=== PATIENT | male | born 1965 | race Caucasian/White ===

== ENCOUNTER 2016-10-06 18:02 | Inpatient (IN) | payer MEDICARE, OTHER ==
[~2016-10-06] VITALS: Ht 170.2 cm; Wt 94.8 kg
[~2016-10-06 18:02] MED LIST: ATOR20TA38 PO; BENA40TA41 PO; CALC500T12 PO; CARV12.579 PO; FERGON PO; INSU100I27 SC; NEPH PO; NOVO3I SC; NPH,100V SC
[2016-10-06] MEDS ORDERED: morphine 4 MG/ML VIAL IV STA (20:15)
[2016-10-06] MEDS ORDERED: NOVO3I SC (20:32)
[2016-10-06] MEDS ORDERED: ONDANSETRON 4 MG INJ IV STA (20:33)
[2016-10-06] MEDS ORDERED: ZOLP10TA5 PO (20:34)
[2016-10-06] MEDS ORDERED: AMLO-147 PO (20:34)
[2016-10-06] MEDS ORDERED: HYDR-3671 PO (20:34)
[2016-10-06 20:35] LABS: ADD SCAN DIFF NO
[2016-10-06] MEDS ORDERED: LYR75 PO (20:35)
[2016-10-06] MEDS ORDERED: CARV25TA79 PO (20:36)
[2016-10-06] MEDS ORDERED: HYDROmorphONE 1 MG/ML SYG IV STA (20:41)
[2016-10-06 20:42] LABS: BASOPHILS % 0.4 % (0.0-2.0); EOSINOPHILS # 0.2 10^3/ul (0.0-0.5); EOSINOPHILS % 2.3 % (0.0-7.0); HEMATOCRIT 31.2 % (42.0-52.0); HEMOGLOBIN 10.5 g/dl (14.0-18.0); LYMPHOCYTES # 0.7 10^3/ul (0.8-2.9); LYMPHOCYTES % 6.7 % (15.0-51.0); MEAN CORPUSCULAR HEMOGLOBIN 30.1 pg (29.0-33.0); MEAN CORPUSCULAR HGB CONC 33.7 g/dl (32.0-37.0); MEAN CORPUSCULAR VOLUME 89.4 fl (82.0-101.0); MEAN PLATELET VOLUME 11.8 fl (7.4-10.4); MONOCYTE # 0.6 10^3/ul (0.3-0.9); MONOCYTES % 5.8 % (0.0-11.0); NEUTROPHIL # 8.3 10^3/ul (1.6-7.5); NEUTROPHILS % 84.5 % (39.0-77.0); PLATELET COUNT 153 10^3/UL (140-415); RED BLOOD COUNT 3.49 10^6/ul (4.70-6.10); RED CELL DISTRIBUTION WIDTH 15.9 % (11.5-14.5); WHITE BLOOD COUNT 9.8 10^3/ul (4.8-10.8)
[2016-10-06] MEDS ORDERED: LEVOFLOXACIN 750MG/D5W (PMX) 150 ML IVPB STA (20:43)
[2016-10-06] MEDS ORDERED: VANCOMYCIN 1 GM (PMX) 250 ML IVPB STA (20:43)
[2016-10-06] MEDS ORDERED: PANT40TA4 PO (20:44)
[2016-10-06 20:47] LABS: ALBUMIN 3.7 g/dl (3.3-4.9)
[2016-10-06 20:48] LABS: INR 0.95; POTASSIUM 5.3 mmol/L (3.5-5.1); PROTIME 12.7 Sec (12.2-14.2)
[2016-10-06 20:49] LABS: PARTIAL THROMBOPLASTIN TIME 30.2 Sec (25.0-35.0)
[2016-10-06 20:50] LABS: ALBUMIN/GLOBULIN RATIO 0.97; CREATININE 12.53 mg/dl (0.61-1.24); TOTAL PROTEIN 7.5 g/dl (6.1-8.1)
[2016-10-06 20:51] LABS: CALCIUM 7.2 mg/dl (8.4-10.2)
[2016-10-06] MEDS ORDERED: DARB60VI IJ (21:02)
--- NOTE | 2016-10-06 21:28 | RADRPT ---
PROCEDURE: CR, chest CLINICAL INDICATION: Chest pain. TECHNIQUE: AP chest. COMPARISON: Chest, 07/12/2016. FINDINGS: The heart is somewhat enlarged. There is status post CABG. There is discoid atelectasis in the lef t lower lobe. There is no acute infiltrate in the lungs. No pleural effusion. IMPRESSION: 1. Mild cardiomegaly. Status post CABG. 2. Discoid atelectasis in the left lower lobe, unchanged. RPTAT: GG .Almas Curtis MD, MD Date Time Electronically viewed and signed by .Almas Curtis MD, MD on 10/06/2016 21:28 .Y/
[2016-10-06] MEDS ORDERED: ACETAMINOPHEN 325 MG TAB PO PRN (22:00)
[2016-10-06] MEDS ORDERED: ONDANSETRON 4 MG INJ IV PRN (22:00)
--- NOTE | 2016-10-06 22:05 | RADRPT ---
PROCEDURE: CT abdomen and pelvis without intravenous contrast. CLINICAL INDICATION: Pain. TECHNIQUE: CT of the abdomen/pelvis was performed utilizing axial images with reconstructions in s agittal and coronal planes. The administered radiation dose is CTDI 14.5 mGy, DLP 956 mGy-cm. COMPARISON: No pertinent prior examinations were submitted for comparison. FINDINGS: Visualized Chest: Left-sided gynecomastia is noted. There is moderate cardiomegaly. Coronary arter y calcifications are noted. There is subsegmental atelectasis within the left lower lobe. Some calc ified left hilar lymph nodes are noted. A calcified granuloma is noted in the subpleural left lower lobe. Abdomen: The spleen, pancreas, gallbladder,and adrenal glands are unremarkable. The liver is diffusely dec reased in attenuation, compatible with hepatic steatosis. The kidneys are without hydronephrosis. No definite urinary calculi are seen. There is no evidence of bowel obstruction. The appendix is not seen. There is no evidence of acute appendicitis. No intra-abdominal free air is seen. There is mild intra-abdominal ascites. Pelvis: A peritoneal dialysis catheter is seen within the pelvis. There is a moderate amount of pelvic free fluid. There are moderate-sized bilateral inguinal hernias which contain fat and ascites. There is mild concentric thickening of the bladder canseco. The prostate is unremarkable. No pelvic adenopath y is identified. Osseous structures: Unremarkable. IMPRESSION: There is an ill dialysis catheter within the lower abdomen with moderate pelvic and intra-abdominal ascites. Concentric bladder wall thickening. Please correlate with urinalysis to exclude infection. Moderate bilateral inguinal hernias. Hepatic steatosis. RPTAT: HIKT .Jered Matson MD, Date Time Electronically viewed and signed by .Jered Matson MD, on 10/06/2016 22:04 .T/
--- NOTE | 2016-10-06 22:12 | ERA ---
ER Documentation Chief Complaint Date/Time DATE: 10/06/16 TIME: 22:05 Chief Complaint abdominal pain after dialysis earlier today HPI 51-year-old male with a history of coronary artery disease, diabetes, CKD on peritoneal dialysis presenting with severe abdominal pain for one day. He had associated diarrhea today. He has had associated subjective fevers and chills. No nausea, vomiting, chest pain, shortness of breath. He endorses a history of peritonitis, and states that this feels like the last time he had peritonitis. Pain is located mostly in the left lower quadrant but radiates all over his abdomen. Pain is 10 out of 10. ROS All systems reviewed and are negative except as per history of present illness. Medications Home Meds Active Scripts Insulin NPH Human Isophane (Humulin N) 100 Unit/1 Ml Vial, 10 UNIT SC HS for 30 Days, VIAL Prov:RONIT ROJAS 06/22/16 Insulin Detemir (Levemir Flextouch) 100 Unit/1 Ml Insuln.pen, 16 UNIT SC QHS for 30 Days Prov:RONIT ROJAS 06/22/16 Reported Medications Darbepoetin Fly in Polysorbat (Aranesp) 60 Mcg/1 Ml Vial, 60 MCG IJ Q7D, VIAL 10/06/16 Pantoprazole* (Pantoprazole*) 40 Mg Tablet.dr, 40 MG PO AC BREAKFAST, TAB 10/06/16 Carvedilol* (Carvedilol*) 25 Mg Tablet, 25 MG PO BID, #60 TAB 10/06/16 Pregabalin* (Lyrica*) 75 Mg Capsule, 75 MG PO BID, CAP 10/06/16 Amlodipine Besylate* (Amlodipine Besylate*) 10 Mg Tablet, 10 MG PO DAILY, #30 TAB 10/06/16 Zolpidem Tartrate* (Zolpidem Tartrate*) 10 Mg Tablet, 10 MG PO QHS Y for INSOMNIA, #30 TAB 10/06/16 Hydralazine Hcl* (Hydralazine Hcl*) 25 Mg Tab, 25 MG PO Q8, #90 TAB 10/06/16 Insulin Aspart* (Novolog Insulin Pen*) 100 Unit/Ml Soln, 0 SC .SLIDING SCALE AC , EA AC MEALS 10/06/16 Atorvastatin Calcium* (Atorvastatin Calcium*) 20 Mg Tablet, 20 MG PO HS, TAB 11/7/15 Multivit/Ca Carb/B Cmplx/Fa* (Pat-Tommy*) 1 Tab Tab, 1 TAB PO DAILY, TAB 08/26/14 Discontinued Reported Medications Benazepril Hcl* (Benazepril Hcl*) 40 Mg Tablet, 40 MG PO DAILY, TAB 06/18/15 Carvedilol* (Carvedilol*) 12.5 Mg Tablet, 12.5 MG PO BID, TAB 06/18/15 Calcium Carbonate* (Oysco-500*) 1 Tab Tablet, 1 TAB PO TID, TAB 08/26/14 Discontinued Scripts Insulin Aspart* (Novolog Insulin Pen*) 100 Unit/Ml Soln, 14 UNIT SC WITH DINNER for 30 Days Prov:RONIT ROJAS 06/22/16 Insulin Aspart* (Novolog Insulin Pen*) 100 Unit/Ml Soln, 17 UNIT SC WITH LUNCH for 30 Days Prov:RONIT ROJAS 06/22/16 Insulin Aspart* (Novolog Insulin Pen*) 100 Unit/Ml Soln, 14 UNIT SC WITH BREAKFAST for 30 Days Prov:RONIT ROJAS 06/22/16 Ferrous Gluconate* (Fergon*) 325 Mg Tab, 325 MG PO BID for 30 Days, TAB Prov:RONIT ROJAS 06/22/16 Allergies Allergies: Coded Allergies: No Known Drug Allergies (Verified Allergy, Mild, 10/06/16) PMhx/Soc History of Surgery: Yes (CABG,PICC LINE, INSERTION PERITONEAL DIALYSIS) Anesthesia Reaction: No Hx Neurological Disorder: No Hx Respiratory Disorders: No Hx Cardiac Disorders: Yes ([place]) Hx Psychiatric Problems: No Hx Miscellaneous Medical Probl: Yes (PVD, ANEMIA, HTN, DM.) Hx Alcohol Use: No Hx Substance Use: No Hx Tobacco Use: No Smoking Status: Never smoker FmHx Family History: diabetes (father) Physical Exam Vitals Vital Signs Date Time Temp Pulse Resp B/P Pulse Ox O2 Delivery O2 Flow Rate FiO2 10/06/16 20:15 100.2 88 16 148/82 97 Room Air 10/06/16 18:05 97.8 84 18 140/70 97 Physical Exam Const: Patient significant distress secondary to pain, nontoxic Head: Atraumatic Eyes: Normal Conjunctiva ENT: Normal External Ears, Nose and Mouth. Neck: Full range of motion..~ No meningismus. Resp: Clear to auscultation bilaterally Cardio: Regular rate and rhythm, no murmurs Abd: Abdomen is distended, tender to light palpation, positive peritoneal signs. + Rebound or guarding. Hypoactive bowel sounds. Skin: No petechiae or rashes Back: Bilateral CVA tenderness Ext: No cyanosis, or edema Neur: Awake and alert and oriented 3, strength and sensations intact in all 4 extremities Psych: Normal Mood and Affect Result Diagram: 10/06/16201910/06/162019 Results 24 hrs Laboratory Tests Test 10/06/16 20:20 Activated Partial Thromboplast Time 30.2Sec Alanine Aminotransferase (ALT/SGPT) 32IU/L Albumin 3.7g/dl Albumin/Globulin Ratio 0.97 Alkaline Phosphatase 276IU/L Anion Gap 26 Aspartate Amino Transf (AST/SGOT) 25IU/L Basophils # 0.010^3/ul Basophils % 0.4% Blood Urea Nitrogen 81mg/dl Calcium Level 7.2mg/dl Carbon Dioxide Level 22mmol/L Chloride Level 95mmol/L Creatinine 12.53mg/dl Direct Bilirubin 0.00mg/dl Eosinophils # 0.210^3/ul Eosinophils % 2.3% Globulin 3.80g/dl Glucose Level 215mg/dl Hematocrit 31.2% Hemoglobin 10.5g/dl INR International Normalized Ratio 0.95 Indirect Bilirubin 0.0mg/dl Lipase 221U/L Lymphocytes # 0.710^3/ul Lymphocytes % 6.7% Mean Corpuscular Hemoglobin 30.1pg Mean Corpuscular Hemoglobin Concent 33.7g/dl Mean Corpuscular Volume 89.4fl Mean Platelet Volume 11.8fl Monocytes # 0.610^3/ul Monocytes % 5.8% Neutrophils # 8.310^3/ul Neutrophils % 84.5% Nucleated Red Blood Cells # 0.010^3/ul Nucleated Red Blood Cells % 0.0/100WBC Platelet Count 58197^3/UL Potassium Level 5.3mmol/L Prothrombin Time 12.7Sec Prothrombin Time Ratio 1.0 Red Blood Count 3.4910^6/ul Red Cell Distribution Width 15.9% Sodium Level 138mmol/L Total Bilirubin 0.0mg/dl Total Protein 7.5g/dl White Blood Count 9.810^3/ul Current Medications Medications (Trade) Dose Ordered Sig/Liliana Route PRN Reason Start Time Stop Time Status Last Admin Dose Admin Morphine Sulfate (morphine) 4 mg ONCE STAT IV 10/06/16 20:15 10/06/16 20:21 DC 10/06/16 20:38 Ondansetron HCl (Zofran Inj) 4 mg ONCE STAT IV 10/06/16 20:33 10/06/16 20:35 DC 10/06/16 20:38 Hydromorphone HCl 1 mg 1 mg ONCE STAT IV 10/06/16 20:41 10/06/16 20:46 DC 10/06/16 20:50 Vancomycin HCl 250 ml @ 125 mls/hr ONCE STAT IVPB 10/06/16 20:43 10/06/16 22:42 Levofloxacin/ Dextrose (Levaquin 750 Mg/ D5W 150 ml (Pmx)) 150 ml @ 100 mls/hr ONCE STAT IVPB 10/06/16 20:43 10/06/16 22:12 10/06/16 20:50 Ondansetron HCl (Zofran Inj) 4 mg ER BRIDGE PRN IV NAUSEA AND/OR VOMITING 10/06/16 22:00 10/07/16 21:59 Acetaminophen (Tylenol Tab) 650 mg ER BRIDGE PRN PO MILD PAIN/FEVER 10/06/16 22:00 10/07/16 21:59 Procedures/MDM Patient's symptoms and exam are concerning for peritonitis from peritoneal dialysis. He has a low-grade fever but no other signs of sepsis. CT abdomen and pelvis were ordered to evaluate for intra-abdominal abscess or other acute intra -abdominal pathology. Dilaudid was given with significant improvement of his pain. Blood cultures were sent. He was started on IV broad-spectrum antibiotics. Labs did not show any acute abnormalities other than borderline hyperkalemia. Body fluid states were ordered. I spoke with , who knows the patient, who will admit him to the hospital for peritoneal antibiotics. Departure Diagnosis: Primary Impression: Peritonitis Additional Impression: History of peritoneal dialysis Condition: Serious CIRILO QUINTANA MD Oct 06, 2016 22:12
[2016-10-07] MEDS ORDERED: ACETAMINOPHEN 325 MG TAB PO PRN ×2 (00:30→01:00)
[2016-10-07] MEDS ORDERED: ONDANSETRON 4 MG INJ IV PRN ×2 (00:30→01:00)
[2016-10-07 01:18] LABS: FLUID TYPE PERITONEAL
[2016-10-07 01:19] LABS: FLUID APPEARANCE SLIGHTLY HAZY; FLUID VOLUME 1.5 ml; FLUID WBC'S 648 /cmm
[2016-10-07 01:20] LABS: FLUID LYMPHOCYTES 4 %; FLUID MONOCYTES 5 %; FLUID NEUTROPHILS 91 %; FLUID RBC EST 0
[2016-10-07] MEDS: morphine 2 MG INJ IV PRN ×4 (04:12→17:18)
[2016-10-07 07:32] VITALS: TEMP 98.8
[2016-10-07] MEDS ORDERED: VANCOMYCIN INJ SCH (15:30)
[2016-10-07 15:55] VITALS: BP 96/56; PULSE 69
--- NOTE | 2016-10-07 16:32 | HP ---
Date/Time of Note Date/Time of Note DATE: 10/07/16 TIME: 16:11 Assessment/Plan Assessment/Plan Assessment/Plan -Peritonitis - id consult - Hx Peritoneal dialysis - nephrology consult - DM - glycemic control PLAN -Admit to floor - See admission orders Plan of care discussed with - all Qs ANSWERED. yvonne Sanchez/staff HPI/ROS Admit Date/Time Admit Date/Time Hx of Present Illness Chief Complaint abdominal pain after dialysis earlier today HPI 51-year-old male with a history of coronary artery disease, diabetes, CKD on peritoneal dialysis presenting with severe abdominal pain for one day. He had associated diarrhea today. He has had associated subjective fevers and chills. No nausea, vomiting, chest pain, shortness of breath. He endorses a history of peritonitis, and states that this feels like the last time he had peritonitis. Pain is located mostly in the left lower quadrant but radiates all over his abdomen. Pain is 10 out of 10. ROS All systems reviewed and are negative except as per history of present illness. Medications Home Meds Active Scripts Insulin NPH Human Isophane (Humulin N) 100 Unit/1 Ml Vial, 10 UNIT SC HS for 30 Days, VIAL Prov:RONIT ROJAS 06/22/16 Insulin Detemir (Levemir Flextouch) 100 Unit/1 Ml Insuln.pen, 16 UNIT SC QHS for 30 Days Prov:RONIT ROJAS 06/22/16 Reported Medications Darbepoetin Fly in Polysorbat (Aranesp) 60 Mcg/1 Ml Vial, 60 MCG IJ Q7D, VIAL 10/06/16 Pantoprazole* (Pantoprazole*) 40 Mg Tablet., 40 MG PO AC BREAKFAST, TAB 10/06/16 Carvedilol* (Carvedilol*) 25 Mg Tablet, 25 MG PO BID, #60 TAB 10/06/16 Pregabalin* (Lyrica*) 75 Mg Capsule, 75 MG PO BID, CAP 10/06/16 Amlodipine Besylate* (Amlodipine Besylate*) 10 Mg Tablet, 10 MG PO DAILY, #30 TAB 10/06/16 Zolpidem Tartrate* (Zolpidem Tartrate*) 10 Mg Tablet, 10 MG PO QHS Y for INSOMNIA, #30 TAB 10/06/16 Hydralazine Hcl* (Hydralazine Hcl*) 25 Mg Tab, 25 MG PO Q8, #90 TAB 10/06/16 Insulin Aspart* (Novolog Insulin Pen*) 100 Unit/Ml Soln, 0 SC .SLIDING SCALE AC , EA AC MEALS 10/06/16 Atorvastatin Calcium* (Atorvastatin Calcium*) 20 Mg Tablet, 20 MG PO HS, TAB 06/18/15 Multivit/Ca Carb/B Cmplx/Fa* (Pat-Tommy*) 1 Tab Tab, 1 TAB PO DAILY, TAB 08/26/14 Discontinued Reported Medications Benazepril Hcl* (Benazepril Hcl*) 40 Mg Tablet, 40 MG PO DAILY, TAB 06/18/15 Carvedilol* (Carvedilol*) 12.5 Mg Tablet, 12.5 MG PO BID, TAB 06/18/15 Calcium Carbonate* (Oysco-500*) 1 Tab Tablet, 1 TAB PO TID, TAB 08/26/14 Discontinued Scripts Insulin Aspart* (Novolog Insulin Pen*) 100 Unit/Ml Soln, 14 UNIT SC WITH DINNER for 30 Days Prov:RONIT ROJAS 06/22/16 Insulin Aspart* (Novolog Insulin Pen*) 100 Unit/Ml Soln, 17 UNIT SC WITH LUNCH for 30 Days Prov:RONIT ROJAS 06/22/16 Insulin Aspart* (Novolog Insulin Pen*) 100 Unit/Ml Soln, 14 UNIT SC WITH BREAKFAST for 30 Days Prov:RONIT ROJAS 06/22/16 Ferrous Gluconate* (Fergon*) 325 Mg Tab, 325 MG PO BID for 30 Days, TAB Prov:RONIT ROJAS 06/22/16 Allergies Allergies: Coded Allergies: No Known Drug Allergies (Verified Allergy, Mild, 10/06/16) ROS Constitutional: other (c/o pain) Eyes: no complaints ENT: no complaints Respiratory: no complaints Cardiovascular: no complaints Gastrointestinal: other, pain Genitourinary: no complaints Musculoskeletal: no complaints Skin: no complaints Neurologic: no complaints Lymphatic: no complaints Psychological: no complaints Immunologic: no complaints PMH/Family/Social Past Medical History PMhx/Soc History of Surgery: Yes (CABG,PICC LINE, INSERTION PERITONEAL DIALYSIS) Anesthesia Reaction: No Hx Neurological Disorder: No Hx Respiratory Disorders: No Hx Cardiac Disorders: Yes ([place]) Hx Psychiatric Problems: No Hx Miscellaneous Medical Probl: Yes (PVD, ANEMIA, HTN, DM.) Hx Alcohol Use: No Hx Substance Use: No Hx Tobacco Use: No Smoking Status: Never smoker FmHx Family History: diabetes (father) Physical Exam Vitals Vital Signs Date Time Temp Pulse Resp B/P Pulse Ox O2 Delivery O2 Flow Rate FiO2 10/06/16 20:15 100.2 88 16 148/82 97 Room Air 10/06/16 18:05 97.8 84 18 140/70 97 Past Surgical History Past Surgical Hx: appendectomy, coronary bypass surgery, other Social History Smoking Status: Never smoker Exam/Review of Systems Vital Signs Vitals Vital Signs Date Time Temp Pulse Resp B/P Pulse Ox O2 Delivery O2 Flow Rate FiO2 10/07/16 15:55 69 10/07/16 12:46 11 96/56 Room Air 10/07/16 07:32 98.8 96 Intake and Output 10/06/16 10/06/16 10/07/16 15:00 23:00 07:00 Intake Total 150 ml 250 ml Balance 150 ml 250 ml Exam Exam Patient significant distress secondary to pain, nontoxic Constitutional: alert, oriented, well developed Psych: nl mood/affect Head: atraumatic Eyes: EOMI, PERRL, nl sclera ENMT: nl external ears & nose Neck: non-tender Respiratory: clear to auscultation Cardiovascular: nl pulses Gastrointestinal: distended, other (Abdomen is distended, tender to light palpation, positive peritoneal signs. + Rebound or guarding. Hypoactive bowel sounds.) Musculoskeletal: nl extremities to inspection Extremities: normal pulses Neurological: nl mental status, nl speech Skin: nl turgor Labs Result Diagram: 10/06/16201910/06/162019 Medications Medications Current Medications Morphine Sulfate 2 mg 2 mg Q4 PRN IV PAIN LEVEL 4-7 Last administered on t 12:58; Admin Dose 2 MG; Start 10/07/16 at 04:00 Vancomycin HCl/ Non-Formulary Medication (Vancocin) 250 ml @ 0 mls/hr ONCE INJ ; Start 10/07/16 at 15:30; Stop 10/07/16 at 23:45 ORIANA OATES Oct 07, 2016 16:22
--- NOTE | 2016-10-07 16:55 | CONS ---
Date/Time of Note Date/Time of Note DATE: 10/07/16 TIME: 16:43 Assessment/Plan Assessment/Plan Additional Assessment/Plan 51y/o man with 1. PD associated peritonitis. Last time he was apparently treated with intra- peritoneal vancomycin with good effect. A culture is pending and vancomycin has been initiated already. If no significant improvement overnight or if there is decompensation, would add GNR coverage with ceftriaxone. 2. ESRD on PD. Will treat peritonitis with intra-peritoneal abx 3. 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 Recommendations: 1. Continue intraperitoneal dosing of vancomycin; present and first dose is to sit overnight within the peritoneum 2. Has received a dose of levofloxacin in the ED; consider continuation of this at q48h dosing intervals if the peritoneal cultures are negative. Consultation Date/Type/Reason Admit Date/Time Date of Consultation: Oct 07, 2016 Type of Consultation: Infectious Diseases Reason for Consultation Peritonitis Referring Provider: YENIFER DAVIES MD Hx of Present Illness Mr. Melchor is a 51y/o man with a history of DM and ESRD on PD x3y who presented to the ED yesterday with acute onset of abdominal pain. The patient was in his usual state of health until the afternoon prior to admission when he developed abdominal pain with radiation to the right flank. There was a few episodes of loose stool that afternoon. During the night he developed chills and rigors but no fever. The pain increased and he came to the ED. The patient has had this PD catheter in since initiation of PD 3y ago. The last episode of peritonitis was about one year ago, and the cultures at the time (it was here) were negative. The patient was sent home on vancomycin by PD infusion as treatment. In the ED the patient was given IV vancomycin and levofloxacin and vancomycin has just been infused into his peritoneum. He states he has had SAINI with the fever, no further loose stool, no CP, SOB, dysphagia, dysuria, myalgia , arthralgia, rash, photophobia. Patient makes about 200mL of urine per day. Effluent from the PD catheter is very cloudy (can see in ED). Recent fall has resulted in abrasions to bilateral hands. Due to recent right great toe amputation and difficulty with balance. Negative on a 14 point review of systems except as noted in the HPI. Eyes: no complaints ENT: no complaints Respiratory: no complaints Cardiovascular: no complaints Gastrointestinal: other, pain Genitourinary: no complaints Musculoskeletal: no complaints Skin: no complaints Neurologic: no complaints Lymphatic: no complaints Psychological: nl mood/affect Immunologic: no complaints Past Medical History DM, PVD s/p right great toe amputation last year, ESRD, CAD Past Surgical History Past Surgical Hx: appendectomy, coronary bypass surgery, other Family History Significant Family History: no pertinent family hx Social History Alcohol Use: none Smoking Status: Never smoker Drug Use: none Other Social History Lives nearby with his who was with him in the ED Exam/Review of Systems Vital Signs Vitals Vital Signs Date Time Temp Pulse Resp B/P Pulse Ox O2 Delivery O2 Flow Rate FiO2 10/07/16 15:55 69 10/07/16 12:46 11 96/56 Room Air 10/07/16 07:32 98.8 96 Intake and Output 10/06/16 10/06/16 10/07/16 15:00 23:00 07:00 Intake Total 150 ml 250 ml Balance 150 ml 250 ml Exam Constitutional: alert, distress, oriented, well developed Psych: nl mood/affect, no complaints Head: atraumatic, normocephalic Eyes: EOMI, PERRL, nl conjunctiva, nl lids, other (scleral hemorrhage OS) ENMT: nl external ears & nose, nl lips & teeth, nl nasal mucosa & septum Neck: non-tender, supple Respiratory: clear to auscultation, normal air movement Cardiovascular: nl pulses, other (regular, tachy) Gastrointestinal: ascites, bowel sounds, distended, other (PD catheter), surgical scars, tender, No firm, No mass, No rebound or guarding Genitourinary - Male: nl penis, nl scrotum Musculoskeletal: nl extremities to inspection, nl gait and stance, other ( right great toe amputation site is well healed) Extremities: normal pulses, No clubbing, No edema Neurological: SUPERVISOR PUMPING II-XII intact, nl mental status, nl speech, nl strength Skin: nl turgor, No rash or lesions Lymph: nl lymph nodes Results Result Diagram: 10/06/16201910/06/162019 Results 24 hrs Laboratory Tests Test 10/06/16 20:20 10/06/16 20:44 Activated Partial Thromboplast Time 30.2 Alanine Aminotransferase (ALT/SGPT) 32 Albumin 3.7 Albumin/Globulin Ratio 0.97 Alkaline Phosphatase 276 H Anion Gap 26 H Aspartate Amino Transf (AST/SGOT) 25 Basophils # 0.0 Basophils % 0.4 Blood Urea Nitrogen 81 H Calcium Level 7.2 L Carbon Dioxide Level 22 Chloride Level 95 L Creatinine 12.53 H Direct Bilirubin 0.00 Eosinophils # 0.2 Eosinophils % 2.3 Globulin 3.80 H Glucose Level 215 Hematocrit 31.2 L Hemoglobin 10.5 L INR International Normalized Ratio 0.95 Indirect Bilirubin 0.0 Lipase 221 Lymphocytes # 0.7 L Lymphocytes % 6.7 L Mean Corpuscular Hemoglobin 30.1 Mean Corpuscular Hemoglobin Concent 33.7 Mean Corpuscular Volume 89.4 Mean Platelet Volume 11.8 #H Monocytes # 0.6 Monocytes % 5.8 Neutrophils # 8.3 H Neutrophils % 84.5 H Nucleated Red Blood Cells # 0.0 Nucleated Red Blood Cells % 0.0 Platelet Count 153 Potassium Level 5.3 H Prothrombin Time 12.7 Prothrombin Time Ratio 1.0 Red Blood Count 3.49 L Red Cell Distribution Width 15.9 H Sodium Level 138 Total Bilirubin 0.0 L Total Protein 7.5 White Blood Count 9.8 # Body Fluid Appearance SLIGHTLY HAZY Body Fluid Color COLORLESS Body Fluid Lymphocytes (%) 4 Body Fluid Monocytes % 5 Body Fluid Neutrophils % 91 Body Fluid RBC 0 Body Fluid Type PERITONEAL Body Fluid Volume 1.5 Body Fluid WBC 648 Medications Medications Current Medications Morphine Sulfate 2 mg 2 mg Q4 PRN IV PAIN LEVEL 4-7 Last administered on t 12:58; Admin Dose 2 MG; Start 10/07/16 at 04:00 Vancomycin HCl/ Non-Formulary Medication (Vancocin) 250 ml @ 0 mls/hr ONCE INJ ; Start 10/07/16 at 15:30; Stop 10/07/16 at 23:45 Miscellaneous Information 1 ea NOTE XX ; Start 10/07/16 at 17:00 Glucose (Glutose) 15 gm Q15M PRN PO DECREASED GLUCOSE; Start 10/07/16 at 17:00 Glucose (Glutose) 22.5 gm Q15M PRN PO DECREASED GLUCOSE; Start 10/07/16 at 17: 00 Dextrose (D50w Syringe) 25 ml Q15M PRN IV DECREASED GLUCOSE; Start 10/07/16 at 17:00 Dextrose (D50w Syringe) 50 ml Q15M PRN IV DECREASED GLUCOSE; Start 10/07/16 at 17:00 Glucagon (Glucagen) 1 mg Q15M PRN IM DECREASED GLUCOSE; Start 10/07/16 at 17:00 Glucose (Glutose) 15 gm Q15M PRN BUCCAL DECREASED GLUCOSE; Start 10/07/16 at 17 :00 BJ MONROY Oct 07, 2016 16:55
[2016-10-07] MEDS ORDERED: GLUCAGON 1 MG INJ IM PRN (17:00)
[2016-10-07] MEDS ORDERED: DEXTROSE 50% 50 ML SYRINGE IV PRN ×2 (17:00)
[2016-10-07] MEDS ORDERED: GLUCOSE GEL 15 GRAM TUBE BUCCAL PRN (17:00)
[2016-10-07] MEDS ORDERED: GLUCOSE GEL 15 GRAM TUBE PO PRN ×2 (17:00)
[2016-10-07 17:05] VITALS: PULSE 80
[2016-10-07 17:20] VITALS: BP 125/66; PULSE 80; RESP 20; Ht 170.2 cm; Wt 94.8 kg
[2016-10-07] MEDS: INSULIN ASPART [NOVOLOG] 3 ML PEN SC SCH ×2 (18:05→21:00)
--- NOTE | 2016-10-07 18:36 | RADRPT ---
PROCEDURE: US bilateral upper extremity veins. CLINICAL INDICATION: Bilateral upper extremity pain and swelling. TECHNIQUE: Multiple longitudinal and transverse images of the bilateral upper extremity venous sheba e was obtained with hannah scale and color Doppler imaging. COMPARISON: None available FINDINGS: The internal jugular, subclavian, axillary, brachial, basilic, cephalic, radial, and ulnar veins are patent bilaterally. There is normal flow with augmentation and compressibility throughout. There i s no thrombus or occlusion. IMPRESSION: 1. Normal venous system of the upper extremities. No evidence of thrombus or occlusion. RPTAT: QQ .Matt Pennington MD, MD Date Time Electronically viewed and signed by .Matt Pennington MD, MD on 10/07/2016 18:36 .R/
--- NOTE | 2016-10-07 18:47 | RADRPT ---
PROCEDURE: US bilateral lower extremity veins. CLINICAL INDICATION: Bilateral leg pain and swelling. TECHNIQUE: Multiple longitudinal and transverse images of the bilateral lower extremity veins were obtained with hannah scale and color Doppler imaging. The common femoral vein, femoral vein, and popl iteal vein were evaluated. 2D grayscale measurements with compression sonography, color Doppler, and pulsed Doppler with augmentation. COMPARISON: No prior studies are available for comparison. FINDINGS: The bilateral common femoral, femoral and popliteal veins are normally compressible throughout. Col or flow demonstrates normal filling of the vessels. Normal waveforms are visualized and there is no rmal response to augmentation. IMPRESSION: 1. No evidence of deep vein thrombosis involving either lower extremity. RPTAT: QQ .Matt Pennington MD, MD Date Time Electronically viewed and signed by .Matt Pennington MD, on 10/07/2016 18:47 .R/
--- NOTE | 2016-10-07 19:14 | RADRPT ---
PROCEDURE: CT Brain without contrast. CLINICAL INDICATION: Trauma TECHNIQUE: A CT of the brain was perform utilizing axial imaging from the skull base through the v ertex without IV contrast. Multiplanar reformatted images were made. Images were reviewed on a PAC S workstation. The CTDIvol is 38 mGy and the DLP is 634 mGycm. COMPARISON: None FINDINGS: There is no intracranial hemorrhage, mass effect, or midline shift. No extra-axial fluid collection is seen. The ventricles and sulci are normal in size and configuration. The density of the brain is normal, and the hannah white matter differentiation appears well-preserved. The visualized osseous s tructures are grossly unremarkable. Is there is trace fluid in the left maxillary sinus. IMPRESSION: No intracranial hemorrhage or skull fracture. .Almas Dowd MD, MD Date Time Electronically viewed and signed by .Almas Dowd MD, MD on 10/07/2016 19:14 .A/
[2016-10-07 19:56] LABS: CHOL/HDL RATIO 3.3 RATIO
[2016-10-07 20:32] VITALS: PULSE 69
[2016-10-07 21:03] VITALS: BP 122/60; RESP 20
[2016-10-08] VITALS (15 sets, daily range): BP systolic 115–141; BP diastolic 53–71; PULSE 69–85; RESP 18–20
[2016-10-08] MEDS: ACETAMINOPHEN 325 MG TAB PO PRN (04:04)
[2016-10-08] MEDS: morphine 2 MG INJ IV PRN ×2 (04:04→17:23)
--- NOTE | 2016-10-08 06:35 | CONS ---
Date/Time of Note Date/Time of Note DATE: 10/08/16 TIME: 06:30 Assessment/Plan Assessment/Plan Problems: (1) Peritonitis Status: Acute (2) History of peritoneal dialysis Status: Acute (3) Type 2 diabetes mellitus with diabetic chronic kidney disease Status: Chronic Qualifiers: (4) Atherosclerotic heart disease of [place] coronary artery without angina pectoris Status: Chronic Additional Assessment/Plan vanco via pd cath d/w hd nurse Consultation Date/Type/Reason Admit Date/Time 432161 Reason for Consultation peritonitis in pd pt Hx of Present Illness on pd for 2 yrs last peritonitis 1 yr ago does ccpd 10 hrs daily noted pd fluid getting whititish colour and abd pain ,n/v Constitutional: no complaints Eyes: no complaints ENT: no complaints Respiratory: no complaints Cardiovascular: no complaints Gastrointestinal: no complaints, other, pain Genitourinary: no complaints, other Musculoskeletal: no complaints Skin: no complaints Neurologic: no complaints Lymphatic: no complaints Psychological: nl mood/affect, no complaints Immunologic: no complaints Past Medical History Medical History: coronary artery disease, renal disease Past Surgical History Past Surgical Hx: appendectomy, coronary bypass surgery, other Social History Alcohol Use: none Smoking Status: Never smoker Drug Use: none Exam/Review of Systems Vital Signs Vitals Vital Signs Date Time Temp Pulse Resp B/P Pulse Ox O2 Delivery O2 Flow Rate FiO2 10/08/16 04:00 85 10/08/16 04:00 100.2 20 124/62 97 10/07/16 21:00 Nasal Cannula 2.0 Exam Constitutional: alert, oriented, well developed Head: normocephalic Eyes: nl conjunctiva ENMT: nl external ears & nose Neck: supple Respiratory: clear to auscultation, normal air movement Cardiovascular: nl pulses, regular rate and rhythm Gastrointestinal: soft, tender Musculoskeletal: nl extremities to inspection Neurological: FUEL CELL ENGINEER II-XII intact, nl mental status Results Result Diagram: 10/06/16201910/06/162019 Results 24 hrs Laboratory Tests Test 10/07/16 17:22 10/07/16 19:20 10/07/16 21:03 Bedside Glucose 170 168 Cholesterol Level 130 Cholesterol/HDL Ratio 3.3 HDL Cholesterol 39 LDL Cholesterol, Calculated 57 Triglycerides Level 168 H Medications Medications Current Medications Morphine Sulfate (morphine) 2 mg Q4 PRN IV PAIN LEVEL 4-7 Last administered on 10/08/16t 04:04; Admin Dose 2 MG; Start 10/07/16 at 04:00 Miscellaneous Information 1 ea NOTE XX ; Start 10/07/16 at 17:00 Glucose (Glutose) 15 gm Q15M PRN PO DECREASED GLUCOSE; Start 10/07/16 at 17:00 Glucose (Glutose) 22.5 gm Q15M PRN PO DECREASED GLUCOSE; Start 10/07/16 at 17: 00 Dextrose (D50w Syringe) 25 ml Q15M PRN IV DECREASED GLUCOSE; Start 10/07/16 at 17:00 Dextrose (D50w Syringe) 50 ml Q15M PRN IV DECREASED GLUCOSE; Start 10/07/16 at 17:00 Glucagon (Glucagen) 1 mg Q15M PRN IM DECREASED GLUCOSE; Start 10/07/16 at 17:00 Glucose (Glutose) 15 gm Q15M PRN BUCCAL DECREASED GLUCOSE; Start 10/07/16 at 17 :00 Acetaminophen (Tylenol Tab) 650 mg Q6H PRN PO PAIN AND OR ELEVATED TEMP Last administered on 10/08/16 04:04; Admin Dose 650 MG; Start 10/08/16 at 04:00 TIGRE GARCIA MD Oct 08, 2016 06:35
[2016-10-08] MEDS: INSULIN ASPART [NOVOLOG] 3 ML PEN SC SCH ×4 (08:00→20:28)
--- NOTE | 2016-10-08 10:36 | CONS ---
Date/Time of Note Date/Time of Note DATE: 10/08/16 TIME: 10:32 Assessment/Plan Assessment/Plan Chief Complaint/Hosp Course assessment/impression - peritonitis associated with PD. 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, Cx grew pseudomonas, TVB=720 - s/p angioplasty for diffuse stenoses with focal occlusions of RLE on 06/20/2016 - PVD - CAD s/p CABG recommendations: - await the result of cultures of peritoneal dialysate - I recommend empiric ceftazidime (10/08/2016-) and vancomycin IP (10/06/2016-) - will adjust antibiotics based on the final culture results - discussed management with Pt, RN Sharifa, dialysis nurse Chase and pharmD Messi the total time I took to care for this Pt today was from 0930 to 1015 Problems: Consultation Date/Type/Reason Admit Date/Time Oct 07, 2016 at 00:49 Initial Consult Date 10/07/16 Type of Consultation: Infectious Diseases Referring Provider: YENIFER DAVIES MD 24 HR Interval Summary Constitutional: febrile Detailed Summary Eyes: no complaints ENT: no complaints Respiratory: no complaints Cardiovascular: no complaints Gastrointestinal: pain Genitourinary: other (PD) Musculoskeletal: no complaints Skin: no complaints Neurologic: no complaints Exam/Review of Systems Vital Signs Vitals Vital Signs Date Time Temp Pulse Resp B/P Pulse Ox O2 Delivery O2 Flow Rate FiO2 10/08/16 08:29 73 10/08/16 08:00 98.1 18 139/61 96 10/07/16 21:00 Nasal Cannula 2.0 Intake and Output 10/07/16 10/07/16 10/08/16 15:00 23:00 07:00 Intake Total 400 ml Balance 400 ml Exam Constitutional: frail Head: atraumatic, normocephalic Eyes: nl conjunctiva, nl lids ENMT: nl external ears & nose, nl nasal mucosa & septum Neck: supple Respiratory: clear to auscultation, normal air movement Cardiovascular: nl pulses, regular rate and rhythm Gastrointestinal: distended, firm, tender, No mass, No rebound or guarding Extremities: normal pulses Neurological: BLOCK MASON II-XII intact, nl mental status, nl speech Skin: nl turgor, other (s/p amputation of R 1st toe) Results Result Diagram: 10/06/16201910/06/162019 Results 24 hrs Laboratory Tests Test 10/07/16 17:22 10/07/16 19:20 10/07/16 21:03 10/08/16 08:30 Bedside Glucose 170 168 111 Cholesterol Level 130 Cholesterol/HDL Ratio 3.3 HDL Cholesterol 39 LDL Cholesterol, Calculated 57 Triglycerides Level 168 H Medications Medications Current Medications Morphine Sulfate (morphine) 2 mg Q4 PRN IV PAIN LEVEL 4-7 Last administered on 10/08/16 04:04; Admin Dose 2 MG; Start 10/07/16 at 04:00 Miscellaneous Information 1 ea NOTE XX ; Start 10/07/16 at 17:00 Glucose (Glutose) 15 gm Q15M PRN PO DECREASED GLUCOSE; Start 10/07/16 at 17:00 Glucose (Glutose) 22.5 gm Q15M PRN PO DECREASED GLUCOSE; Start 10/07/16 at 17: 00 Dextrose (D50w Syringe) 25 ml Q15M PRN IV DECREASED GLUCOSE; Start 10/07/16 at 17:00 Dextrose (D50w Syringe) 50 ml Q15M PRN IV DECREASED GLUCOSE; Start 10/07/16 at 17:00 Glucagon (Glucagen) 1 mg Q15M PRN IM DECREASED GLUCOSE; Start 10/07/16 at 17:00 Glucose (Glutose) 15 gm Q15M PRN BUCCAL DECREASED GLUCOSE; Start 10/07/16 at 17 :00 Acetaminophen (Tylenol Tab) 650 mg Q6H PRN PO PAIN AND OR ELEVATED TEMP Last administered on 10/08/16 04:04; Admin Dose 650 MG; Start 10/08/16 at 04:00 Miscellaneous Information (* Miscellaneous Pharmacy Order) ceftazidime pharmacy to d... ONCE XX ; Start 10/08/16 at 10:30; Stop 10/15/16 at 10:29 Miscellaneous Information (* Miscellaneous Pharmacy Order) vancomycin pharmacy to dose ... ONCE XX ; Start 10/08/16 at 10:30; Stop 10/15/16 at 10:29 REX BENITEZ M.D. Oct 08, 2016 10:36
[2016-10-08 10:37] LABS: POTASSIUM 5.8 mmol/L (3.5-5.1)
[2016-10-08 10:41] LABS: CALCIUM 6.7 mg/dl (8.4-10.2)
[2016-10-08 11:06] LABS: CREATININE 14.69 mg/dl (0.61-1.24)
[2016-10-08] MEDS: [UNRECOGNIZED DRUG - OTHER] IRR SCH ×2 (15:00→22:00)
[2016-10-08] MEDS: CEFTAZIDIME IRR SCH ×2 (15:00→22:00)
--- NOTE | 2016-10-08 15:01 | CONS ---
Date/Time of Note Date/Time of Note DATE: 10/08/16 TIME: 15:01 Assessment/Plan Assessment/Plan Chief Complaint/Hosp Course 51-year-old male with h/o coronary artery disease s/p CABG, DM, PVD, ESRD on peritoneal dialysis that was placed 2013 now peritonitis Plan: -Appreciate medical management -Cont abx per nephrology; if no improvement then may need PD catheter removal w / conversion to HD -R 1st toe amp site w/o issues, perfusion intact Thank you and please call with questions Problems: Consultation Date/Type/Reason Admit Date/Time Oct 07, 2016 at 00:49 Date of Consultation: Oct 08, 2016 Reason for Consultation PD catheter w/ peritonitis Hx of Present Illness 51-year-old male with h/o coronary artery disease s/p CABG, DM, PVD, ESRD on peritoneal dialysis that was placed 2013 now w/ severe abdominal pain with associated subjective fevers and chills. Pt has had episode of peritonitis about 1 year ago that was treated w/ peritoneal abx. He denies nausea, vomiting , chest pain, shortness of breath but did have diarrhea. He says PD catheter still functioning. He currently says abd pain mildly improved but still has abd distension and "feels cold". PD catheter effluent is less "hazy/cloudy" since abx per pt. He also has PVD s/p R 1st toe amp for non-healing wound after RLE angio w/ angiopalsty of R AT, he is doing well regarding this issue. All systems reviewed and are negative except as per history of present illness. Constitutional: febrile Eyes: no complaints ENT: no complaints Respiratory: no complaints Cardiovascular: no complaints Gastrointestinal: pain Genitourinary: no complaints, other (PD) Skin: no complaints Neurologic: no complaints Lymphatic: no complaints Psychological: nl mood/affect, no complaints Immunologic: no complaints Past Medical History Medical History: coronary artery disease, diabetes, high cholesterol, hypertension, renal disease, other (PVD) Past Surgical History Appendectomy, coronary bypass surgery, PD catheter, RLE angiogram w/ angioplasty R AT, R 1st toe amp Past Surgical Hx: appendectomy, coronary bypass surgery, other Social History Alcohol Use: none Smoking Status: Never smoker Drug Use: none Exam/Review of Systems Vital Signs Vitals Vital Signs Date Time Temp Pulse Resp B/P Pulse Ox O2 Delivery O2 Flow Rate FiO2 2/27/17 12:30 80 10/08/16 11:41 98.2 18 131/66 93 10/08/16 08:00 Nasal Cannula 2.0 Intake and Output 10/07/16 10/07/16 10/08/16 15:00 23:00 07:00 Intake Total 400 ml Balance 400 ml Exam Gen: AAOx3, NAD Neck: supple Lungs: clear Heart: Reg Abd: soft, distended, diffuse mild TTP but increased at LLQ, PD catheter exit c/ d/i Extr: palpable b/l DP pulses, warm, no edema, R 1st toe amp site healed Results Result Diagram: 10/06/16201910/08/16919 Results 24 hrs Laboratory Tests Test 10/07/16 17:22 10/07/16 19:20 10/07/16 21:03 10/08/16 08:30 Bedside Glucose 170 168 111 Cholesterol Level 130 Cholesterol/HDL Ratio 3.3 HDL Cholesterol 39 LDL Cholesterol, Calculated 57 Triglycerides Level 168 H Test 10/08/16 09:20 10/08/16 12:29 Anion Gap 22 H Blood Urea Nitrogen 98 H Calcium Level 6.7 L Carbon Dioxide Level 20 L Chloride Level 96 L Creatinine 14.69 #H Glucose Level 165 Hemoglobin A1c 6.8 H Potassium Level 5.8 H Sodium Level 132 L Bedside Glucose 284 H Medications Medications Current Medications Morphine Sulfate (morphine) 2 mg Q4 PRN IV PAIN LEVEL 4-7 Last administered on 10/08/16t 04:04; Admin Dose 2 MG; Start 10/07/16 at 04:00 Miscellaneous Information 1 ea NOTE XX ; Start 10/07/16 at 17:00 Glucose (Glutose) 15 gm Q15M PRN PO DECREASED GLUCOSE; Start 10/07/16 at 17:00 Glucose (Glutose) 22.5 gm Q15M PRN PO DECREASED GLUCOSE; Start 10/07/16 at 17: 00 Dextrose (D50w Syringe) 25 ml Q15M PRN IV DECREASED GLUCOSE; Start 10/07/16 at 17:00 Dextrose (D50w Syringe) 50 ml Q15M PRN IV DECREASED GLUCOSE; Start 10/07/16 at 17:00 Glucagon (Glucagen) 1 mg Q15M PRN IM DECREASED GLUCOSE; Start 10/07/16 at 17:00 Glucose (Glutose) 15 gm Q15M PRN BUCCAL DECREASED GLUCOSE; Start 10/07/16 at 17 :00 Acetaminophen 650 mg Q6H PRN PO PAIN AND OR ELEVATED TEMP Last administered on 10/08/16t 04:04; Admin Dose 650 MG; Start 10/08/16 at 04:00 Peritoneal Dialysis Solution/ Ceftazidime SEE CASINO SURVEILLANCE OFFICER ... Q8 IRR ; Start at 15:00; Stop 10/08/16 at 22:59 Peritoneal Dialysis Solution/ Ceftazidime Q8 IRR ; Start 10/08/16 at 23:00; Stop 10/09/16 at 06:59 Peritoneal Dialysis Solution/ Ceftazidime (Fortaz) Q8 IRR ; Start 10/09/16 at 07:00; Stop 10/09/16 at 07:01 JOS ROMAN MD Oct 08, 2016 15:01
[2016-10-08] MEDS ORDERED: ZOLPIDEM 5 MG TAB PO PRN (16:00)
--- NOTE | 2016-10-08 18:44 | PN ---
DATE: 10/08/2016 SUBJECTIVE: Follow up on 51-year-old gentleman with end-stage renal disease. Patient on peritoneal dialysis. Patient with history of coronary artery disease status post CABG, diabetes mellitus. Ozzy rhodes was admitted with abdominal pain, currently being treated for possible peritonitis. Patient c urrently is awake, alert. Denies any nausea, vomiting. Denies fever, chills. Patient stated that his abdominal tenderness is less to compare than on admission. OBJECTIVE: VITAL SIGNS: Temperature is 98.2, pulse is 76, blood pressure 131/66, respiratory rate 18, oxygen s aturation 93% on room air. GENERAL: Well-developed, obese male in no acute distress. HEENT: Head is atraumatic, normocephalic. PERRLA. NECK: Supple. No mass, no thyromegaly. LUNGS: Clear bilaterally. No rhonchi, wheezes, rales noted. HEART: Normal S1, S2. No murmurs, gallops, clicks, rubs noted. ABDOMEN: Protuberant, soft, slightly distended with mild tenderness. Patient has slight umbilical ecchymosis, and patient has a peritoneal catheter in the right lower quadrant. EXTREMITIES: No edema, clubbing, cyanosis. The patient is status post right great toe amputation w ith healed site. SKIN: There is no rash, petechiae. NEUROLOGIC: Patient is awake, alert, and oriented x3. LABORATORY DATA FOR TODAY: BMP: Sodium is 132, potassium 5.8, chloride 96, carbon dioxide 20, anio n gap 22, BUN is 98, creatinine 14.629, glucose 165. Hemoglobin A1c 6.8. ASSESSMENT AND PLAN: 1. Peritonitis associated with peritoneal catheter. Patient is followed by Dr. Ruiz's group in i nfectious disease consultation. Patient is undergoing peritoneal catheter irrigation with . 2. End-stage renal disease. Peritoneal dialysis dependent. Dr. Martinez is following in nephrology c onsultation. 3. Diabetes mellitus type 2 with hemoglobin on A1c 6.8. Continue patient's NovoLog per mild algori thm sliding scale. Continue 1800 ADA diet. 4. Coronary artery disease, status post coronary artery bypass graft. Continue patient on Coreg. 5. Hypertension. Continue Norvasc. 6. Hyperlipidemia. Continue Lipitor. 7. Continue sequential compression device for deep venous thrombosis prophylaxis. 8. Continue Pepcid for peptic ulcer disease prophylaxis. Further recommendations based on clinical course. Plan of care discussed with Dr. Davies. Dictated By: RONIT ROJAS COAL CHEMIST for YENIFER DAVIES MD SR/NTS Conf#: [id number] DID#: [id number]
--- NOTE | 2016-10-08 19:29 | CONS ---
DATE OF ADMISSION: 10/07/2016 DATE OF CONSULTATION: TYPE OF CONSULTATION: Gastroenterology. HISTORY OF PRESENT ILLNESS: The patient is a 51-year-old male with a history of diabetes mellitus, end-stage renal disease on peritoneal dialysis, presented to the emergency room with acute abdominal pain. No nausea, no vomiting, no chest pain, no shortness of breath. In the ER, he was evaluated. Diagnosis of peritonitis entertained and he was given vancomycin through the PD catheter and also IV Levaquin. No nausea, no vomiting, no chest pain, no shortness of breath. PAST MEDICAL HISTORY: Diabetes mellitus, history of peritonitis from infection ____, end-stage chrissie l disease on peritoneal dialysis. PHYSICAL EXAMINATION: GENERAL: Well-built, nourished, not in distress. VITAL SIGNS: Stable. HEENT: Unremarkable. NECK: Supple, no thyromegaly, no lymphadenopathy. CARDIOVASCULAR: No murmur, gallop or click. LUNGS: Clear. ABDOMEN: Soft, tenderness, diffuse, mild. EXTREMITIES: No edema. CENTRAL NERVOUS SYSTEM: Grossly within normal limits. IMPRESSION: 1. Abdominal pain secondary to peritonitis. 2. Status post PD catheter for end-stage renal disease and peritoneal dialysis. 3. Diabetes mellitus. 4. Peripheral vascular disease, status post right great toe amputation. 5. Coronary artery disease. PLAN: At this point is to continue present care. We will monitor these symptoms. Hopefully fluid was sent for analysis. So far, the cultures for mycobacterial and fungal has been negative. On aer obic culture also there was no growth. Gram stain showed multiple polymorph leukocytes. So, the plan is to continue antibiotic. Monitor him clinically, and will change the antibiotic depe nding upon the culture report. Dictated By: JANETTE LAGUNA/MANUELA Conf#: [id number] DID#: [id number]
[2016-10-08] MEDS: ATORVASTATIN 20 MG TAB PO SCH (20:26)
[2016-10-08] MEDS: PREGABALIN 75 MG CAP PO SCH (20:26)
[2016-10-08] MEDS: INSULIN DETEMIR [LEVEMIR] 3ML CART SC SCH (20:27)
[2016-10-08] MEDS: [UNRECOGNIZED DRUG - MIXTURE] IRR SCH (22:20)
--- NOTE | 2016-10-08 22:43 | CONS ---
Date/Time of Note Date/Time of Note DATE: 10/08/16 TIME: 22:34 Assessment/Plan Assessment/Plan Chief Complaint/Hosp Course Note low Ca Will add Phoslo+Vit D Rpt cell count May dc if ain is resolved Problems: Additional Assessment/Plan Will offer po Cipro for 1 wk at discharge Consultation Date/Type/Reason Admit Date/Time Oct 07, 2016 at 00:49 Initial Consult Date 10/08/16 Type of Consultation: Renal Reason for Consultation ESRD, Peritonitis Referring Provider: YENIFER DAVIES MD 24 HR Interval Summary Free Text/Dictation Pt says he's unsteady when he walks Exam/Review of Systems Vital Signs Vitals Vital Signs Date Time Temp Pulse Resp B/P Pulse Ox O2 Delivery O2 Flow Rate FiO2 10/08/16 20:30 Nasal Cannula 2.0 10/08/16 20:20 99.8 73 19 136/69 94 Intake and Output 10/07/16 10/07/16 10/08/16 15:00 23:00 07:00 Intake Total 400 ml Balance 400 ml Exam Constitutional: alert, oriented, well developed Psych: nl mood/affect, no complaints Head: atraumatic, normocephalic Eyes: EOMI, PERRL, nl conjunctiva, nl lids, nl sclera ENMT: nl external ears & nose, nl lips & teeth, nl nasal mucosa & septum Neck: non-tender, supple Respiratory: clear to auscultation, normal air movement Cardiovascular: nl pulses, regular rate and rhythm Gastrointestinal: nl liver, spleen, non-tender, other (PD Cath in place, exit site ok), soft Musculoskeletal: nl extremities to inspection, nl gait and stance Extremities: normal pulses, other (Lt ft big toe is surgically removed) Neurological: GAMER II-XII intact, nl mental status, nl speech, nl strength Skin: nl turgor, No rash or lesions Lymph: nl lymph nodes Results Result Diagram: 10/06/16201910/08/1620 Results 24 hrs Laboratory Tests Test 10/08/16 08:30 10/08/16 09:20 10/08/16 12:29 10/08/16 17:10 Bedside Glucose 111 284 H 194 Anion Gap 22 H Blood Urea Nitrogen 98 H Calcium Level 6.7 L Carbon Dioxide Level 20 L Chloride Level 96 L Creatinine 14.69 #H Glucose Level 165 Hemoglobin A1c 6.8 H Potassium Level 5.8 H Sodium Level 132 L Test 10/08/16 19:52 Bedside Glucose 225 H Medications Medications Current Medications Morphine Sulfate (morphine) 2 mg Q4 PRN IV PAIN LEVEL 4-7 Last administered on 10/08/16 17:23; Admin Dose 2 MG; Start 10/07/16 at 04:00 Miscellaneous Information 1 ea NOTE XX ; Start 10/07/16 at 17:00 Glucose (Glutose) 15 gm Q15M PRN PO DECREASED GLUCOSE; Start 10/07/16 at 17:00 Glucose (Glutose) 22.5 gm Q15M PRN PO DECREASED GLUCOSE; Start 10/07/16 at 17: 00 Dextrose (D50w Syringe) 25 ml Q15M PRN IV DECREASED GLUCOSE; Start 10/07/16 at 17:00 Dextrose (D50w Syringe) 50 ml Q15M PRN IV DECREASED GLUCOSE; Start 10/07/16 at 17:00 Glucagon (Glucagen) 1 mg Q15M PRN IM DECREASED GLUCOSE; Start 10/07/16 at 17:00 Glucose (Glutose) 15 gm Q15M PRN BUCCAL DECREASED GLUCOSE; Start 10/07/16 at 17 :00 Acetaminophen 650 mg Q6H PRN PO PAIN AND OR ELEVATED TEMP Last administered on 10/08/16 04:04; Admin Dose 650 MG; Start 10/08/16 at 04:00 Peritoneal Dialysis Solution/ Ceftazidime SEE COUNTER HOP ... Q8 IRR ; Start at 15:00; Stop 10/08/16 at 22:59 Peritoneal Dialysis Solution/ Ceftazidime Q8 IRR ; Start 10/08/16 at 23:00; Stop 10/09/16 at 06:59 Peritoneal Dialysis Solution/ Ceftazidime (Fortaz) Q8 IRR ; Start 10/09/16 at 07:00; Stop 10/09/16 at 07:01 Amlodipine Besylate (Norvasc) 10 mg DAILY PO ; Start 10/09/16 at 09:00 Atorvastatin Calcium (Lipitor) 20 mg HS PO Last administered on 10/08/16 20:26 ; Admin Dose 20 MG; Start 10/08/16 at 21:00 Carvedilol (Coreg) 25 mg BID PO Last administered on 10/08/16 20:26; Admin Dose 25 MG; Start 10/08/16 at 21:00 Insulin Detemir (Levemir) 16 unit QHS SC Last administered on 10/08/16 20:27; Admin Dose 16 UNIT; Start 10/08/16 at 21:00 Multivit/Ca Carb/ B Cmplx/FA/Prenat (Pat-Tommy) 1 tab DAILY PO ; Start 10/09/16 at 09:00 Pregabalin (Lyrica) 75 mg BID PO Last administered on 10/08/16 20:26; Admin Dose 75 MG; Start 10/08/16 at 21:00 Zolpidem Tartrate (Ambien) 10 mg QHS PRN PO INSOMNIA; Start 10/08/16 at 16:00 Insulin Human NPH (Humulin N) 10 unit HS SC ; Start 10/09/16 at 21:00 Diagnostic Test (Pha) (Accucheck) 1 ea 02 XX ; Start 10/09/16 at 02:00 MANOJ HARE MD Oct 08, 2016 22:43
[2016-10-08] MEDS: CALCITRIOL 0.25 MCG CAP PO SCH (23:00)
[2016-10-09] VITALS (15 sets, daily range): BP systolic 110–141; BP diastolic 50–84; PULSE 66–80; RESP 18–19
[2016-10-09] MEDS: ACCUCHECK AT 2AM (Patients on SS coverage) XX SCH (02:41)
[2016-10-09] MEDS: CIPROFLOXACIN 250 MG TAB PO SCH (05:20)
[2016-10-09] MEDS: ACETAMINOPHEN 325 MG TAB PO PRN (05:20)
[2016-10-09] MEDS: [UNRECOGNIZED DRUG - MIXTURE] IRR SCH (05:21)
[2016-10-09 05:47] LABS: ADD SCAN DIFF NO
[2016-10-09 05:51] LABS: BASOPHILS % 0.2 % (0.0-2.0); EOSINOPHILS # 0.3 10^3/ul (0.0-0.5); EOSINOPHILS % 3.3 % (0.0-7.0); HEMATOCRIT 24.2 % (42.0-52.0); HEMOGLOBIN 8.1 g/dl (14.0-18.0); LYMPHOCYTES # 0.9 10^3/ul (0.8-2.9); MEAN CORPUSCULAR HEMOGLOBIN 30.7 pg (29.0-33.0); MEAN CORPUSCULAR HGB CONC 33.5 g/dl (32.0-37.0); MEAN CORPUSCULAR VOLUME 91.7 fl (82.0-101.0); MEAN PLATELET VOLUME 11.6 fl (7.4-10.4); MONOCYTE # 0.7 10^3/ul (0.3-0.9); MONOCYTES % 7.6 % (0.0-11.0); NEUTROPHIL # 6.8 10^3/ul (1.6-7.5); NEUTROPHILS % 78.4 % (39.0-77.0); PLATELET COUNT 106 10^3/UL (140-415); RED BLOOD COUNT 2.64 10^6/ul (4.70-6.10); RED CELL DISTRIBUTION WIDTH 15.5 % (11.5-14.5); WHITE BLOOD COUNT 8.7 10^3/ul (4.8-10.8)
[2016-10-09 06:12] LABS: POTASSIUM 5.2 mmol/L (3.5-5.1)
[2016-10-09 06:15] LABS: CREATININE 13.52 mg/dl (0.61-1.24)
[2016-10-09 06:16] LABS: CALCIUM 6.8 mg/dl (8.4-10.2)
[2016-10-09] MEDS ORDERED: [UNRECOGNIZED DRUG - MIXTURE] IRR SCH ×4 (07:00→16:30)
[2016-10-09] MEDS: INSULIN ASPART [NOVOLOG] 3 ML PEN SC SCH ×4 (08:00→21:00)
[2016-10-09] MEDS: PREGABALIN 75 MG CAP PO SCH ×2 (08:51→21:39)
[2016-10-09] MEDS: CALCIUM ACETATE 667 MG CAP NGT SCH ×3 (08:51→18:05)
[2016-10-09] MEDS: MULTIVIT/CA CARB/B CMPLX/FA TAB PO SCH (08:51)
[2016-10-09] MEDS: CALCITRIOL 0.25 MCG CAP PO SCH ×2 (08:51→21:38)
[2016-10-09] MEDS: AMLODIPINE 10 MG TAB PO SCH (09:00)
[2016-10-09] MEDS: PANTOPRAZOLE (EC) 40 MG TAB PO SCH (09:02)
--- NOTE | 2016-10-09 10:15 | CONS ---
Date/Time of Note Date/Time of Note DATE: 10/09/16 TIME: 10:12 Assessment/Plan Assessment/Plan Chief Complaint/Hosp Course assessment/impression - peritonitis associated with PD. 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 Rose - will adjust his antibiotics based on the final culture results - discussed management with Pt, PharmD Mitchell Problems: Consultation Date/Type/Reason Admit Date/Time Oct 07, 2016 at 00:49 Initial Consult Date 10/07/16 Type of Consultation: ID Referring Provider: YENIFER DAVIES MD 24 HR Interval Summary Constitutional: febrile Detailed Summary Eyes: no complaints ENT: no complaints Respiratory: no complaints Cardiovascular: no complaints Gastrointestinal: pain (lower abdomen rated 4) Genitourinary: other (dialysis Pt) Skin: no complaints Exam/Review of Systems Vital Signs Vitals Vital Signs Date Time Temp Pulse Resp B/P Pulse Ox O2 Delivery O2 Flow Rate FiO2 10/09/16 08:00 66 10/09/16 07:45 98.5 18 115/56 97 10/08/16 20:30 Nasal Cannula 2.0 Intake and Output 10/08/16 10/08/16 10/09/16 15:00 23:00 07:00 Intake Total 120 ml 120 ml Balance 120 ml 120 ml Exam Constitutional: alert, oriented, well developed Psych: no complaints Head: normocephalic Eyes: nl conjunctiva, nl lids ENMT: nl external ears & nose, nl nasal mucosa & septum Neck: supple Respiratory: clear to auscultation, normal air movement Cardiovascular: nl pulses, regular rate and rhythm Gastrointestinal: tender (lower quadrants), No distended Musculoskeletal: nl extremities to inspection, other (s/p amputation of R 1st digit) Results Result Diagram: 10/09/1630 10/09/16529 Results 24 hrs Laboratory Tests Test 10/08/16 12:29 10/08/16 17:10 10/08/16 19:52 10/09/16 05:30 Bedside Glucose 284 H 194 225 H Anion Gap 22 H Basophils # 0.0 Basophils % 0.2 Blood Urea Nitrogen 93 H Calcium Level 6.8 L Carbon Dioxide Level 23 Chloride Level 94 L Creatinine 13.52 H Eosinophils # 0.3 Eosinophils % 3.3 Glucose Level 85 # Hematocrit 24.2 #L Hemoglobin 8.1 #L Lymphocytes # 0.9 Lymphocytes % 10.0 L Mean Corpuscular Hemoglobin 30.7 Mean Corpuscular Hemoglobin Concent 33.5 Mean Corpuscular Volume 91.7 Mean Platelet Volume 11.6 H Monocytes # 0.7 Monocytes % 7.6 Neutrophils # 6.8 Neutrophils % 78.4 H Nucleated Red Blood Cells # 0.0 Nucleated Red Blood Cells % 0.0 Platelet Count 106 #L Potassium Level 5.2 H Red Blood Count 2.64 #L Red Cell Distribution Width 15.5 H Sodium Level 134 L White Blood Count 8.7 Test 10/09/16 06:45 10/09/16 07:50 Bedside Glucose 78 86 Medications Medications Current Medications Morphine Sulfate (morphine) 2 mg Q4 PRN IV PAIN LEVEL 4-7 Last administered on 10/08/16t 17:23; Admin Dose 2 MG; Start 10/07/16 at 04:00 Miscellaneous Information 1 ea NOTE XX ; Start 10/07/16 at 17:00 Glucose (Glutose) 15 gm Q15M PRN PO DECREASED GLUCOSE; Start 10/07/16 at 17:00 Glucose (Glutose) 22.5 gm Q15M PRN PO DECREASED GLUCOSE; Start 10/07/16 at 17: 00 Dextrose (D50w Syringe) 25 ml Q15M PRN IV DECREASED GLUCOSE; Start 10/07/16 at 17:00 Dextrose (D50w Syringe) 50 ml Q15M PRN IV DECREASED GLUCOSE; Start 10/07/16 at 17:00 Glucagon (Glucagen) 1 mg Q15M PRN IM DECREASED GLUCOSE; Start 10/07/16 at 17:00 Glucose (Glutose) 15 gm Q15M PRN BUCCAL DECREASED GLUCOSE; Start 10/07/16 at 17 :00 Acetaminophen (Tylenol Tab) 650 mg Q6H PRN PO PAIN AND OR ELEVATED TEMP Last administered on 10/09/16 05:20; Admin Dose 650 MG; Start 10/08/16 at 04:00 Amlodipine Besylate (Norvasc) 10 mg DAILY PO ; Start 10/09/16 at 09:00 Atorvastatin Calcium (Lipitor) 20 mg HS PO Last administered on 10/08/16 20:26 ; Admin Dose 20 MG; Start 10/08/16 at 21:00 Carvedilol (Coreg) 25 mg BID PO Last administered on 10/08/16 20:26; Admin Dose 25 MG; Start 10/08/16 at 21:00 Insulin Detemir (Levemir) 16 unit QHS SC Last administered on 10/08/16 20:27; Admin Dose 16 UNIT; Start 10/08/16 at 21:00 Multivit/Ca Carb/ B Cmplx/FA/Prenat (Pat-Tommy) 1 tab DAILY PO Last administered on 10/09/16 08:51; Admin Dose 1 TAB; Start 10/09/16 at 09:00 Pregabalin (Lyrica) 75 mg BID PO Last administered on 10/09/16 08:51; Admin Dose 75 MG; Start 10/08/16 at 21:00 Zolpidem Tartrate (Ambien) 10 mg QHS PRN PO INSOMNIA; Start 10/08/16 at 16:00 Insulin Human NPH (Humulin N) 10 unit HS SC ; Start 10/09/16 at 21:00 Diagnostic Test (Pha) (Accucheck) 1 ea 02 XX Last administered on 10/09/16 02: 41; Admin Dose 1 EA; Start 10/09/16 at 02:00 Calcitriol (Rocaltrol) 0.25 mcg BID PO Last administered on 10/09/16 08:51; Admin Dose 0.25 MCG; Start 10/08/16 at 23:00 Ciprofloxacin 250 mg DAILY@06 PO Last administered on 10/09/16 05:20; Admin Dose 250 MG; Start 10/09/16 at 06:00 Peritoneal Dialysis Solution/ Ceftazidime Q2H IRR ; Start 10/09/16 at 12:30; Stop 10/09/16 at 14:29 Peritoneal Dialysis Solution/ Ceftazidime Q2H IRR ; Start 10/09/16 at 14:30; Stop 10/09/16 at 16:29 Peritoneal Dialysis Solution/ Ceftazidime (Fortaz) Q2H IRR ; Start 10/09/16 at 16:30; Stop 10/09/16 at 18:29 REX BENITEZ M.D. Oct 09, 2016 10:15
--- NOTE | 2016-10-09 11:21 | CONS ---
Date/Time of Note Date/Time of Note DATE: 10/09/16 TIME: 11:20 Assessment/Plan Assessment/Plan Additional Assessment/Plan IMPRESSION: 1. Abdominal pain secondary to peritonitis.resolved 2. Status post PD catheter for end-stage renal disease and peritoneal dialysis. 3. Diabetes mellitus. 4. Peripheral vascular disease, status post right great toe amputation. 5. Coronary artery disease. PLAN: At this point is to continue present care. We will monitor these symptoms. Hopefully fluid was sent for analysis. So far, the cultures for mycobacterial and fungal has been negative. On aerobic culture also there was no growth. Gram stain showed multiple polymorph leukocytes. So, the plan is to continue antibiotic. Monitor him clinically, and will change the antibiotic depending upon the culture report. Consultation Date/Type/Reason Admit Date/Time Oct 07, 2016 at 00:49 Initial Consult Date 10/08/16 Type of Consultation: ID Referring Provider: YENIFER DAVIES MD 24 HR Interval Summary Constitutional: improved Exam/Review of Systems Vital Signs Vitals Vital Signs Date Time Temp Pulse Resp B/P Pulse Ox O2 Delivery O2 Flow Rate FiO2 10/09/16 08:00 66 10/09/16 07:45 98.5 18 115/56 97 10/08/16 20:30 Nasal Cannula 2.0 Intake and Output 10/08/16 10/08/16 10/09/16 15:00 23:00 07:00 Intake Total 120 ml 120 ml Balance 120 ml 120 ml Exam Constitutional: alert, oriented, well developed Psych: nl mood/affect, no complaints Head: atraumatic, normocephalic Eyes: EOMI, PERRL, nl conjunctiva, nl lids, nl sclera ENMT: nl external ears & nose, nl lips & teeth, nl nasal mucosa & septum Neck: non-tender, supple Respiratory: clear to auscultation, normal air movement Cardiovascular: nl pulses, regular rate and rhythm Gastrointestinal: nl liver, spleen, non-tender, soft Musculoskeletal: nl extremities to inspection, nl gait and stance Extremities: normal pulses Neurological: LOG SAWYER II-XII intact, nl mental status, nl speech, nl strength Skin: nl turgor, No rash or lesions Lymph: nl lymph nodes Results Result Diagram: 10/09/16 0530 10/09/16 0530 Results 24 hrs Laboratory Tests Test 10/08/16 12:29 10/08/16 17:10 10/08/16 19:52 10/09/16 05:30 Bedside Glucose 284 H 194 225 H Anion Gap 22 H Basophils # 0.0 Basophils % 0.2 Blood Urea Nitrogen 93 H Calcium Level 6.8 L Carbon Dioxide Level 23 Chloride Level 94 L Creatinine 13.52 H Eosinophils # 0.3 Eosinophils % 3.3 Glucose Level 85 # Hematocrit 24.2 #L Hemoglobin 8.1 #L Lymphocytes # 0.9 Lymphocytes % 10.0 L Mean Corpuscular Hemoglobin 30.7 Mean Corpuscular Hemoglobin Concent 33.5 Mean Corpuscular Volume 91.7 Mean Platelet Volume 11.6 H Monocytes # 0.7 Monocytes % 7.6 Neutrophils # 6.8 Neutrophils % 78.4 H Nucleated Red Blood Cells # 0.0 Nucleated Red Blood Cells % 0.0 Platelet Count 106 #L Potassium Level 5.2 H Red Blood Count 2.64 #L Red Cell Distribution Width 15.5 H Sodium Level 134 L White Blood Count 8.7 Test 10/09/16 06:45 10/09/16 07:50 Bedside Glucose 78 86 Medications Medications Current Medications Morphine Sulfate (morphine) 2 mg Q4 PRN IV PAIN LEVEL 4-7 Last administered on 10/08/16 17:23; Admin Dose 2 MG; Start 10/07/16 at 04:00 Miscellaneous Information 1 ea NOTE XX ; Start 10/07/16 at 17:00 Glucose (Glutose) 15 gm Q15M PRN PO DECREASED GLUCOSE; Start 10/07/16 at 17:00 Glucose (Glutose) 22.5 gm Q15M PRN PO DECREASED GLUCOSE; Start 10/07/16 at 17: 00 Dextrose (D50w Syringe) 25 ml Q15M PRN IV DECREASED GLUCOSE; Start 10/07/16 at 17:00 Dextrose (D50w Syringe) 50 ml Q15M PRN IV DECREASED GLUCOSE; Start 10/07/16 at 17:00 Glucagon (Glucagen) 1 mg Q15M PRN IM DECREASED GLUCOSE; Start 10/07/16 at 17:00 Glucose (Glutose) 15 gm Q15M PRN BUCCAL DECREASED GLUCOSE; Start 10/07/16 at 17 :00 Acetaminophen (Tylenol Tab) 650 mg Q6H PRN PO PAIN AND OR ELEVATED TEMP Last administered on 10/09/16 05:20; Admin Dose 650 MG; Start 10/08/16 at 04:00 Amlodipine Besylate (Norvasc) 10 mg DAILY PO ; Start 10/09/16 at 09:00 Atorvastatin Calcium (Lipitor) 20 mg HS PO Last administered on 10/08/16 20:26 ; Admin Dose 20 MG; Start 10/08/16 at 21:00 Carvedilol (Coreg) 25 mg BID PO Last administered on 10/08/16 20:26; Admin Dose 25 MG; Start 10/08/16 at 21:00 Insulin Detemir (Levemir) 16 unit QHS SC Last administered on 10/08/16 20:27; Admin Dose 16 UNIT; Start 10/08/16 at 21:00 Multivit/Ca Carb/ B Cmplx/FA/Prenat (Pat-Tommy) 1 tab DAILY PO Last administered on 10/09/16 08:51; Admin Dose 1 TAB; Start 10/09/16 at 09:00 Pregabalin (Lyrica) 75 mg BID PO Last administered on 10/09/16 08:51; Admin Dose 75 MG; Start 10/08/16 at 21:00 Zolpidem Tartrate (Ambien) 10 mg QHS PRN PO INSOMNIA; Start 10/08/16 at 16:00 Insulin Human NPH (Humulin N) 10 unit HS SC ; Start 10/09/16 at 21:00 Diagnostic Test (Pha) (Accucheck) 1 ea 02 XX Last administered on 10/09/16 02: 41; Admin Dose 1 EA; Start 10/09/16 at 02:00 Calcitriol (Rocaltrol) 0.25 mcg BID PO Last administered on 10/09/16 08:51; Admin Dose 0.25 MCG; Start 10/08/16 at 23:00 Ciprofloxacin 250 mg DAILY@06 PO Last administered on 10/09/16 05:20; Admin Dose 250 MG; Start 10/09/16 at 06:00 Peritoneal Dialysis Solution/ Ceftazidime Q2H IRR ; Start 10/09/16 at 12:30; Stop 10/09/16 at 14:29 Peritoneal Dialysis Solution/ Ceftazidime Q2H IRR ; Start 10/09/16 at 14:30; Stop 10/09/16 at 16:29 Peritoneal Dialysis Solution/ Ceftazidime (Fortaz) Q2H IRR ; Start 10/09/16 at 16:30; Stop 10/09/16 at 18:29 Miscellaneous Information (* Miscellaneous Pharmacy Order) Intraperitoneal ceftazidime: Pharmacy... DAILY XX ; Start 10/10/16 at 09:00 Miscellaneous Information (*Rx Drug Level Order Reminder*) ONCE ONCE XX ; Start 10/10/16 at 05:00; Stop 10/10/16 at 05:01 JANETTE WHYTE MD Oct 09, 2016 11:20
[2016-10-09 13:17] LABS: FLUID APPEARANCE CLOUDY; FLUID TYPE PERITONEAL
[2016-10-09 13:18] LABS: FLUID WBC'S 9152 /cmm
[2016-10-09 13:19] LABS: FLUID BASOPHIL 0 %; FLUID EOSINOPHIL 0 %; FLUID LYMPHOCYTES 1 %; FLUID MONOCYTES 6 %; FLUID NEUTROPHILS 93 %; FLUID RBC EST 1+
--- NOTE | 2016-10-09 15:54 | PN ---
Date/Time of Note Date/Time of Note DATE: 10/09/16 TIME: 15:51 Assessment/Plan VTE Prophylaxis VTE Prophylaxis Intervention: SCD's Lines/Catheters IV Catheter Type [facility]from [facility] Assessment/Plan Chief Complaint/Hosp Course ASSESSMENT AND PLAN: - Peritonitis associated with peritoneal catheter. Patient is followed by Dr. Ruiz's group in infectious disease consultation. Continue intraperitoneal antibiotics per ID. - ESRD, peritoneal dialysis dependent. Dr. Martinez is following in nephrology consultation. - Diabetes mellitus type 2 with hemoglobin on A1c 6.8. Continue patient's NovoLog per mild algorithm sliding scale. Continue 1800 ADA diet. - Coronary artery disease, status post coronary artery bypass graft. Continue patient on Coreg. - Hypertension. Continue Norvasc. - Hyperlipidemia. Continue Lipitor. Continue sequential compression device for deep venous thrombosis prophylaxis. Continue Pepcid for peptic ulcer disease prophylaxis. Further recommendations based on clinical course. Plan of care discussed with Dr. Sanchez. Problems: Subjective 24 Hr Interval Summary Free Text/Dictation Patient denies any fever, states that his abdominal pain is improved. Exam/Review of Systems Vital Signs Vitals Vital Signs Date Time Temp Pulse Resp B/P Pulse Ox O2 Delivery O2 Flow Rate FiO2 10/09/16 15:31 98.1 68 18 122/58 93 10/09/16 08:29 Nasal Cannula 2.0 Intake and Output 10/08/16 10/08/16 10/09/16 15:00 23:00 07:00 Intake Total 120 ml 120 ml Balance 120 ml 120 ml Exam GENERAL: Well-developed, obese male in no acute distress. HEENT: Head is atraumatic, normocephalic. PERRLA. NECK: Supple. No mass, no thyromegaly. LUNGS: Clear bilaterally. No rhonchi, wheezes, rales noted. HEART: Normal S1, S2. No murmurs, gallops, clicks, rubs noted. ABDOMEN: Protuberant, soft, slightly distended with mild tenderness. Patient has slight umbilical ecchymosis, and patient has a peritoneal catheter in the right lower quadrant. EXTREMITIES: No edema, clubbing, cyanosis. The patient is status post right great toe amputation with healed site. SKIN: There is no rash, petechiae. NEUROLOGIC: Patient is awake, alert, and oriented x3. Results Result Diagram: 10/09/1630 10/09/1630 Results 24 hrs Laboratory Tests Test 10/08/16 17:10 10/08/16 19:52 10/09/16 05:30 10/09/16 06:45 Bedside Glucose 194 225 H 78 Anion Gap 22 H Basophils # 0.0 Basophils % 0.2 Blood Urea Nitrogen 93 H Calcium Level 6.8 L Carbon Dioxide Level 23 Chloride Level 94 L Creatinine 13.52 H Eosinophils # 0.3 Eosinophils % 3.3 Glucose Level 85 # Hematocrit 24.2 #L Hemoglobin 8.1 #L Lymphocytes # 0.9 Lymphocytes % 10.0 L Mean Corpuscular Hemoglobin 30.7 Mean Corpuscular Hemoglobin Concent 33.5 Mean Corpuscular Volume 91.7 Mean Platelet Volume 11.6 H Monocytes # 0.7 Monocytes % 7.6 Neutrophils # 6.8 Neutrophils % 78.4 H Nucleated Red Blood Cells # 0.0 Nucleated Red Blood Cells % 0.0 Platelet Count 106 #L Potassium Level 5.2 H Red Blood Count 2.64 #L Red Cell Distribution Width 15.5 H Sodium Level 134 L White Blood Count 8.7 Test 10/09/16 07:50 10/09/16 12:30 Bedside Glucose 86 218 Medications Medications Current Medications Morphine Sulfate (morphine) 2 mg Q4 PRN IV PAIN LEVEL 4-7 Last administered on 10/08/16t 17:23; Admin Dose 2 MG; Start 10/07/16 at 04:00 Miscellaneous Information 1 ea NOTE XX ; Start 10/07/16 at 17:00 Glucose (Glutose) 15 gm Q15M PRN PO DECREASED GLUCOSE; Start 10/07/16 at 17:00 Glucose (Glutose) 22.5 gm Q15M PRN PO DECREASED GLUCOSE; Start 10/07/16 at 17: 00 Dextrose (D50w Syringe) 25 ml Q15M PRN IV DECREASED GLUCOSE; Start 10/07/16 at 17:00 Dextrose (D50w Syringe) 50 ml Q15M PRN IV DECREASED GLUCOSE; Start 10/07/16 at 17:00 Glucagon (Glucagen) 1 mg Q15M PRN IM DECREASED GLUCOSE; Start 10/07/16 at 17:00 Glucose (Glutose) 15 gm Q15M PRN BUCCAL DECREASED GLUCOSE; Start 10/07/16 at 17 :00 Acetaminophen (Tylenol Tab) 650 mg Q6H PRN PO PAIN AND OR ELEVATED TEMP Last administered on 10/09/16 05:20; Admin Dose 650 MG; Start 10/08/16 at 04:00 Amlodipine Besylate (Norvasc) 10 mg DAILY PO ; Start 10/09/16 at 09:00 Atorvastatin Calcium (Lipitor) 20 mg HS PO Last administered on 10/08/16 20:26 ; Admin Dose 20 MG; Start 10/08/16 at 21:00 Carvedilol (Coreg) 25 mg BID PO Last administered on 10/08/16 20:26; Admin Dose 25 MG; Start 10/08/16 at 21:00 Insulin Detemir (Levemir) 16 unit QHS SC Last administered on 10/08/16 20:27; Admin Dose 16 UNIT; Start 10/08/16 at 21:00 Multivit/Ca Carb/ B Cmplx/FA/Prenat (Pat-Tommy) 1 tab DAILY PO Last administered on 10/09/16 08:51; Admin Dose 1 TAB; Start 10/09/16 at 09:00 Pregabalin (Lyrica) 75 mg BID PO Last administered on 10/09/16 08:51; Admin Dose 75 MG; Start 10/08/16 at 21:00 Zolpidem Tartrate (Ambien) 10 mg QHS PRN PO INSOMNIA; Start 10/08/16 at 16:00 Insulin Human NPH (Humulin N) 10 unit HS SC ; Start 10/09/16 at 21:00 Diagnostic Test (Pha) (Accucheck) 1 ea 02 XX Last administered on 10/09/16 02: 41; Admin Dose 1 EA; Start 10/09/16 at 02:00 Calcitriol (Rocaltrol) 0.25 mcg BID PO Last administered on 10/09/16 08:51; Admin Dose 0.25 MCG; Start 10/08/16 at 23:00 Ciprofloxacin 250 mg DAILY@06 PO Last administered on 10/09/16 05:20; Admin Dose 250 MG; Start 10/09/16 at 06:00 Peritoneal Dialysis Solution/ Ceftazidime Q2H IRR ; Start 10/09/16 at 14:30; Stop 10/09/16 at 16:29 Peritoneal Dialysis Solution/ Ceftazidime (Fortaz) Q2H IRR ; Start 10/09/16 at 16:30; Stop 10/09/16 at 18:29 Miscellaneous Information (* Miscellaneous Pharmacy Order) Intraperitoneal [email or web address]: Pharmacy... DAILY XX ; Start 10/10/16 at 09:00 Miscellaneous Information (*Rx Drug Level Order Reminder*) ONCE ONCE XX ; Start 10/10/16 at 05:00; Stop 10/10/16 at 05:01 RONIT ROJAS Oct 09, 2016 15:54
[2016-10-09] MEDS ORDERED: NPH, HUMAN INSULIN ISOPHANE 3ML VIAL SC SCH (21:00)
[2016-10-09] MEDS: ATORVASTATIN 20 MG TAB PO SCH (21:39)
[2016-10-09] MEDS: INSULIN DETEMIR [LEVEMIR] 3ML CART SC SCH (21:40)
--- NOTE | 2016-10-09 22:07 | CONS ---
Date/Time of Note Date/Time of Note DATE: 10/09/16 TIME: 21:59 Assessment/Plan Assessment/Plan Chief Complaint/Hosp Course Note low Ca Will add Phoslo+Vit D Rpt cell count May dc if ain is resolved Problems: Additional Assessment/Plan Number of WBC has gone up Will have to inject antibiiotic intraperitoneally tho all cultures are neg chiquita far. Consultation Date/Type/Reason Admit Date/Time Oct 07, 2016 at 00:49 Initial Consult Date 10/08/16 Type of Consultation: renal Referring Provider: YENIFER DAIVES MD 24 HR Interval Summary Free Text/Dictation pt is in good spirits at bedside Exam/Review of Systems Vital Signs Vitals Vital Signs Date Time Temp Pulse Resp B/P Pulse Ox O2 Delivery O2 Flow Rate FiO2 10/09/16 20:06 98.5 77 19 126/63 92 10/09/16 08:29 Nasal Cannula 2.0 Intake and Output 10/08/16 10/08/16 10/09/16 15:00 23:00 07:00 Intake Total 120 ml 120 ml Balance 120 ml 120 ml Exam Constitutional: alert, oriented, well developed Psych: nl mood/affect, no complaints Head: atraumatic, normocephalic Eyes: EOMI, PERRL, nl conjunctiva, nl lids, nl sclera ENMT: nl external ears & nose, nl lips & teeth, nl nasal mucosa & septum Neck: non-tender, supple Respiratory: clear to auscultation, normal air movement Cardiovascular: nl pulses, regular rate and rhythm Gastrointestinal: nl liver, spleen, non-tender, other (pd cath exit site ok, draining clear fluid), soft Musculoskeletal: nl extremities to inspection, nl gait and stance Extremities: normal pulses Neurological: BARREL INSPECTOR II-XII intact, nl mental status, nl speech, nl strength Skin: nl turgor, No rash or lesions Lymph: nl lymph nodes Results Result Diagram: 10/09/16 0530 10/09/16 0530 Results 24 hrs Laboratory Tests Test 10/09/16 05:30 10/09/16 06:45 10/09/16 07:50 10/09/16 12:30 Anion Gap 22 H Basophils # 0.0 Basophils % 0.2 Blood Urea Nitrogen 93 H Calcium Level 6.8 L Carbon Dioxide Level 23 Chloride Level 94 L Creatinine 13.52 H Eosinophils # 0.3 Eosinophils % 3.3 Glucose Level 85 # Hematocrit 24.2 #L Hemoglobin 8.1 #L Lymphocytes # 0.9 Lymphocytes % 10.0 L Mean Corpuscular Hemoglobin 30.7 Mean Corpuscular Hemoglobin Concent 33.5 Mean Corpuscular Volume 91.7 Mean Platelet Volume 11.6 H Monocytes # 0.7 Monocytes % 7.6 Neutrophils # 6.8 Neutrophils % 78.4 H Nucleated Red Blood Cells # 0.0 Nucleated Red Blood Cells % 0.0 Platelet Count 106 #L Potassium Level 5.2 H Red Blood Count 2.64 #L Red Cell Distribution Width 15.5 H Sodium Level 134 L White Blood Count 8.7 Bedside Glucose 78 86 218 Test 10/09/16 18:11 10/09/16 20:44 Bedside Glucose 304 H 178 Medications Medications Current Medications Morphine Sulfate (morphine) 2 mg Q4 PRN IV PAIN LEVEL 4-7 Last administered on 10/08/16 17:23; Admin Dose 2 MG; Start 10/07/16 at 04:00 Miscellaneous Information 1 ea NOTE XX ; Start 10/07/16 at 17:00 Glucose (Glutose) 15 gm Q15M PRN PO DECREASED GLUCOSE; Start 10/07/16 at 17:00 Glucose (Glutose) 22.5 gm Q15M PRN PO DECREASED GLUCOSE; Start 10/07/16 at 17: 00 Dextrose (D50w Syringe) 25 ml Q15M PRN IV DECREASED GLUCOSE; Start 10/07/16 at 17:00 Dextrose (D50w Syringe) 50 ml Q15M PRN IV DECREASED GLUCOSE; Start 10/07/16 at 17:00 Glucagon (Glucagen) 1 mg Q15M PRN IM DECREASED GLUCOSE; Start 10/07/16 at 17:00 Glucose (Glutose) 15 gm Q15M PRN BUCCAL DECREASED GLUCOSE; Start 10/07/16 at 17 :00 Acetaminophen (Tylenol Tab) 650 mg Q6H PRN PO PAIN AND OR ELEVATED TEMP Last administered on 10/09/16 05:20; Admin Dose 650 MG; Start 10/08/16 at 04:00 Amlodipine Besylate (Norvasc) 10 mg DAILY PO ; Start 10/09/16 at 09:00 Atorvastatin Calcium (Lipitor) 20 mg HS PO Last administered on 10/09/16 21:39 ; Admin Dose 20 MG; Start 10/08/16 at 21:00 Carvedilol (Coreg) 25 mg BID PO Last administered on 10/09/16 21:39; Admin Dose 25 MG; Start 10/08/16 at 21:00 Insulin Detemir (Levemir) 16 unit QHS SC Last administered on 10/09/16 21:40; Admin Dose 16 UNIT; Start 10/08/16 at 21:00 Multivit/Ca Carb/ B Cmplx/FA/Prenat (Pat-Tommy) 1 tab DAILY PO Last administered on 10/09/16 08:51; Admin Dose 1 TAB; Start 10/09/16 at 09:00 Pregabalin (Lyrica) 75 mg BID PO Last administered on 10/09/16 21:39; Admin Dose 75 MG; Start 10/08/16 at 21:00 Zolpidem Tartrate (Ambien) 10 mg QHS PRN PO INSOMNIA; Start 10/08/16 at 16:00 Insulin Human NPH (Humulin N) 10 unit HS SC Last administered on 10/09/16 21: 41; Admin Dose 10 UNIT; Start 10/09/16 at 21:00 Diagnostic Test (Pha) (Accucheck) 1 ea 02 XX Last administered on 10/09/16 02: 41; Admin Dose 1 EA; Start 10/09/16 at 02:00 Calcitriol (Rocaltrol) 0.25 mcg BID PO Last administered on 10/09/16 21:38; Admin Dose 0.25 MCG; Start 10/08/16 at 23:00 Ciprofloxacin (Cipro) 250 mg DAILY@06 PO Last administered on 10/09/16 05:20; Admin Dose 250 MG; Start 10/09/16 at 06:00 Miscellaneous Information (* Miscellaneous Pharmacy Order) Intraperitoneal ceftazidime: Pharmacy... DAILY XX ; Start 10/10/16 at 09:00 Miscellaneous Information (*Rx Drug Level Order Reminder*) ONCE ONCE XX ; Start 10/10/16 at 05:00; Stop 10/10/16 at 05:01 MANOJ HARE MD Oct 09, 2016 22:07
[2016-10-09] MEDS ORDERED: VANCOMYCIN IV PER PHARMACY XX SCH (22:30)
[2016-10-09] MEDS ORDERED: [UNRECOGNIZED DRUG - REMARK] XX SCH (23:30)
[2016-10-10] VITALS (14 sets, daily range): BP systolic 117–128; BP diastolic 58–80; PULSE 60–70; RESP 18–19
[2016-10-10] MEDS: ACCUCHECK AT 2AM (Patients on SS coverage) XX SCH (02:00)
[2016-10-10] MEDS ORDERED: [UNRECOGNIZED DRUG - REMARK] XX ONE (05:00)
[2016-10-10] MEDS: CIPROFLOXACIN 250 MG TAB PO SCH (05:32)
[2016-10-10 05:42] LABS: ADD SCAN DIFF NO
[2016-10-10 06:04] LABS: BASOPHILS % 0.3 % (0.0-2.0); EOSINOPHILS # 0.4 10^3/ul (0.0-0.5); EOSINOPHILS % 4.8 % (0.0-7.0); HEMATOCRIT 24.1 % (42.0-52.0); LYMPHOCYTES # 0.9 10^3/ul (0.8-2.9); LYMPHOCYTES % 11.5 % (15.0-51.0); MEAN CORPUSCULAR HEMOGLOBIN 30.3 pg (29.0-33.0); MEAN CORPUSCULAR HGB CONC 33.2 g/dl (32.0-37.0); MEAN CORPUSCULAR VOLUME 91.3 fl (82.0-101.0); MEAN PLATELET VOLUME 11.7 fl (7.4-10.4); MONOCYTE # 0.7 10^3/ul (0.3-0.9); NEUTROPHIL # 5.7 10^3/ul (1.6-7.5); NEUTROPHILS % 73.9 % (39.0-77.0); PLATELET COUNT 118 10^3/UL (140-415); RED BLOOD COUNT 2.64 10^6/ul (4.70-6.10); RED CELL DISTRIBUTION WIDTH 14.8 % (11.5-14.5); WHITE BLOOD COUNT 7.8 10^3/ul (4.8-10.8)
[2016-10-10 06:06] LABS: POTASSIUM 5.1 mmol/L (3.5-5.1)
[2016-10-10 06:09] LABS: CREATININE 13.14 mg/dl (0.61-1.24)
[2016-10-10 06:10] LABS: CALCIUM 6.9 mg/dl (8.4-10.2)
[2016-10-10] MEDS: INSULIN ASPART [NOVOLOG] 3 ML PEN SC SCH ×3 (08:00→17:21)
[2016-10-10] MEDS: MULTIVIT/CA CARB/B CMPLX/FA TAB PO SCH (08:30)
[2016-10-10] MEDS: CALCITRIOL 0.25 MCG CAP PO SCH (08:30)
[2016-10-10] MEDS: PREGABALIN 75 MG CAP PO SCH (08:30)
[2016-10-10] MEDS: AMLODIPINE 10 MG TAB PO SCH (08:30)
[2016-10-10] MEDS: PANTOPRAZOLE (EC) 40 MG TAB PO SCH (08:30)
[2016-10-10] MEDS: CALCIUM ACETATE 667 MG CAP NGT SCH ×3 (08:30→17:40)
[2016-10-10] MEDS ORDERED: [UNRECOGNIZED DRUG - REMARK] XX SCH (09:00)
--- NOTE | 2016-10-10 10:27 | CONS ---
Date/Time of Note Date/Time of Note DATE: 10/10/16 TIME: 10:21 Assessment/Plan Assessment/Plan Chief Complaint/Hosp Course assessment/impression - peritonitis associated with PD. 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 Rose - I added empiric, renally dosed fluconazole for 5 days - I instructed Pt to make a follow up appointment with me in the office (Note: I called Dr. Rose, the mailbox was full) - discussed management with Pt, his family and RN Problems: Consultation Date/Type/Reason Admit Date/Time Oct 07, 2016 at 00:49 Initial Consult Date 10/07/16 Type of Consultation: ID Referring Provider: YENIFER DAVIES MD 24 HR Interval Summary Constitutional: improved Detailed Summary Eyes: no complaints ENT: no complaints Respiratory: no complaints Cardiovascular: no complaints Gastrointestinal: pain (rated 2-3 (improved)), No diarrhea, No nausea, No vomiting Genitourinary: other (dialysis Pt) Skin: no complaints Exam/Review of Systems Vital Signs Vitals Vital Signs Date Time Temp Pulse Resp B/P Pulse Ox O2 Delivery O2 Flow Rate FiO2 10/10/16 08:15 65 10/10/16 07:52 98.4 19 127/60 96 10/09/16 08:29 Nasal Cannula 2.0 Intake and Output 10/09/16 10/09/16 10/10/16 15:00 23:00 07:00 Intake Total 1520 ml 500 ml Balance 1520 ml 500 ml Exam Constitutional: alert, well developed Psych: no complaints Head: atraumatic, normocephalic Eyes: nl conjunctiva, nl lids ENMT: nl external ears & nose, nl nasal mucosa & septum Neck: supple Respiratory: clear to auscultation, normal air movement Cardiovascular: nl pulses, regular rate and rhythm Gastrointestinal: soft, tender (mildly tender in RLE), No distended, No firm Musculoskeletal: nl extremities to inspection Extremities: normal pulses Results Result Diagram: 10/10/16 0500 10/10/16 0500 Results 24 hrs Laboratory Tests Test 10/09/16 12:30 10/09/16 18:11 10/09/16 20:44 10/10/16 05:00 Bedside Glucose 218 304 H 178 Anion Gap 21 H Basophils # 0.0 Basophils % 0.3 Blood Urea Nitrogen 90 H Calcium Level 6.9 L Carbon Dioxide Level 25 Chloride Level 93 L Creatinine 13.14 H Eosinophils # 0.4 Eosinophils % 4.8 Glucose Level 80 Hematocrit 24.1 L Hemoglobin 8.0 L Lymphocytes # 0.9 Lymphocytes % 11.5 L Mean Corpuscular Hemoglobin 30.3 Mean Corpuscular Hemoglobin Concent 33.2 Mean Corpuscular Volume 91.3 Mean Platelet Volume 11.7 H Monocytes # 0.7 Monocytes % 9.0 Neutrophils # 5.7 Neutrophils % 73.9 Nucleated Red Blood Cells # 0.0 Nucleated Red Blood Cells % 0.0 Platelet Count 118 L Potassium Level 5.1 Random Vancomycin Level 13.9 Red Blood Count 2.64 L Red Cell Distribution Width 14.8 H Sodium Level 134 L White Blood Count 7.8 Test 10/10/16 07:46 Bedside Glucose 95 Medications Medications Current Medications Morphine Sulfate (morphine) 2 mg Q4 PRN IV PAIN LEVEL 4-7 Last administered on 10/08/16t 17:23; Admin Dose 2 MG; Start 10/07/16 at 04:00 Miscellaneous Information 1 ea NOTE XX ; Start 10/07/16 at 17:00 Glucose (Glutose) 15 gm Q15M PRN PO DECREASED GLUCOSE; Start 10/07/16 at 17:00 Glucose (Glutose) 22.5 gm Q15M PRN PO DECREASED GLUCOSE; Start 10/07/16 at 17: 00 Dextrose (D50w Syringe) 25 ml Q15M PRN IV DECREASED GLUCOSE; Start 10/07/16 at 17:00 Dextrose (D50w Syringe) 50 ml Q15M PRN IV DECREASED GLUCOSE; Start 10/07/16 at 17:00 Glucagon (Glucagen) 1 mg Q15M PRN IM DECREASED GLUCOSE; Start 10/07/16 at 17:00 Glucose (Glutose) 15 gm Q15M PRN BUCCAL DECREASED GLUCOSE; Start 10/07/16 at 17 :00 Acetaminophen (Tylenol Tab) 650 mg Q6H PRN PO PAIN AND OR ELEVATED TEMP Last administered on 10/09/16 05:20; Admin Dose 650 MG; Start 10/08/16 at 04:00 Amlodipine Besylate (Norvasc) 10 mg DAILY PO Last administered on 10/10/16 08: 30; Admin Dose 10 MG; Start 10/09/16 at 09:00 Atorvastatin Calcium (Lipitor) 20 mg HS PO Last administered on 10/09/16 21:39 ; Admin Dose 20 MG; Start 10/08/16 at 21:00 Carvedilol (Coreg) 25 mg BID PO Last administered on 10/10/16 08:31; Admin Dose 25 MG; Start 10/08/16 at 21:00 Insulin Detemir (Levemir) 16 unit QHS SC Last administered on 10/09/16 21:40; Admin Dose 16 UNIT; Start 10/08/16 at 21:00 Multivit/Ca Carb/ B Cmplx/FA/Prenat (Pat-Tommy) 1 tab DAILY PO Last administered on 10/10/16 08:30; Admin Dose 1 TAB; Start 10/09/16 at 09:00 Pregabalin (Lyrica) 75 mg BID PO Last administered on 10/10/16 08:30; Admin Dose 75 MG; Start 10/08/16 at 21:00 Zolpidem Tartrate (Ambien) 10 mg QHS PRN PO INSOMNIA; Start 10/08/16 at 16:00 Insulin Human NPH (Humulin N) 10 unit HS SC Last administered on 10/09/16 21: 41; Admin Dose 10 UNIT; Start 10/09/16 at 21:00 Diagnostic Test (Pha) (Accucheck) 1 ea 02 XX Last administered on 10/09/16 02: 41; Admin Dose 1 EA; Start 10/09/16 at 02:00 Calcitriol (Rocaltrol) 0.25 mcg BID PO Last administered on 10/10/16 08:30; Admin Dose 0.25 MCG; Start 10/08/16 at 23:00 Ciprofloxacin (Cipro) 250 mg DAILY@06 PO Last administered on 10/10/16 05:32; Admin Dose 250 MG; Start 10/09/16 at 06:00 Miscellaneous Information (* Miscellaneous Pharmacy Order) Intraperitoneal ceftazidime: Pharmacy... DAILY XX Last administered on 10/10/16 09:01; Admin Dose 1 EA; Start 10/10/16 at 09:00 Miscellaneous Information ADD VANCOMYCIN 2gm TO ... ONCE XX ; Start 10/09/16 at 23:30; Stop 10/10/16 at 23:29 Peritoneal Dialysis Solution/ Vancomycin HCl (Vancocin) ONCE IRR ; Start at 11:00; Stop 10/10/16 at 11:01 REX BENITEZ M.D. Oct 10, 2016 10:27
[2016-10-10] MEDS ORDERED: FLUCONAZOLE 200 MG TAB PO SCH (10:30)
[2016-10-10] MEDS ORDERED: [UNRECOGNIZED DRUG - OTHER] IRR SCH (11:00)
[2016-10-10] MEDS ORDERED: VANCOMYCIN IRR SCH (11:00)
--- NOTE | 2016-10-10 13:28 | CONS ---
Date/Time of Note Date/Time of Note DATE: 10/10/16 TIME: 13:27 Assessment/Plan Assessment/Plan Additional Assessment/Plan 1. Abdominal pain secondary to peritonitis. 2. End-stage renal disease on peritoneal dialysis. 3. Diabetes mellitus. 4. Peripheral vascular disease, status post right great toe amputation. 5. Coronary artery disease. Pt will cont with PD as oupt, CCPD We will cont ID recommendations for IP abx Ceftazidime and Vancomycin Consultation Date/Type/Reason Admit Date/Time Oct 07, 2016 at 00:49 Initial Consult Date 10/08/16 Type of Consultation: Nephrology Referring Provider: YENIFER DAVIES MD 24 HR Interval Summary Free Text/Dictation No new complaints, Anxious to go home tonight. 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, nl mental status Results Result Diagram: 10/10/16 0500 10/10/16 0500 Results 24 hrs Laboratory Tests Test 10/09/16 18:11 10/09/16 20:44 10/10/16 05:00 10/10/16 07:46 Bedside Glucose 304 H 178 95 Anion Gap 21 H Basophils # 0.0 Basophils % 0.3 Blood Urea Nitrogen 90 H Calcium Level 6.9 L Carbon Dioxide Level 25 Chloride Level 93 L Creatinine 13.14 H Eosinophils # 0.4 Eosinophils % 4.8 Glucose Level 80 Hematocrit 24.1 L Hemoglobin 8.0 L Lymphocytes # 0.9 Lymphocytes % 11.5 L Mean Corpuscular Hemoglobin 30.3 Mean Corpuscular Hemoglobin Concent 33.2 Mean Corpuscular Volume 91.3 Mean Platelet Volume 11.7 H Monocytes # 0.7 Monocytes % 9.0 Neutrophils # 5.7 Neutrophils % 73.9 Nucleated Red Blood Cells # 0.0 Nucleated Red Blood Cells % 0.0 Platelet Count 118 L Potassium Level 5.1 Random Vancomycin Level 13.9 Red Blood Count 2.64 L Red Cell Distribution Width 14.8 H Sodium Level 134 L White Blood Count 7.8 Test 10/10/16 11:33 Bedside Glucose 222 H Medications Medications Current Medications Morphine Sulfate (morphine) 2 mg Q4 PRN IV PAIN LEVEL 4-7 Last administered on 10/08/16 17:23; Admin Dose 2 MG; Start 10/07/16 at 04:00 Miscellaneous Information 1 ea NOTE XX ; Start 10/07/16 at 17:00 Glucose (Glutose) 15 gm Q15M PRN PO DECREASED GLUCOSE; Start 10/07/16 at 17:00 Glucose (Glutose) 22.5 gm Q15M PRN PO DECREASED GLUCOSE; Start 10/07/16 at 17: 00 Dextrose (D50w Syringe) 25 ml Q15M PRN IV DECREASED GLUCOSE; Start 10/07/16 at 17:00 Dextrose (D50w Syringe) 50 ml Q15M PRN IV DECREASED GLUCOSE; Start 10/07/16 at 17:00 Glucagon (Glucagen) 1 mg Q15M PRN IM DECREASED GLUCOSE; Start 10/07/16 at 17:00 Glucose (Glutose) 15 gm Q15M PRN BUCCAL DECREASED GLUCOSE; Start 10/07/16 at 17 :00 Acetaminophen (Tylenol Tab) 650 mg Q6H PRN PO PAIN AND OR ELEVATED TEMP Last administered on 10/09/16 05:20; Admin Dose 650 MG; Start 10/08/16 at 04:00 Amlodipine Besylate (Norvasc) 10 mg DAILY PO Last administered on 10/10/16 08: 30; Admin Dose 10 MG; Start 10/09/16 at 09:00 Atorvastatin Calcium (Lipitor) 20 mg HS PO Last administered on 10/09/16 21:39 ; Admin Dose 20 MG; Start 10/08/16 at 21:00 Carvedilol (Coreg) 25 mg BID PO Last administered on 10/10/16 08:31; Admin Dose 25 MG; Start 10/08/16 at 21:00 Insulin Detemir (Levemir) 16 unit QHS SC Last administered on 10/09/16 21:40; Admin Dose 16 UNIT; Start 10/08/16 at 21:00 Multivit/Ca Carb/ B Cmplx/FA/Prenat (Pat-Tommy) 1 tab DAILY PO Last administered on 10/10/16 08:30; Admin Dose 1 TAB; Start 10/09/16 at 09:00 Pregabalin (Lyrica) 75 mg BID PO Last administered on 10/10/16 08:30; Admin Dose 75 MG; Start 10/08/16 at 21:00 Zolpidem Tartrate (Ambien) 10 mg QHS PRN PO INSOMNIA; Start 10/08/16 at 16:00 Insulin Human NPH (Humulin N) 10 unit HS SC Last administered on 10/09/16 21: 41; Admin Dose 10 UNIT; Start 10/09/16 at 21:00 Diagnostic Test (Pha) (Accucheck) 1 ea 02 XX Last administered on 10/09/16 02: 41; Admin Dose 1 EA; Start 10/09/16 at 02:00 Calcitriol (Rocaltrol) 0.25 mcg BID PO Last administered on 10/10/16 08:30; Admin Dose 0.25 MCG; Start 10/08/16 at 23:00 Ciprofloxacin (Cipro) 250 mg DAILY@06 PO Last administered on 10/10/16 05:32; Admin Dose 250 MG; Start 10/09/16 at 06:00 Miscellaneous Information (* Miscellaneous Pharmacy Order) Intraperitoneal ceftazidime: Pharmacy... DAILY XX Last administered on 10/10/16 09:01; Admin Dose 1 EA; Start 10/10/16 at 09:00 Miscellaneous Information (* Miscellaneous Pharmacy Order) ADD VANCOMYCIN 2gm TO ... ONCE XX ; Start 10/09/16 at 23:30; Stop 10/10/16 at 23:29 Fluconazole (Diflucan) 200 mg DAILY PO Last administered on 10/10/16 12:26; Admin Dose 200 MG; Start 10/10/16 at 10:30; Stop 10/15/16 at 10:29 BEL SNYDER MD Oct 10, 2016 13:27
--- NOTE | 2016-10-10 17:48 | CONS ---
Date/Time of Note Date/Time of Note DATE: 10/10/16 TIME: 17:47 Assessment/Plan Assessment/Plan Additional Assessment/Plan Assessment/Plan Additional Assessment/Plan IMPRESSION: 1. Abdominal pain secondary to peritonitis.resolved 2. Status post PD catheter for end-stage renal disease and peritoneal dialysis. 3. Diabetes mellitus. 4. Peripheral vascular disease, status post right great toe amputation. 5. Coronary artery disease. PLAN: At this point is to continue present care. We will monitor these symptoms. Hopefully fluid was sent for analysis. So far, the cultures for mycobacterial and fungal has been negative. On aerobic culture also there was no growth. Gram stain showed multiple polymorph leukocytes. So, the plan is to continue antibiotic. Monitor him clinically, and will change the antibiotic depending upon the culture report. Consultation Date/Type/Reason Admit Date/Time Oct 07, 2016 at 00:49 Initial Consult Date 10/08/16 Type of Consultation: Nephrology Referring Provider: YENIFER DAVIES MD 24 HR Interval Summary Constitutional: improved, no complaints Exam/Review of Systems Vital Signs Vitals Vital Signs Date Time Temp Pulse Resp B/P Pulse Ox O2 Delivery O2 Flow Rate FiO2 10/10/16 16:39 66 10/10/16 15:54 98.5 19 120/65 94 10/09/16 08:29 Nasal Cannula 2.0 Intake and Output 10/09/16 10/09/16 10/10/16 15:00 23:00 07:00 Intake Total 1520 ml 500 ml Balance 1520 ml 500 ml Exam Constitutional: alert, oriented, well developed Psych: nl mood/affect, no complaints Head: atraumatic, normocephalic Eyes: EOMI, PERRL, nl conjunctiva, nl lids, nl sclera ENMT: nl external ears & nose, nl lips & teeth, nl nasal mucosa & septum Neck: non-tender, supple Respiratory: clear to auscultation, normal air movement Cardiovascular: nl pulses, regular rate and rhythm Gastrointestinal: nl liver, spleen, non-tender, soft Musculoskeletal: nl extremities to inspection, nl gait and stance Extremities: normal pulses Neurological: MARINE 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 II-XII intact, nl mental status, nl speech, nl strength Skin: nl turgor, No rash or lesions Lymph: nl lymph nodes Results Result Diagram: 10/10/16 0500 10/10/16 0500 Results 24 hrs Laboratory Tests Test 10/09/16 18:11 10/09/16 20:44 10/10/16 05:00 10/10/16 07:46 Bedside Glucose 304 H 178 95 Anion Gap 21 H Basophils # 0.0 Basophils % 0.3 Blood Urea Nitrogen 90 H Calcium Level 6.9 L Carbon Dioxide Level 25 Chloride Level 93 L Creatinine 13.14 H Eosinophils # 0.4 Eosinophils % 4.8 Glucose Level 80 Hematocrit 24.1 L Hemoglobin 8.0 L Lymphocytes # 0.9 Lymphocytes % 11.5 L Mean Corpuscular Hemoglobin 30.3 Mean Corpuscular Hemoglobin Concent 33.2 Mean Corpuscular Volume 91.3 Mean Platelet Volume 11.7 H Monocytes # 0.7 Monocytes % 9.0 Neutrophils # 5.7 Neutrophils % 73.9 Nucleated Red Blood Cells # 0.0 Nucleated Red Blood Cells % 0.0 Platelet Count 118 L Potassium Level 5.1 Random Vancomycin Level 13.9 Red Blood Count 2.64 L Red Cell Distribution Width 14.8 H Sodium Level 134 L White Blood Count 7.8 Test 10/10/16 11:33 10/10/16 17:20 Bedside Glucose 222 H 200 Medications Medications Current Medications Morphine Sulfate (morphine) 2 mg Q4 PRN IV PAIN LEVEL 4-7 Last administered on 10/08/16t 17:23; Admin Dose 2 MG; Start 10/07/16 at 04:00 Miscellaneous Information 1 ea NOTE XX ; Start 10/07/16 at 17:00 Glucose (Glutose) 15 gm Q15M PRN PO DECREASED GLUCOSE; Start 10/07/16 at 17:00 Glucose (Glutose) 22.5 gm Q15M PRN PO DECREASED GLUCOSE; Start 10/07/16 at 17: 00 Dextrose (D50w Syringe) 25 ml Q15M PRN IV DECREASED GLUCOSE; Start 10/07/16 at 17:00 Dextrose (D50w Syringe) 50 ml Q15M PRN IV DECREASED GLUCOSE; Start 10/07/16 at 17:00 Glucagon (Glucagen) 1 mg Q15M PRN IM DECREASED GLUCOSE; Start 10/07/16 at 17:00 Glucose (Glutose) 15 gm Q15M PRN BUCCAL DECREASED GLUCOSE; Start 10/07/16 at 17 :00 Acetaminophen (Tylenol Tab) 650 mg Q6H PRN PO PAIN AND OR ELEVATED TEMP Last administered on 10/09/16 05:20; Admin Dose 650 MG; Start 10/08/16 at 04:00 Amlodipine Besylate (Norvasc) 10 mg DAILY PO Last administered on 10/10/16 08: 30; Admin Dose 10 MG; Start 10/09/16 at 09:00 Atorvastatin Calcium (Lipitor) 20 mg HS PO Last administered on 10/09/16 21:39 ; Admin Dose 20 MG; Start 10/08/16 at 21:00 Carvedilol (Coreg) 25 mg BID PO Last administered on 10/10/16 08:31; Admin Dose 25 MG; Start 10/08/16 at 21:00 Insulin Detemir (Levemir) 16 unit QHS SC Last administered on 10/09/16 21:40; Admin Dose 16 UNIT; Start 10/08/16 at 21:00 Multivit/Ca Carb/ B Cmplx/FA/Prenat (Pat-Tommy) 1 tab DAILY PO Last administered on 10/10/16 08:30; Admin Dose 1 TAB; Start 10/09/16 at 09:00 Pregabalin (Lyrica) 75 mg BID PO Last administered on 10/10/16 08:30; Admin Dose 75 MG; Start 10/08/16 at 21:00 Zolpidem Tartrate (Ambien) 10 mg QHS PRN PO INSOMNIA; Start 10/08/16 at 16:00 Insulin Human NPH (Humulin N) 10 unit HS SC Last administered on 10/09/16 21: 41; Admin Dose 10 UNIT; Start 10/09/16 at 21:00 Diagnostic Test (Pha) (Accucheck) 1 ea 02 XX Last administered on 10/09/16 02: 41; Admin Dose 1 EA; Start 10/09/16 at 02:00 Calcitriol (Rocaltrol) 0.25 mcg BID PO Last administered on 10/10/16 08:30; Admin Dose 0.25 MCG; Start 10/08/16 at 23:00 Ciprofloxacin (Cipro) 250 mg DAILY@06 PO Last administered on 10/10/16 05:32; Admin Dose 250 MG; Start 10/09/16 at 06:00 Miscellaneous Information (* Miscellaneous Pharmacy Order) Intraperitoneal ceftazidime: Pharmacy... DAILY XX Last administered on 10/10/16 09:01; Admin Dose 1 EA; Start 10/10/16 at 09:00 Fluconazole (Diflucan) 200 mg DAILY PO Last administered on 10/10/16 12:26; Admin Dose 200 MG; Start 10/10/16 at 10:30; Stop 10/15/16 at 10:29 JANETTE WHYTE MD Oct 10, 2016 17:48
[2016-10-10] MEDS ORDERED: FLUC200T36 PO (18:26)
[2016-10-10] MEDS ORDERED: CIPR-193 PO (18:26)
== END 2016-10-10 22:04 | disposition home or self-care (01) | DRG 811 ==
LOC: E/R 18:02 → MS4 10-07 00:49
PROVIDERS: ADMIT Student in an Organized Health Care Education/Training Program; ATTEND Student in an Organized Health Care Education/Training Program
PROC: 3E1M39Z Irrigation of Peritoneal Cavity using Dialysate, Percutaneous Approach (ICD-10-PCS; principal; 2016-10-07)
DX: T80.89XA Other complications following infusion, transfusion and therapeutic injection, initial encounter (principal); K65.8 Other peritonitis; N18.6 End stage renal disease; E11.22 Type 2 diabetes mellitus with diabetic chronic kidney disease; I12.0 Hypertensive chronic kidney disease with stage 5 chronic kidney disease or end stage renal disease; Z99.2 Dependence on renal dialysis; I25.10 Atherosclerotic heart disease of native coronary artery without angina pectoris; Z95.1 Presence of aortocoronary bypass graft; E11.51 Type 2 diabetes mellitus with diabetic peripheral angiopathy without gangrene; D64.9 Anemia, unspecified; Y84.1 Kidney dialysis as the cause of abnormal reaction of the patient, or of later complication, without mention of misadventure at the time of the procedure; Z89.411 Acquired absence of right great toe
CPT/HCPCS: 36415; 70450; 71010; 74176; 80048; 80053; 80061; 80202; 82962; 83036; 83690; 85025; 85610; 85730; 87040; 87070; 87075; 87081; 87102; 87116; 89050; 90945; 93923; 93970; 96365; 96366; 96367; 96375; 96376; J0713; J1170; J1815; J1956; J2270; J2405; J3370

== ENCOUNTER 2017-02-25 20:58 | Inpatient (IN) | payer MEDICARE, OTHER ==
[~2017-02-25] VITALS: Ht 167.6 cm; Wt 96.3 kg
[~2017-02-25 20:58] MED LIST changes: +AMLO-147 PO; -BENA40TA41 PO; -CALC500T12 PO; -CARV12.579 PO; +CARV25TA79 PO; +CIPR-193 PO; +DARB60VI IJ; -FERGON PO; +FLUC200T36 PO; +HYDR-3671 PO; +LYR75 PO; +PANT40TA4 PO; +ZOLP10TA5 PO
[2017-02-25] MEDS ORDERED: ACETAMINOPHEN 325 MG TAB PO STA (23:48)
[2017-02-25] MEDS ORDERED: CEFEPIME 2GM/50 ML (PMX) 50 ML IVPB STA (23:48)
[2017-02-26] VITALS (20 sets, daily range): BP systolic 95–137; BP diastolic 55–78; PULSE 72–95; RESP 14–20; TEMP 100.3; Ht 167.6 cm; Wt 96.3 kg
[2017-02-26] MEDS ORDERED: VANCOMYCIN 1 GM (PMX) 250 ML IVPB ONE
[2017-02-26] MEDS ORDERED: morphine 4 MG/ML VIAL IV STA (00:28)
[2017-02-26] MEDS ORDERED: morphine 4 MG/ML VIAL ONE (00:29)
[2017-02-26 00:40] LABS: ADD SCAN DIFF NO
[2017-02-26 00:42] LABS: ABNORMAL IP MESSAGE 1; BASOPHILS % 0.3 % (0.0-2.0); EOSINOPHILS # 0.1 10^3/ul (0.0-0.5); EOSINOPHILS % 0.5 % (0.0-7.0); HEMATOCRIT 32.6 % (42.0-52.0); HEMOGLOBIN 11.1 g/dl (14.0-18.0); LYMPHOCYTES # 0.4 10^3/ul (0.8-2.9); LYMPHOCYTES % 4.3 % (15.0-51.0); MEAN CORPUSCULAR HEMOGLOBIN 31.1 pg (29.0-33.0); MEAN CORPUSCULAR VOLUME 91.3 fl (82.0-101.0); MEAN PLATELET VOLUME 11.7 fl (7.4-10.4); MONOCYTE # 0.5 10^3/ul (0.3-0.9); MONOCYTES % 4.7 % (0.0-11.0); NEUTROPHIL # 8.9 10^3/ul (1.6-7.5); PLATELET COUNT 144 10^3/UL (140-415); RED BLOOD COUNT 3.57 10^6/ul (4.70-6.10); RED CELL DISTRIBUTION WIDTH 15.4 % (11.5-14.5); WHITE BLOOD COUNT 9.9 10^3/ul (4.8-10.8)
[2017-02-26 00:58] LABS: INR 0.98
[2017-02-26 01:03] LABS: ALBUMIN 3.9 g/dl (3.3-4.9); ALBUMIN/GLOBULIN RATIO 1.05; CALCIUM 8.5 mg/dl (8.4-10.2); CREATININE 13.61 mg/dl (0.61-1.24); POTASSIUM 4.3 mmol/L (3.5-5.1); TOTAL PROTEIN 7.6 g/dl (6.1-8.1)
--- NOTE | 2017-02-26 01:08 | RADRPT ---
PROCEDURE: XR Chest. CLINICAL INDICATION: Sepsis TECHNIQUE: Single AP portable chest. COMPARISON: 10/06/2016 Chest x-ray FINDINGS: The cardiac silhouette is at the upper limits of normal in size. Sternotomy wires in place. The layton ngs are clear without pleural effusion or focal consolidation. No pneumothorax. The osseous structu res and soft tissues are unremarkable. IMPRESSION: 1. Mild cardiomegaly. No acute intrathoracic abnormality . RPTAT:AAJJ Robert Christianson Physician Date Time Electronically viewed and signed by Physician Iwona on 02/26/2017 01:07 FAITH/
[2017-02-26 01:14] LABS: TROPONIN-I 0.025 ng/ml (0.00-0.12)
--- NOTE | 2017-02-26 02:24 | RADRPT ---
PROCEDURE: CT abdomen and pelvis without intravenous contrast. CLINICAL INDICATION: Sepsis. TECHNIQUE: CT of the abdomen/pelvis was performed utilizing axial images with reconstructions in s agittal and coronal planes. The administered radiation dose is CTDI 21 mGy, DLP 1460 mGy-cm. COMPARISON: 10/06/2016 FINDINGS: Visualized Chest: There is mild atelectasis in the left greater than right lung bases. There is mil d cardiomegaly. Coronary artery calcifications are noted. Left greater than right gynecomastia is noted. Calcified subcarinal and left hilar lymph nodes are noted. Abdomen: The spleen, pancreas, gallbladder,and adrenal glands are unremarkable. The liver is diffusely dec reased in attenuation, compatible with hepatic steatosis. The kidneys are without hydronephrosis. No definite urinary calculi are seen. There is no evidence of bowel obstruction. The appendix is normal. No intra-abdominal free air is seen. There is moderate intra-abdominal ascites. A peritoneal dialysis catheter is noted with tip in the anterior lower abdomen. Vascular calcifications are noted within the aorta and its branches. Pelvis: There are moderate bilateral inguinal hernias which contain fat and ascites. The urinary bladder is nondistended but appears thickened. The prostate is unremarkable. There is no pelvic adenopathy. Some ascites is seen within the pelvis. Osseous structures: Unremarkable. IMPRESSION: Moderate intra-abdominal ascites. Peritoneal dialysis catheter with tip in the lower anterior abdomen. Moderate bilateral inguinal hernias containing fat and ascites. Bladder wall thickening. Please correlate with urinalysis to exclude infection. RPTAT: HIKT .Jered Matson MD, Date Time Electronically viewed and signed by .Jered Matson MD, on 02/26/2017 02:24 .T/
[2017-02-26] MEDS: morphine 2 MG INJ IV PRN ×2 (03:24→08:55)
--- NOTE | 2017-02-26 03:57 | ERA ---
ER Documentation Chief Complaint Date/Time DATE: 02/26/17 TIME: 03:54 Chief Complaint PERITONEAL HD AT HOME; FVER/DIARRHEA ABD PAIN; CP HPI This is a 52-year-old male who does peritoneal dialysis at home. He says a fever diarrhea and abdominal pain for the past 2-3 days. Fevers and chills alternating. Diarrhea watery with no blood. No other current complaints. No sick contacts. ROS All systems reviewed and are negative except as per history of present illness. Medications Home Meds Active Scripts Ciprofloxacin Hcl* (Ciprofloxacin Hcl*) 250 Mg Tablet, 250 MG PO DAILY@06 for 5 Days, TAB Prov:RONIT ROJAS 10/10/16 Insulin NPH Human Isophane (Humulin N) 100 Unit/1 Ml Vial, 10 UNIT SC HS for 30 Days, VIAL Prov:RONIT ROJAS 06/22/16 Insulin Detemir (Levemir Flextouch) 100 Unit/1 Ml Insuln.pen, 16 UNIT SC QHS for 30 Days Prov:RONIT ROJAS 06/22/16 Reported Medications Darbepoetin Fly in Polysorbat (Aranesp) 60 Mcg/1 Ml Vial, 60 MCG IJ Q7D, VIAL 10/06/16 Pantoprazole* (Pantoprazole*) 40 Mg Tablet.dr, 40 MG PO AC BREAKFAST, TAB 10/06/16 Carvedilol* (Carvedilol*) 25 Mg Tablet, 25 MG PO BID, #60 TAB 10/06/16 Pregabalin* (Lyrica*) 75 Mg Capsule, 200 MG PO BID, CAP 10/06/16 Amlodipine Besylate* (Amlodipine Besylate*) 10 Mg Tablet, 10 MG PO DAILY, #30 TAB 10/06/16 Zolpidem Tartrate* (Zolpidem Tartrate*) 10 Mg Tablet, 10 MG PO QHS Y for INSOMNIA, #30 TAB 10/06/16 Hydralazine Hcl* (Hydralazine Hcl*) 25 Mg Tab, 25 MG PO Q8, #90 TAB 10/06/16 Insulin Aspart* (Novolog Insulin Pen*) 100 Unit/Ml Soln, 0 SC .SLIDING SCALE AC , EA AC MEALS 10/06/16 Atorvastatin Calcium* (Atorvastatin Calcium*) 20 Mg Tablet, 20 MG PO HS, TAB 06/18/15 Multivit/Ca Carb/B Cmplx/Fa* (Pat-Tommy*) 1 Tab Tab, 1 TAB PO DAILY, TAB 08/26/14 Discontinued Scripts Fluconazole* (Diflucan*) 200 Mg Tablet, 200 MG PO DAILY for 5 Days, TAB Prov:RONIT ROJAS 10/10/16 Allergies Allergies: Coded Allergies: No Known Drug Allergies (Unverified Allergy, Unknown, 02/26/17) PMhx/Soc History of Surgery: Yes (CABG,AP, RIGHT TOES AMPUTATION, PD CATH INSERTION) Anesthesia Reaction: No Hx Neurological Disorder: No Hx Respiratory Disorders: No Hx Cardiac Disorders: Yes (HTN, NC, CABG, PVD) Hx Psychiatric Problems: No Hx Miscellaneous Medical Probl: No Hx Alcohol Use: No Hx Substance Use: No Hx Tobacco Use: No Smoking Status: Never smoker Physical Exam Vitals Vital Signs Date Time Temp Pulse Resp B/P Pulse Ox O2 Delivery O2 Flow Rate FiO2 02/26/17 02:14 100.5 92 18 149/83 96 Room Air 02/26/17 00:20 Nasal Cannula 2 02/25/17 21:21 102.1 82 20 116/59 97 Physical Exam Const: [] Head: Atraumatic Eyes: Normal Conjunctiva ENT: Normal External Ears, Nose and Mouth. Neck: Full range of motion..~ No meningismus. Resp: Clear to auscultation bilaterally Cardio: Regular rate and rhythm, no murmurs Abd: Soft, non tender, non distended. Normal bowel sounds Skin: No petechiae or rashes Back: No midline or flank tenderness Ext: No cyanosis, or edema Neur: Awake and alert Psych: Normal Mood and Affect Result Diagram: 02/26/17 0015 02/26/17 0015 Results 24 hrs Laboratory Tests Test 02/26/17 00:15 02/26/17 02:30 White Blood Count 9.910^3/ul Red Blood Count 3.5710^6/ul Hemoglobin 11.1g/dl Hematocrit 32.6% Mean Corpuscular Volume 91.3fl Mean Corpuscular Hemoglobin 31.1pg Mean Corpuscular Hemoglobin Concent 34.0g/dl Red Cell Distribution Width 15.4% Platelet Count 96450^3/UL Mean Platelet Volume 11.7fl Neutrophils % 90.0% Lymphocytes % 4.3% Monocytes % 4.7% Eosinophils % 0.5% Basophils % 0.3% Nucleated Red Blood Cells % 0.0/100WBC Neutrophils # 8.910^3/ul Lymphocytes # 0.410^3/ul Monocytes # 0.510^3/ul Eosinophils # 0.110^3/ul Basophils # 0.010^3/ul Nucleated Red Blood Cells # 0.010^3/ul Prothrombin Time 13.0Sec Prothrombin Time Ratio 1.0 INR International Normalized Ratio 0.98 Activated Partial Thromboplast Time 28.0Sec Sodium Level 139mmol/L Potassium Level 4.3mmol/L Chloride Level 92mmol/L Carbon Dioxide Level 24mmol/L Anion Gap 27 Blood Urea Nitrogen 77mg/dl Creatinine 13.61mg/dl Glucose Level 180mg/dl Lactic Acid Level 1.8mmol/L 2.1mmol/L Calcium Level 8.5mg/dl Total Bilirubin 0.0mg/dl Direct Bilirubin 0.00mg/dl Indirect Bilirubin 0.0mg/dl Aspartate Amino Transf (AST/SGOT) 21IU/L Alanine Aminotransferase (ALT/SGPT) 25IU/L Alkaline Phosphatase 176IU/L Troponin I 0.025ng/ml Total Protein 7.6g/dl Albumin 3.9g/dl Globulin 3.70g/dl Albumin/Globulin Ratio 1.05 Current Medications Medications (Trade) Dose Ordered Sig/Liliana Route PRN Reason Start Time Stop Time Status Last Admin Dose Admin Acetaminophen 650 mg 650 mg ONCE STAT PO 02/25/17 23:48 02/25/17 23:49 DC 02/26/17 00:31 Cefepime HCl 50 ml @ 100 mls/hr ONCE STAT IVPB 02/25/17 23:48 02/26/17 00:17 DC 02/26/17 00:32 Vancomycin HCl (Vancocin) 250 ml @ 125 mls/hr ONCE ONCE IVPB 02/26/17 00:00 02/26/17 01:59 DC 02/26/17 00:32 Morphine Sulfate (morphine) 4 mg ONCE STAT IV 02/26/17 00:28 02/26/17 00:39 DC 02/26/17 00:40 Morphine Sulfate (morphine) 4 mg STK-MED ONCE .ROUTE 02/26/17 00:29 02/26/17 00:30 DC Morphine Sulfate (morphine) 2 mg Q4 PRN IV PAIN LEVEL 7-10 02/26/17 03:30 02/26/17 03:24 Procedures/MDM Patient's infectious symptoms have not stabilized and the patient is at risk of rapid decompensation. The patient will be admitted for careful hydration, antibiotic therapy, and infectious source control. Severe Sepsis Assessment: Infectious Source: Unknown End organ damage indicated by: Lactate > 2.0 mmol/L Hypotension( SBP < 90 or >40 mmHG drop or MAP < 65) Acute Resp Failure (sat < 92% w/o oxygen) For[place] Heater > 2.0 INR > 1.5 Plt < 100 Bili > 2 Severe Sepsis Managment: Blood Cultures X 2 before broad spectrum antibiotics initiated within 3 hours of recognition. 30 ml/kg NS bolus Completed Initial Lactate: normal Repeat Lactate 2.1 Critical Care: Time: 45 minutes Treatments/Evaluations: Emergent fluid management, while maintaining close respiratory support. Immediate broad spectrum antibiotic therapy. Simultaneous assessment for possible sources in order to direct therapy. Consideration for invasive and chemical support to prevent respiratory or cardiac collapse. Septic Shock Assessment (1 hour post 30 ml/kg fluid bolus): Hypotension (SBP < 90 or 40 mmHg drop, MAP < 65): No Lactic acid > 4.0 No Accepting Care Team: Current data and ongoing care discussed. Time: 3 AM Primary Provider: Dr. Solis who is the on-call physician Consulting: MARGARET Outstanding Data: none EKG: Rate/Rhythm: Normal Sinus Rhythm QRS, ST, T-waves: No changes consistent w/ acute ischemia Impression: No evidence of ischemia or arrhythmia Chest X-ray 1V Interpreted by me: Soft Tissue: No acute abnormalities Bones: No acute abnormalities Mediastinum/Cardiac Silhouette/Lungs: [No acute abnormalities] Departure Diagnosis: Primary Impression: Sepsis Qualified Code: A41.9 - Sepsis, due to unspecified organism Condition: Stable VALDO LR Feb 26, 2017 03:57
[2017-02-26] MEDS ORDERED: DARBEPOETIN ALFA IN POLYSORBAT 60 MCG XX SCH (05:30)
[2017-02-26] MEDS ORDERED: ZOLPIDEM 5 MG TAB PO PRN (05:30)
[2017-02-26] MEDS ORDERED: GLUCOSE GEL 15 GRAM TUBE PO PRN ×2 (06:00)
[2017-02-26] MEDS ORDERED: SOD CHLORIDE 0.9% 1,000 ML IV SCH (06:00)
[2017-02-26] MEDS ORDERED: GLUCAGON 1 MG INJ IM PRN (06:00)
[2017-02-26] MEDS ORDERED: DEXTROSE 50% 50 ML SYRINGE IV PRN ×2 (06:00)
[2017-02-26] MEDS ORDERED: GLUCOSE GEL 15 GRAM TUBE BUCCAL PRN (06:00)
[2017-02-26 06:55] LABS: ADD SCAN DIFF NO
[2017-02-26 07:00] LABS: BASOPHILS % 0.1 % (0.0-2.0); EOSINOPHILS % 0.1 % (0.0-7.0); HEMATOCRIT 30.2 % (42.0-52.0); HEMOGLOBIN 9.8 g/dl (14.0-18.0); LYMPHOCYTES # 0.7 10^3/ul (0.8-2.9); LYMPHOCYTES % 4.8 % (15.0-51.0); MEAN CORPUSCULAR HEMOGLOBIN 30.4 pg (29.0-33.0); MEAN CORPUSCULAR HGB CONC 32.5 g/dl (32.0-37.0); MEAN CORPUSCULAR VOLUME 93.8 fl (82.0-101.0); MEAN PLATELET VOLUME 12.2 fl (7.4-10.4); MONOCYTE # 0.8 10^3/ul (0.3-0.9); MONOCYTES % 5.3 % (0.0-11.0); NEUTROPHIL # 13.2 10^3/ul (1.6-7.5); NEUTROPHILS % 88.7 % (39.0-77.0); PLATELET COUNT 127 10^3/UL (140-415); RED BLOOD COUNT 3.22 10^6/ul (4.70-6.10); RED CELL DISTRIBUTION WIDTH 15.8 % (11.5-14.5); WHITE BLOOD COUNT 14.9 10^3/ul (4.8-10.8)
[2017-02-26 07:25] LABS: CALCIUM 7.6 mg/dl (8.4-10.2); CREATININE 13.75 mg/dl (0.61-1.24)
[2017-02-26 07:33] LABS: POTASSIUM 6.2 mmol/L (3.5-5.1)
[2017-02-26] MEDS ORDERED: NA POLYST SULFON 15 GM/60 ML BTL PO ONE (08:00)
[2017-02-26] MEDS ORDERED: VANCOMYCIN 2 GM in SOD CHLORIDE 0.9% 500 ML IVPB ONE (08:00)
[2017-02-26] MEDS: MULTIVIT/CA CARB/B CMPLX/FA TAB PO SCH (08:18)
[2017-02-26] MEDS: NPH, HUMAN INSULIN ISOPHANE 3ML VIAL SC SCH ×2 (08:20→20:58)
[2017-02-26] MEDS: INSULIN ASPART [NOVOLOG] 3 ML PEN SC SCH ×4 (08:21→21:00)
[2017-02-26] MEDS: PREGABALIN 100 MG CAP PO SCH ×2 (08:23→22:28)
[2017-02-26] MEDS: AMLODIPINE 10 MG TAB PO SCH (08:23)
[2017-02-26] MEDS: PANTOPRAZOLE (EC) 40 MG TAB PO SCH (08:46)
[2017-02-26] MEDS ORDERED: PREGABALIN 75 MG CAP PO SCH (09:00)
[2017-02-26] MEDS: [UNRECOGNIZED DRUG - REMARK] XX SCH ×2 (09:30→17:30)
--- NOTE | 2017-02-26 10:39 | HP ---
Date/Time of Note Date/Time of Note DATE: 02/26/17 TIME: 10:25 Assessment/Plan VTE Prophylaxis VTE Prophylaxis Intervention: SCD's Lines/Catheters IV Catheter Type (from Rust): Peripheral IV Urinary Cath still in place: No Assessment/Plan Assessment/Plan -Sepsis most likely secondary to peritonitis, patient received vancomycin and Levaquinin ER, will start meropenem, Dr. Pierre is asked to see patient in infection disease consultation. -Peritonitis follow-up on culture from peritoneal catheter, malaise Dr. Shields to see patient in general surgery consultation for possible removal of peritoneal catheter. -End-stage renal disease, Dr. Green is following in nephrology consultation, patient will be started on hemodialysis. -Hyperkalemia secondary to end-stage renal disease -Diabetes mellitus, continue Lantus and NovoLog -Coronary artery disease status post CABG -Peripheral vascular disease Further recommendations based on clinical course. Plan of care discussed with Dr. Sanchez. HPI/ROS Admit Date/Time Admit Date/Time Feb 26, 2017 at 03:18 Hx of Present Illness The patient is 52-year-old male with coronary artery disease, diabetes, and end- stage renal disease. Patient is on peritoneal dialysis, follows with Dr. Graf as an outpatient. Patient was previously hospitalized for peritonitis, received vancomycin and ceftriaxone, recovered and was able to continue on peritoneal dialysis. Patient developed fever chills abdominal pain and diarrhea over the last couple of days. Patient also complains of mild shortness of breath denies any chest pain denies any vomiting denies any bilateral lower extremity swelling. Patient underwent CT scan of the abdomen in the emergency room which revealed intra-abdominal ascites. On admission the emergency room patient had fever 102.1 and currently has leukocytosis and elevated lactate. Patient potassium is 6.2. Patient was diagnosed with sepsis blood cultures was collected patient was started on broad-spectrum antibiotics and admitted for further evaluation and management. ROS 12 point review of systems is negative unless mentioned in HPI PMH/Family/Social Past Medical History Peripheral vascular disease, anemia Medical History: coronary artery disease, diabetes, high cholesterol, hypertension, renal disease Past Surgical History Past Surgical Hx: appendectomy, coronary bypass surgery, other (Status post right big toe amputation) Family History Significant Family History: diabetes (Patient's father) Social History Alcohol Use: none Smoking Status: Never smoker Drug Use: none Exam/Review of Systems Vital Signs Vitals Vital Signs Date Time Temp Pulse Resp B/P Pulse Ox O2 Delivery O2 Flow Rate FiO2 02/26/17 08:56 72 111/55 02/26/17 07:58 98.7 20 95 02/26/17 04:00 Room Air 02/26/17 00:20 2 Exam Constitutional: alert, oriented Head: atraumatic, normocephalic Eyes: nl conjunctiva Neck: supple Respiratory: normal air movement Cardiovascular: nl pulses Gastrointestinal: ascites, soft, tender Extremities: normal pulses, other Neurological: nl mental status Skin: nl turgor Labs Result Diagram: 02/26/1762102/26/1722 Medications Medications Current Medications Morphine Sulfate (morphine) 2 mg Q4 PRN IV PAIN LEVEL 7-10 Last administered on 02/26/17 08:55; Admin Dose 2 MG; Start 02/26/17 at 03:30 Amlodipine Besylate (Norvasc) 10 mg DAILY PO Last administered on 02/26/17 08: 23; Admin Dose 10 MG; Start 02/26/17 at 09:00 Atorvastatin Calcium (Lipitor) 20 mg HS PO ; Start 02/26/17 at 21:00 Carvedilol (Coreg) 25 mg BID PO Last administered on 02/26/17 08:23; Admin Dose 25 MG; Start 02/26/17 at 09:00 Hydralazine HCl (Apresoline) 25 mg Q8 PO Last administered on 02/26/17 06:06; Admin Dose 25 MG; Start 02/26/17 at 06:00 Multivit/Ca Carb/ B Cmplx/FA/Prenat (Pat-Tommy) 1 tab DAILY PO Last administered on 02/26/17 08:18; Admin Dose 1 TAB; Start 02/26/17 at 09:00 Zolpidem Tartrate (Ambien) 10 mg QHS PRN PO INSOMNIA; Start 02/26/17 at 05:30 Miscellaneous Information 60 mcg Q7D XX ; Start 02/26/17 at 05:30; Status UNV Pregabalin 200 mg 200 mg BID PO Last administered on 02/26/17 08:23; Admin Dose 200 MG; Start 02/26/17 at 09:00 Sodium Chloride (NS) 1,000 ml @ 100 mls/hr Q10H IV Last administered on 06:08; Admin Dose 100 MLS/HR; Start 02/26/17 at 06:00 Insulin Detemir (Levemir) 16 unit DAILY@20 SC ; Start 02/26/17 at 20:00 Insulin Human NPH (Humulin N) 10 unit BID@08,20 SC Last administered on 08:20; Admin Dose 10 UNIT; Start 02/26/17 at 08:00 Diagnostic Test (Pha) (Accu-Chek) 1 ea 02 XX ; Start 02/27/17 at 02:00 Miscellaneous Information 1 ea NOTE XX ; Start 02/26/17 at 06:00 Glucose (Glutose) 15 gm Q15M PRN PO DECREASED GLUCOSE; Start 02/26/17 at 06:00 Glucose (Glutose) 22.5 gm Q15M PRN PO DECREASED GLUCOSE; Start 02/26/17 at 06: 00 Dextrose (D50w Syringe) 25 ml Q15M PRN IV DECREASED GLUCOSE; Start 02/26/17 at 06:00 Dextrose (D50w Syringe) 50 ml Q15M PRN IV DECREASED GLUCOSE; Start 02/26/17 at 06:00 Glucagon (Glucagen) 1 mg Q15M PRN IM DECREASED GLUCOSE; Start 02/26/17 at 06:00 Glucose (Glutose) 15 gm Q15M PRN BUCCAL DECREASED GLUCOSE; Start 02/26/17 at 06 :00 Levofloxacin 250 mg 250 mg Q48H PO ; Start 02/27/17 at 06:00 Vancomycin HCl/ Sodium Chloride (Vancocin/NS) 500 ml @ 125 mls/hr ONCE ONCE IVPB ; Start 02/26/17 at 08:00; Stop 02/26/17 at 11:59; Status UNV Miscellaneous Information (*Order Clarification Bulletin) MEDICATION REQUIRES CLARIFICATION: Q8H XX ; Start 02/26/17 at 09:30 RONIT ROJAS Feb 26, 2017 10:37
[2017-02-26] MEDS ORDERED: INSULIN ASPART [NOVOLOG] 3 ML PEN SC SCH (12:00)
[2017-02-26] MEDS ORDERED: MEROPENEM 500MG/50 ML (PMX) 50 ML IVPB SCH (12:00)
--- NOTE | 2017-02-26 12:03 | CONS ---
Date/Time of Note Date/Time of Note DATE: 02/26/17 TIME: 12:02 Assessment/Plan Assessment/Plan Additional Assessment/Plan 52 yo male with 1) Sepsis most likely secondary to peritonitis 2) PD catheter Peritonitis 3) End-stage renal disease 4) Hyperkalemia 5) Diabetes mellitus 6) Coronary artery disease status post CABG 7) Peripheral vascular disease F/u cultures Appreciate ID consultation Will need removal of PD catheter General Surgery consultation IR to Place temp saida for HD Dr Branch consulted as Vascular Sx Consultation Date/Type/Reason Admit Date/Time Feb 26, 2017 at 03:18 Date of Consultation: Feb 26, 2017 Type of Consultation: Renal Reason for Consultation ESRD Referring Provider: YENIFER DAVIES MD Hx of Present Illness 52 yo male with HTN, DM, ESRD 2nd to DM, On PD who presents with abdominal pain , previous history of Peritonitis. He says a fever diarrhea and abdominal pain for the past 2-3 days. Fevers and chills alternating. Diarrhea watery with no blood. No other current complaints. No sick contacts. Nephrology consulted for managment of ESRD. Constitutional: requiring O2 Past Medical History Medical History: coronary artery disease, diabetes, high cholesterol, hypertension, renal disease Past Surgical History Past Surgical Hx: appendectomy, coronary bypass surgery, other (Status post right big toe amputation) Social History Alcohol Use: none Smoking Status: Never smoker Drug Use: none Exam/Review of Systems Vital Signs Vitals Vital Signs Date Time Temp Pulse Resp B/P Pulse Ox O2 Delivery O2 Flow Rate FiO2 02/26/17 08:56 72 111/55 02/26/17 08:21 Nasal Cannula 2.0 02/26/17 07:58 98.7 20 95 Exam Constitutional: alert, oriented, No distress Psych: No anxiety Head: atraumatic Eyes: EOMI Neck: No jvd Respiratory: crackles/rales, No diminished breath sounds, No labored breathing Cardiovascular: edema, regular rate and rhythm Gastrointestinal: bowel sounds, soft, tender Neurological: CSR RETAIL II-XII intact, nl mental status, No lethargic Skin: No diaphoresis, No rash or lesions Results Result Diagram: 02/26/17 0622 02/26/17 0622 Results 24 hrs Laboratory Tests Test 02/26/17 00:15 02/26/17 02:30 02/26/17 06:22 02/26/17 07:41 White Blood Count 9.9 # 14.9 #H Red Blood Count 3.57 #L 3.22 L Hemoglobin 11.1 #L 9.8 L Hematocrit 32.6 #L 30.2 L Mean Corpuscular Volume 91.3 93.8 Mean Corpuscular Hemoglobin 31.1 30.4 Mean Corpuscular Hemoglobin Concent 34.0 32.5 Red Cell Distribution Width 15.4 H 15.8 H Platelet Count 144 # 127 L Mean Platelet Volume 11.7 H 12.2 H Neutrophils % 90.0 H 88.7 H Lymphocytes % 4.3 L 4.8 L Monocytes % 4.7 5.3 Eosinophils % 0.5 0.1 Basophils % 0.3 0.1 Nucleated Red Blood Cells % 0.0 0.0 Neutrophils # 8.9 H 13.2 H Lymphocytes # 0.4 L 0.7 L Monocytes # 0.5 0.8 Eosinophils # 0.1 0.0 Basophils # 0.0 0.0 Nucleated Red Blood Cells # 0.0 0.0 Prothrombin Time 13.0 Prothrombin Time Ratio 1.0 INR International Normalized Ratio 0.98 Activated Partial Thromboplast Time 28.0 Sodium Level 139 139 Potassium Level 4.3 6.2 *H Chloride Level 92 L 95 L Carbon Dioxide Level 24 21 Anion Gap 27 H 29 H Blood Urea Nitrogen 77 H 81 H Creatinine 13.61 H 13.75 H Glucose Level 180 161 Lactic Acid Level 1.8 2.1 H 3.6 *H Calcium Level 8.5 7.6 L Total Bilirubin 0.0 L Direct Bilirubin 0.00 Indirect Bilirubin 0.0 Aspartate Amino Transf (AST/SGOT) 21 Alanine Aminotransferase (ALT/SGPT) 25 Alkaline Phosphatase 176 H Troponin I 0.025 Total Protein 7.6 Albumin 3.9 Globulin 3.70 H Albumin/Globulin Ratio 1.05 Bedside Glucose 169 Test 02/26/17 11:49 Bedside Glucose 169 Medications Medications Current Medications Morphine Sulfate (morphine) 2 mg Q4 PRN IV PAIN LEVEL 7-10 Last administered on 02/26/17 08:55; Admin Dose 2 MG; Start 02/26/17 at 03:30 Amlodipine Besylate (Norvasc) 10 mg DAILY PO Last administered on 02/26/17 08: 23; Admin Dose 10 MG; Start 02/26/17 at 09:00 Atorvastatin Calcium (Lipitor) 20 mg HS PO ; Start 02/26/17 at 21:00 Carvedilol (Coreg) 25 mg BID PO Last administered on 02/26/17 08:23; Admin Dose 25 MG; Start 02/26/17 at 09:00 Hydralazine HCl (Apresoline) 25 mg Q8 PO Last administered on 02/26/17 06:06; Admin Dose 25 MG; Start 02/26/17 at 06:00 Multivit/Ca Carb/ B Cmplx/FA/Prenat (Pat-Tommy) 1 tab DAILY PO Last administered on 02/26/17 08:18; Admin Dose 1 TAB; Start 02/26/17 at 09:00 Zolpidem Tartrate (Ambien) 10 mg QHS PRN PO INSOMNIA; Start 02/26/17 at 05:30 Miscellaneous Information 60 mcg Q7D XX ; Start 02/26/17 at 05:30; Status UNV Pregabalin 200 mg 200 mg BID PO Last administered on 02/26/17 08:23; Admin Dose 200 MG; Start 02/26/17 at 09:00 Sodium Chloride (NS) 1,000 ml @ 100 mls/hr Q10H IV Last administered on 06:08; Admin Dose 100 MLS/HR; Start 02/26/17 at 06:00 Insulin Detemir (Levemir) 16 unit DAILY@20 SC ; Start 02/26/17 at 20:00 Insulin Human NPH (Humulin N) 10 unit BID@08,20 SC Last administered on 08:20; Admin Dose 10 UNIT; Start 02/26/17 at 08:00 Diagnostic Test (Pha) (Accu-Chek) 1 ea 02 XX ; Start 02/27/17 at 02:00 Miscellaneous Information 1 ea NOTE XX ; Start 02/26/17 at 06:00 Glucose (Glutose) 15 gm Q15M PRN PO DECREASED GLUCOSE; Start 02/26/17 at 06:00 Glucose (Glutose) 22.5 gm Q15M PRN PO DECREASED GLUCOSE; Start 02/26/17 at 06: 00 Dextrose (D50w Syringe) 25 ml Q15M PRN IV DECREASED GLUCOSE; Start 02/26/17 at 06:00 Dextrose (D50w Syringe) 50 ml Q15M PRN IV DECREASED GLUCOSE; Start 02/26/17 at 06:00 Glucagon (Glucagen) 1 mg Q15M PRN IM DECREASED GLUCOSE; Start 02/26/17 at 06:00 Glucose (Glutose) 15 gm Q15M PRN BUCCAL DECREASED GLUCOSE; Start 02/26/17 at 06 :00 Levofloxacin 250 mg 250 mg Q48H PO ; Start 02/27/17 at 06:00 Vancomycin HCl/ Sodium Chloride (Vancocin/NS) 500 ml @ 125 mls/hr ONCE ONCE IVPB ; Start 02/26/17 at 08:00; Stop 02/26/17 at 11:59; Status UNV Miscellaneous Information MEDICATION REQUIRES CLARIFICATION: Q8H XX ; Start 02/26/17 at 09:30 Meropenem/Sodium Chloride 50 ml @ 100 mls/hr Q12 IVPB ; Start 02/26/17 at 12:00 ; Stop 02/26/17 at 15:00 Meropenem/Sodium Chloride (Merrem 1 Gm/50 ml (Pmx)) 50 ml @ 100 mls/hr Q24H IVPB ; Start 02/27/17 at 12:00 Procedures Procedures PROCEDURE: XR Chest. CLINICAL INDICATION: Sepsis TECHNIQUE: Single AP portable chest. COMPARISON: 10/06/2016 Chest x-ray FINDINGS: The cardiac silhouette is at the upper limits of normal in size. Sternotomy wires in place. The lungs are clear without pleural effusion or focal consolidation. No pneumothorax. The osseous structures and soft tissues are unremarkable. IMPRESSION: 1. Mild cardiomegaly. No acute intrathoracic abnormality . RPTAT:AAJJ Physician Iwona Date Time Electronically viewed and signed by Physician Iwona on 02/26/2017 01:07 BEL SNYDER MD Feb 26, 2017 12:02
[2017-02-26] MEDS ORDERED: HEPARIN 1000 UNITS/ML 10 ML INJ ONE ×2 (12:44→12:45)
[2017-02-26] MEDS ORDERED: LIDOCAINE 1% (MDV) 20 ML INJ ONE (13:19)
--- NOTE | 2017-02-26 13:35 | OPR ---
Date/Time of Note Date/Time of Note DATE: 02/26/17 TIME: 13:33 Operative Report Free Text/Dictation DATE OF OPERATION: 02/26/2017 SURGEON: Lennox Newton MD PREOPERATIVE DIAGNOSIS: ESRD POSTOPERATIVE DIAGNOSIS: same ANESTHESIA: Local BLOOD LOSS: minimal COMPLICATIONS: None. ACCESS: Right common femoral vein INDICATIONS: This is a 52 year-old male with ESRD requiring emergent dialysis. Patient and family have been informed of the alternatives, risks, and benefits. Risks including but not limited to bleeding, thrombosis, embolization , myocardial infarction, , device malfunction, infection, pneumothorax, nephrotoxicity and patient has agreed to proceed. PROCEDURE: 1. Ultrasound guided access of right common femoral vein 2. Emergent Right common femoral vein non-tunneled hemodialysis catheter placement DESCRIPTION: The patient was in supine position in his bed. Bed was placed in slight Trendelenburg position and the groin was prepped and draped with sterile technique. The central catheter was flushed with heparin to ensure function of each port. Landmarks were identified and the skin entry site was chosen using ultrasound guidance. The skin And subcutaneous tissue were anesthetized with 1% lidocaine. The vein was then located with a needle with a 10 mL syringe using ultrasound guidance. The needle was then directed towards the vein and was entered. The needle position was secured and syringe was removed. The hub was occluded to prevent venous air embolus. The guidewire was passed easily and the needle was removed while the wire was held in place. A small incision was then made at the point of the wire entry. The dilator was placed over the wire and the tract gently dilated. The catheter was fed over the wire, ensuring the wire exited from the port before advancing the catheter. The catheter was inserted to the desired depth and the wire removed. Each port was aspirated to ensure adequate blood flow and then flushed with heparinized saline solution. The catheter was secured in place with a 2-0 nylon suture and a sterile dressing was applied. The patient tolerated the procedure well and was in stable condition. All instrument, sponge and needle counts were correct 2. LENNOX NEWTON MD Feb 26, 2017 13:35
[2017-02-26] MEDS ORDERED: VANCOMYCIN IV PER PHARMACY XX SCH (17:30)
--- NOTE | 2017-02-26 17:50 | RADRPT ---
PROCEDURE: US Bilateral Upper Extremity Veins. CLINICAL INDICATION: Bilateral upper extremity swelling. Venous diameter for dialysis fistula plan ariana. TECHNIQUE: Multiple longitudinal and transverse images of the bilateral upper extremity venous sheba e was obtained with hannah scale and color Doppler imaging. COMPARISON: None available FINDINGS: The subclavian veins, axillary, brachial, basilic, and cephalic veins are patent bilaterally. There is normal flow with augmentation and compressibility throughout. There is no thrombus or occlusion. Diameters are as follows: Right arm cephalic upper: 0.49 cm. Right arm cephalic mid: 0.35 cm. Right arm cephalic lower: 0.32 cm. Right forearm cephalic upper: 0.24 cm. Right forearm cephalic mid: 0.26 cm. Right forearm cephalic lower: 0.16 cm. Right arm basilic upper: 0.42 cm. Right arm basilic mid: 0.37 cm. Right arm basilic lower: 0.24 cm. Right forearm basilic upper: 0.26 cm. Right forearm basilic mid: 0.17 cm. Right forearm basilic lower: 0.18 cm. Left arm cephalic upper: 0.37 cm. Left arm cephalic mid: 0.26 cm. Left arm cephalic lower: 0.34 cm. Left forearm cephalic upper: 0.29 cm. Left forearm cephalic mid: 0.30 cm. Left forearm cephalic lower: 0.25 cm. Left arm basilic upper: 0.45 cm. Left arm basilic mid: 0.42 cm. Left arm basilic lower: 0.25 cm. Left forearm basilic upper: 0.23 cm. Left forearm basilic mid: 0.22 cm. Left forearm basilic lower: 0.23 cm. IMPRESSION: 1. Normal venous system of the upper extremities. No evidence of thrombus or occlusion. 2. The diameter of the vessels as indicated above. RPTAT: QQ .Matt Pennington MD, Date Time Electronically viewed and signed by .Matt Pennington MD, on 02/26/2017 17:50 .R/
[2017-02-26] MEDS ORDERED: VANCOMYCIN 1 GM in NS 250 ML IVPB SCH (18:00)
[2017-02-26] MEDS ORDERED: CASPOFUNGIN 70 MG in SOD CHLORIDE 0.9% 250 ML IVPB ONE (18:00)
--- NOTE | 2017-02-26 18:10 | CONS ---
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, Cx grew pseudomonas - s/p angioplasty for diffuse stenoses with focal occlusions of RLE on 06/20/2016 - PVD - CAD s/p CABG - DM recommendations: - pending results: dialysate for bacterial, fungal and AFB cultures - I entered additional orders and asked Pt's dialysis nurse to send more dialysate for: anaerobic culture, fluid tests (cell count and diff, albumin, LDH ), cytology - I ordered bacterial culture of a tip of Pt's PD catheter if it is removed on (I ordered and dated it for 02/27/2017) - continue empiric meropenem (02/27/2017-), IV vancomycin (02/26/2017-), add micafungin (02/26/2017-). Pt received levofloxacin at ER - will adjust his antibiotics based on the culture results management d/w Pt, his , RN, dialysis nurse Renata Problems: Consultation Date/Type/Reason Admit Date/Time Feb 26, 2017 at 03:18 Date of Consultation: Feb 26, 2017 Type of Consultation: ID Reason for Consultation peritonitis Referring Provider: RONIT GOODEN Hx of Present Illness This is a 52 yo male with CAD, DM and ESRD on dialysis, peritoneal. Pt was admitted here in 09/2016 for culture negative neutrocytic peritonitis. Pt received peritoneal antibiotic infusion and then was discharged with oral antibiotics. Pt was doing well after that. However, Pt would tend to be exhausted, edematous and distended with PD and felt he was "not doing well with peritoneal dialysis." A few days ago, Pt developed malaise, worsening abdominal distention and came to ER yesterday (02/25/2017). Pt was febrile and WBC was elevated. Pt was admitted for sepsis. Antibiotics were started. Pt received a new non-tunneled catheter in R groin, and started receiving HD this afternoon. Pt is tentatively scheduled to get his PD catheter removed tomorrow. DESIREE Gooden requested ID consultation on this Pt. Constitutional: chills, febrile, other (malaise), poor po Eyes: no complaints ENT: no complaints Respiratory: no complaints Cardiovascular: no complaints Gastrointestinal: diarrhea, other (distention), No nausea Genitourinary: other (anuric) Musculoskeletal: no complaints Skin: No rash Neurologic: other (weakness) Lymphatic: lymphadema Psychological: No anxiety Past Medical History Medical History: coronary artery disease, diabetes, high cholesterol, hypertension, renal disease, other (OM, peritonitis) Past Surgical History Past Surgical Hx: appendectomy, coronary bypass surgery, other (Status post right big toe amputation) Social History Alcohol Use: none Smoking Status: Never smoker Drug Use: none Exam/Review of Systems Vital Signs Vitals Vital Signs Date Time Temp Pulse Resp B/P Pulse Ox O2 Delivery O2 Flow Rate FiO2 02/26/17 16:53 80 02/26/17 16:00 14 02/26/17 15:28 98.5 137/66 100 02/26/17 13:35 2.0 02/26/17 13:35 Nasal Cannula Exam Constitutional: alert, oriented, well developed Psych: nl mood/affect, no complaints Head: atraumatic, normocephalic Eyes: nl conjunctiva, nl lids ENMT: nl external ears & nose, nl nasal mucosa & septum Neck: supple Respiratory: clear to auscultation, normal air movement Cardiovascular: nl pulses, regular rate and rhythm Gastrointestinal: distended, other (+PD. site is clean), soft Extremities: edema Neurological: LOSS PREVENTION COORDINATOR II-XII intact, nl mental status Skin: nl turgor, No rash or lesions Results Result Diagram: 02/26/1762102/26/17621 Results 24 hrs Laboratory Tests Test 02/26/17 00:15 02/26/17 02:30 02/26/17 06:22 02/26/17 07:41 White Blood Count 9.9 # 14.9 #H Red Blood Count 3.57 #L 3.22 L Hemoglobin 11.1 #L 9.8 L Hematocrit 32.6 #L 30.2 L Mean Corpuscular Volume 91.3 93.8 Mean Corpuscular Hemoglobin 31.1 30.4 Mean Corpuscular Hemoglobin Concent 34.0 32.5 Red Cell Distribution Width 15.4 H 15.8 H Platelet Count 144 # 127 L Mean Platelet Volume 11.7 H 12.2 H Neutrophils % 90.0 H 88.7 H Lymphocytes % 4.3 L 4.8 L Monocytes % 4.7 5.3 Eosinophils % 0.5 0.1 Basophils % 0.3 0.1 Nucleated Red Blood Cells % 0.0 0.0 Neutrophils # 8.9 H 13.2 H Lymphocytes # 0.4 L 0.7 L Monocytes # 0.5 0.8 Eosinophils # 0.1 0.0 Basophils # 0.0 0.0 Nucleated Red Blood Cells # 0.0 0.0 Prothrombin Time 13.0 Prothrombin Time Ratio 1.0 INR International Normalized Ratio 0.98 Activated Partial Thromboplast Time 28.0 Sodium Level 139 139 Potassium Level 4.3 6.2 *H Chloride Level 92 L 95 L Carbon Dioxide Level 24 21 Anion Gap 27 H 29 H Blood Urea Nitrogen 77 H 81 H Creatinine 13.61 H 13.75 H Glucose Level 180 161 Lactic Acid Level 1.8 2.1 H 3.6 *H Calcium Level 8.5 7.6 L Total Bilirubin 0.0 L Direct Bilirubin 0.00 Indirect Bilirubin 0.0 Aspartate Amino Transf (AST/SGOT) 21 Alanine Aminotransferase (ALT/SGPT) 25 Alkaline Phosphatase 176 H Troponin I 0.025 Total Protein 7.6 Albumin 3.9 Globulin 3.70 H Albumin/Globulin Ratio 1.05 Bedside Glucose 169 Test 02/26/17 11:49 Bedside Glucose 169 Medications Medications Current Medications Morphine Sulfate (morphine) 2 mg Q4 PRN IV PAIN LEVEL 7-10 Last administered on 02/26/17 08:55; Admin Dose 2 MG; Start 02/26/17 at 03:30 Amlodipine Besylate (Norvasc) 10 mg DAILY PO Last administered on 02/26/17 08: 23; Admin Dose 10 MG; Start 02/26/17 at 09:00 Atorvastatin Calcium (Lipitor) 20 mg HS PO ; Start 02/26/17 at 21:00 Carvedilol (Coreg) 25 mg BID PO Last administered on 02/26/17 08:23; Admin Dose 25 MG; Start 02/26/17 at 09:00 Hydralazine HCl (Apresoline) 25 mg Q8 PO Last administered on 02/26/17 06:06; Admin Dose 25 MG; Start 02/26/17 at 06:00 Multivit/Ca Carb/ B Cmplx/FA/Prenat (Pat-Tommy) 1 tab DAILY PO Last administered on 02/26/17 08:18; Admin Dose 1 TAB; Start 02/26/17 at 09:00 Zolpidem Tartrate (Ambien) 10 mg QHS PRN PO INSOMNIA; Start 02/26/17 at 05:30 Miscellaneous Information 60 mcg Q7D XX ; Start 02/26/17 at 05:30; Status UNV Pregabalin (Lyrica) 200 mg BID PO Last administered on 02/26/17 08:23; Admin Dose 200 MG; Start 02/26/17 at 09:00 Insulin Detemir (Levemir) 16 unit DAILY@20 SC ; Start 02/26/17 at 20:00 Insulin Human NPH (Humulin N) 10 unit BID@08,20 SC Last administered on 08:20; Admin Dose 10 UNIT; Start 02/26/17 at 08:00 Diagnostic Test (Pha) (Accu-Chek) 1 ea 02 XX ; Start 02/27/17 at 02:00 Miscellaneous Information 1 ea NOTE XX ; Start 02/26/17 at 06:00 Glucose (Glutose) 15 gm Q15M PRN PO DECREASED GLUCOSE; Start 02/26/17 at 06:00 Glucose (Glutose) 22.5 gm Q15M PRN PO DECREASED GLUCOSE; Start 02/26/17 at 06: 00 Dextrose (D50w Syringe) 25 ml Q15M PRN IV DECREASED GLUCOSE; Start 02/26/17 at 06:00 Dextrose (D50w Syringe) 50 ml Q15M PRN IV DECREASED GLUCOSE; Start 02/26/17 at 06:00 Glucagon (Glucagen) 1 mg Q15M PRN IM DECREASED GLUCOSE; Start 02/26/17 at 06:00 Glucose (Glutose) 15 gm Q15M PRN BUCCAL DECREASED GLUCOSE; Start 02/26/17 at 06 :00 Levofloxacin (Levaquin) 250 mg Q48H PO ; Start 02/27/17 at 06:00 Miscellaneous Information MEDICATION REQUIRES CLARIFICATION: Q8H XX ; Start 02/26/17 at 09:30 Meropenem/Sodium Chloride (Merrem 1 Gm/50 ml (Pmx)) 50 ml @ 100 mls/hr Q24H IVPB ; Start 02/27/17 at 12:00 Vancomycin HCl PER PHARMACY DOSING NOTE XX ; Start 02/26/17 at 17:30 Vancomycin HCl (Vancocin) 250 ml @ 125 mls/hr ONCE IVPB ; Start 02/26/17 at 18: 00; Stop 02/26/17 at 19:59 REX BENITEZ M.D. Feb 26, 2017 18:08
[2017-02-26 19:23] LABS: PATH REVIEW? NO
[2017-02-26 20:48] LABS: FLUID LD 671 U/L; FLUID TYPE FLUID
[2017-02-26] MEDS: MEROPENEM 500MG/50 ML (PMX) 50 ML IVPB SCH (20:54)
[2017-02-26] MEDS: INSULIN DETEMIR [LEVEMIR] 3ML CART SC SCH (20:59)
[2017-02-26] MEDS ORDERED: NPH, HUMAN INSULIN ISOPHANE 3ML VIAL SC SCH (21:00)
[2017-02-26] MEDS: ATORVASTATIN 20 MG TAB PO SCH (21:00)
[2017-02-26] MEDS ORDERED: INSULIN DETEMIR [LEVEMIR] 3ML CART SC SCH (21:00)
[2017-02-26 21:07] LABS: FLD CLARITY CLOUDY; FLD COLOR YELLOW; FLD TYPE PERITONEAL
[2017-02-26 21:08] LABS: FLD RBC 2000 /uL; FLD WBC 27282 /cmm
[2017-02-26 21:10] LABS: FLD MN % (M) 4 %; FLD PMN % (M) 96 %
--- NOTE | 2017-02-26 23:35 | CONS ---
Date/Time of Note Date/Time of Note DATE: 02/26/17 TIME: 23:34 Assessment/Plan Assessment/Plan Chief Complaint/Hosp Course 1. Peritonitis, recurrent, with infected PD catheter -explantation tomorrow -iv abx -judicious fluid management 2. ESRD -HD thru femoral saida -will need eventual permacath and fistula when infection cleared > defer to vascular 3. Obesity, bmi 34 -encourage nutritional optimization -encourage diet and exercise modification 4. Sepsis with lactic acidosis: 2nd above improving 5. DM -diet/medication control -encourage weight loss 6. CAD -cardiac optimization -encourage weight loss 7. PVD -medical/lifestyle optimization 8. HTN -diet/medication optimization -encourage weight loss 9. Hypercholestremia -diet/medication optimization -encourage weight loss 10. Leukocytosis 2/2 #1 -as above -abx 11. Normocytic anemia: likely 2/2 chronic disease -monior & replete as needed 12. Thrombocytopenia: -bleeding precautions 13. Hypokalemia -optimize lytes -monitor for cardiac arrhythmias 14.Hypocalcemia -optimize lytes -monitor for cardiac arrhythmias Patient seen and examined in collaboration with Dr. Jeremiah Shields Problems: Consultation Date/Type/Reason Admit Date/Time Feb 26, 2017 at 03:18 Date of Consultation: Feb 26, 2017 Type of Consultation: surgical Reason for Consultation Infected PD catheter Hx of Present Illness Jin Melchor is a 52 yo man with with significant history of ESRD with peritoneal dialysis.He also has previous history of hospitalization for peritonitis. during that admission he received antibiotics and his peritonitis was managed medically. Currently he states he developed fever, chills, shortness of breath, abdominal pain and diarrhea over the last couple of days. Further, during PD he noticed that his dialysate looked similar to his previous infection. CT scan of the abdomen in the emergency room which revealed intra- abdominal ascites. On admission the emergency room patient had fever 102.1 and currently has leukocytosis and elevated lactate. Surgical consult was called to evaluate. Constitutional: chills, febrile, other (malaise), poor po Eyes: no complaints, No visual change ENT: no complaints Respiratory: no complaints Cardiovascular: no complaints Gastrointestinal: diarrhea, other (distention), No nausea Genitourinary: other (anuric) Musculoskeletal: no complaints Skin: No rash Neurologic: other (weakness) Lymphatic: lymphadema Psychological: nl mood/affect, no complaints Past Medical History Medical History: coronary artery disease, diabetes, high cholesterol, hypertension, renal disease, other (OM, peritonitis) Past Surgical History Past Surgical Hx: appendectomy, coronary bypass surgery, other (Status post right big toe amputation) Social History Alcohol Use: none Smoking Status: Never smoker Drug Use: none Exam/Review of Systems Vital Signs Vitals Vital Signs Date Time Temp Pulse Resp B/P Pulse Ox O2 Delivery O2 Flow Rate FiO2 02/26/17 20:16 95 02/26/17 19:46 98.1 18 137/69 98 02/26/17 13:35 2.0 02/26/17 13:35 Nasal Cannula Exam Constitutional: alert, oriented Psych: nl mood/affect Head: atraumatic, normocephalic Eyes: nl lids, nl sclera ENMT: mucosa pink and moist Neck: non-tender, supple Respiratory: clear to auscultation, normal air movement Cardiovascular: nl pulses, regular rate and rhythm Gastrointestinal: bowel sounds, distended (min), other (PD catheter), soft, tender (min) Musculoskeletal: nl extremities to inspection Extremities: normal pulses Neurological: nl mental status, nl speech, nl strength Skin: nl turgor Results Result Diagram: 02/26/1762102/26/17621 Results 24 hrs Laboratory Tests Test 02/26/17 00:15 02/26/17 02:30 02/26/17 06:22 02/26/17 07:41 White Blood Count 9.9 # 14.9 #H Red Blood Count 3.57 #L 3.22 L Hemoglobin 11.1 #L 9.8 L Hematocrit 32.6 #L 30.2 L Mean Corpuscular Volume 91.3 93.8 Mean Corpuscular Hemoglobin 31.1 30.4 Mean Corpuscular Hemoglobin Concent 34.0 32.5 Red Cell Distribution Width 15.4 H 15.8 H Platelet Count 144 # 127 L Mean Platelet Volume 11.7 H 12.2 H Neutrophils % 90.0 H 88.7 H Lymphocytes % 4.3 L 4.8 L Monocytes % 4.7 5.3 Eosinophils % 0.5 0.1 Basophils % 0.3 0.1 Nucleated Red Blood Cells % 0.0 0.0 Neutrophils # 8.9 H 13.2 H Lymphocytes # 0.4 L 0.7 L Monocytes # 0.5 0.8 Eosinophils # 0.1 0.0 Basophils # 0.0 0.0 Nucleated Red Blood Cells # 0.0 0.0 Prothrombin Time 13.0 Prothrombin Time Ratio 1.0 INR International Normalized Ratio 0.98 Activated Partial Thromboplast Time 28.0 Sodium Level 139 139 Potassium Level 4.3 6.2 *H Chloride Level 92 L 95 L Carbon Dioxide Level 24 21 Anion Gap 27 H 29 H Blood Urea Nitrogen 77 H 81 H Creatinine 13.61 H 13.75 H Glucose Level 180 161 Lactic Acid Level 1.8 2.1 H 3.6 *H Calcium Level 8.5 7.6 L Total Bilirubin 0.0 L Direct Bilirubin 0.00 Indirect Bilirubin 0.0 Aspartate Amino Transf (AST/SGOT) 21 Alanine Aminotransferase (ALT/SGPT) 25 Alkaline Phosphatase 176 H Troponin I 0.025 Total Protein 7.6 Albumin 3.9 Globulin 3.70 H Albumin/Globulin Ratio 1.05 Bedside Glucose 169 Test 02/26/17 08:30 02/26/17 11:49 02/26/17 20:43 Pathologist Review (Hematology) Body Fluid Type FLUID Body Fluid Volume 30.0 Body Fluid Color YELLOW Body Fluid Appearance CLOUDY Body Fluid WBC 94532 Body Fluid RBC (Auto) 2000 Body Fluid Polynuclear WBCs 96 Body Fluid Polynuclear WBCs (%) Body Fluid Mononuclear WBCs 4 Body Fluid Mononuclear Cells % Auto Body Fluid Lactate Dehydrogenase 671 Path Consult Signing Pathologist Bedside Glucose 169 111 Medications Medications Current Medications Morphine Sulfate (morphine) 2 mg Q4 PRN IV PAIN LEVEL 7-10 Last administered on 02/26/17 08:55; Admin Dose 2 MG; Start 02/26/17 at 03:30 Amlodipine Besylate (Norvasc) 10 mg DAILY PO Last administered on 02/26/17 08: 23; Admin Dose 10 MG; Start 02/26/17 at 09:00 Atorvastatin Calcium (Lipitor) 20 mg HS PO Last administered on 02/26/17 21:00 ; Admin Dose 20 MG; Start 02/26/17 at 21:00 Carvedilol (Coreg) 25 mg BID PO Last administered on 02/26/17 21:00; Admin Dose 25 MG; Start 02/26/17 at 09:00 Hydralazine HCl (Apresoline) 25 mg Q8 PO Last administered on 02/26/17 22:30; Admin Dose 25 MG; Start 02/26/17 at 06:00 Multivit/Ca Carb/ B Cmplx/FA/Prenat (Pat-Tommy) 1 tab DAILY PO Last administered on 02/26/17 08:18; Admin Dose 1 TAB; Start 02/26/17 at 09:00 Zolpidem Tartrate (Ambien) 10 mg QHS PRN PO INSOMNIA; Start 02/26/17 at 05:30 Miscellaneous Information 60 mcg Q7D XX ; Start 02/26/17 at 05:30; Status UNV Pregabalin (Lyrica) 200 mg BID PO Last administered on 02/26/17 22:28; Admin Dose 200 MG; Start 02/26/17 at 09:00 Insulin Detemir (Levemir) 16 unit DAILY@20 SC Last administered on 02/26/17 20 :59; Admin Dose 16 UNIT; Start 02/26/17 at 20:00 Insulin Human NPH (Humulin N) 10 unit BID@08,20 SC Last administered on 20:58; Admin Dose 10 UNIT; Start 02/26/17 at 08:00 Diagnostic Test (Pha) (Accu-Chek) 1 ea 02 XX ; Start 02/27/17 at 02:00 Miscellaneous Information 1 ea NOTE XX ; Start 02/26/17 at 06:00 Glucose (Glutose) 15 gm Q15M PRN PO DECREASED GLUCOSE; Start 02/26/17 at 06:00 Glucose (Glutose) 22.5 gm Q15M PRN PO DECREASED GLUCOSE; Start 02/26/17 at 06: 00 Dextrose (D50w Syringe) 25 ml Q15M PRN IV DECREASED GLUCOSE; Start 02/26/17 at 06:00 Dextrose (D50w Syringe) 50 ml Q15M PRN IV DECREASED GLUCOSE; Start 02/26/17 at 06:00 Glucagon (Glucagen) 1 mg Q15M PRN IM DECREASED GLUCOSE; Start 02/26/17 at 06:00 Glucose (Glutose) 15 gm Q15M PRN BUCCAL DECREASED GLUCOSE; Start 02/26/17 at 06 :00 Levofloxacin (Levaquin) 250 mg Q48H PO ; Start 02/27/17 at 06:00 Miscellaneous Information (*Order Clarification Bulletin) MEDICATION REQUIRES CLARIFICATION: Q8H XX ; Start 02/26/17 at 09:30 Vancomycin HCl PER PHARMACY DOSING NOTE XX ; Start 02/26/17 at 17:30 Caspofungin 50 mg/ Sodium Chloride 250 ml @ 250 mls/hr Q24H IVPB ; Start at 18:00 Meropenem/Sodium Chloride (Merrem 500mg/50 ml(Pmx)) 50 ml @ 100 mls/hr Q24H IVPB Last administered on 02/26/17t 20:54; Admin Dose 100 MLS/HR; Start at 20:00 TUAN CHAN NP Feb 26, 2017 23:35
[2017-02-27] VITALS (17 sets, daily range): BP systolic 94–114; BP diastolic 51–59; PULSE 62–90; RESP 11–20
[2017-02-27] MEDS: [UNRECOGNIZED DRUG - REMARK] XX SCH (01:30)
[2017-02-27] MEDS: ACCU-CHEK XX SCH (02:00)
[2017-02-27] MEDS ORDERED: ACCU-CHEK XX SCH ×3 (02:00)
--- NOTE | 2017-02-27 03:42 | CONS ---
DATE OF ADMISSION: 02/26/2017 DATE OF CONSULTATION: 02/26/2017 Vascular Surgery Consultation. Dear Doctors, Mr. Melchor is a 52-year-old gentleman with history of end-stage renal disease, whom undergoes peritoneal dialysis, that presented with peritonitis and suggestion of infected peritoneal dialysis catheter. It seems that the patient had been identified on CT scan with intra-abdominal ascites and febrile and leukocytosis and abdominal pain. The patient's PD catheter is going to be removed in operative theater, vascular surgery consultation was obtained for access creation and for a current dialysis catheter as the patient has hyperkalemia with a potassium of 6.2. At the moment patient denies shortness of breath. He does have chills. He does have abdominal pain. Denies lower extremity claudication or rest pain. REVIEW OF SYSTEMS: Fourteen point review performed negative except was mentioned in HPI. PAST MEDICAL HISTORY: 1. Bilateral lower extremity atherosclerosis. 2. Anemia of chronic disease. 3. Coronary artery disease. 4. Diabetes. 5. Hypercholesterolemia. 6. Hypertension. 7. End-stage renal disease. 8. Previous peritonitis secondary to infected peritoneal dialysis catheter. PAST SURGICAL HISTORY: Appendectomy, coronary bypass surgery. Right big toe amputation and peritoneal dialysis catheter placement. FAMILY HISTORY: Positive for diabetes and hypertension. SOCIAL HISTORY: Denies tobacco, alcohol, or illicit drug use. PHYSICAL EXAMINATION: GENERAL APPEARANCE: Alert oriented x3. No apparent distress. HEENT: Normocephalic, atraumatic. PERRLA. EOMI. Mucosa moist. Some limited eye vision. NECK: Supple. No carotid bruit. LUNGS: Clear to auscultation bilaterally. No crackles. HEART: S1, S2 present. No murmurs. Sternal incision is clean and well healed. ABDOMEN: Diffuse tenderness throughout. Bowel sounds positive. EXTREMITIES: Right lower extremity, palpable femoral pulse. Nonpalpable pedal pulse. Motor and sensory intact. Capillary refill 3 seconds. Left lower extremity, palpable femoral pulse. Nonpalpable pedal pulse. Motor and sensory intact. Capillary refill 2-3 seconds. Right great toe amputated with a well-healed incision site. ASSESSMENT/PLAN: End-stage renal disease, with leukocytosis: It seems the patient's peritoneal dialysis catheter is infected and the patient is scheduled to have it removed with our General Surgery colleagues. At the moment we will plan to place an emergent hemodialysis catheter as the patient will require to receive hemodialysis and has hyperkalemia. Will obtain bilateral upper extremity vein mapping for an arteriovenous fistula creation. Optimize vascular status (blood pressure medications, diet, nutrition, exercise, sugar control, antiplatelets). Discussed findings, plan and management with the patient. He understands. Thank you for allowing us to partake in the care of your patient. Please call with any questions. Patient is right handed. Therefore we will attempt to create a new fistula in his left upper extremity when he has been medically cleared. Dictated By: Lennox Branch MD /fernanda/ /Document#: [id number]
[2017-02-27] MEDS: LEVOFLOXACIN 250 MG TAB PO SCH (05:27)
[2017-02-27] MEDS: INSULIN ASPART [NOVOLOG] 3 ML PEN SC SCH ×4 (08:00→20:11)
[2017-02-27] MEDS: NPH, HUMAN INSULIN ISOPHANE 3ML VIAL SC SCH ×2 (08:00→20:00)
[2017-02-27 08:27] LABS: ADD UMIC YES; UR ASCORBIC ACID NEGATIVE (NEGATIVE); UR BACTERIA FEW /HPF (NONE SEEN); UR BILIRUBIN (Dip) NEGATIVE (NEGATIVE); UR BLOOD (Dip) 2+ mg/dL (NEGATIVE); UR BUDDING YEAST MANY /HPF (NONE SEEN); UR CLARITY TURBID (CLEAR); UR COLOR YELLOW (YELLOW); UR GLUCOSE (Dip) 3+ mg/dL (NEGATIVE); UR KETONES (Dip) NEGATIVE (NEGATIVE); UR LEUKOCYTE ESTERASE (Dip) 2+ Leu/ul (NEGATIVE); UR NITRITE (Dip) NEGATIVE (NEGATIVE); UR NONSQUAMOUS EPITHELIAL CELL 400 /HPF (NONE SEEN); UR RBC 85 /HPF (0-5); UR SPECIFIC GRAVITY (Dip) 1.014 (1.003-1.030); UR TOTAL PROTEIN (Dip) 2+ mg/dl (NEGATIVE); UR UROBILINOGEN (Dip) NEGATIVE (NEGATIVE); UR WBC CLUMPS MANY /HPF (NONE SEEN)
[2017-02-27 08:31] LABS: ADD SCAN DIFF NO
[2017-02-27 08:42] LABS: BASOPHILS % 0.3 % (0.0-2.0); EOSINOPHILS # 0.1 10^3/ul (0.0-0.5); EOSINOPHILS % 0.8 % (0.0-7.0); HEMATOCRIT 25.4 % (42.0-52.0); HEMOGLOBIN 8.4 g/dl (14.0-18.0); LYMPHOCYTES # 0.7 10^3/ul (0.8-2.9); LYMPHOCYTES % 4.9 % (15.0-51.0); MEAN CORPUSCULAR HEMOGLOBIN 30.9 pg (29.0-33.0); MEAN CORPUSCULAR HGB CONC 33.1 g/dl (32.0-37.0); MEAN CORPUSCULAR VOLUME 93.4 fl (82.0-101.0); MEAN PLATELET VOLUME 12.1 fl (7.4-10.4); MONOCYTES % 7.1 % (0.0-11.0); NEUTROPHIL # 11.3 10^3/ul (1.6-7.5); NEUTROPHILS % 84.7 % (39.0-77.0); PLATELET COUNT 104 10^3/UL (140-415); RED BLOOD COUNT 2.72 10^6/ul (4.70-6.10); RED CELL DISTRIBUTION WIDTH 15.4 % (11.5-14.5); WHITE BLOOD COUNT 13.4 10^3/ul (4.8-10.8)
[2017-02-27] MEDS: PREGABALIN 100 MG CAP PO SCH ×2 (09:00→20:12)
[2017-02-27] MEDS: MULTIVIT/CA CARB/B CMPLX/FA TAB PO SCH (09:00)
[2017-02-27] MEDS: AMLODIPINE 10 MG TAB PO SCH (09:00)
[2017-02-27 09:07] LABS: CALCIUM 7.4 mg/dl (8.4-10.2); CREATININE 10.45 mg/dl (0.61-1.24); POTASSIUM 3.8 mmol/L (3.5-5.1)
[2017-02-27] MEDS ORDERED: PROPOFOL 20 ML ONE (09:16)
[2017-02-27] MEDS ORDERED: LIDOCAINE 2% (SDV) 5 ML INJ ONE ×2 (09:16→10:21)
[2017-02-27] MEDS ORDERED: SUCCINYLCHOLINE CHLORIDE 100 MG/5 ML SYG IV ONE (09:16)
[2017-02-27] MEDS ORDERED: GLYCOPYRROLATE 0.4 MG INJ ONE (09:16)
[2017-02-27] MEDS ORDERED: ROCURONIUM 50 MG INJ ONE (09:16)
[2017-02-27] MEDS ORDERED: NEOSTIGMINE 3 MG/3 ML SYRINGE ONE (09:16)
--- NOTE | 2017-02-27 09:24 | CONS ---
Date/Time of Note Date/Time of Note DATE: 02/27/17 TIME: 09:22 Assessment/Plan Assessment/Plan Chief Complaint/Hosp Course assessment/impression - sepsis due to peritonitis. 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 Pt received levofloxacin at ER - will adjust his antibiotics based on the culture results Problems: Consultation Date/Type/Reason Admit Date/Time Feb 26, 2017 at 03:18 Initial Consult Date 02/26/17 Type of Consultation: ID Referring Provider: RONIT ROJAS 24 HR Interval Summary Free Text/Dictation Pt was in OR for removal of his PD catheter Exam/Review of Systems Vital Signs Vitals Vital Signs Date Time Temp Pulse Resp B/P Pulse Ox O2 Delivery O2 Flow Rate FiO2 02/27/17 09:17 85 02/27/17 07:46 99.0 20 114/54 91 02/26/17 13:35 2.0 02/26/17 13:35 Nasal Cannula Intake and Output 02/26/17 02/26/17 02/27/17 15:00 23:00 07:00 Intake Total 600 ml 1100 ml 400 ml Output Total 3500 ml Balance 600 ml -2400 ml 400 ml Results Result Diagram: 02/27/17 0800 02/27/17 0803 Results 24 hrs Laboratory Tests Test 02/26/17 11:49 02/26/17 18:10 02/26/17 20:43 02/27/17 02:10 Bedside Glucose 169 111 115 Urine Color YELLOW Urine Clarity TURBID A Urine pH 7.0 Urine Specific [place] 1.014 Urine Ketones NEGATIVE Urine Nitrite NEGATIVE Urine Bilirubin NEGATIVE Urine Urobilinogen NEGATIVE Urine Leukocyte Esterase 2+ H Urine Microscopic RBC 85 H Urine Microscopic WBC > 182 H Urine Bacteria FEW A Urine Yeast (Budding) MANY A Urine Hemoglobin 2+ H Urine Glucose 3+ H Urine Total Protein 2+ H Test 02/27/17 08:00 02/27/17 08:03 02/27/17 08:36 White Blood Count 13.4 H Red Blood Count 2.72 L Hemoglobin 8.4 L Hematocrit 25.4 L Mean Corpuscular Volume 93.4 Mean Corpuscular Hemoglobin 30.9 Mean Corpuscular Hemoglobin Concent 33.1 Red Cell Distribution Width 15.4 H Platelet Count 104 L Mean Platelet Volume 12.1 H Neutrophils % 84.7 H Lymphocytes % 4.9 L Monocytes % 7.1 Eosinophils % 0.8 Basophils % 0.3 Nucleated Red Blood Cells % 0.0 Neutrophils # 11.3 H Lymphocytes # 0.7 L Monocytes # 1.0 H Eosinophils # 0.1 Basophils # 0.0 Nucleated Red Blood Cells # 0.0 Sodium Level 136 Potassium Level 3.8 # Chloride Level 91 L Carbon Dioxide Level 26 Anion Gap 23 H Blood Urea Nitrogen 54 H Creatinine 10.45 #H Glucose Level 122 Calcium Level 7.4 L Bedside Glucose 128 Medications Medications Current Medications Morphine Sulfate (morphine) 2 mg Q4 PRN IV PAIN LEVEL 7-10 Last administered on 02/26/17 08:55; Admin Dose 2 MG; Start 02/26/17 at 03:30 Amlodipine Besylate (Norvasc) 10 mg DAILY PO Last administered on 02/26/17 08: 23; Admin Dose 10 MG; Start 02/26/17 at 09:00 Atorvastatin Calcium (Lipitor) 20 mg HS PO Last administered on 02/26/17 21:00 ; Admin Dose 20 MG; Start 02/26/17 at 21:00 Carvedilol (Coreg) 25 mg BID PO Last administered on 02/26/17 21:00; Admin Dose 25 MG; Start 02/26/17 at 09:00 Hydralazine HCl (Apresoline) 25 mg Q8 PO Last administered on 02/27/17 05:28; Admin Dose 25 MG; Start 02/26/17 at 06:00 Multivit/Ca Carb/ B Cmplx/FA/Prenat (Pat-Tommy) 1 tab DAILY PO Last administered on 02/26/17 08:18; Admin Dose 1 TAB; Start 02/26/17 at 09:00 Zolpidem Tartrate (Ambien) 10 mg QHS PRN PO INSOMNIA; Start 02/26/17 at 05:30 Miscellaneous Information 60 mcg Q7D XX ; Start 02/26/17 at 05:30; Status UNV Pregabalin (Lyrica) 200 mg BID PO Last administered on 02/26/17 22:28; Admin Dose 200 MG; Start 02/26/17 at 09:00 Insulin Detemir (Levemir) 16 unit DAILY@20 SC Last administered on 02/26/17 20 :59; Admin Dose 16 UNIT; Start 02/26/17 at 20:00 Insulin Human NPH (Humulin N) 10 unit BID@08,20 SC Last administered on 20:58; Admin Dose 10 UNIT; Start 02/26/17 at 08:00 Diagnostic Test (Pha) (Accu-Chek) 1 ea 02 XX ; Start 02/27/17 at 02:00 Miscellaneous Information 1 ea NOTE XX ; Start 02/26/17 at 06:00 Glucose (Glutose) 15 gm Q15M PRN PO DECREASED GLUCOSE; Start 02/26/17 at 06:00 Glucose (Glutose) 22.5 gm Q15M PRN PO DECREASED GLUCOSE; Start 02/26/17 at 06: 00 Dextrose (D50w Syringe) 25 ml Q15M PRN IV DECREASED GLUCOSE; Start 02/26/17 at 06:00 Dextrose (D50w Syringe) 50 ml Q15M PRN IV DECREASED GLUCOSE; Start 02/26/17 at 06:00 Glucagon (Glucagen) 1 mg Q15M PRN IM DECREASED GLUCOSE; Start 02/26/17 at 06:00 Glucose (Glutose) 15 gm Q15M PRN BUCCAL DECREASED GLUCOSE; Start 02/26/17 at 06 :00 Levofloxacin (Levaquin) 250 mg Q48H PO Last administered on 02/27/17 05:27; Admin Dose 250 MG; Start 02/27/17 at 06:00 Miscellaneous Information (*Order Clarification Bulletin) MEDICATION REQUIRES CLARIFICATION: Q8H XX ; Start 02/26/17 at 09:30 Vancomycin HCl PER PHARMACY DOSING NOTE XX ; Start 02/26/17 at 17:30 Caspofungin 50 mg/ Sodium Chloride 250 ml @ 250 mls/hr Q24H IVPB ; Start at 18:00 Meropenem/Sodium Chloride (Merrem 500mg/50 ml(Pmx)) 50 ml @ 100 mls/hr Q24H IVPB Last administered on 02/26/17t 20:54; Admin Dose 100 MLS/HR; Start at 20:00 REX BENITEZ M.D. Feb 27, 2017 09:24
--- NOTE | 2017-02-27 10:01 | PN ---
Date/Time of Note Date/Time of Note DATE: 02/27/17 TIME: 09:54 Assessment/Plan Lines/Catheters IV Catheter Type (from Nrs): Saida catheter with pig Lo in Place (from Nrs): No Assessment/Plan Chief Complaint/Hosp Course 1. Peritonitis, recurrent, with infected PD catheter -explantation today -iv abx -judicious fluid management 2. ESRD -HD thru femoral saida -will need eventual permacath and fistula when infection cleared > defer to vascular 3. Obesity, bmi 34 -encourage nutritional optimization -encourage exercise 4. Sepsis 2nd above improving 5. DM -diet/medication control -encourage weight loss 6. CAD -cardiac optimization -encourage weight loss 7. PVD -medical/lifestyle optimization 8. HTN -diet/medication optimization -encourage weight loss 9. Hypercholestremia -diet/medication optimization -encourage weight loss Thank you, Problems: Subjective 24 Hr Interval Summary No f/c/n/v. No cp/sob. Abdominal pain improved. No cough. No sz/rash/servin/ dizziness/visual or neuro changes. Bowel function. s/p HD last night. Exam/Review of Systems Vital Signs Vitals Vital Signs Date Time Temp Pulse Resp B/P Pulse Ox O2 Delivery O2 Flow Rate FiO2 02/27/17 09:17 85 02/27/17 07:46 99.0 20 114/54 91 02/26/17 13:35 2.0 02/26/17 13:35 Nasal Cannula Intake and Output 02/26/17 02/26/17 02/27/17 15:00 23:00 07:00 Intake Total 600 ml 1100 ml 400 ml Output Total 3500 ml Balance 600 ml -2400 ml 400 ml Exam Constitutional: alert, obese, oriented, No distress Psych: nl mood/affect, No anxiety Head: atraumatic, normocephalic Eyes: EOMI, PERRL, nl conjunctiva, No icteric ENMT: mucosa pink and moist, nl external ears & nose, nl lips & teeth Neck: non-tender, supple Respiratory: normal air movement, No congested cough, No labored breathing Cardiovascular: regular rate and rhythm, No edema Gastrointestinal: other (PD catheter), soft, tender (min), No distended, No firm, No rebound or guarding Musculoskeletal: nl extremities to inspection, nl gait and stance, No joint tenderness Extremities: normal pulses, No calf tenderness Neurological: nl mental status, nl speech, nl strength Skin: nl turgor, No diaphoresis, No rash or lesions Lymph: nl lymph nodes Results Result Diagram: 02/27/17 0800 02/27/[address] PATEL MD Feb 27, 2017 10:01
[2017-02-27] MEDS ORDERED: LIDOCAINE 1% (MPF) 30 ML INJ ONE (10:09)
[2017-02-27] MEDS ORDERED: BUPIVACAINE 0.25%/EPI (SDV) 30 ML INJ ONE (10:09)
[2017-02-27] MEDS ORDERED: FENTAnyl 50 MCG/ML VIAL IV PRN ×3 (11:30)
[2017-02-27] MEDS ORDERED: MIDAZOLAM 1 MG/ML 2 ML INJ IV PRN (11:30)
[2017-02-27] MEDS ORDERED: morphine (1 MG/ML) 10ML SYRINGE IV PRN ×3 (11:30)
[2017-02-27] MEDS ORDERED: OXYCODONE/ACETAMINOPHEN (5/325) TAB PO PRN ×2 (11:30)
[2017-02-27] MEDS ORDERED: DIPHENHYDRAMINE 50 MG INJ IV PRN (11:30)
[2017-02-27] MEDS ORDERED: ONDANSETRON 4 MG INJ IV PRN (11:30)
[2017-02-27] MEDS ORDERED: MEPERIDINE 25 MG INJ IV PRN (11:30)
[2017-02-27] MEDS ORDERED: METOCLOPRAMIDE 10 MG INJ IV PRN (11:30)
[2017-02-27] MEDS ORDERED: ACETAMINOPHEN 325 MG TAB PO PRN (11:30)
--- NOTE | 2017-02-27 11:37 | OPR ---
Date/Time of Note Date/Time of Note DATE: 02/27/17 TIME: 11:22 Operative Report Procedure Date: Feb 27, 2017 Preoperative Diagnosis Peritonitis with infected PD catheter BMI 34 Sepsis End-stage renal disease Postoperative Diagnosis Same Operation Performed 1. Explantation of tunneled peritoneal dialysis catheter cuff 2 2. [place], [address] Surgeon: CT PATEL MD Repeater Chief: TUAN CHAN NP Anesthesia: general, other (Local) Anesthesiologist: ULISES SUTTON MD Estimated Blood Loss: 0 - 10 ml's Specimens Explanted catheter Complications: None Pt Condition Post Procedure: stable Disposition: PACU Indications Per notes. Risks include but are not limited to bleeding, infection, abscess, seroma, leak , damage to intestines or any intra-abdominal/intrapelvic structures, hernia formation, chronic pain, need for re-operations or further surgeries, NE, stroke , PE, DVT, pneumonia, organ failures, or even . Procedure Description Patient was brought into the OR, placed on the operating room. SCDs were placed. All pressure points were well-padded. He is Ta on antibiotics. Timeout was performed. After induction of anesthesia he was clipped and prepped and draped in usual sterile fashion. Local anesthetic was injected at all surgical sites. Using blunt dissection through the internalization site the lateral cuff was identified and dissected away from the subcutaneous tissue. The internal cuff was identified to be somewhere around the umbilicus through close to the previous incision. That incision was opened sharply and dissection was carried down through the catheter and the second cuff was identified. Using electrocautery and blunt dissection I was able to dissect the cuff away from subcutaneous tissue and fascia and free up the catheter. Catheter was cut in 2 places and removed in its entirety. There is purulent fluid in the catheter which was sent for culture. Wound was irrigated with Betadine. The fascial opening was closed with 0 Vicryl in a [id number] manner. The umbilical skin opening was closed with interrupted 3-0 silk sutures. Dressing was applied. Patient was extubated transferred to recovery in stable condition and all counts were correct at the operation 2. CT PATEL MD Feb 27, 2017 11:32
[2017-02-27] MEDS ORDERED: MEROPENEM 1 GM/50ML(PMX) 50 ML IVPB SCH (12:00)
[2017-02-27 12:23] LABS: ADD SCAN DIFF NO
[2017-02-27 12:28] LABS: BASOPHILS % 0.2 % (0.0-2.0); EOSINOPHILS # 0.1 10^3/ul (0.0-0.5); EOSINOPHILS % 0.7 % (0.0-7.0); HEMATOCRIT 26.1 % (42.0-52.0); HEMOGLOBIN 8.6 g/dl (14.0-18.0); LYMPHOCYTES # 0.9 10^3/ul (0.8-2.9); LYMPHOCYTES % 6.4 % (15.0-51.0); MEAN CORPUSCULAR HEMOGLOBIN 30.5 pg (29.0-33.0); MEAN CORPUSCULAR VOLUME 92.6 fl (82.0-101.0); MEAN PLATELET VOLUME 12.3 fl (7.4-10.4); NEUTROPHIL # 11.3 10^3/ul (1.6-7.5); NEUTROPHILS % 83.6 % (39.0-77.0); PLATELET COUNT 108 10^3/UL (140-415); RED BLOOD COUNT 2.82 10^6/ul (4.70-6.10); RED CELL DISTRIBUTION WIDTH 15.2 % (11.5-14.5); WHITE BLOOD COUNT 13.5 10^3/ul (4.8-10.8)
[2017-02-27 12:45] LABS: ALBUMIN/GLOBULIN RATIO 0.9
[2017-02-27 12:49] LABS: ALBUMIN 2.9 g/dl (3.3-4.9); BILIRUBIN,INDIRECT 0.1 mg/dl (0-1.1); BILIRUBIN,TOTAL 0.1 mg/dl (0.2-1.3); CALCIUM 7.1 mg/dl (8.4-10.2); CREATININE 10.57 mg/dl (0.61-1.24); POTASSIUM 3.9 mmol/L (3.5-5.1); TOTAL PROTEIN 6.1 g/dl (6.1-8.1)
--- NOTE | 2017-02-27 14:11 | CONS ---
Date/Time of Note Date/Time of Note DATE: 02/27/17 TIME: 14:08 Assessment/Plan Assessment/Plan Additional Assessment/Plan 52 yo male with 1) Sepsis most likely secondary to peritonitis 2) PD catheter Peritonitis 3) End-stage renal disease 4) Hyperkalemia 5) Diabetes mellitus 6) Coronary artery disease status post CABG 7) Peripheral vascular disease F/u cultures ID consult reviewed, ON Broad spectrum ABx S/p Removal of PD catheter by Surgery S/p Temp saida for HD and HD yesterday Dr Branch consulted as Vascular Sx Next HD tomorrow. 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 Consultation Date/Type/Reason Admit Date/Time Feb 26, 2017 at 03:18 Initial Consult Date 02/26/17 Type of Consultation: Renal Referring Provider: RONIT ROJAS 24 HR Interval Summary Free Text/Dictation S/p Removal of PD catheter, S/p Temp HD catheter, S/p HD yesterday. SOB improved. Feels claustraphobic and wants to be moved to [facility]. Constitutional: No requiring O2 Exam/Review of Systems Vital Signs Vitals Vital Signs Date Time Temp Pulse Resp B/P Pulse Ox O2 Delivery O2 Flow Rate FiO2 02/27/17 12:43 62 02/27/17 11:49 11 97/51 94 Room Air 02/27/17 11:33 99.9 02/27/17 11:24 10.0 Intake and Output 02/26/17 02/26/17 02/27/17 15:00 23:00 07:00 Intake Total 600 ml 1100 ml 400 ml Output Total 3500 ml Balance 600 ml -2400 ml 400 ml Exam Constitutional: alert, No distress Psych: anxiety ENMT: mucosa pink and moist Neck: No jvd Respiratory: clear to auscultation Cardiovascular: edema, regular rate and rhythm Gastrointestinal: bowel sounds, soft, tender Neurological: 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 II-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 intact, nl mental status, No lethargic Skin: No diaphoresis Results Result Diagram: 02/27/17 1159 02/27/17 1220 Results 24 hrs Laboratory Tests Test 02/26/17 18:10 02/26/17 20:43 02/27/17 02:10 02/27/17 08:00 Urine Color YELLOW Urine Clarity TURBID A Urine pH 7.0 Urine Specific [place] 1.014 Urine Ketones NEGATIVE Urine Nitrite NEGATIVE Urine Bilirubin NEGATIVE Urine Urobilinogen NEGATIVE Urine Leukocyte Esterase 2+ H Urine Microscopic RBC 85 H Urine Microscopic WBC > 182 H Urine Bacteria FEW A Urine Yeast (Budding) MANY A Urine Hemoglobin 2+ H Urine Glucose 3+ H Urine Total Protein 2+ H Bedside Glucose 111 115 White Blood Count 13.4 H Red Blood Count 2.72 L Hemoglobin 8.4 L Hematocrit 25.4 L Mean Corpuscular Volume 93.4 Mean Corpuscular Hemoglobin 30.9 Mean Corpuscular Hemoglobin Concent 33.1 Red Cell Distribution Width 15.4 H Platelet Count 104 L Mean Platelet Volume 12.1 H Neutrophils % 84.7 H Lymphocytes % 4.9 L Monocytes % 7.1 Eosinophils % 0.8 Basophils % 0.3 Nucleated Red Blood Cells % 0.0 Neutrophils # 11.3 H Lymphocytes # 0.7 L Monocytes # 1.0 H Eosinophils # 0.1 Basophils # 0.0 Nucleated Red Blood Cells # 0.0 Differential Comment AUTO w/SCAN Test 02/27/17 08:03 02/27/17 08:36 02/27/17 11:59 02/27/17 12:20 Sodium Level 136 135 Potassium Level 3.8 # 3.9 Chloride Level 91 L 93 L Carbon Dioxide Level 26 25 Anion Gap 23 H 21 H Blood Urea Nitrogen 54 H 56 H Creatinine 10.45 #H 10.57 H Glucose Level 122 103 Calcium Level 7.4 L 7.1 L Bedside Glucose 128 White Blood Count 13.5 H Red Blood Count 2.82 L Hemoglobin 8.6 L Hematocrit 26.1 L Mean Corpuscular Volume 92.6 Mean Corpuscular Hemoglobin 30.5 Mean Corpuscular Hemoglobin Concent 33.0 Red Cell Distribution Width 15.2 H Platelet Count 108 L Mean Platelet Volume 12.3 H Neutrophils % 83.6 H Lymphocytes % 6.4 L Monocytes % 7.0 Eosinophils % 0.7 Basophils % 0.2 Nucleated Red Blood Cells % 0.0 Neutrophils # 11.3 H Lymphocytes # 0.9 Monocytes # 1.0 H Eosinophils # 0.1 Basophils # 0.0 Nucleated Red Blood Cells # 0.0 Total Bilirubin 0.1 L Direct Bilirubin 0.00 Indirect Bilirubin 0.1 Aspartate Amino Transf (AST/SGOT) 25 Alanine Aminotransferase (ALT/SGPT) 22 Alkaline Phosphatase 81 # Total Protein 6.1 # Albumin 2.9 #L Globulin 3.20 Albumin/Globulin Ratio 0.90 Test 02/27/17 13:02 Bedside Glucose 112 Medications Medications Current Medications Amlodipine Besylate (Norvasc) 10 mg DAILY PO Last administered on 02/26/17 08: 23; Admin Dose 10 MG; Start 02/26/17 at 09:00 Atorvastatin Calcium (Lipitor) 20 mg HS PO Last administered on 02/26/17 21:00 ; Admin Dose 20 MG; Start 02/26/17 at 21:00 Carvedilol (Coreg) 25 mg BID PO Last administered on 02/26/17 21:00; Admin Dose 25 MG; Start 02/26/17 at 09:00 Hydralazine HCl (Apresoline) 25 mg Q8 PO Last administered on 02/27/17 05:28; Admin Dose 25 MG; Start 02/26/17 at 06:00 Multivit/Ca Carb/ B Cmplx/FA/Prenat (Pat-Tommy) 1 tab DAILY PO Last administered on 02/26/17 08:18; Admin Dose 1 TAB; Start 02/26/17 at 09:00 Zolpidem Tartrate (Ambien) 10 mg QHS PRN PO INSOMNIA; Start 02/26/17 at 05:30 Miscellaneous Information 60 mcg Q7D XX ; Start 02/26/17 at 05:30; Status UNV Pregabalin (Lyrica) 200 mg BID PO Last administered on 02/26/17 22:28; Admin Dose 200 MG; Start 02/26/17 at 09:00 Insulin Detemir (Levemir) 16 unit DAILY@20 SC Last administered on 02/26/17 20 :59; Admin Dose 16 UNIT; Start 02/26/17 at 20:00 Insulin Human NPH (Humulin N) 10 unit BID@08,20 SC Last administered on 20:58; Admin Dose 10 UNIT; Start 02/26/17 at 08:00 Diagnostic Test (Pha) (Accu-Chek) 1 ea 02 XX ; Start 02/27/17 at 02:00 Miscellaneous Information 1 ea NOTE XX ; Start 02/26/17 at 06:00 Glucose (Glutose) 15 gm Q15M PRN PO DECREASED GLUCOSE; Start 02/26/17 at 06:00 Glucose (Glutose) 22.5 gm Q15M PRN PO DECREASED GLUCOSE; Start 02/26/17 at 06: 00 Dextrose (D50w Syringe) 25 ml Q15M PRN IV DECREASED GLUCOSE; Start 02/26/17 at 06:00 Dextrose (D50w Syringe) 50 ml Q15M PRN IV DECREASED GLUCOSE; Start 02/26/17 at 06:00 Glucagon (Glucagen) 1 mg Q15M PRN IM DECREASED GLUCOSE; Start 02/26/17 at 06:00 Glucose (Glutose) 15 gm Q15M PRN BUCCAL DECREASED GLUCOSE; Start 02/26/17 at 06 :00 Levofloxacin (Levaquin) 250 mg Q48H PO Last administered on 02/27/17 05:27; Admin Dose 250 MG; Start 02/27/17 at 06:00 Miscellaneous Information (*Order Clarification Bulletin) MEDICATION REQUIRES CLARIFICATION: Q8H XX ; Start 02/26/17 at 09:30 Vancomycin HCl PER PHARMACY DOSING NOTE XX ; Start 02/26/17 at 17:30 Caspofungin 50 mg/ Sodium Chloride 250 ml @ 250 mls/hr Q24H IVPB ; Start at 18:00 Meropenem/Sodium Chloride (Merrem 500mg/50 ml(Pmx)) 50 ml @ 100 mls/hr Q24H IVPB Last administered on 02/26/17 20:54; Admin Dose 100 MLS/HR; Start at 20:00 Acetaminophen (Tylenol Tab) 650 mg Q6H PRN PO PAIN AND OR ELEVATED TEMP; Start 02/27/17 at 11:30 Miscellaneous Information (*Rx Drug Level Order Reminder*) VANCOMYCIN RANDOM ON 02/10... ONCE ONCE XX ; Start 02/28/17 at 05:00; Stop 02/28/17 at 05:01 BEL SNYDER MD Feb 27, 2017 14:11
[2017-02-27] MEDS: PANTOPRAZOLE (EC) 40 MG TAB PO SCH (14:24)
[2017-02-27] MEDS: CASPOFUNGIN 50 MG in SOD CHLORIDE 0.9% 250 ML IVPB SCH (16:56)
--- NOTE | 2017-02-27 18:40 | PN ---
Date/Time of Note Date/Time of Note DATE: 02/27/17 TIME: 18:34 Assessment/Plan VTE Prophylaxis VTE Prophylaxis Intervention: SCD's Lines/Catheters IV Catheter Type (from [facility]): Peripheral IV Urinary Cath still in place: No Assessment/Plan Chief Complaint/Hosp Course Patient's complains of chills and low-grade fever today in the morning currently afebrile, patient status post hemodialysis via right femoral Ruiz catheter, status post peritoneal catheter removal. Assessment/Plan -Sepsis most likely secondary to peritonitis, Dr. Pierre is following in infection disease consultation. Continue antibiotics per ID. -Peritonitis, status post peritoneal catheter removal by Dr. Shields, general surgery. -End-stage renal disease, Dr. Keith is following in nephrology consultation, continue hemodialysis via right femoral Ruiz catheter. -Hyperkalemia secondary to end-stage renal disease -Diabetes mellitus, continue Lantus and NovoLog -Coronary artery disease, status post CABG -Peripheral vascular disease Further recommendations based on clinical course. Plan of care discussed with Dr. Sanchez. Problems: Exam/Review of Systems Vital Signs Vitals Vital Signs Date Time Temp Pulse Resp B/P Pulse Ox O2 Delivery O2 Flow Rate FiO2 02/27/17 16:29 80 02/27/17 15:51 98.8 20 109/59 98 02/27/17 11:49 Room Air 02/27/17 11:24 10.0 Intake and Output 02/26/17 02/26/17 02/27/17 15:00 23:00 07:00 Intake Total 600 ml 1100 ml 400 ml Output Total 3500 ml Balance 600 ml -2400 ml 400 ml Exam Constitutional: alert, oriented Head: atraumatic, normocephalic Respiratory: normal air movement Cardiovascular: nl pulses Gastrointestinal: soft, tender Extremities: normal pulses, other Neurological: nl mental status Right femoral Ruiz catheter Results Result Diagram: 02/27/17 1159 02/27/17 1220 Results 24 hrs Laboratory Tests Test 02/26/17 20:43 02/27/17 02:10 02/27/17 08:00 02/27/17 08:03 Bedside Glucose 111 115 White Blood Count 13.4 H Red Blood Count 2.72 L Hemoglobin 8.4 L Hematocrit 25.4 L Mean Corpuscular Volume 93.4 Mean Corpuscular Hemoglobin 30.9 Mean Corpuscular Hemoglobin Concent 33.1 Red Cell Distribution Width 15.4 H Platelet Count 104 L Mean Platelet Volume 12.1 H Neutrophils % 84.7 H Lymphocytes % 4.9 L Monocytes % 7.1 Eosinophils % 0.8 Basophils % 0.3 Nucleated Red Blood Cells % 0.0 Neutrophils # 11.3 H Lymphocytes # 0.7 L Monocytes # 1.0 H Eosinophils # 0.1 Basophils # 0.0 Nucleated Red Blood Cells # 0.0 Differential Comment AUTO w/SCAN Sodium Level 136 Potassium Level 3.8 # Chloride Level 91 L Carbon Dioxide Level 26 Anion Gap 23 H Blood Urea Nitrogen 54 H Creatinine 10.45 #H Glucose Level 122 Calcium Level 7.4 L Test 02/27/17 08:36 02/27/17 11:59 02/27/17 12:20 02/27/17 13:02 Bedside Glucose 128 112 White Blood Count 13.5 H Red Blood Count 2.82 L Hemoglobin 8.6 L Hematocrit 26.1 L Mean Corpuscular Volume 92.6 Mean Corpuscular Hemoglobin 30.5 Mean Corpuscular Hemoglobin Concent 33.0 Red Cell Distribution Width 15.2 H Platelet Count 108 L Mean Platelet Volume 12.3 H Neutrophils % 83.6 H Lymphocytes % 6.4 L Monocytes % 7.0 Eosinophils % 0.7 Basophils % 0.2 Nucleated Red Blood Cells % 0.0 Neutrophils # 11.3 H Lymphocytes # 0.9 Monocytes # 1.0 H Eosinophils # 0.1 Basophils # 0.0 Nucleated Red Blood Cells # 0.0 Sodium Level 135 Potassium Level 3.9 Chloride Level 93 L Carbon Dioxide Level 25 Anion Gap 21 H Blood Urea Nitrogen 56 H Creatinine 10.57 H Glucose Level 103 Calcium Level 7.1 L Total Bilirubin 0.1 L Direct Bilirubin 0.00 Indirect Bilirubin 0.1 Aspartate Amino Transf (AST/SGOT) 25 Alanine Aminotransferase (ALT/SGPT) 22 Alkaline Phosphatase 81 # Total Protein 6.1 # Albumin 2.9 #L Globulin 3.20 Albumin/Globulin Ratio 0.90 Test 02/27/17 16:49 Bedside Glucose 130 Medications Medications Current Medications Amlodipine Besylate (Norvasc) 10 mg DAILY PO Last administered on 02/26/17 08: 23; Admin Dose 10 MG; Start 02/26/17 at 09:00 Atorvastatin Calcium (Lipitor) 20 mg HS PO Last administered on 02/26/17 21:00 ; Admin Dose 20 MG; Start 02/26/17 at 21:00 Carvedilol (Coreg) 25 mg BID PO Last administered on 02/26/17 21:00; Admin Dose 25 MG; Start 02/26/17 at 09:00 Hydralazine HCl (Apresoline) 25 mg Q8 PO Last administered on 02/27/17 05:28; Admin Dose 25 MG; Start 02/26/17 at 06:00 Multivit/Ca Carb/ B Cmplx/FA/Prenat (Pat-Tommy) 1 tab DAILY PO Last administered on 02/26/17 08:18; Admin Dose 1 TAB; Start 02/26/17 at 09:00 Zolpidem Tartrate (Ambien) 10 mg QHS PRN PO INSOMNIA; Start 02/26/17 at 05:30 Miscellaneous Information 60 mcg Q7D XX ; Start 02/26/17 at 05:30; Status UNV Pregabalin (Lyrica) 200 mg BID PO Last administered on 02/26/17 22:28; Admin Dose 200 MG; Start 02/26/17 at 09:00 Insulin Detemir (Levemir) 16 unit DAILY@20 SC Last administered on 02/26/17 20 :59; Admin Dose 16 UNIT; Start 02/26/17 at 20:00 Insulin Human NPH (Humulin N) 10 unit BID@08,20 SC Last administered on 20:58; Admin Dose 10 UNIT; Start 02/26/17 at 08:00 Diagnostic Test (Pha) (Accu-Chek) 1 ea 02 XX ; Start 02/27/17 at 02:00 Miscellaneous Information 1 ea NOTE XX ; Start 02/26/17 at 06:00 Glucose (Glutose) 15 gm Q15M PRN PO DECREASED GLUCOSE; Start 02/26/17 at 06:00 Glucose (Glutose) 22.5 gm Q15M PRN PO DECREASED GLUCOSE; Start 02/26/17 at 06: 00 Dextrose (D50w Syringe) 25 ml Q15M PRN IV DECREASED GLUCOSE; Start 02/26/17 at 06:00 Dextrose (D50w Syringe) 50 ml Q15M PRN IV DECREASED GLUCOSE; Start 02/26/17 at 06:00 Glucagon (Glucagen) 1 mg Q15M PRN IM DECREASED GLUCOSE; Start 02/26/17 at 06:00 Glucose (Glutose) 15 gm Q15M PRN BUCCAL DECREASED GLUCOSE; Start 02/26/17 at 06 :00 Levofloxacin (Levaquin) 250 mg Q48H PO Last administered on 02/27/17 05:27; Admin Dose 250 MG; Start 02/27/17 at 06:00 Miscellaneous Information (*Order Clarification Bulletin) MEDICATION REQUIRES CLARIFICATION: Q8H XX ; Start 02/26/17 at 09:30 Vancomycin HCl PER PHARMACY DOSING NOTE XX ; Start 02/26/17 at 17:30 Caspofungin 50 mg/ Sodium Chloride 250 ml @ 250 mls/hr Q24H IVPB Last administered on 02/27/17 16:56; Admin Dose 250 MLS/HR; Start 02/27/17 at 18:00 Meropenem/Sodium Chloride (Merrem 500mg/50 ml(Pmx)) 50 ml @ 100 mls/hr Q24H IVPB Last administered on 02/26/17 20:54; Admin Dose 100 MLS/HR; Start at 20:00 Acetaminophen (Tylenol Tab) 650 mg Q6H PRN PO PAIN AND OR ELEVATED TEMP; Start 02/27/17 at 11:30 Miscellaneous Information (*Rx Drug Level Order Reminder*) VANCOMYCIN RANDOM ON 02/10... ONCE ONCE XX ; Start 02/28/17 at 05:00; Stop 02/28/17 at 05:01 RONIT ROJAS Feb 27, 2017 18:39
[2017-02-27] MEDS: ATORVASTATIN 20 MG TAB PO SCH (20:12)
[2017-02-27] MEDS: MEROPENEM 500MG/50 ML (PMX) 50 ML IVPB SCH (20:13)
[2017-02-27] MEDS: INSULIN DETEMIR [LEVEMIR] 3ML CART SC SCH (20:26)
[2017-02-27] MEDS ORDERED: SOD CHLORIDE 0.9% 250 ML IV ONE (23:00)
[2017-02-28] VITALS (23 sets, daily range): BP systolic 88–156; BP diastolic 43–75; PULSE 64–77; RESP 17–19
[2017-02-28] MEDS: ACCU-CHEK XX SCH (02:00)
[2017-02-28 07:19] LABS: ADD SCAN DIFF NO
[2017-02-28 07:24] LABS: BASOPHILS % 0.3 % (0.0-2.0); EOSINOPHILS # 0.1 10^3/ul (0.0-0.5); EOSINOPHILS % 1.2 % (0.0-7.0); HEMATOCRIT 23.4 % (42.0-52.0); HEMOGLOBIN 7.6 g/dl (14.0-18.0); LYMPHOCYTES # 0.7 10^3/ul (0.8-2.9); LYMPHOCYTES % 6.6 % (15.0-51.0); MEAN CORPUSCULAR HEMOGLOBIN 30.5 pg (29.0-33.0); MEAN CORPUSCULAR HGB CONC 32.5 g/dl (32.0-37.0); MONOCYTE # 0.7 10^3/ul (0.3-0.9); MONOCYTES % 6.3 % (0.0-11.0); NEUTROPHIL # 9.5 10^3/ul (1.6-7.5); NEUTROPHILS % 84.4 % (39.0-77.0); PLATELET COUNT 104 10^3/UL (140-415); RED BLOOD COUNT 2.49 10^6/ul (4.70-6.10); RED CELL DISTRIBUTION WIDTH 14.7 % (11.5-14.5); WHITE BLOOD COUNT 11.3 10^3/ul (4.8-10.8)
[2017-02-28 07:45] LABS: INR 1.1; PROTIME 14.2 Sec (12.2-14.2); PT RATIO 1.1
[2017-02-28 07:46] LABS: PARTIAL THROMBOPLASTIN TIME 40.8 Sec (25.0-35.0)
[2017-02-28 07:56] LABS: ALBUMIN 2.7 g/dl (3.3-4.9); ALBUMIN/GLOBULIN RATIO 0.9; BILIRUBIN,INDIRECT 0.1 mg/dl (0-1.1); BILIRUBIN,TOTAL 0.1 mg/dl (0.2-1.3); CALCIUM 6.8 mg/dl (8.4-10.2); CREATININE 11.33 mg/dl (0.61-1.24); MAGNESIUM 1.5 mg/dl (1.7-2.5); POTASSIUM 3.6 mmol/L (3.5-5.1); TOTAL PROTEIN 5.7 g/dl (6.1-8.1)
[2017-02-28] MEDS: INSULIN ASPART [NOVOLOG] 3 ML PEN SC SCH ×4 (08:00→20:29)
[2017-02-28] MEDS: MULTIVIT/CA CARB/B CMPLX/FA TAB PO SCH (09:14)
[2017-02-28] MEDS: PANTOPRAZOLE (EC) 40 MG TAB PO SCH (09:14)
[2017-02-28] MEDS: PREGABALIN 100 MG CAP PO SCH ×2 (09:16→20:28)
--- NOTE | 2017-02-28 12:36 | PN ---
Date/Time of Note Date/Time of Note DATE: 02/28/17 TIME: 12:21 Assessment/Plan Lines/Catheters IV Catheter Type (from Nrs): Ezequiel Catheter Lo in Place (from Nrsg): No Assessment/Plan Chief Complaint/Hosp Course 1. Peritonitis, recurrent, with infected PD catheter; s/p explantation of PD ; site clean, no drainage; pain improved -iv abx -judicious fluid management 2. ESRD; cr increasing -HD thru femoral saida -will need eventual permacath and fistula when infection cleared > defer to vascular 3. Obesity, bmi 34 -encourage nutritional optimization -encourage diet and exercise modification 4. Sepsis with lactic acidosis: 2nd above; episode of hypoglycemia this morning ; awaiting culture results; afebrile 5. DM with episode of hypoglycemia this morning -diet/medication control -encourage weight loss 6. CAD -cardiac optimization -encourage weight loss 7. PVD -medical/lifestyle optimization 8. HTN -diet/medication optimization -encourage weight loss 9. Hypercholesterolemia -diet/medication optimization -encourage weight loss 10. Leukocytosis 2/2 #1, improving -as above -abx 11. Normocytic anemia: likely 2/2 chronic disease vs. acute bleed; h/h lower -monitor & replete as needed 12. Thrombocytopenia: -bleeding precautions 13. Hypokalemia -optimize lytes -monitor for cardiac arrhythmias 14.Hypocalcemia -optimize lytes -monitor for cardiac arrhythmias Patient seen and examined in collaboration with Dr. Jeremiah Shields Problems: Subjective 24 Hr Interval Summary Abdominal discomfort but pain improved. No drainage from incision site. Tolerating diet. No c/o n/v/d. + flatus. C/o dizziness. Low blood sugar. No cp, palpitations, sob, cough, servin, sz, fainting. Exam/Review of Systems Vital Signs Vitals Vital Signs Date Time Temp Pulse Resp B/P Pulse Ox O2 Delivery O2 Flow Rate FiO2 02/28/17 12:02 98.2 67 18 91/53 94 02/27/17 20:10 Nasal Cannula 2.0 Intake and Output 02/27/17 02/27/17 02/28/17 15:00 23:00 07:00 Intake Total 400 ml 800 ml 1050 ml Output Total 5 ml Balance 395 ml 800 ml 1050 ml Exam Free Text/Dictation Constitutional: alert, obese, oriented, No distress Psych: nl mood/affect, No anxiety Head: atraumatic, normocephalic Eyes: EOMI, PERRL, nl conjunctiva, No icteric ENMT: mucosa pink and moist, nl external ears & nose, nl lips & teeth Neck: non-tender, supple Respiratory: normal air movement, No congested cough, No labored breathing Cardiovascular: regular rate and rhythm, No edema Gastrointestinal: soft, tender (min), dressing dry and intact. no noted drainage No distended, No firm, No rebound or guarding Musculoskeletal: nl extremities to inspection, nl gait and stance, No joint tenderness Extremities: normal pulses, No calf tenderness Neurological: nl mental status, nl speech, nl strength Skin: nl turgor, No diaphoresis, No rash or lesions Lymph: nl lymph nodes Results Result Diagram: 02/28/17 0636 02/28/17 0636 TUAN CHAN NP Feb 28, 2017 12:32
[2017-02-28] MEDS ORDERED: SOD CHLORIDE 0.9% 250 ML IV* ONE (13:10)
--- NOTE | 2017-02-28 13:16 | PN ---
Date/Time of Note Date/Time of Note DATE: 02/28/17 TIME: 13:03 Assessment/Plan VTE Prophylaxis VTE Prophylaxis Intervention: other Lines/Catheters [facility] Type [facility] Ezequiel Catheter Urinary Cath still in place: No Assessment/Plan Assessment/Plan - Hypotension- stable now -Hypoglycemia-stable now -We will DC NPH insulin -Lantus insulin was decreased from 16-10 units daily -Monitor signs and symptoms of hypoglycemia --Sepsis most likely secondary to peritonitis, Dr. Pierre is following in infection disease consultation. Continue antibiotics per ID. -Peritonitis, status post peritoneal catheter removal by Dr. Shields, general surgery. -End-stage renal disease, Dr. Keith is following in nephrology consultation, continue hemodialysis via right femoral Ruiz catheter. -Hemodialysis today -Hyperkalemia secondary to end-stage renal disease -Diabetes mellitus, continue Lantus and NovoLog -Coronary artery disease, status post CABG -Peripheral vascular disease -Anemia of chronic disease -Per Dr. Rose a nephrology consult -Patient will get 2 units of packed white blood cells during hemodialysis per nephrology Further recommendations based on clinical course. Plan of care discussed with Dr. Sanchez/staff, patient's Subjective 24 Hr Interval Summary Free Text/Dictation Resting in bed, afebrile, blood sugar stable, blood pressure stable. H&H is low today. Possible hemodialysis today. Discussed with the core baker. Patient's at the bedside all questions answered. Plan of care discussed with the discussed with staff. Constitutional: requiring O2 Exam/Review of Systems Vital Signs Vitals Vital Signs Date Time Temp Pulse Resp B/P Pulse Ox O2 Delivery O2 Flow Rate FiO2 02/28/17 12:35 65 02/28/17 12:02 98.2 18 91/53 94 02/27/17 20:10 Nasal Cannula 2.0 Intake and Output 02/27/17 02/27/17 02/28/17 15:00 23:00 07:00 Intake Total 400 ml 800 ml 1050 ml Output Total 5 ml Balance 395 ml 800 ml 1050 ml Exam Constitutional: alert, well developed Respiratory: clear to auscultation, normal air movement Cardiovascular: nl pulses (SR, HR 67) Gastrointestinal: non-tender, soft Extremities: normal pulses Neurological: nl speech Results Result Diagram: 02/28/17 0636 02/28/17 0636 Results 24 hrs Laboratory Tests Test 02/27/17 16:49 02/27/17 20:09 02/28/17 06:36 02/28/17 07:41 Bedside Glucose 130 92 56 L White Blood Count 11.3 H Red Blood Count 2.49 L Hemoglobin 7.6 L Hematocrit 23.4 L Mean Corpuscular Volume 94.0 Mean Corpuscular Hemoglobin 30.5 Mean Corpuscular Hemoglobin Concent 32.5 Red Cell Distribution Width 14.7 H Platelet Count 104 L Mean Platelet Volume 12.0 H Neutrophils % 84.4 H Lymphocytes % 6.6 L Monocytes % 6.3 Eosinophils % 1.2 Basophils % 0.3 Nucleated Red Blood Cells % 0.0 Neutrophils # 9.5 H Lymphocytes # 0.7 L Monocytes # 0.7 Eosinophils # 0.1 Basophils # 0.0 Nucleated Red Blood Cells # 0.0 Prothrombin Time 14.2 Prothrombin Time Ratio 1.1 INR International Normalized Ratio 1.10 Activated Partial Thromboplast Time 40.8 H Sodium Level 135 Potassium Level 3.6 Chloride Level 93 L Carbon Dioxide Level 22 Anion Gap 24 H Blood Urea Nitrogen 69 H Creatinine 11.33 H Glucose Level 52 #L Hemoglobin A1c 6.5 H Calcium Level 6.8 L Magnesium Level 1.5 L Total Bilirubin 0.1 L Direct Bilirubin 0.00 Indirect Bilirubin 0.1 Aspartate Amino Transf (AST/SGOT) 27 Alanine Aminotransferase (ALT/SGPT) 24 Alkaline Phosphatase 81 Total Protein 5.7 L Albumin 2.7 L Globulin 3.00 Albumin/Globulin Ratio 0.90 Random Vancomycin Level 15.2 Test 02/28/17 08:04 02/28/17 09:11 02/28/17 09:49 02/28/17 11:32 Bedside Glucose 55 L 130 119 141 Medications Medications Current Medications Amlodipine Besylate (Norvasc) 10 mg DAILY PO Last administered on 02/26/17 08: 23; Admin Dose 10 MG; Start 02/26/17 at 09:00; Status Future Hold Atorvastatin Calcium (Lipitor) 20 mg HS PO Last administered on 02/27/17 20:12 ; Admin Dose 20 MG; Start 02/26/17 at 21:00 Carvedilol (Coreg) 25 mg BID PO Last administered on 02/27/17 20:12; Admin Dose 25 MG; Start 02/26/17 at 09:00; Status Future Hold Hydralazine HCl (Apresoline) 25 mg Q8 PO Last administered on 02/27/17 05:28; Admin Dose 25 MG; Start 02/26/17 at 06:00; Status Future Hold Multivit/Ca Carb/ B Cmplx/FA/Prenat (Pat-Tommy) 1 tab DAILY PO Last administered on 02/28/17 09:14; Admin Dose 1 TAB; Start 02/26/17 at 09:00 Zolpidem Tartrate (Ambien) 10 mg QHS PRN PO INSOMNIA; Start 02/26/17 at 05:30 Miscellaneous Information 60 mcg Q7D XX ; Start 02/26/17 at 05:30; Status UNV Pregabalin (Lyrica) 200 mg BID PO Last administered on 02/28/17 09:16; Admin Dose 200 MG; Start 02/26/17 at 09:00 Diagnostic Test (Pha) (Accu-Chek) 1 ea 02 XX ; Start 02/27/17 at 02:00 Miscellaneous Information 1 ea NOTE XX ; Start 02/26/17 at 06:00 Glucose (Glutose) 15 gm Q15M PRN PO DECREASED GLUCOSE; Start 02/26/17 at 06:00 Glucose (Glutose) 22.5 gm Q15M PRN PO DECREASED GLUCOSE; Start 02/26/17 at 06: 00 Dextrose (D50w Syringe) 25 ml Q15M PRN IV DECREASED GLUCOSE Last administered on 02/28/17 08:10; Admin Dose 25 ML; Start 02/26/17 at 06:00 Dextrose (D50w Syringe) 50 ml Q15M PRN IV DECREASED GLUCOSE; Start 02/26/17 at 06:00 Glucagon (Glucagen) 1 mg Q15M PRN IM DECREASED GLUCOSE; Start 02/26/17 at 06:00 Glucose (Glutose) 15 gm Q15M PRN BUCCAL DECREASED GLUCOSE; Start 02/26/17 at 06 :00 Levofloxacin (Levaquin) 250 mg Q48H PO Last administered on 02/27/17 05:27; Admin Dose 250 MG; Start 02/27/17 at 06:00 Miscellaneous Information (*Order Clarification Bulletin) MEDICATION REQUIRES CLARIFICATION: Q8H XX ; Start 02/26/17 at 09:30 Vancomycin HCl PER PHARMACY DOSING NOTE XX ; Start 02/26/17 at 17:30 Caspofungin 50 mg/ Sodium Chloride 250 ml @ 250 mls/hr Q24H IVPB Last administered on 02/27/17 16:56; Admin Dose 250 MLS/HR; Start 02/27/17 at 18:00 Meropenem/Sodium Chloride (Merrem 500mg/50 ml(Pmx)) 50 ml @ 100 mls/hr Q24H IVPB Last administered on 02/27/17 20:13; Admin Dose 100 MLS/HR; Start at 20:00 Acetaminophen (Tylenol Tab) 650 mg Q6H PRN PO PAIN AND OR ELEVATED TEMP; Start 02/27/17 at 11:30 Insulin Detemir (Levemir) 10 unit DAILY@20 SC ; Start 02/28/17 at 20:00 ORIANA OATES Feb 28, 2017 13:15
[2017-02-28] MEDS ORDERED: HEPARIN 1000 UNITS/ML 10 ML INJ CATHETER ONE (13:30)
--- NOTE | 2017-02-28 15:53 | CONS ---
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 Pt received levofloxacin at ER - will adjust his antibiotics based on the culture results Management d/w Patient, JANELL Bueno, and Dr. Gamino. Problems: Consultation Date/Type/Reason Admit Date/Time Feb 26, 2017 at 03:18 Initial Consult Date 02/26/17 Type of Consultation: Infectious Disease Referring Provider: RONIT ROJAS 24 HR Interval Summary Free Text/Dictation Getting blood transfusion with HD. States feeling slightly better. Had issues with anemia (Hgb 7.6), hypoglycemia (BS 55) and hypotension this AM. Reports numbness to BLE Exam/Review of Systems Vital Signs Vitals Vital Signs Date Time Temp Pulse Resp B/P Pulse Ox O2 Delivery O2 Flow Rate FiO2 02/28/17 15:35 64 02/28/17 12:02 98.2 18 91/53 94 02/28/17 10:00 Nasal Cannula 2.0 Intake and Output 02/27/17 02/27/17 02/28/17 15:00 23:00 07:00 Intake Total 400 ml 800 ml 1050 ml Output Total 5 ml Balance 395 ml 800 ml 1050 ml Exam Constitutional: alert, oriented, other (HD in progress), well developed Psych: no complaints Head: atraumatic, normocephalic Eyes: nl sclera Neck: supple Respiratory: clear to auscultation, normal air movement Cardiovascular: nl pulses, regular rate and rhythm Gastrointestinal: soft, tender (LLQ (old PD catheter site)) Extremities: normal pulses Skin: nl turgor, other (LLQ dressing c/d/i (Old PD catheter site)) Results Result Diagram: 02/28/17 0636 02/28/17 0636 Results 24 hrs Laboratory Tests Test 02/27/17 16:49 02/27/17 20:09 02/28/17 06:36 02/28/17 07:41 Bedside Glucose 130 92 56 L White Blood Count 11.3 H Red Blood Count 2.49 L Hemoglobin 7.6 L Hematocrit 23.4 L Mean Corpuscular Volume 94.0 Mean Corpuscular Hemoglobin 30.5 Mean Corpuscular Hemoglobin Concent 32.5 Red Cell Distribution Width 14.7 H Platelet Count 104 L Mean Platelet Volume 12.0 H Neutrophils % 84.4 H Lymphocytes % 6.6 L Monocytes % 6.3 Eosinophils % 1.2 Basophils % 0.3 Nucleated Red Blood Cells % 0.0 Neutrophils # 9.5 H Lymphocytes # 0.7 L Monocytes # 0.7 Eosinophils # 0.1 Basophils # 0.0 Nucleated Red Blood Cells # 0.0 Prothrombin Time 14.2 Prothrombin Time Ratio 1.1 INR International Normalized Ratio 1.10 Activated Partial Thromboplast Time 40.8 H Sodium Level 135 Potassium Level 3.6 Chloride Level 93 L Carbon Dioxide Level 22 Anion Gap 24 H Blood Urea Nitrogen 69 H Creatinine 11.33 H Glucose Level 52 #L Hemoglobin A1c 6.5 H Calcium Level 6.8 L Magnesium Level 1.5 L Total Bilirubin 0.1 L Direct Bilirubin 0.00 Indirect Bilirubin 0.1 Aspartate Amino Transf (AST/SGOT) 27 Alanine Aminotransferase (ALT/SGPT) 24 Alkaline Phosphatase 81 Total Protein 5.7 L Albumin 2.7 L Globulin 3.00 Albumin/Globulin Ratio 0.90 Random Vancomycin Level 15.2 Test 02/28/17 08:04 02/28/17 09:11 02/28/17 09:49 02/28/17 11:32 Bedside Glucose 55 L 130 119 141 Medications Medications Current Medications Amlodipine Besylate (Norvasc) 10 mg DAILY PO Last administered on 02/26/17 08: 23; Admin Dose 10 MG; Start 02/26/17 at 09:00; Status Future Hold Atorvastatin Calcium (Lipitor) 20 mg HS PO Last administered on 02/27/17 20:12 ; Admin Dose 20 MG; Start 02/26/17 at 21:00 Carvedilol (Coreg) 25 mg BID PO Last administered on 02/27/17 20:12; Admin Dose 25 MG; Start 02/26/17 at 09:00; Status Future Hold Hydralazine HCl (Apresoline) 25 mg Q8 PO Last administered on 02/27/17 05:28; Admin Dose 25 MG; Start 02/26/17 at 06:00; Status Future Hold Multivit/Ca Carb/ B Cmplx/FA/Prenat (Pat-Tommy) 1 tab DAILY PO Last administered on 02/28/17 09:14; Admin Dose 1 TAB; Start 02/26/17 at 09:00 Zolpidem Tartrate (Ambien) 10 mg QHS PRN PO INSOMNIA; Start 02/26/17 at 05:30 Miscellaneous Information 60 mcg Q7D XX ; Start 02/26/17 at 05:30; Status UNV Pregabalin (Lyrica) 200 mg BID PO Last administered on 02/28/17 09:16; Admin Dose 200 MG; Start 02/26/17 at 09:00 Diagnostic Test (Pha) (Accu-Chek) 1 ea 02 XX ; Start 02/27/17 at 02:00 Miscellaneous Information 1 ea NOTE XX ; Start 02/26/17 at 06:00 Glucose (Glutose) 15 gm Q15M PRN PO DECREASED GLUCOSE; Start 02/26/17 at 06:00 Glucose (Glutose) 22.5 gm Q15M PRN PO DECREASED GLUCOSE; Start 02/26/17 at 06: 00 Dextrose (D50w Syringe) 25 ml Q15M PRN IV DECREASED GLUCOSE Last administered on 02/28/17 08:10; Admin Dose 25 ML; Start 02/26/17 at 06:00 Dextrose (D50w Syringe) 50 ml Q15M PRN IV DECREASED GLUCOSE; Start 02/26/17 at 06:00 Glucagon (Glucagen) 1 mg Q15M PRN IM DECREASED GLUCOSE; Start 02/26/17 at 06:00 Glucose (Glutose) 15 gm Q15M PRN BUCCAL DECREASED GLUCOSE; Start 02/26/17 at 06 :00 Levofloxacin (Levaquin) 250 mg Q48H PO Last administered on 02/27/17 05:27; Admin Dose 250 MG; Start 02/27/17 at 06:00 Miscellaneous Information (*Order Clarification Bulletin) MEDICATION REQUIRES CLARIFICATION: Q8H XX ; Start 02/26/17 at 09:30 Vancomycin HCl PER PHARMACY DOSING NOTE XX ; Start 02/26/17 at 17:30 Caspofungin 50 mg/ Sodium Chloride 250 ml @ 250 mls/hr Q24H IVPB Last administered on 02/27/17 16:56; Admin Dose 250 MLS/HR; Start 02/27/17 at 18:00 Meropenem/Sodium Chloride (Merrem 500mg/50 ml(Pmx)) 50 ml @ 100 mls/hr Q24H IVPB Last administered on 02/27/17 20:13; Admin Dose 100 MLS/HR; Start at 20:00 Acetaminophen (Tylenol Tab) 650 mg Q6H PRN PO PAIN AND OR ELEVATED TEMP; Start 02/27/17 at 11:30 Insulin Detemir (Levemir) 10 unit DAILY@20 SC ; Start 02/28/17 at 20:00 REX GAMINO M.D. 03/01/17 1108: Assessment/Plan Assessment/Plan Additional Assessment/Plan Hanny attestation: I discussed the management with DESIREE Tello and agree with above Exam/Review of Systems Results Result Diagram: 02/28/17 0636 02/28/17 0636 RENATE TELLO NP Feb 28, 2017 15:53 REX GAMINO M.D. Mar 01, 2017 11:08
[2017-02-28] MEDS ORDERED: VANCOMYCIN 1.5 GM in SOD CHLORIDE 0.9% 250 ML IVPB SCH (16:00)
[2017-02-28] MEDS: CASPOFUNGIN 50 MG in SOD CHLORIDE 0.9% 250 ML IVPB SCH (18:34)
[2017-02-28] MEDS: ATORVASTATIN 20 MG TAB PO SCH (20:27)
[2017-02-28] MEDS: MEROPENEM 500MG/50 ML (PMX) 50 ML IVPB SCH (20:27)
[2017-02-28] MEDS: INSULIN DETEMIR [LEVEMIR] 3ML CART SC SCH (20:30)
--- NOTE | 2017-02-28 21:34 | CONS ---
Date/Time of Note Date/Time of Note DATE: 02/28/17 TIME: 21:34 Consultation Date/Type/Reason Admit Date/Time Feb 26, 2017 at 03:18 Initial Consult Date 02/26/17 Type of Consultation: Renal Referring Provider: RONIT ROJAS Exam/Review of Systems Vital Signs Vitals Vital Signs Date Time Temp Pulse Resp B/P Pulse Ox O2 Delivery O2 Flow Rate FiO2 02/28/17 20:01 98.5 76 17 156/75 97 02/28/17 10:00 Nasal Cannula 2.0 Intake and Output 02/27/17 02/27/17 02/28/17 15:00 23:00 07:00 Intake Total 400 ml 800 ml 1050 ml Output Total 5 ml Balance 395 ml 800 ml 1050 ml Results Result Diagram: 02/28/17 0636 02/28/17 0636 Results 24 hrs Laboratory Tests Test 02/28/17 06:36 02/28/17 07:41 02/28/17 08:04 02/28/17 09:11 White Blood Count 11.3 H Red Blood Count 2.49 L Hemoglobin 7.6 L Hematocrit 23.4 L Mean Corpuscular Volume 94.0 Mean Corpuscular Hemoglobin 30.5 Mean Corpuscular Hemoglobin Concent 32.5 Red Cell Distribution Width 14.7 H Platelet Count 104 L Mean Platelet Volume 12.0 H Neutrophils % 84.4 H Lymphocytes % 6.6 L Monocytes % 6.3 Eosinophils % 1.2 Basophils % 0.3 Nucleated Red Blood Cells % 0.0 Neutrophils # 9.5 H Lymphocytes # 0.7 L Monocytes # 0.7 Eosinophils # 0.1 Basophils # 0.0 Nucleated Red Blood Cells # 0.0 Prothrombin Time 14.2 Prothrombin Time Ratio 1.1 INR International Normalized Ratio 1.10 Activated Partial Thromboplast Time 40.8 H Sodium Level 135 Potassium Level 3.6 Chloride Level 93 L Carbon Dioxide Level 22 Anion Gap 24 H Blood Urea Nitrogen 69 H Creatinine 11.33 H Glucose Level 52 #L Hemoglobin A1c 6.5 H Calcium Level 6.8 L Magnesium Level 1.5 L Total Bilirubin 0.1 L Direct Bilirubin 0.00 Indirect Bilirubin 0.1 Aspartate Amino Transf (AST/SGOT) 27 Alanine Aminotransferase (ALT/SGPT) 24 Alkaline Phosphatase 81 Total Protein 5.7 L Albumin 2.7 L Globulin 3.00 Albumin/Globulin Ratio 0.90 Random Vancomycin Level 15.2 Bedside Glucose 56 L 55 L 130 Test 02/28/17 09:49 02/28/17 11:32 02/28/17 16:19 02/28/17 17:17 Bedside Glucose 119 141 122 Hepatitis B Surface Antigen NEGATIVE Test 02/28/17 20:11 Bedside Glucose 218 Medications Medications Current Medications Amlodipine Besylate (Norvasc) 10 mg DAILY PO Last administered on 02/26/17 08: 23; Admin Dose 10 MG; Start 02/26/17 at 09:00; Status Future Hold Atorvastatin Calcium (Lipitor) 20 mg HS PO Last administered on 02/28/17 20:27 ; Admin Dose 20 MG; Start 02/26/17 at 21:00 Carvedilol (Coreg) 25 mg BID PO Last administered on 02/27/17 20:12; Admin Dose 25 MG; Start 02/26/17 at 09:00; Status Future Hold Hydralazine HCl (Apresoline) 25 mg Q8 PO Last administered on 02/27/17 05:28; Admin Dose 25 MG; Start 02/26/17 at 06:00; Status Future Hold Multivit/Ca Carb/ B Cmplx/FA/Prenat (Pat-Tommy) 1 tab DAILY PO Last administered on 02/28/17 09:14; Admin Dose 1 TAB; Start 02/26/17 at 09:00 Zolpidem Tartrate (Ambien) 10 mg QHS PRN PO INSOMNIA; Start 02/26/17 at 05:30 Pregabalin (Lyrica) 200 mg BID PO Last administered on 02/28/17 20:28; Admin Dose 200 MG; Start 02/26/17 at 09:00 Diagnostic Test (Pha) (Accu-Chek) 1 ea 02 XX ; Start 02/27/17 at 02:00 Miscellaneous Information 1 ea NOTE XX ; Start 02/26/17 at 06:00 Glucose (Glutose) 15 gm Q15M PRN PO DECREASED GLUCOSE; Start 02/26/17 at 06:00 Glucose (Glutose) 22.5 gm Q15M PRN PO DECREASED GLUCOSE; Start 02/26/17 at 06: 00 Dextrose (D50w Syringe) 25 ml Q15M PRN IV DECREASED GLUCOSE Last administered on 02/28/17 08:10; Admin Dose 25 ML; Start 02/26/17 at 06:00 Dextrose (D50w Syringe) 50 ml Q15M PRN IV DECREASED GLUCOSE; Start 02/26/17 at 06:00 Glucagon (Glucagen) 1 mg Q15M PRN IM DECREASED GLUCOSE; Start 02/26/17 at 06:00 Glucose (Glutose) 15 gm Q15M PRN BUCCAL DECREASED GLUCOSE; Start 02/26/17 at 06 :00 Levofloxacin (Levaquin) 250 mg Q48H PO Last administered on 02/27/17 05:27; Admin Dose 250 MG; Start 02/27/17 at 06:00 Vancomycin HCl PER PHARMACY DOSING NOTE XX ; Start 02/26/17 at 17:30 Caspofungin 50 mg/ Sodium Chloride 250 ml @ 250 mls/hr Q24H IVPB Last administered on 02/28/17 18:34; Admin Dose 250 MLS/HR; Start 02/27/17 at 18:00 Meropenem/Sodium Chloride (Merrem 500mg/50 ml(Pmx)) 50 ml @ 100 mls/hr Q24H IVPB Last administered on 02/28/17 20:27; Admin Dose 100 MLS/HR; Start at 20:00 Acetaminophen (Tylenol Tab) 650 mg Q6H PRN PO PAIN AND OR ELEVATED TEMP; Start 02/27/17 at 11:30 Insulin Detemir (Levemir) 10 unit DAILY@20 SC Last administered on 02/28/17 20 :30; Admin Dose 10 UNIT; Start 02/28/17 at 20:00 Patient Own Medication 1 ea Sa@09 SC ; Start 03/02/17 at 09:00 MANOJ HARE MD Feb 28, 2017 21:34
[2017-03-01] VITALS (10 sets, daily range): BP systolic 123–142; BP diastolic 54–64; PULSE 66–74; RESP 14–19
[2017-03-01 01:55] LABS: TROPONIN-I 0.017 ng/ml (0.00-0.12)
[2017-03-01 01:56] LABS: CK-MB 6.56 ng/ml (0.0-2.4)
[2017-03-01] MEDS: ACCU-CHEK XX SCH (02:00)
[2017-03-01] MEDS: LEVOFLOXACIN 250 MG TAB PO SCH (05:33)
[2017-03-01] MEDS: INSULIN ASPART [NOVOLOG] 3 ML PEN SC SCH ×4 (08:00→20:34)
[2017-03-01 08:33] LABS: ADD SCAN DIFF NO
[2017-03-01 08:36] LABS: BASOPHILS % 0.3 % (0.0-2.0); EOSINOPHILS # 0.1 10^3/ul (0.0-0.5); EOSINOPHILS % 1.5 % (0.0-7.0); HEMATOCRIT 28.8 % (42.0-52.0); HEMOGLOBIN 9.8 g/dl (14.0-18.0); LYMPHOCYTES # 0.7 10^3/ul (0.8-2.9); LYMPHOCYTES % 9.3 % (15.0-51.0); MEAN CORPUSCULAR HEMOGLOBIN 30.6 pg (29.0-33.0); MONOCYTE # 0.8 10^3/ul (0.3-0.9); MONOCYTES % 9.8 % (0.0-11.0); NEUTROPHIL # 6.1 10^3/ul (1.6-7.5); NEUTROPHILS % 77.7 % (39.0-77.0); PLATELET COUNT 109 10^3/UL (140-415); RED CELL DISTRIBUTION WIDTH 14.9 % (11.5-14.5); WHITE BLOOD COUNT 7.9 10^3/ul (4.8-10.8)
[2017-03-01 08:55] LABS: CHOL/HDL RATIO 5.6 RATIO
[2017-03-01 08:56] LABS: PROTIME 13.2 Sec (12.2-14.2)
[2017-03-01 08:57] LABS: PARTIAL THROMBOPLASTIN TIME 36.9 Sec (25.0-35.0)
[2017-03-01 08:58] LABS: CALCIUM 7.1 mg/dl (8.4-10.2); CREATININE 9.86 mg/dl (0.61-1.24); POTASSIUM 3.5 mmol/L (3.5-5.1)
[2017-03-01 09:06] LABS: TROPONIN-I 0.022 ng/ml (0.00-0.12)
[2017-03-01 09:09] LABS: CK-MB 5.15 ng/ml (0.0-2.4)
[2017-03-01] MEDS: PREGABALIN 100 MG CAP PO SCH ×2 (09:22→20:31)
[2017-03-01] MEDS: MULTIVIT/CA CARB/B CMPLX/FA TAB PO SCH (09:22)
[2017-03-01] MEDS: PANTOPRAZOLE (EC) 40 MG TAB PO SCH (09:23)
--- NOTE | 2017-03-01 12:04 | CONS ---
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 will adjust his antibiotics based on the culture results. In case of no growth, we recommend two week course of this regimen Management d/w Pt Problems: Consultation Date/Type/Reason Admit Date/Time Feb 26, 2017 at 03:18 Initial Consult Date 02/26/17 Type of Consultation: ID Referring Provider: RONIT ROJAS 24 HR Interval Summary Constitutional: improved Detailed Summary Eyes: no complaints ENT: no complaints Respiratory: no complaints Cardiovascular: no complaints Gastrointestinal: pain, passing stool (loose x2 this morning), No diarrhea, No nausea Genitourinary: other (on HD) Skin: no complaints Neurologic: other (chronic neuropathy of b/l toes) Exam/Review of Systems Vital Signs Vitals Vital Signs Date Time Temp Pulse Resp B/P Pulse Ox O2 Delivery O2 Flow Rate FiO2 03/01/17 08:00 68 03/01/17 04:18 98.5 17 123/55 95 02/28/17 21:00 Nasal Cannula 2.0 Intake and Output 02/28/17 02/28/17 03/01/17 15:00 23:00 07:00 Intake Total 1100 ml 350 ml Output Total 3000 ml Balance -1900 ml 350 ml Exam Constitutional: alert, oriented, well developed Psych: nl mood/affect, no complaints Head: atraumatic, normocephalic Eyes: nl conjunctiva, nl lids ENMT: nl external ears & nose, nl nasal mucosa & septum Neck: supple Respiratory: clear to auscultation, normal air movement Cardiovascular: nl pulses, regular rate and rhythm Gastrointestinal: non-tender, soft, surgical scars (lower abdomen s/p PD catheter removal), No distended Musculoskeletal: nl extremities to inspection Extremities: No edema 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, nl mental status, nl speech Skin: nl turgor Results Result Diagram: 03/01/1727 03/01/17726 Results 24 hrs Laboratory Tests Test 02/28/17 16:19 02/28/17 17:17 02/28/17 20:11 03/01/17 01:08 Hepatitis B Surface Antigen NEGATIVE Bedside Glucose 122 218 Creatine Kinase 158 Creatine Kinase Index 4.2 Creatinine Kinase MB (Mass) 6.56 H Troponin I 0.017 Test 03/01/17 02:12 03/01/17 07:27 03/01/17 07:29 Bedside Glucose 129 120 White Blood Count 7.9 # Red Blood Count 3.20 #L Hemoglobin 9.8 #L Hematocrit 28.8 #L Mean Corpuscular Volume 90.0 Mean Corpuscular Hemoglobin 30.6 Mean Corpuscular Hemoglobin Concent 34.0 Red Cell Distribution Width 14.9 H Platelet Count 109 L Mean Platelet Volume 12.0 H Neutrophils % 77.7 H Lymphocytes % 9.3 L Monocytes % 9.8 Eosinophils % 1.5 Basophils % 0.3 Neutrophils # 6.1 Lymphocytes # 0.7 L Monocytes # 0.8 Eosinophils # 0.1 Basophils # 0.0 Nucleated Red Blood Cells # 0.0 Prothrombin Time 13.2 Prothrombin Time Ratio 1.0 INR International Normalized Ratio 1.00 Activated Partial Thromboplast Time 36.9 H Sodium Level 133 L Potassium Level 3.5 Chloride Level 91 L Carbon Dioxide Level 24 Anion Gap 22 H Blood Urea Nitrogen 56 H Creatinine 9.86 H Glucose Level 116 # Calcium Level 7.1 L Creatine Kinase 138 Creatine Kinase Index 3.7 Creatinine Kinase MB (Mass) 5.15 H Troponin I 0.022 Triglycerides Level 233 H Cholesterol Level 107 LDL Cholesterol, Calculated 41 HDL Cholesterol 19 L Cholesterol/HDL Ratio 5.6 Medications Medications Current Medications Amlodipine Besylate (Norvasc) 10 mg DAILY PO Last administered on 02/26/17 08: 23; Admin Dose 10 MG; Start 02/26/17 at 09:00; Status Future Hold Atorvastatin Calcium (Lipitor) 20 mg HS PO Last administered on 02/28/17 20:27 ; Admin Dose 20 MG; Start 02/26/17 at 21:00 Carvedilol (Coreg) 25 mg BID PO Last administered on 02/27/17 20:12; Admin Dose 25 MG; Start 02/26/17 at 09:00; Status Future Hold Hydralazine HCl (Apresoline) 25 mg Q8 PO Last administered on 02/27/17 05:28; Admin Dose 25 MG; Start 02/26/17 at 06:00; Status Future Hold Multivit/Ca Carb/ B Cmplx/FA/Prenat (Pat-Tommy) 1 tab DAILY PO Last administered on 03/01/17 09:22; Admin Dose 1 TAB; Start 02/26/17 at 09:00 Zolpidem Tartrate (Ambien) 10 mg QHS PRN PO INSOMNIA; Start 02/26/17 at 05:30 Pregabalin (Lyrica) 200 mg BID PO Last administered on 03/01/17 09:22; Admin Dose 200 MG; Start 02/26/17 at 09:00 Diagnostic Test (Pha) (Accu-Chek) 1 ea 02 XX ; Start 02/27/17 at 02:00 Miscellaneous Information 1 ea NOTE XX ; Start 02/26/17 at 06:00 Glucose (Glutose) 15 gm Q15M PRN PO DECREASED GLUCOSE; Start 02/26/17 at 06:00 Glucose (Glutose) 22.5 gm Q15M PRN PO DECREASED GLUCOSE; Start 02/26/17 at 06: 00 Dextrose (D50w Syringe) 25 ml Q15M PRN IV DECREASED GLUCOSE Last administered on 02/28/17 08:10; Admin Dose 25 ML; Start 02/26/17 at 06:00 Dextrose (D50w Syringe) 50 ml Q15M PRN IV DECREASED GLUCOSE; Start 02/26/17 at 06:00 Glucagon (Glucagen) 1 mg Q15M PRN IM DECREASED GLUCOSE; Start 02/26/17 at 06:00 Glucose (Glutose) 15 gm Q15M PRN BUCCAL DECREASED GLUCOSE; Start 02/26/17 at 06 :00 Levofloxacin (Levaquin) 250 mg Q48H PO Last administered on 03/01/17 05:33; Admin Dose 250 MG; Start 02/27/17 at 06:00 Vancomycin HCl PER PHARMACY DOSING NOTE XX ; Start 02/26/17 at 17:30 Caspofungin 50 mg/ Sodium Chloride 250 ml @ 250 mls/hr Q24H IVPB Last administered on 02/28/17 18:34; Admin Dose 250 MLS/HR; Start 02/27/17 at 18:00 Meropenem/Sodium Chloride (Merrem 500mg/50 ml(Pmx)) 50 ml @ 100 mls/hr Q24H IVPB Last administered on 02/28/17 20:27; Admin Dose 100 MLS/HR; Start at 20:00 Acetaminophen (Tylenol Tab) 650 mg Q6H PRN PO PAIN AND OR ELEVATED TEMP; Start 02/27/17 at 11:30 Insulin Detemir (Levemir) 10 unit DAILY@20 SC Last administered on 02/28/17 20 :30; Admin Dose 10 UNIT; Start 02/28/17 at 20:00 Patient Own Medication 1 ea Sa@09 SC ; Start 03/02/17 at 09:00 REX BENITEZ M.D. Mar 01, 2017 12:04
[2017-03-01 12:51] LABS: TROPONIN-I 0.015 ng/ml (0.00-0.12)
[2017-03-01 12:56] LABS: CK-MB 5.86 ng/ml (0.0-2.4)
--- NOTE | 2017-03-01 16:04 | PN ---
Date/Time of Note Date/Time of Note DATE: 03/01/17 TIME: 16:02 Assessment/Plan VTE Prophylaxis VTE Prophylaxis Intervention: SCD's Lines/Catheters IV [facility] H/D ACCESS Assessment/Plan Chief Complaint/Hosp Course Patient denies fever chills, remains hemodynamically stable, plan for left upper extremity AV fistula creation on Saturday Assessment/Plan -Sepsis most likely secondary to peritonitis, Dr. Pierre is following in infection disease consultation. Continue antibiotics per ID. -Peritonitis, status post peritoneal catheter removal by Dr. Shields, general surgery. -End-stage renal disease, Dr. Keith is following in nephrology consultation, continue hemodialysis via right femoral Ruiz catheter. -Hemodialysis access, Dr. Branch is following in vascular surgery consultation, plan for left upper extremity AV fistula creation on Saturday. -Hyperkalemia secondary to end-stage renal disease, resolved. -Diabetes mellitus, continue Lantus and NovoLog -Coronary artery disease, status post CABG -Peripheral vascular disease Further recommendations based on clinical course. Plan of care discussed with Dr. Sanchez. Problems: Exam/Review of Systems Vital Signs Vitals Vital Signs Date Time Temp Pulse Resp B/P Pulse Ox O2 Delivery O2 Flow Rate FiO2 03/01/17 15:56 98.6 70 14 142/63 96 Room Air 02/28/17 21:00 2.0 Intake and Output 02/28/17 02/28/17 03/01/17 15:00 23:00 07:00 Intake Total 1100 ml 350 ml Output Total 3000 ml Balance -1900 ml 350 ml Exam Constitutional: alert, oriented Head: atraumatic, normocephalic Respiratory: normal air movement Cardiovascular: nl pulses Gastrointestinal: soft, tender Extremities: normal pulses, other Neurological: nl mental status Right femoral Ruiz catheter Results Result Diagram: 03/01/1772603/01/17726 Results 24 hrs Laboratory Tests Test 02/28/17 16:19 02/28/17 17:17 02/28/17 20:11 03/01/17 01:08 Hepatitis B Surface Antigen NEGATIVE Bedside Glucose 122 218 Creatine Kinase 158 Creatine Kinase Index 4.2 Creatinine Kinase MB (Mass) 6.56 H Troponin I 0.017 Test 03/01/17 02:12 03/01/17 07:27 03/01/17 07:29 03/01/17 12:00 Bedside Glucose 129 120 White Blood Count 7.9 # Red Blood Count 3.20 #L Hemoglobin 9.8 #L Hematocrit 28.8 #L Mean Corpuscular Volume 90.0 Mean Corpuscular Hemoglobin 30.6 Mean Corpuscular Hemoglobin Concent 34.0 Red Cell Distribution Width 14.9 H Platelet Count 109 L Mean Platelet Volume 12.0 H Neutrophils % 77.7 H Lymphocytes % 9.3 L Monocytes % 9.8 Eosinophils % 1.5 Basophils % 0.3 Neutrophils # 6.1 Lymphocytes # 0.7 L Monocytes # 0.8 Eosinophils # 0.1 Basophils # 0.0 Nucleated Red Blood Cells # 0.0 Prothrombin Time 13.2 Prothrombin Time Ratio 1.0 INR International Normalized Ratio 1.00 Activated Partial Thromboplast Time 36.9 H Sodium Level 133 L Potassium Level 3.5 Chloride Level 91 L Carbon Dioxide Level 24 Anion Gap 22 H Blood Urea Nitrogen 56 H Creatinine 9.86 H Glucose Level 116 # Calcium Level 7.1 L Creatine Kinase 138 176 Creatine Kinase Index 3.7 3.3 Creatinine Kinase MB (Mass) 5.15 H 5.86 H Troponin I 0.022 0.015 Triglycerides Level 233 H Cholesterol Level 107 LDL Cholesterol, Calculated 41 HDL Cholesterol 19 L Cholesterol/HDL Ratio 5.6 Test 03/01/17 12:18 Bedside Glucose 135 Medications Medications Current Medications Amlodipine Besylate (Norvasc) 10 mg DAILY PO Last administered on 02/26/17 08: 23; Admin Dose 10 MG; Start 02/26/17 at 09:00; Status Future Hold Atorvastatin Calcium (Lipitor) 20 mg HS PO Last administered on 02/28/17 20:27 ; Admin Dose 20 MG; Start 02/26/17 at 21:00 Carvedilol (Coreg) 25 mg BID PO Last administered on 02/27/17 20:12; Admin Dose 25 MG; Start 02/26/17 at 09:00; Status Future Hold Hydralazine HCl (Apresoline) 25 mg Q8 PO Last administered on 02/27/17 05:28; Admin Dose 25 MG; Start 02/26/17 at 06:00; Status Future Hold Multivit/Ca Carb/ B Cmplx/FA/Prenat (Pat-Tmomy) 1 tab DAILY PO Last administered on 03/01/17 09:22; Admin Dose 1 TAB; Start 02/26/17 at 09:00 Zolpidem Tartrate (Ambien) 10 mg QHS PRN PO INSOMNIA; Start 02/26/17 at 05:30 Pregabalin (Lyrica) 200 mg BID PO Last administered on 03/01/17 09:22; Admin Dose 200 MG; Start 02/26/17 at 09:00 Diagnostic Test (Pha) (Accu-Chek) 1 ea 02 XX ; Start 02/27/17 at 02:00 Miscellaneous Information 1 ea NOTE XX ; Start 02/26/17 at 06:00 Glucose (Glutose) 15 gm Q15M PRN PO DECREASED GLUCOSE; Start 02/26/17 at 06:00 Glucose (Glutose) 22.5 gm Q15M PRN PO DECREASED GLUCOSE; Start 02/26/17 at 06: 00 Dextrose (D50w Syringe) 25 ml Q15M PRN IV DECREASED GLUCOSE Last administered on 02/28/17 08:10; Admin Dose 25 ML; Start 02/26/17 at 06:00 Dextrose (D50w Syringe) 50 ml Q15M PRN IV DECREASED GLUCOSE; Start 02/26/17 at 06:00 Glucagon (Glucagen) 1 mg Q15M PRN IM DECREASED GLUCOSE; Start 02/26/17 at 06:00 Glucose (Glutose) 15 gm Q15M PRN BUCCAL DECREASED GLUCOSE; Start 02/26/17 at 06 :00 Vancomycin HCl PER PHARMACY DOSING NOTE XX ; Start 02/26/17 at 17:30 Caspofungin 50 mg/ Sodium Chloride 250 ml @ 250 mls/hr Q24H IVPB Last administered on 02/28/17 18:34; Admin Dose 250 MLS/HR; Start 02/27/17 at 18:00 Meropenem/Sodium Chloride (Merrem 500mg/50 ml(Pmx)) 50 ml @ 100 mls/hr Q24H IVPB Last administered on 02/28/17 20:27; Admin Dose 100 MLS/HR; Start at 20:00 Acetaminophen (Tylenol Tab) 650 mg Q6H PRN PO PAIN AND OR ELEVATED TEMP; Start 02/27/17 at 11:30 Insulin Detemir (Levemir) 10 unit DAILY@20 SC Last administered on 7/20/17at 20 :30; Admin Dose 10 UNIT; Start 02/28/17 at 20:00 Patient Own Medication 1 ea Sa@09 SC ; Start 03/02/17 at 09:00 RONIT ROJAS Mar 01, 2017 16:04
[2017-03-01] MEDS ORDERED: MAGNESIUM SULFATE 2 GM/50 ML 50 ML IVPB ONE (16:30)
--- NOTE | 2017-03-01 16:31 | PN ---
Date/Time of Note Date/Time of Note DATE: 03/01/17 TIME: 16:17 Assessment/Plan Lines/Catheters IV Catheter Type (from Nrsg): H/D ACCESS Assessment/Plan Chief Complaint/Hosp Course 1. Peritonitis, recurrent, with infected PD catheter; s/p explantation of PD ; site clean, no drainage; pain improved -iv abx -judicious fluid management 2. ESRD; cr improved; HD yesterday -HD thru femoral saida -will need eventual permacath and fistula when infection cleared > defer to vascular 3. Obesity, bmi 34 -encourage nutritional optimization -encourage diet and exercise modification 4. Sepsis with lactic acidosis: 2nd above; no new episodes of hypoglycemia this morning; awaiting culture results; afebrile 5. DM with episode of hypoglycemia this morning -diet/medication control -encourage weight loss 6. CAD -cardiac optimization -encourage weight loss 7. PVD -medical/lifestyle optimization 8. HTN -diet/medication optimization -encourage weight loss 9. Hypercholesterolemia -diet/medication optimization -encourage weight loss 10. Leukocytosis 2/2 #1, normalized -as above -abx 11. Normocytic anemia: likely 2/2 chronic disease vs. acute bleed; h/h improved -monitor & replete as needed 12. Thrombocytopenia: improved -bleeding precautions 13. Hypokalemia -optimize lytes -monitor for cardiac arrhythmias 14.Hypocalcemia: improved -optimize lytes -monitor for cardiac arrhythmias 15.Hyponatremia: likely 2/2 hemodilution Patient seen and examined in collaboration with Dr. Jeremiah Shields Problems: Subjective 24 Hr Interval Summary Feeling well. dizziness improved. No episodes of hypoglycemia. No fevers, chills , servin, dizziness, sz, n/v/d, + bowel function. No drainage from incision site Exam/Review of Systems Vital Signs Vitals Vital Signs Date Time Temp Pulse Resp B/P Pulse Ox O2 Delivery O2 Flow Rate FiO2 03/01/17 15:56 98.6 70 14 142/63 96 Room Air 02/28/17 21:00 2.0 Intake and Output 02/28/17 02/28/17 03/01/17 15:00 23:00 07:00 Intake Total 1100 ml 350 ml Output Total 3000 ml Balance -1900 ml 350 ml Exam Free Text/Dictation Constitutional: alert, obese, oriented, No distress Psych: nl mood/affect, No anxiety Head: atraumatic, normocephalic Eyes: EOMI, PERRL, nl conjunctiva, No icteric ENMT: mucosa pink and moist, nl external ears & nose, nl lips & teeth Neck: non-tender, supple Respiratory: normal air movement, No congested cough, No labored breathing Cardiovascular: regular rate and rhythm, No edema Gastrointestinal: soft, tender (min), incision sites dry without erythema or drainage No distended, No firm, No rebound or guarding Musculoskeletal: nl extremities to inspection, nl gait and stance, No joint tenderness Extremities: normal pulses, No calf tenderness Neurological: nl mental status, nl speech, nl strength Skin: nl turgor, No diaphoresis, No rash or lesions Lymph: nl lymph nodes Results Result Diagram: 03/01/17 0727 03/01/17 0727 TUAN CHAN NP Mar 01, 2017 16:28
[2017-03-01] MEDS: CASPOFUNGIN 50 MG in SOD CHLORIDE 0.9% 250 ML IVPB SCH (17:45)
--- NOTE | 2017-03-01 18:22 | CONS ---
Date/Time of Note Date/Time of Note DATE: 03/01/17 TIME: 18:16 Assessment/Plan Assessment/Plan Chief Complaint/Hosp Course IMP: 1.Pre-op for AVF creation 2.h/o cabg-negative trop x 3/No cp 3.HTN 4. HL 5.ESRD now on HD thru temp catheter 6.Peritonitis s/p removal PD catheter Recc: -Tele -continue statin -resume BB -Contnue abx's -Follow abd exams -will f/u pre-op echo and if no sig abnl then patient will be ok to proceed to OR on current medications at moderate risk for CV complications without further noninvasive evaluation -HD for volume removal Problems: Consultation Date/Type/Reason Admit Date/Time Feb 26, 2017 at 03:18 Initial Consult Date 02/26/17 Type of Consultation: cardiology Reason for Consultation Pre-op Referring Provider: RONIT ROJAS Exam/Review of Systems Vital Signs Vitals Vital Signs Date Time Temp Pulse Resp B/P Pulse Ox O2 Delivery O2 Flow Rate FiO2 03/01/17 16:00 71 03/01/17 15:56 98.6 14 142/63 96 Room Air 02/28/17 21:00 2.0 Intake and Output 02/28/17 02/28/17 03/01/17 15:00 23:00 07:00 Intake Total 1100 ml 350 ml Output Total 3000 ml Balance -1900 ml 350 ml Exam Review of Systems: CONSTITUTIONAL: No fevers, chills. PULMONARY: No sob CARDIOVASCULAR: No chest pain/palpitations GASTROINTESTINAL:Mild abd pain GENITOURINARY: No hematuria/dysuria. MUSCULOSKELETAL: No myagias/arthalgias. PSYCHIATRIC: The patient denies depression. NEUROLOGIC: No weakness Constitutional: alert Psych: no complaints Head: normocephalic ENMT: mucosa pink and moist Neck: jvd (9 cm water), supple Respiratory: clear to auscultation Cardiovascular: regular rate and rhythm Gastrointestinal: firm, tender (mild to palpation) Musculoskeletal: muscle tone (normal) Extremities: edema (none) Neurological: other (No focal deficits) Results Result Diagram: 03/01/17 0727 03/01/17 0727 Results 24 hrs Laboratory Tests Test 02/28/17 20:11 03/01/17 01:08 03/01/17 02:12 03/01/17 07:27 Bedside Glucose 218 129 Creatine Kinase 158 138 Creatine Kinase Index 4.2 3.7 Creatinine Kinase MB (Mass) 6.56 H 5.15 H Troponin I 0.017 0.022 White Blood Count 7.9 # Red Blood Count 3.20 #L Hemoglobin 9.8 #L Hematocrit 28.8 #L Mean Corpuscular Volume 90.0 Mean Corpuscular Hemoglobin 30.6 Mean Corpuscular Hemoglobin Concent 34.0 Red Cell Distribution Width 14.9 H Platelet Count 109 L Mean Platelet Volume 12.0 H Neutrophils % 77.7 H Lymphocytes % 9.3 L Monocytes % 9.8 Eosinophils % 1.5 Basophils % 0.3 Neutrophils # 6.1 Lymphocytes # 0.7 L Monocytes # 0.8 Eosinophils # 0.1 Basophils # 0.0 Nucleated Red Blood Cells # 0.0 Prothrombin Time 13.2 Prothrombin Time Ratio 1.0 INR International Normalized Ratio 1.00 Activated Partial Thromboplast Time 36.9 H Sodium Level 133 L Potassium Level 3.5 Chloride Level 91 L Carbon Dioxide Level 24 Anion Gap 22 H Blood Urea Nitrogen 56 H Creatinine 9.86 H Glucose Level 116 # Calcium Level 7.1 L Triglycerides Level 233 H Cholesterol Level 107 LDL Cholesterol, Calculated 41 HDL Cholesterol 19 L Cholesterol/HDL Ratio 5.6 Test 03/01/17 07:29 03/01/17 12:00 03/01/17 12:18 03/01/17 17:26 Bedside Glucose 120 135 141 Creatine Kinase 176 Creatine Kinase Index 3.3 Creatinine Kinase MB (Mass) 5.86 H Troponin I 0.015 Medications Medications Current Medications Amlodipine Besylate (Norvasc) 10 mg DAILY PO Last administered on 02/26/17 08: 23; Admin Dose 10 MG; Start 02/26/17 at 09:00; Status Future Hold Atorvastatin Calcium (Lipitor) 20 mg HS PO Last administered on 02/28/17 20:27 ; Admin Dose 20 MG; Start 02/26/17 at 21:00 Carvedilol (Coreg) 25 mg BID PO Last administered on 02/27/17 20:12; Admin Dose 25 MG; Start 02/26/17 at 09:00; Status Future Hold Hydralazine HCl (Apresoline) 25 mg Q8 PO Last administered on 02/27/17 05:28; Admin Dose 25 MG; Start 02/26/17 at 06:00; Status Future Hold Multivit/Ca Carb/ B Cmplx/FA/Prenat (Pat-Tommy) 1 tab DAILY PO Last administered on 03/01/17 09:22; Admin Dose 1 TAB; Start 02/26/17 at 09:00 Zolpidem Tartrate (Ambien) 10 mg QHS PRN PO INSOMNIA; Start 02/26/17 at 05:30 Pregabalin (Lyrica) 200 mg BID PO Last administered on 03/01/17 09:22; Admin Dose 200 MG; Start 02/26/17 at 09:00 Diagnostic Test (Pha) (Accu-Chek) 1 ea 02 XX ; Start 02/27/17 at 02:00 Miscellaneous Information 1 ea NOTE XX ; Start 02/26/17 at 06:00 Glucose (Glutose) 15 gm Q15M PRN PO DECREASED GLUCOSE; Start 02/26/17 at 06:00 Glucose (Glutose) 22.5 gm Q15M PRN PO DECREASED GLUCOSE; Start 02/26/17 at 06: 00 Dextrose (D50w Syringe) 25 ml Q15M PRN IV DECREASED GLUCOSE Last administered on 02/28/17 08:10; Admin Dose 25 ML; Start 02/26/17 at 06:00 Dextrose (D50w Syringe) 50 ml Q15M PRN IV DECREASED GLUCOSE; Start 02/26/17 at 06:00 Glucagon (Glucagen) 1 mg Q15M PRN IM DECREASED GLUCOSE; Start 02/26/17 at 06:00 Glucose (Glutose) 15 gm Q15M PRN BUCCAL DECREASED GLUCOSE; Start 02/26/17 at 06 :00 Vancomycin HCl PER PHARMACY DOSING NOTE XX ; Start 02/26/17 at 17:30 Caspofungin 50 mg/ Sodium Chloride 250 ml @ 250 mls/hr Q24H IVPB Last administered on 03/01/17 17:45; Admin Dose 250 MLS/HR; Start 02/27/17 at 18:00 Meropenem/Sodium Chloride (Merrem 500mg/50 ml(Pmx)) 50 ml @ 100 mls/hr Q24H IVPB Last administered on 02/28/17 20:27; Admin Dose 100 MLS/HR; Start at 20:00 Acetaminophen (Tylenol Tab) 650 mg Q6H PRN PO PAIN AND OR ELEVATED TEMP; Start 02/27/17 at 11:30 Insulin Detemir (Levemir) 10 unit DAILY@20 SC Last administered on 02/28/17 20 :30; Admin Dose 10 UNIT; Start 02/28/17 at 20:00 Patient Own Medication 1 ea 1 ea Sa@09 SC ; Start 03/02/17 at 09:00 Magnesium Sulfate (Magnesium Sulfate 2 Gm/50 ml) 50 ml @ 25 mls/hr ONCE ONCE IVPB Last administered on 03/01/17 16:45; Admin Dose 25 MLS/HR; Start at 16:30; Stop 03/01/17 at 18:29 DEMETRIUS MEYER Mar 01, 2017 18:22
--- NOTE | 2017-03-01 18:58 | RADRPT ---
Echocardiogram Report Patient Name: MANISHA CASTILLO Gender: Male Date: 1965 Study Date: 01-Mar-2017 Sample Sawyer: Cyndie Briceno [facility] Location: 5562 Ref. Physician: DEMETRIUS WELLS Quality: Good Procedures: Transthoracic echocardiogram with complete 2D, M-Mode, and doppler examination. Indications: Pre-op. 2D/M Mode Doppler Measurement Value Normal Ranges Measurement Value Normal Ranges LVIDd 2D 4.4 3.5 - 5.6 cm MATILDE Vmax 2.1 cm2 LVIDs 2D 2.4 2.1 - 4.1 cm MATILDE VTI 2.1 cm2 LVPWd 2D 0.9 0.6 - 1.1 cm AV Peak Jacob 1.8 m/sec IVSd 2D 1.0 0.6 - 1.1 cm AV Peak PG 13.6 mmHg AoR Diam 2D 2.4 2.0 - 3.7 cm LVOT Peak Jacob 1.3 m/sec EDV 2D 88.2 cm3 LVOT Peak PG 7.0 mmHg ESV 2D 13.2 cm3 MV E Peak Jacob 1.0 m/sec LA Dimen 2D 4.2 2.3 - 4.0 cm MV A Peak Jacob 0.7 m/sec LVOT Diam 2.0 cm MV E/A 1.5 MV Decel Time 213 msec MV Decel [place] 5 MV E/A 1.5 TR Peak Jacob 2.6 m/sec TR Peak PG 27.7 mmHg RVSP 36.0 mmHg Findings Left Ventricle: Normal left ventricular systolic function. Normal left ventricular cavity size. Normal left ventricular wall thickness. Ejection fraction is visually estimated at 55 %. Tissue Doppler/Mitral Doppler indices are consistent with pseudonormalization with mildly elevated left atrial pressure (Stage II diastolic dysfunction). Right Ventricle: Normal right ventricular size. Normal right ventricular systolic function. Left Atrium: There is mild enlargement of left atrium. Right Atrium: The right atrium is normal in size. Mitral Valve: Mitral valve leaflets appear mildly thickened. Mild mitral annular calcification. Trace mitral regurgitation. Aortic Valve: No significant aortic stenosis or insufficiency. Aortic cusps appear mildly calcified. Tricuspid Valve: Normal appearance of the tricuspid valve. Estimated peak PA systolic pressure 36 mmHg. There is mild tricuspid regurgitation. Pulmonic Valve: Normal pulmonic valve appearance. Pericardium: Normal pericardium with no significant pericardial effusion. Aorta: Normal aortic root. IVC: Dilated IVC with respiratory collapse consistent with elevated right atrial pressure. Conclusions 1.Normal left ventricular systolic function. Normal left ventricular cavity size. Normal left ventricular wall thickness. Ejection fraction is visually estimated at 55 %. Tissue Doppler/Mitral Doppler indices are consistent with pseudonormalization with mildly elevated left atrial pressure (Stage II diastolic dysfunction). 2.There is mild enlargement of left atrium. 3.Mitral valve leaflets appear mildly thickened. Mild mitral annular calcification. Trace mitral regurgitation. 4.Normal appearance of the tricuspid valve. Estimated peak PA systolic pressure 36 mmHg. There is mild tricuspid regurgitation. Electronically Signed By: Demetrius Wells 01-Mar-2017 18:57:24 -0700 Patient Name: MANISHA CASTILLO Study Date: 01-Mar-2017 [id number]
--- NOTE | 2017-03-01 19:05 | RADRPT ---
Vent Rate: 70 bpm RR Interval: 0 msec GA Interval: 172 msec QRS Duration: 96 msec QT Interval: 414 msec QTC Interval: 447 msec P-R-T [place]: 45 - -11 - 76 degrees Normal sinus rhythm Low voltage QRS Cannot rule out Anterior infarct , age undetermined lateral T wave inversion, consider lateral ischemia Abnormal ECG Electronically Signed By: Myles Wells [id number]
[2017-03-01] MEDS: MEROPENEM 500MG/50 ML (PMX) 50 ML IVPB SCH (20:15)
[2017-03-01] MEDS: ATORVASTATIN 20 MG TAB PO SCH (20:31)
[2017-03-01] MEDS: INSULIN DETEMIR [LEVEMIR] 3ML CART SC SCH (20:34)
--- NOTE | 2017-03-01 20:50 | CONS ---
Date/Time of Note Date/Time of Note DATE: 03/01/17 TIME: 20:46 Assessment/Plan Assessment/Plan Additional Assessment/Plan HD to be done TTS Arrangements for outpt HD have been made AT [facility] [place] [phone] Consultation Date/Type/Reason Admit Date/Time Feb 26, 2017 at 03:18 Initial Consult Date 02/26/17 Type of Consultation: renal Referring Provider: RONIT ROJAS 24 HR Interval Summary Free Text/Dictation Pt seems to be doing well Exam/Review of Systems Vital Signs Vitals Vital Signs Date Time Temp Pulse Resp B/P Pulse Ox O2 Delivery O2 Flow Rate FiO2 03/01/17 19:55 98.1 71 19 136/64 95 03/01/17 15:56 Room Air 02/28/17 21:00 2.0 Intake and Output 02/28/17 02/28/17 03/01/17 15:00 23:00 07:00 Intake Total 1100 ml 350 ml Output Total 3000 ml Balance -1900 ml 350 ml Exam Constitutional: alert, oriented, well developed Psych: nl mood/affect, no complaints Head: atraumatic, normocephalic Eyes: EOMI, PERRL, nl conjunctiva, nl lids, nl sclera ENMT: nl external ears & nose, nl lips & teeth, nl nasal mucosa & septum Neck: non-tender, supple Respiratory: clear to auscultation, normal air movement Cardiovascular: nl pulses, regular rate and rhythm Gastrointestinal: nl liver, spleen, non-tender, other (abd wall tender (S/P PD Cath removal)), soft Musculoskeletal: nl extremities to inspection, nl gait and stance Extremities: normal pulses Neurological: JACK FRAME TENDER II-XII intact, nl mental status, nl speech, nl strength Skin: nl turgor, No rash or lesions Lymph: nl lymph nodes Results Hct stable 29%, K 3.5 Result Diagram: 03/01/1772603/01/1727 Results 24 hrs Laboratory Tests Test 03/01/17 01:08 03/01/17 02:12 03/01/17 07:27 03/01/17 07:29 Creatine Kinase 158 138 Creatine Kinase Index 4.2 3.7 Creatinine Kinase MB (Mass) 6.56 H 5.15 H Troponin I 0.017 0.022 Bedside Glucose 129 120 White Blood Count 7.9 # Red Blood Count 3.20 #L Hemoglobin 9.8 #L Hematocrit 28.8 #L Mean Corpuscular Volume 90.0 Mean Corpuscular Hemoglobin 30.6 Mean Corpuscular Hemoglobin Concent 34.0 Red Cell Distribution Width 14.9 H Platelet Count 109 L Mean Platelet Volume 12.0 H Neutrophils % 77.7 H Lymphocytes % 9.3 L Monocytes % 9.8 Eosinophils % 1.5 Basophils % 0.3 Neutrophils # 6.1 Lymphocytes # 0.7 L Monocytes # 0.8 Eosinophils # 0.1 Basophils # 0.0 Nucleated Red Blood Cells # 0.0 Prothrombin Time 13.2 Prothrombin Time Ratio 1.0 INR International Normalized Ratio 1.00 Activated Partial Thromboplast Time 36.9 H Sodium Level 133 L Potassium Level 3.5 Chloride Level 91 L Carbon Dioxide Level 24 Anion Gap 22 H Blood Urea Nitrogen 56 H Creatinine 9.86 H Glucose Level 116 # Calcium Level 7.1 L Triglycerides Level 233 H Cholesterol Level 107 LDL Cholesterol, Calculated 41 HDL Cholesterol 19 L Cholesterol/HDL Ratio 5.6 Test 03/01/17 12:00 03/01/17 12:18 03/01/17 17:26 03/01/17 20:14 Creatine Kinase 176 Creatine Kinase Index 3.3 Creatinine Kinase MB (Mass) 5.86 H Troponin I 0.015 Bedside Glucose 135 141 124 Medications Medications Current Medications Amlodipine Besylate (Norvasc) 10 mg DAILY PO Last administered on 02/26/17 08: 23; Admin Dose 10 MG; Start 02/26/17 at 09:00; Status Future Hold Atorvastatin Calcium (Lipitor) 20 mg HS PO Last administered on 03/01/17 20:31 ; Admin Dose 20 MG; Start 02/26/17 at 21:00 Carvedilol (Coreg) 25 mg BID PO Last administered on 02/27/17 20:12; Admin Dose 25 MG; Start 02/26/17 at 09:00; Status Future Hold Hydralazine HCl (Apresoline) 25 mg Q8 PO Last administered on 02/27/17 05:28; Admin Dose 25 MG; Start 02/26/17 at 06:00; Status Future Hold Multivit/Ca Carb/ B Cmplx/FA/Prenat (Pat-Tommy) 1 tab DAILY PO Last administered on 03/01/17 09:22; Admin Dose 1 TAB; Start 02/26/17 at 09:00 Zolpidem Tartrate (Ambien) 10 mg QHS PRN PO INSOMNIA; Start 02/26/17 at 05:30 Pregabalin (Lyrica) 200 mg BID PO Last administered on 03/01/17 20:31; Admin Dose 200 MG; Start 02/26/17 at 09:00 Diagnostic Test (Pha) (Accu-Chek) 1 ea 02 XX ; Start 02/27/17 at 02:00 Miscellaneous Information 1 ea NOTE XX ; Start 02/26/17 at 06:00 Glucose (Glutose) 15 gm Q15M PRN PO DECREASED GLUCOSE; Start 02/26/17 at 06:00 Glucose (Glutose) 22.5 gm Q15M PRN PO DECREASED GLUCOSE; Start 02/26/17 at 06: 00 Dextrose (D50w Syringe) 25 ml Q15M PRN IV DECREASED GLUCOSE Last administered on 02/28/17 08:10; Admin Dose 25 ML; Start 02/26/17 at 06:00 Dextrose (D50w Syringe) 50 ml Q15M PRN IV DECREASED GLUCOSE; Start 02/26/17 at 06:00 Glucagon (Glucagen) 1 mg Q15M PRN IM DECREASED GLUCOSE; Start 02/26/17 at 06:00 Glucose (Glutose) 15 gm Q15M PRN BUCCAL DECREASED GLUCOSE; Start 02/26/17 at 06 :00 Vancomycin HCl PER PHARMACY DOSING NOTE XX ; Start 02/26/17 at 17:30 Caspofungin 50 mg/ Sodium Chloride 250 ml @ 250 mls/hr Q24H IVPB Last administered on 03/01/17 17:45; Admin Dose 250 MLS/HR; Start 02/27/17 at 18:00 Meropenem/Sodium Chloride (Merrem 500mg/50 ml(Pmx)) 50 ml @ 100 mls/hr Q24H IVPB Last administered on 03/01/17 20:15; Admin Dose 100 MLS/HR; Start at 20:00 Acetaminophen (Tylenol Tab) 650 mg Q6H PRN PO PAIN AND OR ELEVATED TEMP; Start 02/27/17 at 11:30 Insulin Detemir (Levemir) 10 unit DAILY@20 SC Last administered on 7/21/17at 20 :34; Admin Dose 10 UNIT; Start 02/28/17 at 20:00 Patient Own Medication 1 ea Sa@09 OK ; Start 03/02/17 at 09:00 MANOJ HARE MD Mar 01, 2017 20:50
--- NOTE | 2017-03-01 23:07 | PN ---
Date/Time of Note Date/Time of Note DATE: 03/01/17 TIME: 22:58 Assessment/Plan Lines/Catheters IV C[facility]ter Type (from [facility]): ANGELO CATH Assessment/Plan Chief Complaint/Hosp Course -End-stage renal disease, with leukocytosis: It seems the patient's peritoneal dialysis catheter was infected S/P PD catheter removed -S/P emergent hemodialysis catheter placement -Patient is right handed. Therefore we will attempt to create a new fistula in his left upper extremity when he has been medically cleared. He has adequate cephalic vein - Radiocephalic fistula -Optimize vascular status (blood pressure medications, diet, nutrition, exercise , sugar control, antiplatelets). -Discussed findings, plan and management with the patient. He understands. -Thank you for allowing us to partake in the care of your patient. Please call with any questions. Problems: Subjective 24 Hr Interval Summary no new vascular events overnight Exam/Review of Systems Vital Signs Vitals Vital Signs Date Time Temp Pulse Resp B/P Pulse Ox O2 Delivery O2 Flow Rate FiO2 03/01/17 20:00 71 03/01/17 19:55 98.1 19 136/64 95 03/01/17 15:56 Room Air 02/28/17 21:00 2.0 Intake and Output 02/28/17 02/28/17 03/01/17 15:00 23:00 07:00 Intake Total 1100 ml 350 ml Output Total 3000 ml Balance -1900 ml 350 ml Exam Free Text/Dictation GENERAL: Alert oriented x3. LUNGS: Clear to auscultation bilaterally HEART: S1, S2 present. No murmurs. Sternal incision is clean and well healed ABDOMEN: Diffuse tenderness throughout. Bowel sounds positive EXTREMITIES: Right lower extremity, palpable femoral pulse. Nonpalpable pedal pulse. Motor and sensory intact. Capillary refill 3 seconds. Right great toe amputated with a well-healed incision site. Left lower extremity, palpable femoral pulse. Nonpalpable pedal pulse. Motor and sensory intact. Capillary refill 2-3 seconds Results Result Diagram: 03/01/17 0727 03/01/17 0727 AGATHA NEWTON MD Mar 01, 2017 23:07
[2017-03-02] VITALS (19 sets, daily range): BP systolic 117–133; BP diastolic 51–61; PULSE 63–74; RESP 16–19
[2017-03-02] MEDS: ACCU-CHEK XX SCH (02:00)
[2017-03-02] MEDS: INSULIN ASPART [NOVOLOG] 3 ML PEN SC SCH ×4 (08:00→20:23)
[2017-03-02] MEDS: PANTOPRAZOLE (EC) 40 MG TAB PO SCH (08:29)
[2017-03-02] MEDS: PREGABALIN 100 MG CAP PO SCH ×2 (08:30→20:16)
[2017-03-02] MEDS ORDERED: DARBEPOETIN ALFA SC SCH (09:00)
[2017-03-02] MEDS: MULTIVIT/CA CARB/B CMPLX/FA TAB PO SCH (09:20)
--- NOTE | 2017-03-02 14:02 | CONS ---
Date/Time of Note Date/Time of Note DATE: 03/02/17 TIME: 13:59 Assessment/Plan Assessment/Plan Additional Assessment/Plan CAD s/p CABG HTN HLP ESRD Anemia Hemodynamically stable Cleared for AV fistulae placement Continue Antibiotics Continue Insulin Continue Protonix Consultation Date/Type/Reason Admit Date/Time Feb 26, 2017 at 03:18 Constitutional: improved Eyes: no complaints ENT: no complaints Respiratory: no complaints Cardiovascular: no complaints Gastrointestinal: pain, passing stool (loose x2 this morning), No diarrhea, No nausea Genitourinary: other (on HD) Musculoskeletal: no complaints Skin: no complaints Neurologic: other (chronic neuropathy of b/l toes) Lymphatic: lymphadema Psychological: nl mood/affect, no complaints Past Medical History Medical History: coronary artery disease, diabetes, high cholesterol, hypertension, renal disease, other (OM, peritonitis) Past Surgical History Past Surgical Hx: appendectomy, coronary bypass surgery, other (Status post right big toe amputation) Social History Alcohol Use: none Smoking Status: Never smoker Drug Use: none Exam/Review of Systems Vital Signs Vitals Vital Signs Date Time Temp Pulse Resp B/P Pulse Ox O2 Delivery O2 Flow Rate FiO2 03/02/17 12:31 68 03/02/17 11:59 97.8 18 129/59 95 03/01/17 15:56 Room Air 02/28/17 21:00 2.0 Intake and Output 03/01/17 03/01/17 03/02/17 15:00 23:00 07:00 Intake Total 1720 ml Balance 1720 ml Exam Constitutional: alert Head: atraumatic, normocephalic Respiratory: clear to auscultation Cardiovascular: regular rate and rhythm Gastrointestinal: nl liver, spleen, non-tender, soft Extremities: normal pulses Results Result Diagram: 03/01/17 0727 03/01/17 0727 Results 24 hrs Laboratory Tests Test 03/01/17 17:26 03/01/17 20:14 03/02/17 06:18 03/02/17 08:33 Bedside Glucose 141 124 93 Lab Scanned Report BLOOD TRANSFUSION Test 03/02/17 12:39 Bedside Glucose 133 Medications Medications Current Medications Amlodipine Besylate (Norvasc) 10 mg DAILY PO Last administered on 02/26/17t 08: 23; Admin Dose 10 MG; Start 02/26/17 at 09:00; Status Future Hold Atorvastatin Calcium (Lipitor) 20 mg HS PO Last administered on 03/01/17 20:31 ; Admin Dose 20 MG; Start 02/26/17 at 21:00 Carvedilol (Coreg) 25 mg BID PO Last administered on 02/27/17 20:12; Admin Dose 25 MG; Start 02/26/17 at 09:00; Status Future Hold Hydralazine HCl (Apresoline) 25 mg Q8 PO Last administered on 02/27/17 05:28; Admin Dose 25 MG; Start 02/26/17 at 06:00; Status Future Hold Multivit/Ca Carb/ B Cmplx/FA/Prenat (Pat-Tommy) 1 tab DAILY PO Last administered on 03/02/17 09:20; Admin Dose 1 TAB; Start 02/26/17 at 09:00 Zolpidem Tartrate (Ambien) 10 mg QHS PRN PO INSOMNIA; Start 02/26/17 at 05:30 Pregabalin (Lyrica) 200 mg BID PO Last administered on 03/01/17 20:31; Admin Dose 200 MG; Start 02/26/17 at 09:00 Diagnostic Test (Pha) (Accu-Chek) 1 ea 02 XX ; Start 02/27/17 at 02:00 Miscellaneous Information 1 ea NOTE XX ; Start 02/26/17 at 06:00 Glucose (Glutose) 15 gm Q15M PRN PO DECREASED GLUCOSE; Start 02/26/17 at 06:00 Glucose (Glutose) 22.5 gm Q15M PRN PO DECREASED GLUCOSE; Start 02/26/17 at 06: 00 Dextrose (D50w Syringe) 25 ml Q15M PRN IV DECREASED GLUCOSE Last administered on 02/28/17 08:10; Admin Dose 25 ML; Start 02/26/17 at 06:00 Dextrose (D50w Syringe) 50 ml Q15M PRN IV DECREASED GLUCOSE; Start 02/26/17 at 06:00 Glucagon (Glucagen) 1 mg Q15M PRN IM DECREASED GLUCOSE; Start 02/26/17 at 06:00 Glucose (Glutose) 15 gm Q15M PRN BUCCAL DECREASED GLUCOSE; Start 02/26/17 at 06 :00 Vancomycin HCl PER PHARMACY DOSING NOTE XX ; Start 02/26/17 at 17:30 Caspofungin 50 mg/ Sodium Chloride 250 ml @ 250 mls/hr Q24H IVPB Last administered on 03/01/17 17:45; Admin Dose 250 MLS/HR; Start 02/27/17 at 18:00 Meropenem/Sodium Chloride (Merrem 500mg/50 ml(Pmx)) 50 ml @ 100 mls/hr Q24H IVPB Last administered on 03/01/17 20:15; Admin Dose 100 MLS/HR; Start at 20:00 Acetaminophen (Tylenol Tab) 650 mg Q6H PRN PO PAIN AND OR ELEVATED TEMP; Start 02/27/17 at 11:30 Insulin Detemir (Levemir) 10 unit DAILY@20 SC Last administered on 03/01/17 20 :34; Admin Dose 10 UNIT; Start 02/28/17 at 20:00 Patient Own Medication 1 ea Sa@09 SC ; Start 03/02/17 at 09:00; Status Future Hold Epoetin Fly (Epogen (Esrd)) 6,000 units TuTa@17 SC ; Start 03/02/17 at 17:00 MERY PERALES M.D. Mar 02, 2017 14:02
[2017-03-02 14:48] LABS: BASOPHILS % 0.5 % (0.0-2.0); EOSINOPHILS # 0.2 10^3/ul (0.0-0.5); EOSINOPHILS % 2.1 % (0.0-7.0); HEMATOCRIT 30.5 % (42.0-52.0); HEMOGLOBIN 10.7 g/dl (14.0-18.0); LYMPHOCYTES # 0.7 10^3/ul (0.8-2.9); LYMPHOCYTES % 8.5 % (15.0-51.0); MEAN CORPUSCULAR HEMOGLOBIN 30.7 pg (29.0-33.0); MEAN CORPUSCULAR HGB CONC 35.1 g/dl (32.0-37.0); MEAN CORPUSCULAR VOLUME 87.6 fl (82.0-101.0); MEAN PLATELET VOLUME 11.7 fl (7.4-10.4); MONOCYTE # 0.9 10^3/ul (0.3-0.9); NEUTROPHIL # 6.4 10^3/ul (1.6-7.5); NEUTROPHILS % 74.5 % (39.0-77.0); PLATELET COUNT 123 10^3/UL (140-415); RED BLOOD COUNT 3.48 10^6/ul (4.70-6.10); RED CELL DISTRIBUTION WIDTH 14.4 % (11.5-14.5); WHITE BLOOD COUNT 8.6 10^3/ul (4.8-10.8)
[2017-03-02 15:06] LABS: INR 0.99; PROTIME 13.1 Sec (12.2-14.2)
[2017-03-02 15:10] LABS: CALCIUM 7.3 mg/dl (8.4-10.2); CREATININE 11.4 mg/dl (0.61-1.24); POTASSIUM 4.2 mmol/L (3.5-5.1)
[2017-03-02 15:15] LABS: PARTIAL THROMBOPLASTIN TIME 140.1 Sec (25.0-35.0)
--- NOTE | 2017-03-02 15:56 | PN ---
Date/Time of Note Date/Time of Note DATE: 03/02/17 TIME: 15:54 Assessment/Plan VTE Prophylaxis VTE Prophylaxis Intervention: other Lines/Catheters IV Catheter Type (from Nrs): Ruiz cath Assessment/Plan Assessment/Plan -Sepsis most likely secondary to peritonitis, Dr. Pierre is following in infection disease consultation. Continue antibiotics per ID. -Peritonitis, status post peritoneal catheter removal by Dr. Shields, general surgery. -End-stage renal disease, Dr. Keith is following in nephrology consultation, continue hemodialysis via right femoral Ruiz catheter. -Hemodialysis access, Dr. Branch is following in vascular surgery consultation, plan for left upper extremity AV fistula creation on Saturday. -Hyperkalemia secondary to end-stage renal disease, resolved. -Diabetes mellitus, continue Lantus and NovoLog -Coronary artery disease, status post CABG -Peripheral vascular disease Further recommendations based on clinical course. Plan of care discussed with Dr. Sanchez. Subjective 24 Hr Interval Summary Free Text/Dictation getting HD, tolerating well, afebrile. dw staff Exam/Review of Systems Vital Signs Vitals Vital Signs Date Time Temp Pulse Resp B/P Pulse Ox O2 Delivery O2 Flow Rate FiO2 03/02/17 12:31 68 03/02/17 11:59 97.8 18 129/59 95 03/01/17 15:56 Room Air 02/28/17 21:00 2.0 Intake and Output 03/01/17 03/01/17 03/02/17 15:00 23:00 07:00 Intake Total 1720 ml Balance 1720 ml Exam Constitutional: alert, well developed Respiratory: clear to auscultation, normal air movement Cardiovascular: nl pulses, regular rate and rhythm Gastrointestinal: soft Musculoskeletal: nl extremities to inspection Extremities: normal pulses Neurological: nl speech Results Result Diagram: 03/02/17 1430 03/02/17 1430 Results 24 hrs Laboratory Tests Test 03/01/17 17:26 03/01/17 20:14 03/02/17 06:18 03/02/17 08:33 Bedside Glucose 141 124 93 Lab Scanned Report BLOOD TRANSFUSION Test 03/02/17 12:39 03/02/17 14:30 Bedside Glucose 133 White Blood Count 8.6 Red Blood Count 3.48 L Hemoglobin 10.7 L Hematocrit 30.5 L Mean Corpuscular Volume 87.6 Mean Corpuscular Hemoglobin 30.7 Mean Corpuscular Hemoglobin Concent 35.1 Red Cell Distribution Width 14.4 Platelet Count 123 L Mean Platelet Volume 11.7 H Neutrophils % 74.5 Lymphocytes % 8.5 L Monocytes % 11.0 Eosinophils % 2.1 Basophils % 0.5 Nucleated Red Blood Cells % 0.0 Neutrophils # 6.4 Lymphocytes # 0.7 L Monocytes # 0.9 Eosinophils # 0.2 Basophils # 0.0 Nucleated Red Blood Cells # 0.0 Prothrombin Time 13.1 Prothrombin Time Ratio 1.0 INR International Normalized Ratio 0.99 Activated Partial Thromboplast Time 140.1 *H Sodium Level 132 L Potassium Level 4.2 Chloride Level 92 L Carbon Dioxide Level 19 L Anion Gap 25 H Blood Urea Nitrogen 69 H Creatinine 11.40 H Glucose Level 166 Calcium Level 7.3 L Magnesium Level 2.0 Medications Medications Current Medications Amlodipine Besylate (Norvasc) 10 mg DAILY PO Last administered on 02/26/17 08: 23; Admin Dose 10 MG; Start 02/26/17 at 09:00; Status Future Hold Atorvastatin Calcium (Lipitor) 20 mg HS PO Last administered on 03/01/17 20:31 ; Admin Dose 20 MG; Start 02/26/17 at 21:00 Carvedilol (Coreg) 25 mg BID PO Last administered on 02/27/17 20:12; Admin Dose 25 MG; Start 02/26/17 at 09:00; Status Future Hold Hydralazine HCl (Apresoline) 25 mg Q8 PO Last administered on 02/27/17 05:28; Admin Dose 25 MG; Start 02/26/17 at 06:00; Status Future Hold Multivit/Ca Carb/ B Cmplx/FA/Prenat (Pat-Tommy) 1 tab DAILY PO Last administered on 03/02/17 09:20; Admin Dose 1 TAB; Start 02/26/17 at 09:00 Zolpidem Tartrate (Ambien) 10 mg QHS PRN PO INSOMNIA; Start 02/26/17 at 05:30 Pregabalin (Lyrica) 200 mg BID PO Last administered on 03/01/17 20:31; Admin Dose 200 MG; Start 02/26/17 at 09:00 Diagnostic Test (Pha) (Accu-Chek) 1 ea 02 XX ; Start 02/27/17 at 02:00 Miscellaneous Information 1 ea NOTE XX ; Start 02/26/17 at 06:00 Glucose (Glutose) 15 gm Q15M PRN PO DECREASED GLUCOSE; Start 02/26/17 at 06:00 Glucose (Glutose) 22.5 gm Q15M PRN PO DECREASED GLUCOSE; Start 02/26/17 at 06: 00 Dextrose (D50w Syringe) 25 ml Q15M PRN IV DECREASED GLUCOSE Last administered on 02/28/17 08:10; Admin Dose 25 ML; Start 02/26/17 at 06:00 Dextrose (D50w Syringe) 50 ml Q15M PRN IV DECREASED GLUCOSE; Start 02/26/17 at 06:00 Glucagon (Glucagen) 1 mg Q15M PRN IM DECREASED GLUCOSE; Start 02/26/17 at 06:00 Glucose (Glutose) 15 gm Q15M PRN BUCCAL DECREASED GLUCOSE; Start 02/26/17 at 06 :00 Vancomycin HCl PER PHARMACY DOSING NOTE XX ; Start 02/26/17 at 17:30 Caspofungin 50 mg/ Sodium Chloride 250 ml @ 250 mls/hr Q24H IVPB Last administered on 03/01/17 17:45; Admin Dose 250 MLS/HR; Start 02/27/17 at 18:00 Meropenem/Sodium Chloride (Merrem 500mg/50 ml(Pmx)) 50 ml @ 100 mls/hr Q24H IVPB Last administered on 03/01/17 20:15; Admin Dose 100 MLS/HR; Start at 20:00 Acetaminophen (Tylenol Tab) 650 mg Q6H PRN PO PAIN AND OR ELEVATED TEMP; Start 02/27/17 at 11:30 Insulin Detemir (Levemir) 10 unit DAILY@20 SC Last administered on 03/01/17 20 :34; Admin Dose 10 UNIT; Start 02/28/17 at 20:00 Patient Own Medication 1 ea Sa@09 SC ; Start 03/02/17 at 09:00; Status Future Hold Epoetin Fly (Epogen (Esrd)) 6,000 units TuThSa@17 SC ; Start 03/02/17 at 17:00 ORIANA OATES Mar 02, 2017 15:56
--- NOTE | 2017-03-02 16:04 | CONS ---
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 will adjust his antibiotics based on the culture results. In case of no growth, we recommend two week course of this regimen Management d/w patient, JANELL Hanson and Dr. Ruiz Problems: Consultation Date/Type/Reason Admit Date/Time Feb 26, 2017 at 03:18 Initial Consult Date 02/26/17 Type of Consultation: Infectious Disease Referring Provider: RONIT ROJAS 24 HR Interval Summary Free Text/Dictation Afebrile; dizziness improved after blood transfusion and no further recurrence of hypoglycemia; currently undergoing HD. Exam/Review of Systems Vital Signs Vitals Vital Signs Date Time Temp Pulse Resp B/P Pulse Ox O2 Delivery O2 Flow Rate FiO2 03/02/17 15:56 98.3 69 18 117/52 95 03/01/17 15:56 Room Air 02/28/17 21:00 2.0 Intake and Output 03/01/17 03/01/17 03/02/17 15:00 23:00 07:00 Intake Total 1720 ml Balance 1720 ml Exam Constitutional: alert, oriented, other (HD in progress; at bedside), well developed Psych: no complaints Head: atraumatic, normocephalic Eyes: nl sclera Neck: supple Respiratory: clear to auscultation, normal air movement Cardiovascular: nl pulses, regular rate and rhythm Gastrointestinal: soft, tender (LLQ (old PD catheter site)) Extremities: normal pulses Skin: nl turgor, other (LLQ dressing c/d/i (Old PD catheter site)) Results Result Diagram: 03/02/17 1430 03/02/17 1430 Results 24 hrs Laboratory Tests Test 03/01/17 17:26 03/01/17 20:14 03/02/17 06:18 03/02/17 08:33 Bedside Glucose 141 124 93 Lab Scanned Report BLOOD TRANSFUSION Test 03/02/17 12:39 03/02/17 14:30 Bedside Glucose 133 White Blood Count 8.6 Red Blood Count 3.48 L Hemoglobin 10.7 L Hematocrit 30.5 L Mean Corpuscular Volume 87.6 Mean Corpuscular Hemoglobin 30.7 Mean Corpuscular Hemoglobin Concent 35.1 Red Cell Distribution Width 14.4 Platelet Count 123 L Mean Platelet Volume 11.7 H Neutrophils % 74.5 Lymphocytes % 8.5 L Monocytes % 11.0 Eosinophils % 2.1 Basophils % 0.5 Nucleated Red Blood Cells % 0.0 Neutrophils # 6.4 Lymphocytes # 0.7 L Monocytes # 0.9 Eosinophils # 0.2 Basophils # 0.0 Nucleated Red Blood Cells # 0.0 Prothrombin Time 13.1 Prothrombin Time Ratio 1.0 INR International Normalized Ratio 0.99 Activated Partial Thromboplast Time 140.1 *H Sodium Level 132 L Potassium Level 4.2 Chloride Level 92 L Carbon Dioxide Level 19 L Anion Gap 25 H Blood Urea Nitrogen 69 H Creatinine 11.40 H Glucose Level 166 Calcium Level 7.3 L Magnesium Level 2.0 Medications Medications Current Medications Amlodipine Besylate (Norvasc) 10 mg DAILY PO Last administered on 02/26/17 08: 23; Admin Dose 10 MG; Start 02/26/17 at 09:00; Status Future Hold Atorvastatin Calcium (Lipitor) 20 mg HS PO Last administered on 03/01/17 20:31 ; Admin Dose 20 MG; Start 02/26/17 at 21:00 Carvedilol (Coreg) 25 mg BID PO Last administered on 02/27/17 20:12; Admin Dose 25 MG; Start 02/26/17 at 09:00; Status Future Hold Hydralazine HCl (Apresoline) 25 mg Q8 PO Last administered on 02/27/17 05:28; Admin Dose 25 MG; Start 02/26/17 at 06:00; Status Future Hold Multivit/Ca Carb/ B Cmplx/FA/Prenat (Pat-Tommy) 1 tab DAILY PO Last administered on 03/02/17 09:20; Admin Dose 1 TAB; Start 02/26/17 at 09:00 Zolpidem Tartrate (Ambien) 10 mg QHS PRN PO INSOMNIA; Start 02/26/17 at 05:30 Pregabalin (Lyrica) 200 mg BID PO Last administered on 03/01/17 20:31; Admin Dose 200 MG; Start 02/26/17 at 09:00 Diagnostic Test (Pha) (Accu-Chek) 1 ea 02 XX ; Start 02/27/17 at 02:00 Miscellaneous Information 1 ea NOTE XX ; Start 02/26/17 at 06:00 Glucose (Glutose) 15 gm Q15M PRN PO DECREASED GLUCOSE; Start 02/26/17 at 06:00 Glucose (Glutose) 22.5 gm Q15M PRN PO DECREASED GLUCOSE; Start 02/26/17 at 06: 00 Dextrose (D50w Syringe) 25 ml Q15M PRN IV DECREASED GLUCOSE Last administered on 02/28/17 08:10; Admin Dose 25 ML; Start 02/26/17 at 06:00 Dextrose (D50w Syringe) 50 ml Q15M PRN IV DECREASED GLUCOSE; Start 02/26/17 at 06:00 Glucagon (Glucagen) 1 mg Q15M PRN IM DECREASED GLUCOSE; Start 02/26/17 at 06:00 Glucose (Glutose) 15 gm Q15M PRN BUCCAL DECREASED GLUCOSE; Start 02/26/17 at 06 :00 Vancomycin HCl PER PHARMACY DOSING NOTE XX ; Start 02/26/17 at 17:30 Caspofungin 50 mg/ Sodium Chloride 250 ml @ 250 mls/hr Q24H IVPB Last administered on 03/01/17 17:45; Admin Dose 250 MLS/HR; Start 02/27/17 at 18:00 Meropenem/Sodium Chloride (Merrem 500mg/50 ml(Pmx)) 50 ml @ 100 mls/hr Q24H IVPB Last administered on 03/01/17 20:15; Admin Dose 100 MLS/HR; Start at 20:00 Acetaminophen (Tylenol Tab) 650 mg Q6H PRN PO PAIN AND OR ELEVATED TEMP; Start 02/27/17 at 11:30 Insulin Detemir (Levemir) 10 unit DAILY@20 SC Last administered on 03/01/17t 20 :34; Admin Dose 10 UNIT; Start 02/28/17 at 20:00 Patient Own Medication 1 ea Sa@09 SC ; Start 03/02/17 at 09:00; Status Future Hold Epoetin Fly (Epogen (Esrd)) 6,000 units TuThSa@17 SC ; Start 03/02/17 at 17:00 RENATE TELLO NP Mar 02, 2017 16:04
[2017-03-02] MEDS: EPOETIN 3000 UNITS/1 ML INJ (ESRD) SC SCH (18:07)
[2017-03-02] MEDS: CASPOFUNGIN 50 MG in SOD CHLORIDE 0.9% 250 ML IVPB SCH (18:08)
--- NOTE | 2017-03-02 18:41 | CONS ---
Date/Time of Note Date/Time of Note DATE: 03/02/17 TIME: 18:36 Assessment/Plan Assessment/Plan Chief Complaint/Hosp Course pT ON 3 DIFF ANTIBIOTICS WITH NO ISOLATED ORGANISM Problems: Additional Assessment/Plan hd TODAY mAY HAVE TO CUT DOWN IV AB RX AND CHANGE TO PO Consultation Date/Type/Reason Admit Date/Time Feb 26, 2017 at 03:18 Initial Consult Date 02/26/17 Type of Consultation: RENAL Referring Provider: RONIT ROJAS 24 HR Interval Summary Constitutional: improved, no complaints (ABD PAIN AT SX SITE) Exam/Review of Systems Vital Signs Vitals Vital Signs Date Time Temp Pulse Resp B/P Pulse Ox O2 Delivery O2 Flow Rate FiO2 03/02/17 17:15 71 03/02/17 15:56 98.3 18 117/52 95 03/01/17 15:56 Room Air 02/28/17 21:00 2.0 Intake and Output 03/01/17 03/01/17 03/02/17 15:00 23:00 07:00 Intake Total 1720 ml Balance 1720 ml Exam Constitutional: alert, oriented, well developed Psych: nl mood/affect, no complaints Head: atraumatic, normocephalic Eyes: EOMI, PERRL, nl conjunctiva, nl lids, nl sclera ENMT: nl external ears & nose, nl lips & teeth, nl nasal mucosa & septum Neck: non-tender, supple Respiratory: clear to auscultation, normal air movement, other (RT CHEST WALL PERMACATH IN PLACE) Cardiovascular: nl pulses, regular rate and rhythm Gastrointestinal: nl liver, spleen, non-tender, other (ABD EXAM TENDERNESS AT SX SITE ), soft Musculoskeletal: nl extremities to inspection, nl gait and stance Extremities: normal pulses Neurological: ME[employer] WORK[employer] II-XII intact, nl mental status, nl speech, nl strength Skin: nl turgor, No rash or lesions Lymph: nl lymph nodes Results Result Diagram: 03/02/17 1430 03/02/17 1430 Results 24 hrs Laboratory Tests Test 03/01/17 20:14 03/02/17 06:18 03/02/17 08:33 03/02/17 12:39 Bedside Glucose 124 93 133 Lab Scanned Report BLOOD TRANSFUSION Test 03/02/17 14:30 03/02/17 18:01 White Blood Count 8.6 Red Blood Count 3.48 L Hemoglobin 10.7 L Hematocrit 30.5 L Mean Corpuscular Volume 87.6 Mean Corpuscular Hemoglobin 30.7 Mean Corpuscular Hemoglobin Concent 35.1 Red Cell Distribution Width 14.4 Platelet Count 123 L Mean Platelet Volume 11.7 H Neutrophils % 74.5 Lymphocytes % 8.5 L Monocytes % 11.0 Eosinophils % 2.1 Basophils % 0.5 Nucleated Red Blood Cells % 0.0 Neutrophils # 6.4 Lymphocytes # 0.7 L Monocytes # 0.9 Eosinophils # 0.2 Basophils # 0.0 Nucleated Red Blood Cells # 0.0 Prothrombin Time 13.1 Prothrombin Time Ratio 1.0 INR International Normalized Ratio 0.99 Activated Partial Thromboplast Time 140.1 *H Sodium Level 132 L Potassium Level 4.2 Chloride Level 92 L Carbon Dioxide Level 19 L Anion Gap 25 H Blood Urea Nitrogen 69 H Creatinine 11.40 H Glucose Level 166 Calcium Level 7.3 L Magnesium Level 2.0 Bedside Glucose 156 Medications Medications Current Medications Amlodipine Besylate (Norvasc) 10 mg DAILY PO Last administered on 02/26/17 08: 23; Admin Dose 10 MG; Start 02/26/17 at 09:00; Status Future Hold Atorvastatin Calcium (Lipitor) 20 mg HS PO Last administered on 03/01/17 20:31 ; Admin Dose 20 MG; Start 02/26/17 at 21:00 Carvedilol (Coreg) 25 mg BID PO Last administered on 02/27/17 20:12; Admin Dose 25 MG; Start 02/26/17 at 09:00; Status Future Hold Hydralazine HCl (Apresoline) 25 mg Q8 PO Last administered on 02/27/17 05:28; Admin Dose 25 MG; Start 02/26/17 at 06:00; Status Future Hold Multivit/Ca Carb/ B Cmplx/FA/Prenat (Pat-Tommy) 1 tab DAILY PO Last administered on 03/02/17 09:20; Admin Dose 1 TAB; Start 02/26/17 at 09:00 Zolpidem Tartrate (Ambien) 10 mg QHS PRN PO INSOMNIA; Start 02/26/17 at 05:30 Pregabalin (Lyrica) 200 mg BID PO Last administered on 03/01/17 20:31; Admin Dose 200 MG; Start 02/26/17 at 09:00 Diagnostic Test (Pha) (Accu-Chek) 1 ea 02 XX ; Start 02/27/17 at 02:00 Miscellaneous Information 1 ea NOTE XX ; Start 02/26/17 at 06:00 Glucose (Glutose) 15 gm Q15M PRN PO DECREASED GLUCOSE; Start 02/26/17 at 06:00 Glucose (Glutose) 22.5 gm Q15M PRN PO DECREASED GLUCOSE; Start 02/26/17 at 06: 00 Dextrose (D50w Syringe) 25 ml Q15M PRN IV DECREASED GLUCOSE Last administered on 02/28/17 08:10; Admin Dose 25 ML; Start 02/26/17 at 06:00 Dextrose (D50w Syringe) 50 ml Q15M PRN IV DECREASED GLUCOSE; Start 02/26/17 at 06:00 Glucagon (Glucagen) 1 mg Q15M PRN IM DECREASED GLUCOSE; Start 02/26/17 at 06:00 Glucose (Glutose) 15 gm Q15M PRN BUCCAL DECREASED GLUCOSE; Start 02/26/17 at 06 :00 Vancomycin HCl PER PHARMACY DOSING NOTE XX ; Start 02/26/17 at 17:30 Caspofungin 50 mg/ Sodium Chloride 250 ml @ 250 mls/hr Q24H IVPB Last administered on 03/02/17 18:08; Admin Dose 250 MLS/HR; Start 02/27/17 at 18:00 Meropenem/Sodium Chloride (Merrem 500mg/50 ml(Pmx)) 50 ml @ 100 mls/hr Q24H IVPB Last administered on 03/01/17 20:15; Admin Dose 100 MLS/HR; Start at 20:00 Acetaminophen (Tylenol Tab) 650 mg Q6H PRN PO PAIN AND OR ELEVATED TEMP; Start 02/27/17 at 11:30 Insulin Detemir (Levemir) 10 unit DAILY@20 SC Last administered on 03/01/17 20 :34; Admin Dose 10 UNIT; Start 02/28/17 at 20:00 Patient Own Medication 1 ea Sa@09 SC ; Start 03/02/17 at 09:00; Status Future Hold Epoetin Fly (Epogen (Esrd)) 6,000 units TuThSa@17 SC Last administered on 7/22 /17at 18:07; Admin Dose 6,000 UNITS; Start 03/02/17 at 17:00 Miscellaneous Information Patients own medicat... BID@ XX ; Start 03/03/17 at 10:00 MANOJ HARE MD Mar 02, 2017 18:41
--- NOTE | 2017-03-02 19:59 | PN ---
Date/Time of Note Date/Time of Note DATE: 03/02/17 TIME: 19:55 Assessment/Plan Lines/Catheters IV Catheter Type (from Nrs): Ruiz cath Assessment/Plan Chief Complaint/Hosp Course 1. Peritonitis, recurrent, with infected PD catheter s/p explantation of PD. Pain improved. -iv abx per ID -judicious fluid management 2. ESRD -HD 3. Obesity, bmi 34 -encourage nutritional optimization -encourage exercise 4. Sepsis 2nd above improving 5. DM -diet/medication control -encourage weight loss 6. CAD -cardiac optimization -encourage weight loss 7. PVD -medical/lifestyle optimization 8. HTN -diet/medication optimization -encourage weight loss 9. Hypercholesterolemia -diet/medication optimization -encourage weight loss 10. Leukocytosis 2/2 #1, normalized -as above -abx 11. Normocytic anemia: likely 2/2 chronic disease vs. acute bleed; h/h improved -monitor & replete as needed 12. Thrombocytopenia: improved -bleeding precautions 13. Hypokalemia -optimize lytes -monitor for cardiac arrhythmias 14.Hyponatremia: likely 2/2 hemodilution Thank you, Problems: Subjective 24 Hr Interval Summary Feeling well. dizziness improved. No episodes of hypoglycemia. No fevers, chills , servin, dizziness, sz, n/v/d, + bowel function. No drainage from incision site Exam/Review of Systems Vital Signs Vitals Vital Signs Date Time Temp Pulse Resp B/P Pulse Ox O2 Delivery O2 Flow Rate FiO2 03/02/17 17:15 71 03/02/17 15:56 98.3 18 117/52 95 03/01/17 15:56 Room Air 02/28/17 21:00 2.0 Intake and Output 03/01/17 03/01/17 03/02/17 15:00 23:00 07:00 Intake Total 1720 ml Balance 1720 ml Exam Free Text/Dictation Constitutional: alert, obese, oriented, No distress Psych: nl mood/affect, No anxiety Head: atraumatic, normocephalic Eyes: EOMI, PERRL, nl conjunctiva, No icteric ENMT: mucosa pink and moist, nl external ears & nose, nl lips & teeth Neck: non-tender, supple Respiratory: normal air movement, No congested cough, No labored breathing Cardiovascular: regular rate and rhythm, No edema Gastrointestinal: soft, tender (min), incision sites dry without erythema or drainage No distended, No firm, No rebound or guarding Musculoskeletal: nl extremities to inspection, nl gait and stance, No joint tenderness Extremities: normal pulses, No calf tenderness Neurological: nl mental status, nl speech, nl strength Skin: nl turgor, No diaphoresis, No rash or lesions Lymph: nl lymph nodes Results Result Diagram: 03/02/17 1430 03/02/[address] PATEL MD Mar 02, 2017 19:59
[2017-03-02] MEDS: ATORVASTATIN 20 MG TAB PO SCH (20:16)
[2017-03-02] MEDS: MEROPENEM 500MG/50 ML (PMX) 50 ML IVPB SCH (20:16)
[2017-03-02] MEDS: INSULIN DETEMIR [LEVEMIR] 3ML CART SC SCH (20:22)
[2017-03-03] MEDS: ACCU-CHEK XX SCH (02:00)
[2017-03-03 02:20] VITALS: BP 117/52; RESP 16
[2017-03-03] MEDS: PANTOPRAZOLE (EC) 40 MG TAB PO SCH (06:45)
[2017-03-03 08:00] VITALS: BP 143/67; RESP 20
[2017-03-03] MEDS: INSULIN ASPART [NOVOLOG] 3 ML PEN SC SCH ×4 (08:00→20:42)
[2017-03-03] MEDS: MULTIVIT/CA CARB/B CMPLX/FA TAB PO SCH (08:23)
[2017-03-03] MEDS: PREGABALIN 100 MG CAP PO SCH ×2 (08:29→20:40)
[2017-03-03 11:43] LABS: INR 1.12; PROTIME 14.4 Sec (12.2-14.2); PT RATIO 1.1
[2017-03-03 11:44] LABS: PARTIAL THROMBOPLASTIN TIME 41.3 Sec (25.0-35.0)
--- NOTE | 2017-03-03 12:12 | CONS ---
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 will adjust his antibiotics based on the culture results. In case of no growth, we recommend two week course of this regimen Problems: Consultation Date/Type/Reason Admit Date/Time Feb 26, 2017 at 03:18 Initial Consult Date 02/26/17 Type of Consultation: id Referring Provider: RONIT ROJAS Exam/Review of Systems Vital Signs Vitals Vital Signs Date Time Temp Pulse Resp B/P Pulse Ox O2 Delivery O2 Flow Rate FiO2 03/03/17 08:00 98.1 71 20 143/67 95 03/01/17 15:56 Room Air 02/28/17 21:00 2.0 Intake and Output 03/02/17 03/02/17 03/03/17 15:00 23:00 07:00 Intake Total 1050 ml 200 ml Output Total 3300 ml Balance -2250 ml 200 ml Exam Constitutional: alert, oriented, well developed Psych: nl mood/affect, no complaints Head: atraumatic, normocephalic Eyes: EOMI, PERRL, nl conjunctiva, nl lids, nl sclera ENMT: nl external ears & nose, nl lips & teeth, nl nasal mucosa & septum Neck: non-tender, supple Respiratory: clear to auscultation, normal air movement Cardiovascular: nl pulses, regular rate and rhythm Gastrointestinal: nl liver, spleen, non-tender, soft Results Result Diagram: 03/02/17 1430 03/02/17 1430 Results 24 hrs Laboratory Tests Test 03/02/17 12:39 03/02/17 14:30 03/02/17 18:01 03/02/17 20:17 Bedside Glucose 133 156 193 White Blood Count 8.6 Red Blood Count 3.48 L Hemoglobin 10.7 L Hematocrit 30.5 L Mean Corpuscular Volume 87.6 Mean Corpuscular Hemoglobin 30.7 Mean Corpuscular Hemoglobin Concent 35.1 Red Cell Distribution Width 14.4 Platelet Count 123 L Mean Platelet Volume 11.7 H Neutrophils % 74.5 Lymphocytes % 8.5 L Monocytes % 11.0 Eosinophils % 2.1 Basophils % 0.5 Nucleated Red Blood Cells % 0.0 Neutrophils # 6.4 Lymphocytes # 0.7 L Monocytes # 0.9 Eosinophils # 0.2 Basophils # 0.0 Nucleated Red Blood Cells # 0.0 Prothrombin Time 13.1 Prothrombin Time Ratio 1.0 INR International Normalized Ratio 0.99 Activated Partial Thromboplast Time 140.1 *H Sodium Level 132 L Potassium Level 4.2 Chloride Level 92 L Carbon Dioxide Level 19 L Anion Gap 25 H Blood Urea Nitrogen 69 H Creatinine 11.40 H Glucose Level 166 Calcium Level 7.3 L Magnesium Level 2.0 Test 03/03/17 02:01 03/03/17 06:13 03/03/17 08:21 03/03/17 10:50 Bedside Glucose 122 96 Lab Scanned Report BLOOD TRANSFUSION Prothrombin Time 14.4 H Prothrombin Time Ratio 1.1 INR International Normalized Ratio 1.12 Activated Partial Thromboplast Time 41.3 H Medications Medications Current Medications Amlodipine Besylate (Norvasc) 10 mg DAILY PO Last administered on 02/26/17 08: 23; Admin Dose 10 MG; Start 02/26/17 at 09:00; Status Future Hold Atorvastatin Calcium (Lipitor) 20 mg HS PO Last administered on 03/02/17 20:16 ; Admin Dose 20 MG; Start 02/26/17 at 21:00 Carvedilol (Coreg) 25 mg BID PO Last administered on 02/27/17 20:12; Admin Dose 25 MG; Start 02/26/17 at 09:00; Status Future Hold Hydralazine HCl (Apresoline) 25 mg Q8 PO Last administered on 02/27/17 05:28; Admin Dose 25 MG; Start 02/26/17 at 06:00; Status Future Hold Multivit/Ca Carb/ B Cmplx/FA/Prenat (Pat-Tommy) 1 tab DAILY PO Last administered on 03/03/17 08:23; Admin Dose 1 TAB; Start 02/26/17 at 09:00 Zolpidem Tartrate (Ambien) 10 mg QHS PRN PO INSOMNIA; Start 02/26/17 at 05:30 Pregabalin (Lyrica) 200 mg BID PO Last administered on 03/02/17 20:16; Admin Dose 200 MG; Start 02/26/17 at 09:00 Diagnostic Test (Pha) (Accu-Chek) 1 ea 02 XX ; Start 02/27/17 at 02:00 Miscellaneous Information 1 ea NOTE XX ; Start 02/26/17 at 06:00 Glucose (Glutose) 15 gm Q15M PRN PO DECREASED GLUCOSE; Start 02/26/17 at 06:00 Glucose (Glutose) 22.5 gm Q15M PRN PO DECREASED GLUCOSE; Start 02/26/17 at 06: 00 Dextrose (D50w Syringe) 25 ml Q15M PRN IV DECREASED GLUCOSE Last administered on 02/28/17 08:10; Admin Dose 25 ML; Start 02/26/17 at 06:00 Dextrose (D50w Syringe) 50 ml Q15M PRN IV DECREASED GLUCOSE; Start 02/26/17 at 06:00 Glucagon (Glucagen) 1 mg Q15M PRN IM DECREASED GLUCOSE; Start 02/26/17 at 06:00 Glucose (Glutose) 15 gm Q15M PRN BUCCAL DECREASED GLUCOSE; Start 02/26/17 at 06 :00 Vancomycin HCl PER PHARMACY DOSING NOTE XX ; Start 02/26/17 at 17:30 Caspofungin 50 mg/ Sodium Chloride 250 ml @ 250 mls/hr Q24H IVPB Last administered on 03/02/17 18:08; Admin Dose 250 MLS/HR; Start 02/27/17 at 18:00 Meropenem/Sodium Chloride (Merrem 500mg/50 ml(Pmx)) 50 ml @ 100 mls/hr Q24H IVPB Last administered on 03/02/17 20:16; Admin Dose 100 MLS/HR; Start at 20:00 Acetaminophen (Tylenol Tab) 650 mg Q6H PRN PO PAIN AND OR ELEVATED TEMP; Start 02/27/17 at 11:30 Insulin Detemir (Levemir) 10 unit DAILY@20 SC Last administered on 03/02/17 20 :22; Admin Dose 10 UNIT; Start 02/28/17 at 20:00 Patient Own Medication 1 ea Sa@09 SC ; Start 03/02/17 at 09:00; Status Future Hold Epoetin Fly (Epogen (Esrd)) 6,000 units TuThSa@17 SC Last administered on 03/02 18:07; Admin Dose 6,000 UNITS; Start 03/02/17 at 17:00 Miscellaneous Information Patients own medicat... BID@10,16 XX ; Start 03/03/17 at 10:00 BHARGAVI EDWARD MD Mar 03, 2017 12:12
--- NOTE | 2017-03-03 13:27 | CONS ---
Date/Time of Note Date/Time of Note DATE: 03/03/17 TIME: 13:26 Assessment/Plan Assessment/Plan Additional Assessment/Plan CAD s/p CABG HTN HLP ESRD Anemia Hemodynamically stable Cleared for AV fistulae placement Off BP meds for now Continue Antibiotics Continue Insulin Continue Lipitor Continue Protonix HD as scheduled Consultation Date/Type/Reason Admit Date/Time Feb 26, 2017 at 03:18 Initial Consult Date 02/26/17 Type of Consultation: id Referring Provider: RONIT ROJAS Exam/Review of Systems Vital Signs Vitals Vital Signs Date Time Temp Pulse Resp B/P Pulse Ox O2 Delivery O2 Flow Rate FiO2 03/03/17 08:00 98.1 71 20 143/67 95 03/01/17 15:56 Room Air 02/28/17 21:00 2.0 Intake and Output 03/02/17 03/02/17 03/03/17 15:00 23:00 07:00 Intake Total 1050 ml 200 ml Output Total 3300 ml Balance -2250 ml 200 ml Exam Constitutional: alert Head: atraumatic, normocephalic Respiratory: clear to auscultation Cardiovascular: regular rate and rhythm Gastrointestinal: nl liver, spleen, non-tender, soft Extremities: normal pulses Results Result Diagram: 03/02/17 1430 03/02/17 1430 Results 24 hrs Laboratory Tests Test 03/02/17 14:30 03/02/17 18:01 03/02/17 20:17 03/03/17 02:01 White Blood Count 8.6 Red Blood Count 3.48 L Hemoglobin 10.7 L Hematocrit 30.5 L Mean Corpuscular Volume 87.6 Mean Corpuscular Hemoglobin 30.7 Mean Corpuscular Hemoglobin Concent 35.1 Red Cell Distribution Width 14.4 Platelet Count 123 L Mean Platelet Volume 11.7 H Neutrophils % 74.5 Lymphocytes % 8.5 L Monocytes % 11.0 Eosinophils % 2.1 Basophils % 0.5 Nucleated Red Blood Cells % 0.0 Neutrophils # 6.4 Lymphocytes # 0.7 L Monocytes # 0.9 Eosinophils # 0.2 Basophils # 0.0 Nucleated Red Blood Cells # 0.0 Prothrombin Time 13.1 Prothrombin Time Ratio 1.0 INR International Normalized Ratio 0.99 Activated Partial Thromboplast Time 140.1 *H Sodium Level 132 L Potassium Level 4.2 Chloride Level 92 L Carbon Dioxide Level 19 L Anion Gap 25 H Blood Urea Nitrogen 69 H Creatinine 11.40 H Glucose Level 166 Calcium Level 7.3 L Magnesium Level 2.0 Bedside Glucose 156 193 122 Test 03/03/17 06:13 03/03/17 08:21 03/03/17 10:50 03/03/17 12:01 Lab Scanned Report BLOOD TRANSFUSION Bedside Glucose 96 125 Prothrombin Time 14.4 H Prothrombin Time Ratio 1.1 INR International Normalized Ratio 1.12 Activated Partial Thromboplast Time 41.3 H Medications Medications Current Medications Amlodipine Besylate (Norvasc) 10 mg DAILY PO Last administered on 02/26/17 08: 23; Admin Dose 10 MG; Start 02/26/17 at 09:00; Status Future Hold Atorvastatin Calcium (Lipitor) 20 mg HS PO Last administered on 03/02/17 20:16 ; Admin Dose 20 MG; Start 02/26/17 at 21:00 Carvedilol (Coreg) 25 mg BID PO Last administered on 02/27/17 20:12; Admin Dose 25 MG; Start 02/26/17 at 09:00; Status Future Hold Hydralazine HCl (Apresoline) 25 mg Q8 PO Last administered on 02/27/17 05:28; Admin Dose 25 MG; Start 02/26/17 at 06:00; Status Future Hold Multivit/Ca Carb/ B Cmplx/FA/Prenat (Pat-Tommy) 1 tab DAILY PO Last administered on 03/03/17 08:23; Admin Dose 1 TAB; Start 02/26/17 at 09:00 Zolpidem Tartrate (Ambien) 10 mg QHS PRN PO INSOMNIA; Start 02/26/17 at 05:30 Pregabalin (Lyrica) 200 mg BID PO Last administered on 03/02/17 20:16; Admin Dose 200 MG; Start 02/26/17 at 09:00 Diagnostic Test (Pha) (Accu-Chek) 1 ea 02 XX ; Start 02/27/17 at 02:00 Miscellaneous Information 1 ea NOTE XX ; Start 02/26/17 at 06:00 Glucose (Glutose) 15 gm Q15M PRN PO DECREASED GLUCOSE; Start 02/26/17 at 06:00 Glucose (Glutose) 22.5 gm Q15M PRN PO DECREASED GLUCOSE; Start 02/26/17 at 06: 00 Dextrose (D50w Syringe) 25 ml Q15M PRN IV DECREASED GLUCOSE Last administered on 02/28/17 08:10; Admin Dose 25 ML; Start 02/26/17 at 06:00 Dextrose (D50w Syringe) 50 ml Q15M PRN IV DECREASED GLUCOSE; Start 02/26/17 at 06:00 Glucagon (Glucagen) 1 mg Q15M PRN IM DECREASED GLUCOSE; Start 02/26/17 at 06:00 Glucose (Glutose) 15 gm Q15M PRN BUCCAL DECREASED GLUCOSE; Start 02/26/17 at 06 :00 Vancomycin HCl PER PHARMACY DOSING NOTE XX ; Start 02/26/17 at 17:30 Caspofungin 50 mg/ Sodium Chloride 250 ml @ 250 mls/hr Q24H IVPB Last administered on 03/02/17 18:08; Admin Dose 250 MLS/HR; Start 02/27/17 at 18:00 Meropenem/Sodium Chloride (Merrem 500mg/50 ml(Pmx)) 50 ml @ 100 mls/hr Q24H IVPB Last administered on 03/02/17 20:16; Admin Dose 100 MLS/HR; Start at 20:00 Acetaminophen (Tylenol Tab) 650 mg Q6H PRN PO PAIN AND OR ELEVATED TEMP; Start 02/27/17 at 11:30 Insulin Detemir (Levemir) 10 unit DAILY@20 SC Last administered on 03/02/17 20 :22; Admin Dose 10 UNIT; Start 02/28/17 at 20:00 Patient Own Medication 1 ea Sa@09 SC ; Start 03/02/17 at 09:00; Status Future Hold Epoetin Fly (Epogen (Esrd)) 6,000 units TuThSa@17 SC Last administered on 03/02 18:07; Admin Dose 6,000 UNITS; Start 03/02/17 at 17:00 Miscellaneous Information Patients own medicat... BID@10,16 XX ; Start 03/03/17 at 10:00 Miscellaneous Information (*Rx Drug Level Order Reminder*) RANDOM VANCOMYCIN LEVEL 7... ONCE ONCE XX ; Start 03/04/17 at 05:00; Stop 03/04/17 at 05:01 MERY PERALES M.D. Mar 03, 2017 13:27
[2017-03-03 14:00] VITALS: BP 159/67; RESP 20
--- NOTE | 2017-03-03 15:05 | PN ---
Date/Time of Note Date/Time of Note DATE: 03/03/17 TIME: 14:53 Assessment/Plan VTE Prophylaxis VTE Prophylaxis Intervention: other Lines/Catheters IV Catheter Type (from Nrs): ruiz Assessment/Plan Assessment/Plan -Sepsis most likely secondary to peritonitis, Dr. Pierre is following in infection disease consultation. Continue antibiotics per ID. -Peritonitis, status post peritoneal catheter removal by Dr. Shields, general surgery. -End-stage renal disease, Dr. Keith is following in nephrology consultation, continue hemodialysis via right femoral Ruiz catheter. -Hemodialysis access, Dr. Branch is following in vascular surgery consultation, plan for left upper extremity AV fistula creation on Saturday. -Hyperkalemia secondary to end-stage renal disease, resolved. -Diabetes mellitus, continue Lantus and NovoLog -Coronary artery disease, status post CABG -Peripheral vascular disease Further recommendations based on clinical course. Plan of care discussed with Dr. Sanchez. Subjective 24 Hr Interval Summary Free Text/Dictation Alert/ sitting up in bed, feels better. Dw Dr Rose- plan for Perma cath tomorrow . Anticipate discharge after that. Dr Rose wants patient to go back to peritoneal dialysis eventually after he recovers from infection. Dw staff Respiratory: no complaints Cardiovascular: no complaints Gastrointestinal: no complaints Genitourinary: no complaints Musculoskeletal: no complaints Skin: other Neurologic: no complaints Exam/Review of Systems Vital Signs Vitals Vital Signs Date Time Temp Pulse Resp B/P Pulse Ox O2 Delivery O2 Flow Rate FiO2 03/03/17 08:00 98.1 71 20 143/67 95 03/01/17 15:56 Room Air 02/28/17 21:00 2.0 Intake and Output 03/02/17 03/02/17 03/03/17 15:00 23:00 07:00 Intake Total 1050 ml 200 ml Output Total 3300 ml Balance -2250 ml 200 ml Exam Constitutional: alert, oriented, well developed Respiratory: clear to auscultation, normal air movement Cardiovascular: regular rate and rhythm Gastrointestinal: non-tender, soft Musculoskeletal: nl extremities to inspection Extremities: normal pulses Neurological: nl mental status, nl strength Skin: other Results Result Diagram: 03/02/17 1430 03/02/17 1430 Results 24 hrs Laboratory Tests Test 03/02/17 18:01 03/02/17 20:17 03/03/17 02:01 03/03/17 06:13 Bedside Glucose 156 193 122 Lab Scanned Report BLOOD TRANSFUSION Test 03/03/17 08:21 03/03/17 10:50 03/03/17 12:01 Bedside Glucose 96 125 Prothrombin Time 14.4 H Prothrombin Time Ratio 1.1 INR International Normalized Ratio 1.12 Activated Partial Thromboplast Time 41.3 H Medications Medications Current Medications Amlodipine Besylate (Norvasc) 10 mg DAILY PO Last administered on 02/26/17 08: 23; Admin Dose 10 MG; Start 02/26/17 at 09:00; Status Future Hold Atorvastatin Calcium (Lipitor) 20 mg HS PO Last administered on 03/02/17 20:16 ; Admin Dose 20 MG; Start 02/26/17 at 21:00 Carvedilol (Coreg) 25 mg BID PO Last administered on 02/27/17 20:12; Admin Dose 25 MG; Start 02/26/17 at 09:00; Status Future Hold Hydralazine HCl (Apresoline) 25 mg Q8 PO Last administered on 02/27/17 05:28; Admin Dose 25 MG; Start 02/26/17 at 06:00; Status Future Hold Multivit/Ca Carb/ B Cmplx/FA/Prenat (Pat-Tommy) 1 tab DAILY PO Last administered on 03/03/17 08:23; Admin Dose 1 TAB; Start 02/26/17 at 09:00 Zolpidem Tartrate (Ambien) 10 mg QHS PRN PO INSOMNIA; Start 02/26/17 at 05:30 Pregabalin (Lyrica) 200 mg BID PO Last administered on 03/02/17 20:16; Admin Dose 200 MG; Start 02/26/17 at 09:00 Diagnostic Test (Pha) (Accu-Chek) 1 ea 02 XX ; Start 02/27/17 at 02:00 Miscellaneous Information 1 ea NOTE XX ; Start 02/26/17 at 06:00 Glucose (Glutose) 15 gm Q15M PRN PO DECREASED GLUCOSE; Start 02/26/17 at 06:00 Glucose (Glutose) 22.5 gm Q15M PRN PO DECREASED GLUCOSE; Start 02/26/17 at 06: 00 Dextrose (D50w Syringe) 25 ml Q15M PRN IV DECREASED GLUCOSE Last administered on 02/28/17 08:10; Admin Dose 25 ML; Start 02/26/17 at 06:00 Dextrose (D50w Syringe) 50 ml Q15M PRN IV DECREASED GLUCOSE; Start 02/26/17 at 06:00 Glucagon (Glucagen) 1 mg Q15M PRN IM DECREASED GLUCOSE; Start 02/26/17 at 06:00 Glucose (Glutose) 15 gm Q15M PRN BUCCAL DECREASED GLUCOSE; Start 02/26/17 at 06 :00 Vancomycin HCl PER PHARMACY DOSING NOTE XX ; Start 02/26/17 at 17:30 Caspofungin 50 mg/ Sodium Chloride 250 ml @ 250 mls/hr Q24H IVPB Last administered on 03/02/17 18:08; Admin Dose 250 MLS/HR; Start 02/27/17 at 18:00 Meropenem/Sodium Chloride (Merrem 500mg/50 ml(Pmx)) 50 ml @ 100 mls/hr Q24H IVPB Last administered on 03/02/17 20:16; Admin Dose 100 MLS/HR; Start at 20:00 Acetaminophen (Tylenol Tab) 650 mg Q6H PRN PO PAIN AND OR ELEVATED TEMP; Start 02/27/17 at 11:30 Insulin Detemir (Levemir) 10 unit DAILY@20 SC Last administered on 03/02/17 20 :22; Admin Dose 10 UNIT; Start 02/28/17 at 20:00 Patient Own Medication 1 ea Sa@09 SC ; Start 03/02/17 at 09:00; Status Future Hold Epoetin Fly (Epogen (Esrd)) 6,000 units TuThSa@17 SC Last administered on 03/02 18:07; Admin Dose 6,000 UNITS; Start 03/02/17 at 17:00 Miscellaneous Information Patients own medicat... BID@10,16 XX ; Start 03/03/17 at 10:00 Miscellaneous Information (*Rx Drug Level Order Reminder*) RANDOM VANCOMYCIN LEVEL 7... ONCE ONCE XX ; Start 03/04/17 at 05:00; Stop 03/04/17 at 05:01 ORIANA OATES Mar 03, 2017 15:04
[2017-03-03] MEDS: CASPOFUNGIN 50 MG in SOD CHLORIDE 0.9% 250 ML IVPB SCH (17:20)
[2017-03-03] MEDS: MEROPENEM 500MG/50 ML (PMX) 50 ML IVPB SCH (19:55)
[2017-03-03] MEDS: INSULIN DETEMIR [LEVEMIR] 3ML CART SC SCH (19:57)
--- NOTE | 2017-03-03 20:01 | CONS ---
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 (5) Acute peritonitis Comment: Aseptic because no organisms were grown. OK to dc antibiotics Pt will be off PD for 6 wks before PD Cath is replaced No need for AVF therefore! Consultation Date/Type/Reason Admit Date/Time Feb 26, 2017 at 03:18 Initial Consult Date 02/26/17 Type of Consultation: renal Referring Provider: RONIT ROJAS 24 HR Interval Summary Free Text/Dictation Pt says he feels better and has no new complaints Exam/Review of Systems Vital Signs Vitals Vital Signs Date Time Temp Pulse Resp B/P Pulse Ox O2 Delivery O2 Flow Rate FiO2 03/03/17 14:00 98.4 71 20 159/67 97 03/01/17 15:56 Room Air 02/28/17 21:00 2.0 Intake and Output 03/02/17 03/02/17 03/03/17 15:00 23:00 07:00 Intake Total 1050 ml 200 ml Output Total 3300 ml Balance -2250 ml 200 ml Exam Constitutional: alert, oriented, well developed Psych: nl mood/affect, no complaints Head: atraumatic, normocephalic Eyes: EOMI, PERRL, nl conjunctiva, nl lids, nl sclera ENMT: nl external ears & nose, nl lips & teeth, nl nasal mucosa & septum Neck: non-tender, supple Respiratory: clear to auscultation, normal air movement, other (Rt chest wall Ruiz cath in place) Cardiovascular: nl pulses, regular rate and rhythm Gastrointestinal: nl liver, spleen, non-tender, other (decreased abd tenderness s/p PD Cath removal.), soft Musculoskeletal: nl extremities to inspection, nl gait and stance Extremities: normal pulses Neurological: ORTHO/PROSTHETIC AIDE II-XII intact, nl mental status, nl speech, nl strength Skin: nl turgor, No rash or lesions Lymph: nl lymph nodes Results Result Diagram: 03/02/17 1430 03/02/17 1430 Results 24 hrs Laboratory Tests Test 03/02/17 20:17 03/03/17 02:01 03/03/17 06:13 03/03/17 08:21 Bedside Glucose 193 122 96 Lab Scanned Report BLOOD TRANSFUSION Test 03/03/17 10:50 03/03/17 12:01 03/03/17 17:14 03/03/17 19:54 Prothrombin Time 14.4 H Prothrombin Time Ratio 1.1 INR International Normalized Ratio 1.12 Activated Partial Thromboplast Time 41.3 H Bedside Glucose 125 160 159 Medications Medications Current Medications Amlodipine Besylate (Norvasc) 10 mg DAILY PO Last administered on 02/26/17 08: 23; Admin Dose 10 MG; Start 02/26/17 at 09:00; Status Future Hold Atorvastatin Calcium (Lipitor) 20 mg HS PO Last administered on 03/02/17 20:16 ; Admin Dose 20 MG; Start 02/26/17 at 21:00 Carvedilol (Coreg) 25 mg BID PO Last administered on 02/27/17 20:12; Admin Dose 25 MG; Start 02/26/17 at 09:00; Status Future Hold Hydralazine HCl (Apresoline) 25 mg Q8 PO Last administered on 02/27/17 05:28; Admin Dose 25 MG; Start 02/26/17 at 06:00; Status Future Hold Multivit/Ca Carb/ B Cmplx/FA/Prenat (Pat-Tommy) 1 tab DAILY PO Last administered on 03/03/17 08:23; Admin Dose 1 TAB; Start 02/26/17 at 09:00 Zolpidem Tartrate (Ambien) 10 mg QHS PRN PO INSOMNIA; Start 02/26/17 at 05:30 Pregabalin (Lyrica) 200 mg BID PO Last administered on 03/02/17 20:16; Admin Dose 200 MG; Start 02/26/17 at 09:00 Diagnostic Test (Pha) (Accu-Chek) 1 ea 02 XX ; Start 02/27/17 at 02:00 Miscellaneous Information 1 ea NOTE XX ; Start 02/26/17 at 06:00 Glucose (Glutose) 15 gm Q15M PRN PO DECREASED GLUCOSE; Start 02/26/17 at 06:00 Glucose (Glutose) 22.5 gm Q15M PRN PO DECREASED GLUCOSE; Start 02/26/17 at 06: 00 Dextrose (D50w Syringe) 25 ml Q15M PRN IV DECREASED GLUCOSE Last administered on 02/28/17 08:10; Admin Dose 25 ML; Start 02/26/17 at 06:00 Dextrose (D50w Syringe) 50 ml Q15M PRN IV DECREASED GLUCOSE; Start 02/26/17 at 06:00 Glucagon (Glucagen) 1 mg Q15M PRN IM DECREASED GLUCOSE; Start 02/26/17 at 06:00 Glucose (Glutose) 15 gm Q15M PRN BUCCAL DECREASED GLUCOSE; Start 02/26/17 at 06 :00 Vancomycin HCl PER PHARMACY DOSING NOTE XX ; Start 02/26/17 at 17:30 Caspofungin 50 mg/ Sodium Chloride 250 ml @ 250 mls/hr Q24H IVPB Last administered on 03/03/17 17:20; Admin Dose 250 MLS/HR; Start 02/27/17 at 18:00 Meropenem/Sodium Chloride (Merrem 500mg/50 ml(Pmx)) 50 ml @ 100 mls/hr Q24H IVPB Last administered on 03/02/17 20:16; Admin Dose 100 MLS/HR; Start at 20:00 Acetaminophen (Tylenol Tab) 650 mg Q6H PRN PO PAIN AND OR ELEVATED TEMP; Start 02/27/17 at 11:30 Insulin Detemir (Levemir) 10 unit DAILY@20 SC Last administered on 03/02/17 20 :22; Admin Dose 10 UNIT; Start 02/28/17 at 20:00 Patient Own Medication 1 ea Sa@09 SC ; Start 03/02/17 at 09:00; Status Future Hold Epoetin Fly (Epogen (Esrd)) 6,000 units TuThSa@17 SC Last administered on 03/02 18:07; Admin Dose 6,000 UNITS; Start 03/02/17 at 17:00 Miscellaneous Information Patients own medicat... BID@ XX ; Start 03/03/17 at 10:00 Miscellaneous Information (*Rx Drug Level Order Reminder*) RANDOM VANCOMYCIN LEVEL 7... ONCE ONCE XX ; Start 03/04/17 at 05:00; Stop 03/04/17 at 05:01 MANOJ HARE MD Mar 03, 2017 20:01
[2017-03-03 20:27] VITALS: BP 126/70; RESP 18
[2017-03-03] MEDS: ATORVASTATIN 20 MG TAB PO SCH (20:40)
[2017-03-03 22:27] LABS: ADD UMIC YES; UR ASCORBIC ACID NEGATIVE (NEGATIVE); UR BACTERIA FEW /HPF (NONE SEEN); UR BILIRUBIN (Dip) NEGATIVE (NEGATIVE); UR BLOOD (Dip) 2+ mg/dL (NEGATIVE); UR CLARITY CLOUDY (CLEAR); UR COLOR AMBER (YELLOW); UR GLUCOSE (Dip) 3+ mg/dL (NEGATIVE); UR KETONES (Dip) NEGATIVE (NEGATIVE); UR LEUKOCYTE ESTERASE (Dip) TRACE Leu/ul (NEGATIVE); UR NITRITE (Dip) NEGATIVE (NEGATIVE); UR RBC 2 /HPF (0-5); UR SPECIFIC GRAVITY (Dip) 1.021 (1.003-1.030); UR TOTAL PROTEIN (Dip) 3+ mg/dl (NEGATIVE); UR UROBILINOGEN (Dip) NEGATIVE (NEGATIVE)
--- NOTE | 2017-03-03 23:54 | PN ---
Date/Time of Note Date/Time of Note DATE: 03/03/17 TIME: 23:53 Assessment/Plan Lines/Catheters IV Catheter Type (from Nrsg): QUINTCON CATH W/ PIGTAIL Assessment/Plan Chief Complaint/Hosp Course 1. Peritonitis, recurrent, with infected PD catheter s/p explantation of PD. Pain improved. -iv abx per ID -judicious fluid management 2. ESRD -HD 3. Obesity, bmi 34 -encourage nutritional optimization -encourage exercise 4. Sepsis 2nd above improving 5. DM -diet/medication control -encourage weight loss 6. CAD -cardiac optimization -encourage weight loss 7. PVD -medical/lifestyle optimization 8. HTN -diet/medication optimization -encourage weight loss 9. Hypercholesterolemia -diet/medication optimization -encourage weight loss 10. Leukocytosis 2/2 #1, normalized -as above -abx 11. Normocytic anemia: likely 2/2 chronic disease vs. acute bleed; h/h improved -monitor & replete as needed 12. Thrombocytopenia: improved -bleeding precautions 13. Hypokalemia -optimize lytes -monitor for cardiac arrhythmias 14.Hyponatremia: likely 2/2 hemodilution Thank you, Problems: Subjective 24 Hr Interval Summary Dizziness improved. No episodes of hypoglycemia. No fevers, chills, servin, dizziness, sz, n/v/d, + bowel function. No drainage from incision site Exam/Review of Systems Vital Signs Vitals Vital Signs Date Time Temp Pulse Resp B/P Pulse Ox O2 Delivery O2 Flow Rate FiO2 03/03/17 20:27 97.9 68 18 126/70 98 03/01/17 15:56 Room Air 02/28/17 21:00 2.0 Intake and Output 03/02/17 03/02/17 03/03/17 15:00 23:00 07:00 Intake Total 1050 ml 200 ml Output Total 3300 ml Balance -2250 ml 200 ml Exam Free Text/Dictation Constitutional: alert, obese, oriented, No distress Psych: nl mood/affect, No anxiety Head: atraumatic, normocephalic Eyes: EOMI, PERRL, nl conjunctiva, No icteric ENMT: mucosa pink and moist, nl external ears & nose, nl lips & teeth Neck: non-tender, supple Respiratory: normal air movement, No congested cough, No labored breathing Cardiovascular: regular rate and rhythm, No edema Gastrointestinal: soft, tender (min), incision sites dry without erythema or drainage No distended, No firm, No rebound or guarding Musculoskeletal: nl extremities to inspection, nl gait and stance, No joint tenderness Extremities: normal pulses, No calf tenderness Neurological: nl mental status, nl speech, nl strength Skin: nl turgor, No diaphoresis, No rash or lesions Lymph: nl lymph nodes Results Result Diagram: 03/02/17 1430 03/02/[address] PATEL MD Mar 03, 2017 23:54
[2017-03-04] VITALS (11 sets, daily range): BP systolic 126–168; BP diastolic 71–85; PULSE 72–77; RESP 16–19
[2017-03-04] MEDS: ACCU-CHEK XX SCH (02:00)
[2017-03-04 05:59] LABS: BASOPHILS % 0.5 % (0.0-2.0); EOSINOPHILS # 0.4 10^3/ul (0.0-0.5); EOSINOPHILS % 5.3 % (0.0-7.0); HEMOGLOBIN 10.1 g/dl (14.0-18.0); LYMPHOCYTES % 13.6 % (15.0-51.0); MEAN CORPUSCULAR HEMOGLOBIN 29.9 pg (29.0-33.0); MEAN CORPUSCULAR HGB CONC 34.8 g/dl (32.0-37.0); MEAN CORPUSCULAR VOLUME 85.8 fl (82.0-101.0); MEAN PLATELET VOLUME 11.8 fl (7.4-10.4); MONOCYTE # 0.9 10^3/ul (0.3-0.9); MONOCYTES % 12.1 % (0.0-11.0); NEUTROPHIL # 4.7 10^3/ul (1.6-7.5); NEUTROPHILS % 63.7 % (39.0-77.0); PLATELET COUNT 126 10^3/UL (140-415); RED BLOOD COUNT 3.38 10^6/ul (4.70-6.10); RED CELL DISTRIBUTION WIDTH 14.2 % (11.5-14.5); WHITE BLOOD COUNT 7.3 10^3/ul (4.8-10.8)
[2017-03-04 06:21] LABS: INR 1.07; PROTIME 13.9 Sec (12.2-14.2); PT RATIO 1.1
[2017-03-04 06:22] LABS: PARTIAL THROMBOPLASTIN TIME 43.3 Sec (25.0-35.0)
[2017-03-04 06:49] LABS: CALCIUM 7.8 mg/dl (8.4-10.2); CREATININE 11.5 mg/dl (0.61-1.24); POTASSIUM 3.9 mmol/L (3.5-5.1)
[2017-03-04] MEDS: PANTOPRAZOLE (EC) 40 MG TAB PO SCH (07:30)
[2017-03-04] MEDS: INSULIN ASPART [NOVOLOG] 3 ML PEN SC SCH ×4 (08:00→21:00)
--- NOTE | 2017-03-04 10:19 | RADRPT ---
PROCEDURE: Ultrasound of the bilateral upper extremity venous system. CLINICAL INDICATION: 3 central line insertion.. TECHNIQUE: [place] scale with and without compression, color doppler, spectral doppler of the venous system of the bilateral upper extremity is was performed. Venous augmentation maneuvers were utilize d. COMPARISON: No prior studies are available for comparison. FINDINGS: Limited study. LEFT: Jugular vein: Patent and compressible. Subclavian vein: Patent and compressible. Axillary vein: Patent and compressible. Soft tissues:Normal RIGHT: Jugular vein: Patent and compressible. Subclavian vein: Patent and compressible. Axillary vein: Patent and compressible. Soft tissues:Normal IMPRESSION: 1. No evidence of bilateral upper extremity deep vein thrombosis. RPTAT: [facility] Physician Lobo Date Time Electronically viewed and signed by Physician Lobo on 03/04/2017 10:19 /
[2017-03-04] MEDS: DEXTROSE 5%-0.9% NACL 1,000 ML IV SCH (10:51)
--- NOTE | 2017-03-04 11:26 | PN ---
Date/Time of Note Date/Time of Note DATE: 03/04/17 TIME: 11:18 Assessment/Plan Lines/Catheters IV Catheter Type (from Nrs): Ruiz cath Assessment/Plan Chief Complaint/Hosp Course 1. Peritonitis, recurrent, with infected PD catheter s/p explantation of PD. Pain improved; No organisms isolated -? need for cont. iv abx -judicious fluid management 2. ESRD: cath placement today -HD 3. Obesity, bmi 34 -encourage nutritional optimization -encourage exercise 4. Sepsis 2nd above improving: wbc normalized 5. DM -diet/medication control -encourage weight loss 6. CAD -cardiac optimization -encourage weight loss 7. PVD -medical/lifestyle optimization 8. HTN -diet/medication optimization -encourage weight loss 9. Hypercholesterolemia -diet/medication optimization -encourage weight loss 10. Leukocytosis 2/2 #1, normalized -as above -abx 11. Normocytic anemia: likely 2/2 chronic disease vs. acute bleed; h/h stable -monitor & replete as needed 12. Thrombocytopenia: improved -bleeding precautions 13. Hypokalemia -optimize lytes -monitor for cardiac arrhythmias 14.Hyponatremia: likely 2/2 hemodilution: improving 15. Hypocalcemia with hypoalbuminemia: likely 2/2 Malnutrition +/- inflammation -nutrition optimization -replete and monitor Patient seen and examined in collaboration with Dr. Jeremiah Shields Problems: Subjective 24 Hr Interval Summary Feels well. No drainage from incision site. Awaiting HD cath placement today. No fevers, chills, servin, dizziness, cp, palpitations, sob, cough, fevers, chills, n/v/d. Exam/Review of Systems Vital Signs Vitals Vital Signs Date Time Temp Pulse Resp B/P Pulse Ox O2 Delivery O2 Flow Rate FiO2 03/04/17 07:35 98.2 67 16 157/74 100 03/01/17 15:56 Room Air 02/28/17 21:00 2.0 Intake and Output 03/03/17 03/03/17 03/04/17 15:00 23:00 07:00 Intake Total 1100 ml 420 ml Balance 1100 ml 420 ml Exam Free Text/Dictation Constitutional: alert, obese, oriented, No distress Psych: nl mood/affect, No anxiety Head: atraumatic, normocephalic Eyes: EOMI, PERRL, nl conjunctiva, No icteric ENMT: mucosa pink and moist, nl external ears & nose, nl lips & teeth Neck: non-tender, supple Respiratory: normal air movement, No congested cough, No labored breathing Cardiovascular: regular rate and rhythm, No edema Gastrointestinal: soft, tender (min), incision sites dry without erythema or drainage No distended, No firm, No rebound or guarding Musculoskeletal: nl extremities to inspection, nl gait and stance, No joint tenderness Extremities: normal pulses, No calf tenderness Neurological: nl mental status, nl speech, nl strength Skin: nl turgor, No diaphoresis, No rash or lesions Lymph: nl lymph nodes Results Result Diagram: 03/04/17 0439 03/04/17 0439 TUAN CHAN NP Mar 04, 2017 11:26
[2017-03-04] MEDS ORDERED: HEPARIN 1000 UNITS/ML 10 ML INJ ONE (12:33)
[2017-03-04] MEDS ORDERED: LIDOCAINE 1% (MDV) 20 ML INJ ONE (12:33)
[2017-03-04] MEDS ORDERED: HEPARIN 1000 UNITS/NS (A-LINE) 1,000 ML ONE (12:33)
[2017-03-04] MEDS ORDERED: MIDAZOLAM 1 MG/ML 2 ML INJ ONE (12:34)
[2017-03-04] MEDS ORDERED: FENTAnyl 50 MCG/ML VIAL ONE (12:34)
--- NOTE | 2017-03-04 13:16 | CONS ---
Date/Time of Note Date/Time of Note DATE: 03/04/17 TIME: 13:14 Assessment/Plan Assessment/Plan Chief Complaint/Hosp Course IMP: 1.Pre-op for AVF creation 2.h/o cabg-negative trop x 3/No cp 3.HTN 4. HL 5.ESRD now on HD thru temp catheter 6.Peritonitis s/p removal PD catheter Recc: -Tele -continue statin -resume BB -Contnue abx's -Follow abd exams -HD for volume removal -for permacath today Problems: Consultation Date/Type/Reason Admit Date/Time Feb 26, 2017 at 03:18 Initial Consult Date 02/26/17 Type of Consultation: cardiology Reason for Consultation HTN/cabg Referring Provider: RONIT ROJAS Exam/Review of Systems Vital Signs Vitals Vital Signs Date Time Temp Pulse Resp B/P Pulse Ox O2 Delivery O2 Flow Rate FiO2 03/04/17 07:35 98.2 67 16 157/74 100 03/01/17 15:56 Room Air 02/28/17 21:00 2.0 Intake and Output 03/03/17 03/03/17 03/04/17 15:00 23:00 07:00 Intake Total 1100 ml 420 ml Balance 1100 ml 420 ml Exam Review of Systems: CONSTITUTIONAL: No fevers, chills. PULMONARY: No sob CARDIOVASCULAR: No chest pain/palpitations GASTROINTESTINAL: No nausea/vomiting. GENITOURINARY: No hematuria/dysuria. MUSCULOSKELETAL: No myagias/arthalgias. PSYCHIATRIC: The patient denies depression. NEUROLOGIC: No weakness Constitutional: alert Psych: no complaints Neck: jvd (9 cm water), supple Respiratory: diminished breath sounds (at bases/B) Cardiovascular: regular rate and rhythm Gastrointestinal: non-tender, soft Musculoskeletal: muscle tone (normal) Extremities: edema (none) Neurological: other (NO focal deficits) Results Result Diagram: 03/04/17 0439 03/04/17 0439 Results 24 hrs Laboratory Tests Test 03/03/17 17:14 03/03/17 19:54 03/03/17 20:41 03/04/17 04:39 Bedside Glucose 160 159 149 White Blood Count 7.3 Red Blood Count 3.38 L Hemoglobin 10.1 L Hematocrit 29.0 L Mean Corpuscular Volume 85.8 Mean Corpuscular Hemoglobin 29.9 Mean Corpuscular Hemoglobin Concent 34.8 Red Cell Distribution Width 14.2 Platelet Count 126 L Mean Platelet Volume 11.8 H Neutrophils % 63.7 Lymphocytes % 13.6 L Monocytes % 12.1 H Eosinophils % 5.3 Basophils % 0.5 Nucleated Red Blood Cells % 0.0 Neutrophils # 4.7 Lymphocytes # 1.0 Monocytes # 0.9 Eosinophils # 0.4 Basophils # 0.0 Nucleated Red Blood Cells # 0.0 Prothrombin Time 13.9 Prothrombin Time Ratio 1.1 INR International Normalized Ratio 1.07 Activated Partial Thromboplast Time 43.3 H Sodium Level 134 L Potassium Level 3.9 Chloride Level 93 L Carbon Dioxide Level 20 L Anion Gap 25 H Blood Urea Nitrogen 69 H Creatinine 11.50 H Glucose Level 98 # Calcium Level 7.8 L Random Vancomycin Level 21.4 Test 03/04/17 07:55 03/04/17 11:53 Bedside Glucose 98 103 Medications Medications Current Medications Amlodipine Besylate (Norvasc) 10 mg DAILY PO Last administered on 02/26/17 08: 23; Admin Dose 10 MG; Start 02/26/17 at 09:00; Status Future Hold Atorvastatin Calcium (Lipitor) 20 mg HS PO Last administered on 03/03/17 20:40 ; Admin Dose 20 MG; Start 02/26/17 at 21:00 Carvedilol (Coreg) 25 mg BID PO Last administered on 02/27/17 20:12; Admin Dose 25 MG; Start 02/26/17 at 09:00; Status Future Hold Hydralazine HCl (Apresoline) 25 mg Q8 PO Last administered on 02/27/17 05:28; Admin Dose 25 MG; Start 02/26/17 at 06:00; Status Future Hold Multivit/Ca Carb/ B Cmplx/FA/Prenat (Pat-Tommy) 1 tab DAILY PO Last administered on 03/03/17 08:23; Admin Dose 1 TAB; Start 02/26/17 at 09:00 Zolpidem Tartrate (Ambien) 10 mg QHS PRN PO INSOMNIA; Start 02/26/17 at 05:30 Pregabalin (Lyrica) 200 mg BID PO Last administered on 03/03/17 20:40; Admin Dose 200 MG; Start 02/26/17 at 09:00 Diagnostic Test (Pha) (Accu-Chek) 1 ea 02 XX ; Start 02/27/17 at 02:00 Miscellaneous Information 1 ea NOTE XX ; Start 02/26/17 at 06:00 Glucose (Glutose) 15 gm Q15M PRN PO DECREASED GLUCOSE; Start 02/26/17 at 06:00 Glucose (Glutose) 22.5 gm Q15M PRN PO DECREASED GLUCOSE; Start 02/26/17 at 06: 00 Dextrose (D50w Syringe) 25 ml Q15M PRN IV DECREASED GLUCOSE Last administered on 02/28/17 08:10; Admin Dose 25 ML; Start 02/26/17 at 06:00 Dextrose (D50w Syringe) 50 ml Q15M PRN IV DECREASED GLUCOSE; Start 02/26/17 at 06:00 Glucagon (Glucagen) 1 mg Q15M PRN IM DECREASED GLUCOSE; Start 02/26/17 at 06:00 Glucose (Glutose) 15 gm Q15M PRN BUCCAL DECREASED GLUCOSE; Start 02/26/17 at 06 :00 Vancomycin HCl PER PHARMACY DOSING NOTE XX ; Start 02/26/17 at 17:30 Caspofungin 50 mg/ Sodium Chloride 250 ml @ 250 mls/hr Q24H IVPB Last administered on 03/03/17 17:20; Admin Dose 250 MLS/HR; Start 02/27/17 at 18:00 Meropenem/Sodium Chloride (Merrem 500mg/50 ml(Pmx)) 50 ml @ 100 mls/hr Q24H IVPB Last administered on 03/03/17 19:55; Admin Dose 100 MLS/HR; Start at 20:00 Acetaminophen (Tylenol Tab) 650 mg Q6H PRN PO PAIN AND OR ELEVATED TEMP; Start 02/27/17 at 11:30 Insulin Detemir (Levemir) 10 unit DAILY@20 SC Last administered on 03/03/17 19 :57; Admin Dose 10 UNIT; Start 02/28/17 at 20:00 Patient Own Medication 1 ea Sa@09 SC ; Start 03/02/17 at 09:00; Status Future Hold Epoetin Fly (Epogen (Esrd)) 6,000 units TuThSa@17 SC Last administered on 03/02 18:07; Admin Dose 6,000 UNITS; Start 03/02/17 at 17:00 Miscellaneous Information Patients own medicat... BID@, XX ; Start 03/03/17 at 10:00 Dextrose/Sodium Chloride (D5-NS) 1,000 ml @ 50 mls/hr Q20H IV Last administered on 03/04/17t 10:51; Admin Dose 50 MLS/HR; Start 03/04/17 at 11:00 DEMETRIUS MEYER Mar 04, 2017 13:16
--- NOTE | 2017-03-04 14:25 | RADRPT ---
PROCEDURE: PLACEMENT OF RIGHT INTERNAL JUGULAR VENOUS TUNNELED DIALYSIS CATHETER. CLINICAL INDICATION: Renal failure. TECHNIQUE: Prior to the procedure, informed consent was obtained. Risks including bleeding, infection, and pneu mothorax were explained to the patient and/or the patient's family. The patient and/or the patient's family understood and was willing to proceed. A procedural pause was performed. The patient's name, date of , and procedure to be performed were verified. The central line was inserted with all elements of maximal sterile barrier technique. All of the following were used: head covering, facial mask, sterile gown, sterile gloves, a large sterile sheet, hand hygiene, and 2% chlorhexidine for cutaneous antisepsis. The right neck and anterior/superior chest wall was prepped and draped in usu al sterile fashion. Limited sonography of the right neck was then performed. Noted is a patent right internal jugular ve in. Ultrasound images were recorded and stored in the patient's medical record. Following the local injection of Xylocaine, the right internal jugular vein was punctured under sono graphic guidance with a 20-gauge needle through which a 0.018 inch floppy tip guidewire was advanced into the superior vena cava. The tract was dilated to 5 Yi and the wire was then replaced with a 0.035 in Amplatz guidewire. A tunnel was then created from the anterior lateral aspect of the sup erior right chest wall to the puncture site in the neck and the catheter was pulled through the trac t. Serial dilatation was then performed and a 16 Yi peel away sheath was introduced. The 14.5 Yi 23cm tip to cuff Angiodynamics BioFlo DuraMax dialysis catheter was advanced through the 16 F rench peel-away sheath. The tip of the catheter was confirmed in position within the right atrium. T he peel-away sheath was removed. The 2 ports were each flushed with 2.3 ml of 1:1000 heparin. The c atheter was secured to the skin with 3-0 monofilament. The wound in the neck was closed with 2-0 Vicryl suture using subcuticular running technique. The site was dressed. The patient tolerated th e procedure well. COMPARISON: None. FINDINGS: Final radiographic images demonstrate the tip of the catheter in the upper right atrium. A total of 0.2 minutes of fluoroscopy time was used. The ultrasound images demonstrate the needle entering th e jugular vein. Ultrasound images were recorded and stored in the patient's medical record. 4 image s of the chest were obtained with image intensifier. IMPRESSION: 1. Percutaneous insertion of right internal jugular dialysis tunneled dialysis catheter under fluoro scopic and sonographic guidance. RPTAT: QQ .Matt Pennington MD, MD Date Time Electronically viewed and signed by .Matt Pennington MD, MD on 03/04/2017 14:25 .R/
--- NOTE | 2017-03-04 15:06 | CONS ---
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 Suggested end date of these antibiotics: (two weeks) - from ID standpoint, I recommend not PD in the future to avoid recurrent peritonitis - please instruct Pt to f/u with me in the office Management d/w Pt, Dr. Rose Problems: Consultation Date/Type/Reason Admit Date/Time Feb 26, 2017 at 03:18 Initial Consult Date 02/26/17 Type of Consultation: ID Referring Provider: RONIT ROJAS 24 HR Interval Summary Free Text/Dictation had a permacath placed in R chest wall Constitutional: no complaints Detailed Summary Eyes: no complaints Respiratory: no complaints Cardiovascular: no complaints Gastrointestinal: no complaints, No diarrhea Genitourinary: other (anuric) Musculoskeletal: no complaints Skin: other (discomfort from permacath placement today) Exam/Review of Systems Vital Signs Vitals Vital Signs Date Time Temp Pulse Resp B/P Pulse Ox O2 Delivery O2 Flow Rate FiO2 03/04/17 14:32 97.8 72 16 161/77 97 03/01/17 15:56 Room Air 02/28/17 21:00 2.0 Intake and Output 03/03/17 03/03/17 03/04/17 15:00 23:00 07:00 Intake Total 1100 ml 420 ml Balance 1100 ml 420 ml Exam Constitutional: alert, oriented, well developed Psych: nl mood/affect, no complaints Head: atraumatic, normocephalic Eyes: nl conjunctiva, nl lids ENMT: nl external ears & nose, nl nasal mucosa & septum Neck: supple Respiratory: clear to auscultation, normal air movement Cardiovascular: nl pulses, regular rate and rhythm Gastrointestinal: non-tender, other (former PD site is dressed c/d/i), soft, No distended Extremities: No edema 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, nl mental status Skin: other (permacath is dressed) Results Result Diagram: 03/04/17 0439 03/04/17 0439 Results 24 hrs Laboratory Tests Test 03/03/17 17:14 03/03/17 19:54 03/03/17 20:41 03/04/17 04:39 Bedside Glucose 160 159 149 White Blood Count 7.3 Red Blood Count 3.38 L Hemoglobin 10.1 L Hematocrit 29.0 L Mean Corpuscular Volume 85.8 Mean Corpuscular Hemoglobin 29.9 Mean Corpuscular Hemoglobin Concent 34.8 Red Cell Distribution Width 14.2 Platelet Count 126 L Mean Platelet Volume 11.8 H Neutrophils % 63.7 Lymphocytes % 13.6 L Monocytes % 12.1 H Eosinophils % 5.3 Basophils % 0.5 Nucleated Red Blood Cells % 0.0 Neutrophils # 4.7 Lymphocytes # 1.0 Monocytes # 0.9 Eosinophils # 0.4 Basophils # 0.0 Nucleated Red Blood Cells # 0.0 Prothrombin Time 13.9 Prothrombin Time Ratio 1.1 INR International Normalized Ratio 1.07 Activated Partial Thromboplast Time 43.3 H Sodium Level 134 L Potassium Level 3.9 Chloride Level 93 L Carbon Dioxide Level 20 L Anion Gap 25 H Blood Urea Nitrogen 69 H Creatinine 11.50 H Glucose Level 98 # Calcium Level 7.8 L Random Vancomycin Level 21.4 Test 03/04/17 07:55 03/04/17 11:53 Bedside Glucose 98 103 Medications Medications Current Medications Amlodipine Besylate (Norvasc) 10 mg DAILY PO Last administered on 02/26/17 08: 23; Admin Dose 10 MG; Start 02/26/17 at 09:00; Status Future Hold Atorvastatin Calcium (Lipitor) 20 mg HS PO Last administered on 03/03/17 20:40 ; Admin Dose 20 MG; Start 02/26/17 at 21:00 Carvedilol (Coreg) 25 mg BID PO Last administered on 02/27/17 20:12; Admin Dose 25 MG; Start 02/26/17 at 09:00; Status Future Hold Hydralazine HCl (Apresoline) 25 mg Q8 PO Last administered on 02/27/17 05:28; Admin Dose 25 MG; Start 02/26/17 at 06:00; Status Future Hold Multivit/Ca Carb/ B Cmplx/FA/Prenat (Pat-Tommy) 1 tab DAILY PO Last administered on 03/03/17 08:23; Admin Dose 1 TAB; Start 02/26/17 at 09:00 Zolpidem Tartrate (Ambien) 10 mg QHS PRN PO INSOMNIA; Start 02/26/17 at 05:30 Pregabalin (Lyrica) 200 mg BID PO Last administered on 03/03/17 20:40; Admin Dose 200 MG; Start 02/26/17 at 09:00 Diagnostic Test (Pha) (Accu-Chek) 1 ea 02 XX ; Start 02/27/17 at 02:00 Miscellaneous Information 1 ea NOTE XX ; Start 02/26/17 at 06:00 Glucose (Glutose) 15 gm Q15M PRN PO DECREASED GLUCOSE; Start 02/26/17 at 06:00 Glucose (Glutose) 22.5 gm Q15M PRN PO DECREASED GLUCOSE; Start 02/26/17 at 06: 00 Dextrose (D50w Syringe) 25 ml Q15M PRN IV DECREASED GLUCOSE Last administered on 02/28/17 08:10; Admin Dose 25 ML; Start 02/26/17 at 06:00 Dextrose (D50w Syringe) 50 ml Q15M PRN IV DECREASED GLUCOSE; Start 02/26/17 at 06:00 Glucagon (Glucagen) 1 mg Q15M PRN IM DECREASED GLUCOSE; Start 02/26/17 at 06:00 Glucose (Glutose) 15 gm Q15M PRN BUCCAL DECREASED GLUCOSE; Start 02/26/17 at 06 :00 Vancomycin HCl PER PHARMACY DOSING NOTE XX ; Start 02/26/17 at 17:30 Caspofungin 50 mg/ Sodium Chloride 250 ml @ 250 mls/hr Q24H IVPB Last administered on 03/03/17 17:20; Admin Dose 250 MLS/HR; Start 02/27/17 at 18:00 Meropenem/Sodium Chloride (Merrem 500mg/50 ml(Pmx)) 50 ml @ 100 mls/hr Q24H IVPB Last administered on 03/03/17 19:55; Admin Dose 100 MLS/HR; Start at 20:00 Acetaminophen (Tylenol Tab) 650 mg Q6H PRN PO PAIN AND OR ELEVATED TEMP; Start 02/27/17 at 11:30 Insulin Detemir (Levemir) 10 unit DAILY@20 SC Last administered on 03/03/17 19 :57; Admin Dose 10 UNIT; Start 02/28/17 at 20:00 Patient Own Medication 1 ea Sa@09 SC ; Start 03/02/17 at 09:00; Status Future Hold Epoetin Fly (Epogen (Esrd)) 6,000 units TuThSa@17 SC Last administered on 03/02 18:07; Admin Dose 6,000 UNITS; Start 03/02/17 at 17:00 Miscellaneous Information Patients own medicat... BID@10,16 XX ; Start 03/03/17 at 10:00 Dextrose/Sodium Chloride 1,000 ml @ 50 mls/hr Q20H IV Last administered on 10:51; Admin Dose 50 MLS/HR; Start 03/04/17 at 11:00 Vancomycin HCl (Vancocin) 250 ml @ 125 mls/hr 10 IVPB ; Start 03/05/17 at 10:00 ; Stop 03/05/17 at 12:00 REX BENITEZ M.D. Mar 04, 2017 15:06
[2017-03-04] MEDS: MULTIVIT/CA CARB/B CMPLX/FA TAB PO SCH (17:39)
[2017-03-04] MEDS: CASPOFUNGIN 50 MG in SOD CHLORIDE 0.9% 250 ML IVPB SCH (17:40)
[2017-03-04] MEDS: PREGABALIN 100 MG CAP PO SCH ×2 (17:40→21:00)
--- NOTE | 2017-03-04 19:24 | PN ---
Date/Time of Note Date/Time of Note DATE: 03/04/17 TIME: 19:21 Assessment/Plan VTE Prophylaxis VTE Prophylaxis Intervention: SCD's Lines/Catheters IV Catheter Type (from [facility]): Ruiz cath Assessment/Plan Chief Complaint/Hosp Course Patient status post right chest permacath insertion, currently undergoing hemodialysis. Remains hemodynamically stable, afebrile. Assessment/Plan -Sepsis most likely secondary to peritonitis, Dr. Pierre is following in infection disease consultation. Continue antibiotics per ID. -Peritonitis, status post peritoneal catheter removal by Dr. Shields, general surgery. -End-stage renal disease, Dr. Keith is following in nephrology consultation, continue hemodialysis via right femoral Ruiz catheter. -Hemodialysis access, Dr. Branch is following in vascular surgery consultation, plan for left upper extremity AV fistula creation on Saturday. -Hyperkalemia secondary to end-stage renal disease, resolved. -Diabetes mellitus, continue Lantus and NovoLog -Coronary artery disease, status post CABG -Peripheral vascular disease Further recommendations based on clinical course. Plan of care discussed with Dr. Sanchez. Problems: Exam/Review of Systems Vital Signs Vitals Vital Signs Date Time Temp Pulse Resp B/P Pulse Ox O2 Delivery O2 Flow Rate FiO2 03/04/17 17:35 77 03/04/17 14:35 19 03/04/17 14:32 97.8 161/77 97 03/01/17 15:56 Room Air 02/28/17 21:00 2.0 Intake and Output 03/03/17 03/03/17 03/04/17 14:59 22:59 06:59 Intake Total 1100 ml 420 ml Balance 1100 ml 420 ml Exam Constitutional: alert, oriented Head: atraumatic, normocephalic Respiratory: normal air movement Cardiovascular: nl pulses Gastrointestinal: soft, tender Extremities: normal pulses, other Neurological: nl mental status Right subclavian permacath Results Result Diagram: 03/04/17 0439 03/04/17 0439 Results 24 hrs Laboratory Tests Test 03/03/17 19:54 03/03/17 20:41 03/04/17 04:39 03/04/17 07:55 Bedside Glucose 159 149 98 White Blood Count 7.3 Red Blood Count 3.38 L Hemoglobin 10.1 L Hematocrit 29.0 L Mean Corpuscular Volume 85.8 Mean Corpuscular Hemoglobin 29.9 Mean Corpuscular Hemoglobin Concent 34.8 Red Cell Distribution Width 14.2 Platelet Count 126 L Mean Platelet Volume 11.8 H Neutrophils % 63.7 Lymphocytes % 13.6 L Monocytes % 12.1 H Eosinophils % 5.3 Basophils % 0.5 Nucleated Red Blood Cells % 0.0 Neutrophils # 4.7 Lymphocytes # 1.0 Monocytes # 0.9 Eosinophils # 0.4 Basophils # 0.0 Nucleated Red Blood Cells # 0.0 Prothrombin Time 13.9 Prothrombin Time Ratio 1.1 INR International Normalized Ratio 1.07 Activated Partial Thromboplast Time 43.3 H Sodium Level 134 L Potassium Level 3.9 Chloride Level 93 L Carbon Dioxide Level 20 L Anion Gap 25 H Blood Urea Nitrogen 69 H Creatinine 11.50 H Glucose Level 98 # Calcium Level 7.8 L Random Vancomycin Level 21.4 Test 03/04/17 11:53 03/04/17 17:11 Bedside Glucose 103 128 Medications Medications Current Medications Amlodipine Besylate (Norvasc) 10 mg DAILY PO Last administered on 02/26/17 08: 23; Admin Dose 10 MG; Start 02/26/17 at 09:00; Status Future Hold Atorvastatin Calcium (Lipitor) 20 mg HS PO Last administered on 03/03/17 20:40 ; Admin Dose 20 MG; Start 02/26/17 at 21:00 Carvedilol (Coreg) 25 mg BID PO Last administered on 02/27/17 20:12; Admin Dose 25 MG; Start 02/26/17 at 09:00; Status Future Hold Hydralazine HCl (Apresoline) 25 mg Q8 PO Last administered on 02/27/17 05:28; Admin Dose 25 MG; Start 02/26/17 at 06:00; Status Future Hold Multivit/Ca Carb/ B Cmplx/FA/Prenat (Pat-Tommy) 1 tab DAILY PO Last administered on 03/04/17 17:39; Admin Dose 1 TAB; Start 02/26/17 at 09:00 Zolpidem Tartrate (Ambien) 10 mg QHS PRN PO INSOMNIA; Start 02/26/17 at 05:30 Pregabalin (Lyrica) 200 mg BID PO Last administered on 03/04/17 17:40; Admin Dose 200 MG; Start 02/26/17 at 09:00 Diagnostic Test (Pha) (Accu-Chek) 1 ea 02 XX ; Start 02/27/17 at 02:00 Miscellaneous Information 1 ea NOTE XX ; Start 02/26/17 at 06:00 Glucose (Glutose) 15 gm Q15M PRN PO DECREASED GLUCOSE; Start 02/26/17 at 06:00 Glucose (Glutose) 22.5 gm Q15M PRN PO DECREASED GLUCOSE; Start 02/26/17 at 06: 00 Dextrose (D50w Syringe) 25 ml Q15M PRN IV DECREASED GLUCOSE Last administered on 02/28/17 08:10; Admin Dose 25 ML; Start 02/26/17 at 06:00 Dextrose (D50w Syringe) 50 ml Q15M PRN IV DECREASED GLUCOSE; Start 02/26/17 at 06:00 Glucagon (Glucagen) 1 mg Q15M PRN IM DECREASED GLUCOSE; Start 02/26/17 at 06:00 Glucose (Glutose) 15 gm Q15M PRN BUCCAL DECREASED GLUCOSE; Start 02/26/17 at 06 :00 Vancomycin HCl PER PHARMACY DOSING NOTE XX ; Start 02/26/17 at 17:30 Caspofungin 50 mg/ Sodium Chloride 250 ml @ 250 mls/hr Q24H IVPB Last administered on 03/04/17 17:40; Admin Dose 250 MLS/HR; Start 02/27/17 at 18:00 Meropenem/Sodium Chloride (Merrem 500mg/50 ml(Pmx)) 50 ml @ 100 mls/hr Q24H IVPB Last administered on 03/03/17 19:55; Admin Dose 100 MLS/HR; Start at 20:00 Acetaminophen (Tylenol Tab) 650 mg Q6H PRN PO PAIN AND OR ELEVATED TEMP; Start 02/27/17 at 11:30 Insulin Detemir (Levemir) 10 unit DAILY@20 SC Last administered on 03/03/17 19 :57; Admin Dose 10 UNIT; Start 02/28/17 at 20:00 Patient Own Medication 1 ea Sa@09 SC ; Start 03/02/17 at 09:00; Status Future Hold Epoetin Fly (Epogen (Esrd)) 6,000 units TuThSa@17 SC Last administered on 03/02 18:07; Admin Dose 6,000 UNITS; Start 03/02/17 at 17:00 Miscellaneous Information Patients own medicat... BID@10,16 XX ; Start 03/03/17 at 10:00 Dextrose/Sodium Chloride 1,000 ml @ 50 mls/hr Q20H IV Last administered on t 10:51; Admin Dose 50 MLS/HR; Start 03/04/17 at 11:00 Vancomycin HCl (Vancocin) 250 ml @ 125 mls/hr 10 IVPB ; Start 03/05/17 at 10:00 ; Stop 03/05/17 at 12:00 RONIT ROJAS Mar 04, 2017 19:24
[2017-03-04] MEDS: MEROPENEM 500MG/50 ML (PMX) 50 ML IVPB SCH (20:00)
[2017-03-04] MEDS: INSULIN DETEMIR [LEVEMIR] 3ML CART SC SCH (20:00)
--- NOTE | 2017-03-04 20:29 | CONS ---
Date/Time of Note Date/Time of Note DATE: 03/04/17 TIME: 20:23 Assessment/Plan Assessment/Plan Chief Complaint/Hosp Course pT ON 3 DIFF ANTIBIOTICS WITH NO ISOLATED ORGANISM Problems: Additional Assessment/Plan Pt had HD tonite, may be dcd in AM Discussed with ID, right now pt to continue HD ^ weeks from now, we'd review the situation again when Herniorhapphy would be carried out. Peritoneoscopy at that time can guide us whether he's a good candidate to return on HD for future. Pt definitely would like to go back to PD. No final decision yet. Cont'd Hospitalization Reason: I would continue to follow closely as outpt at the dialysis ctr. Consultation Date/Type/Reason Admit Date/Time Feb 26, 2017 at 03:18 Initial Consult Date 02/26/17 Type of Consultation: Renal Referring Provider: RONIT ROJAS 24 HR Interval Summary Free Text/Dictation Pt seen prior to Sx for Permacath Exam/Review of Systems Vital Signs Vitals Vital Signs Date Time Temp Pulse Resp B/P Pulse Ox O2 Delivery O2 Flow Rate FiO2 03/04/17 17:35 77 03/04/17 14:35 19 03/04/17 14:32 97.8 161/77 97 03/01/17 15:56 Room Air 02/28/17 21:00 2.0 Intake and Output 03/03/17 03/03/17 03/04/17 15:00 23:00 07:00 Intake Total 1100 ml 420 ml Balance 1100 ml 420 ml Exam Constitutional: alert, oriented, well developed Psych: nl mood/affect, no complaints Head: atraumatic, normocephalic Eyes: EOMI, PERRL, nl conjunctiva, nl lids, nl sclera ENMT: nl external ears & nose, nl lips & teeth, nl nasal mucosa & septum Neck: non-tender, supple Respiratory: clear to auscultation, normal air movement Cardiovascular: nl pulses, regular rate and rhythm Gastrointestinal: nl liver, spleen, non-tender, other (Tender abdomen), soft Genitourinary - Male: other (Inguinal hernia both groins) Musculoskeletal: nl extremities to inspection, nl gait and stance Extremities: normal pulses 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, nl mental status, nl speech, nl strength Skin: nl turgor, No rash or lesions Lymph: nl lymph nodes Results Result Diagram: 03/04/17 0439 03/04/17 0439 Results 24 hrs Laboratory Tests Test 03/03/17 20:41 03/04/17 04:39 03/04/17 07:55 03/04/17 11:53 Bedside Glucose 149 98 103 White Blood Count 7.3 Red Blood Count 3.38 L Hemoglobin 10.1 L Hematocrit 29.0 L Mean Corpuscular Volume 85.8 Mean Corpuscular Hemoglobin 29.9 Mean Corpuscular Hemoglobin Concent 34.8 Red Cell Distribution Width 14.2 Platelet Count 126 L Mean Platelet Volume 11.8 H Neutrophils % 63.7 Lymphocytes % 13.6 L Monocytes % 12.1 H Eosinophils % 5.3 Basophils % 0.5 Nucleated Red Blood Cells % 0.0 Neutrophils # 4.7 Lymphocytes # 1.0 Monocytes # 0.9 Eosinophils # 0.4 Basophils # 0.0 Nucleated Red Blood Cells # 0.0 Prothrombin Time 13.9 Prothrombin Time Ratio 1.1 INR International Normalized Ratio 1.07 Activated Partial Thromboplast Time 43.3 H Sodium Level 134 L Potassium Level 3.9 Chloride Level 93 L Carbon Dioxide Level 20 L Anion Gap 25 H Blood Urea Nitrogen 69 H Creatinine 11.50 H Glucose Level 98 # Calcium Level 7.8 L Random Vancomycin Level 21.4 Test 03/04/17 17:11 Bedside Glucose 128 Medications Medications Current Medications Amlodipine Besylate (Norvasc) 10 mg DAILY PO Last administered on 02/26/17 08: 23; Admin Dose 10 MG; Start 02/26/17 at 09:00; Status Future Hold Atorvastatin Calcium (Lipitor) 20 mg HS PO Last administered on 03/03/17 20:40 ; Admin Dose 20 MG; Start 02/26/17 at 21:00 Carvedilol (Coreg) 25 mg BID PO Last administered on 02/27/17 20:12; Admin Dose 25 MG; Start 02/26/17 at 09:00; Status Future Hold Hydralazine HCl (Apresoline) 25 mg Q8 PO Last administered on 02/27/17 05:28; Admin Dose 25 MG; Start 02/26/17 at 06:00; Status Future Hold Multivit/Ca Carb/ B Cmplx/FA/Prenat (Pat-Tommy) 1 tab DAILY PO Last administered on 03/04/17 17:39; Admin Dose 1 TAB; Start 02/26/17 at 09:00 Zolpidem Tartrate (Ambien) 10 mg QHS PRN PO INSOMNIA; Start 02/26/17 at 05:30 Pregabalin (Lyrica) 200 mg BID PO Last administered on 03/04/17 17:40; Admin Dose 200 MG; Start 02/26/17 at 09:00 Diagnostic Test (Pha) (Accu-Chek) 1 ea 02 XX ; Start 02/27/17 at 02:00 Miscellaneous Information 1 ea NOTE XX ; Start 02/26/17 at 06:00 Glucose (Glutose) 15 gm Q15M PRN PO DECREASED GLUCOSE; Start 02/26/17 at 06:00 Glucose (Glutose) 22.5 gm Q15M PRN PO DECREASED GLUCOSE; Start 02/26/17 at 06: 00 Dextrose (D50w Syringe) 25 ml Q15M PRN IV DECREASED GLUCOSE Last administered on 02/28/17 08:10; Admin Dose 25 ML; Start 02/26/17 at 06:00 Dextrose (D50w Syringe) 50 ml Q15M PRN IV DECREASED GLUCOSE; Start 02/26/17 at 06:00 Glucagon (Glucagen) 1 mg Q15M PRN IM DECREASED GLUCOSE; Start 02/26/17 at 06:00 Glucose (Glutose) 15 gm Q15M PRN BUCCAL DECREASED GLUCOSE; Start 02/26/17 at 06 :00 Vancomycin HCl PER PHARMACY DOSING NOTE XX ; Start 02/26/17 at 17:30 Caspofungin 50 mg/ Sodium Chloride 250 ml @ 250 mls/hr Q24H IVPB Last administered on 03/04/17 17:40; Admin Dose 250 MLS/HR; Start 02/27/17 at 18:00 Meropenem/Sodium Chloride (Merrem 500mg/50 ml(Pmx)) 50 ml @ 100 mls/hr Q24H IVPB Last administered on 03/03/17 19:55; Admin Dose 100 MLS/HR; Start at 20:00 Acetaminophen (Tylenol Tab) 650 mg Q6H PRN PO PAIN AND OR ELEVATED TEMP; Start 02/27/17 at 11:30 Insulin Detemir (Levemir) 10 unit DAILY@20 SC Last administered on 03/03/17 19 :57; Admin Dose 10 UNIT; Start 02/28/17 at 20:00 Patient Own Medication 1 ea Sa@09 SC ; Start 03/02/17 at 09:00; Status Future Hold Epoetin Fly (Epogen (Esrd)) 6,000 units TuThSa@17 SC Last administered on 03/02 18:07; Admin Dose 6,000 UNITS; Start 03/02/17 at 17:00 Miscellaneous Information Patients own medicat... BID@10,16 XX ; Start 03/03/17 at 10:00 Dextrose/Sodium Chloride 1,000 ml @ 50 mls/hr Q20H IV Last administered on 10:51; Admin Dose 50 MLS/HR; Start 03/04/17 at 11:00 Vancomycin HCl (Vancocin) 250 ml @ 125 mls/hr 10 IVPB ; Start 03/05/17 at 10:00 ; Stop 03/05/17 at 12:00 MANOJ HARE MD Mar 04, 2017 20:29
[2017-03-04] MEDS: ATORVASTATIN 20 MG TAB PO SCH (21:00)
[2017-03-05] VITALS (7 sets, daily range): BP systolic 135–179; BP diastolic 66–84; PULSE 68–78; RESP 18–19
[2017-03-05] MEDS: ACCU-CHEK XX SCH (02:00)
[2017-03-05 05:53] LABS: BASOPHIL # 0.1 10^3/ul (0.0-0.1); BASOPHILS % 0.8 % (0.0-2.0); EOSINOPHILS # 0.3 10^3/ul (0.0-0.5); EOSINOPHILS % 4.4 % (0.0-7.0); HEMATOCRIT 31.7 % (42.0-52.0); HEMOGLOBIN 10.9 g/dl (14.0-18.0); LYMPHOCYTES # 0.8 10^3/ul (0.8-2.9); LYMPHOCYTES % 13.3 % (15.0-51.0); MEAN CORPUSCULAR HEMOGLOBIN 29.9 pg (29.0-33.0); MEAN CORPUSCULAR HGB CONC 34.4 g/dl (32.0-37.0); MEAN CORPUSCULAR VOLUME 86.8 fl (82.0-101.0); MEAN PLATELET VOLUME 11.8 fl (7.4-10.4); MONOCYTE # 0.8 10^3/ul (0.3-0.9); MONOCYTES % 13.2 % (0.0-11.0); NEUTROPHIL # 3.9 10^3/ul (1.6-7.5); NEUTROPHILS % 64.7 % (39.0-77.0); PLATELET COUNT 152 10^3/UL (140-415); RED BLOOD COUNT 3.65 10^6/ul (4.70-6.10); RED CELL DISTRIBUTION WIDTH 14.1 % (11.5-14.5); WHITE BLOOD COUNT 6.1 10^3/ul (4.8-10.8)
[2017-03-05 06:51] LABS: CALCIUM 8.6 mg/dl (8.4-10.2); CREATININE 8.56 mg/dl (0.61-1.24); POTASSIUM 3.7 mmol/L (3.5-5.1)
[2017-03-05] MEDS: DEXTROSE 5%-0.9% NACL 1,000 ML IV SCH (07:00)
[2017-03-05] MEDS: PANTOPRAZOLE (EC) 40 MG TAB PO SCH (08:23)
[2017-03-05] MEDS: INSULIN ASPART [NOVOLOG] 3 ML PEN SC SCH ×4 (08:24→21:03)
[2017-03-05] MEDS: MULTIVIT/CA CARB/B CMPLX/FA TAB PO SCH (08:51)
[2017-03-05] MEDS: PREGABALIN 100 MG CAP PO SCH ×2 (09:00→20:59)
[2017-03-05] MEDS ORDERED: VANCOMYCIN 1 GM in NS 250 ML IVPB SCH (10:00)
[2017-03-05] MEDS ORDERED: hydrALAzine 20 MG INJ IV PRN (10:05)
--- NOTE | 2017-03-05 11:13 | CONS ---
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 - Suggested end date of these antibiotics: (two weeks) - from ID standpoint, I recommend not PD in the future to avoid recurrent peritonitis - please instruct Pt to f/u with me in the office Management d/w Pt Problems: Consultation Date/Type/Reason Admit Date/Time Feb 26, 2017 at 03:18 Initial Consult Date 02/26/17 Type of Consultation: ID Referring Provider: RONIT ROJAS 24 HR Interval Summary Constitutional: no complaints, other (wants to go home) Detailed Summary Eyes: no complaints ENT: no complaints Respiratory: no complaints Cardiovascular: no complaints Gastrointestinal: no complaints Genitourinary: other (anuric) Musculoskeletal: no complaints Skin: no complaints Neurologic: no complaints Exam/Review of Systems Vital Signs Vitals Vital Signs Date Time Temp Pulse Resp B/P Pulse Ox O2 Delivery O2 Flow Rate FiO2 03/05/17 10:31 73 149/66 03/05/17 08:00 98.3 18 98 03/01/17 15:56 Room Air Intake and Output 03/04/17 03/04/17 03/05/17 15:00 23:00 07:00 Intake Total 1000 ml 480 ml Output Total 4300 ml Balance -3300 ml 480 ml Exam Constitutional: alert, oriented, well developed Psych: nl mood/affect, no complaints Head: atraumatic, normocephalic Eyes: nl conjunctiva, nl lids ENMT: nl external ears & nose, nl nasal mucosa & septum Neck: supple Respiratory: clear to auscultation, normal air movement Cardiovascular: nl pulses, regular rate and rhythm Gastrointestinal: non-tender, other (PD sites are dressed c/d/i, non-TTP), soft , No ascites Musculoskeletal: nl extremities to inspection Extremities: normal pulses Neurological: ORDER ENTRY REPRESENTATIVE II-XII intact, nl mental status, nl speech Skin: other (permacath site on R chest wall is clean) Results Result Diagram: 03/05/1753003/05/17530 Results 24 hrs Laboratory Tests Test 03/04/17 11:53 03/04/17 17:11 03/04/17 21:57 03/05/17 05:31 Bedside Glucose 103 128 178 White Blood Count 6.1 Red Blood Count 3.65 L Hemoglobin 10.9 L Hematocrit 31.7 L Mean Corpuscular Volume 86.8 Mean Corpuscular Hemoglobin 29.9 Mean Corpuscular Hemoglobin Concent 34.4 Red Cell Distribution Width 14.1 Platelet Count 152 # Mean Platelet Volume 11.8 H Neutrophils % 64.7 Lymphocytes % 13.3 L Monocytes % 13.2 H Eosinophils % 4.4 Basophils % 0.8 Nucleated Red Blood Cells % 0.0 Neutrophils # 3.9 Lymphocytes # 0.8 Monocytes # 0.8 Eosinophils # 0.3 Basophils # 0.1 Nucleated Red Blood Cells # 0.0 Sodium Level 139 Potassium Level 3.7 Chloride Level 98 Carbon Dioxide Level 26 Anion Gap 19 H Blood Urea Nitrogen 42 #H Creatinine 8.56 #H Glucose Level 145 # Calcium Level 8.6 Test 03/05/17 08:01 Bedside Glucose 146 Medications Medications Current Medications Amlodipine Besylate (Norvasc) 10 mg DAILY PO Last administered on 02/26/17 08: 23; Admin Dose 10 MG; Start 02/26/17 at 09:00; Status Future Hold Atorvastatin Calcium (Lipitor) 20 mg HS PO Last administered on 03/04/17 21:00 ; Admin Dose 20 MG; Start 02/26/17 at 21:00 Carvedilol (Coreg) 25 mg BID PO Last administered on 02/27/17 20:12; Admin Dose 25 MG; Start 02/26/17 at 09:00; Status Future Hold Hydralazine HCl (Apresoline) 25 mg Q8 PO Last administered on 02/27/17 05:28; Admin Dose 25 MG; Start 02/26/17 at 06:00; Status Future Hold Multivit/Ca Carb/ B Cmplx/FA/Prenat (Pat-Tommy) 1 tab DAILY PO Last administered on 03/05/17 08:51; Admin Dose 1 TAB; Start 02/26/17 at 09:00 Zolpidem Tartrate (Ambien) 10 mg QHS PRN PO INSOMNIA; Start 02/26/17 at 05:30 Pregabalin (Lyrica) 200 mg BID PO Last administered on 03/04/17 21:00; Admin Dose 200 MG; Start 02/26/17 at 09:00 Diagnostic Test (Pha) (Accu-Chek) 1 ea 02 XX ; Start 02/27/17 at 02:00 Miscellaneous Information 1 ea NOTE XX ; Start 02/26/17 at 06:00 Glucose (Glutose) 15 gm Q15M PRN PO DECREASED GLUCOSE; Start 02/26/17 at 06:00 Glucose (Glutose) 22.5 gm Q15M PRN PO DECREASED GLUCOSE; Start 02/26/17 at 06: 00 Dextrose (D50w Syringe) 25 ml Q15M PRN IV DECREASED GLUCOSE Last administered on 02/28/17 08:10; Admin Dose 25 ML; Start 02/26/17 at 06:00 Dextrose (D50w Syringe) 50 ml Q15M PRN IV DECREASED GLUCOSE; Start 02/26/17 at 06:00 Glucagon (Glucagen) 1 mg Q15M PRN IM DECREASED GLUCOSE; Start 02/26/17 at 06:00 Glucose (Glutose) 15 gm Q15M PRN BUCCAL DECREASED GLUCOSE; Start 02/26/17 at 06 :00 Vancomycin HCl PER PHARMACY DOSING NOTE XX ; Start 02/26/17 at 17:30 Caspofungin 50 mg/ Sodium Chloride 250 ml @ 250 mls/hr Q24H IVPB Last administered on 03/04/17 17:40; Admin Dose 250 MLS/HR; Start 02/27/17 at 18:00 Meropenem/Sodium Chloride (Merrem 500mg/50 ml(Pmx)) 50 ml @ 100 mls/hr Q24H IVPB Last administered on 03/04/17 20:00; Admin Dose 100 MLS/HR; Start at 20:00 Acetaminophen (Tylenol Tab) 650 mg Q6H PRN PO PAIN AND OR ELEVATED TEMP; Start 02/27/17 at 11:30 Insulin Detemir (Levemir) 10 unit DAILY@20 SC Last administered on 03/04/17 20 :00; Admin Dose 10 UNIT; Start 02/28/17 at 20:00 Patient Own Medication 1 ea Sa@09 SC ; Start 03/02/17 at 09:00; Status Future Hold Epoetin Fly (Epogen (Esrd)) 6,000 units TuThSa@17 SC Last administered on 03/02 18:07; Admin Dose 6,000 UNITS; Start 03/02/17 at 17:00 Miscellaneous Information Patients own medicat... BID@10,16 XX ; Start 03/03/17 at 10:00 Dextrose/Sodium Chloride 1,000 ml @ 50 mls/hr Q20H IV Last administered on 10:51; Admin Dose 50 MLS/HR; Start 03/04/17 at 11:00 Vancomycin HCl (Vancocin) 250 ml @ 125 mls/hr 10 IVPB Last administered on 10:32; Admin Dose 125 MLS/HR; Start 03/05/17 at 10:00; Stop 03/05/17 at 12:00 Hydralazine HCl (Apresoline) 10 mg Q6H PRN IV sbp above 170; Start 03/05/17 at 10:05 REX BENITEZ M.D. Mar 05, 2017 11:13
--- NOTE | 2017-03-05 11:15 | CONS ---
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 - Suggested end date of these antibiotics: (two weeks) - please order CBC and BMP weekly while Pt's on IV and PO antibiotics - from ID standpoint, I recommend not PD in the future to avoid recurrent peritonitis - please instruct Pt to f/u with me in the office Management d/w Pt Problems: Consultation Date/Type/Reason Admit Date/Time Feb 26, 2017 at 03:18 Initial Consult Date 02/26/17 Type of Consultation: ID Referring Provider: RONIT ROJAS Exam/Review of Systems Vital Signs Vitals Vital Signs Date Time Temp Pulse Resp B/P Pulse Ox O2 Delivery O2 Flow Rate FiO2 03/05/17 10:31 73 149/66 03/05/17 08:00 98.3 18 98 03/01/17 15:56 Room Air Intake and Output 03/04/17 03/04/17 03/05/17 15:00 23:00 07:00 Intake Total 1000 ml 480 ml Output Total 4300 ml Balance -3300 ml 480 ml Results Result Diagram: 03/05/17 0531 03/05/17 0531 Results 24 hrs Laboratory Tests Test 03/04/17 11:53 03/04/17 17:11 03/04/17 21:57 03/05/17 05:31 Bedside Glucose 103 128 178 White Blood Count 6.1 Red Blood Count 3.65 L Hemoglobin 10.9 L Hematocrit 31.7 L Mean Corpuscular Volume 86.8 Mean Corpuscular Hemoglobin 29.9 Mean Corpuscular Hemoglobin Concent 34.4 Red Cell Distribution Width 14.1 Platelet Count 152 # Mean Platelet Volume 11.8 H Neutrophils % 64.7 Lymphocytes % 13.3 L Monocytes % 13.2 H Eosinophils % 4.4 Basophils % 0.8 Nucleated Red Blood Cells % 0.0 Neutrophils # 3.9 Lymphocytes # 0.8 Monocytes # 0.8 Eosinophils # 0.3 Basophils # 0.1 Nucleated Red Blood Cells # 0.0 Sodium Level 139 Potassium Level 3.7 Chloride Level 98 Carbon Dioxide Level 26 Anion Gap 19 H Blood Urea Nitrogen 42 #H Creatinine 8.56 #H Glucose Level 145 # Calcium Level 8.6 Test 03/05/17 08:01 Bedside Glucose 146 Medications Medications Current Medications Amlodipine Besylate (Norvasc) 10 mg DAILY PO Last administered on 02/26/17 08: 23; Admin Dose 10 MG; Start 02/26/17 at 09:00; Status Future Hold Atorvastatin Calcium (Lipitor) 20 mg HS PO Last administered on 03/04/17 21:00 ; Admin Dose 20 MG; Start 02/26/17 at 21:00 Carvedilol (Coreg) 25 mg BID PO Last administered on 02/27/17 20:12; Admin Dose 25 MG; Start 02/26/17 at 09:00; Status Future Hold Hydralazine HCl (Apresoline) 25 mg Q8 PO Last administered on 02/27/17 05:28; Admin Dose 25 MG; Start 02/26/17 at 06:00; Status Future Hold Multivit/Ca Carb/ B Cmplx/FA/Prenat (Pat-Tommy) 1 tab DAILY PO Last administered on 03/05/17 08:51; Admin Dose 1 TAB; Start 02/26/17 at 09:00 Zolpidem Tartrate (Ambien) 10 mg QHS PRN PO INSOMNIA; Start 02/26/17 at 05:30 Pregabalin (Lyrica) 200 mg BID PO Last administered on 03/04/17 21:00; Admin Dose 200 MG; Start 02/26/17 at 09:00 Diagnostic Test (Pha) (Accu-Chek) 1 ea 02 XX ; Start 02/27/17 at 02:00 Miscellaneous Information 1 ea NOTE XX ; Start 02/26/17 at 06:00 Glucose (Glutose) 15 gm Q15M PRN PO DECREASED GLUCOSE; Start 02/26/17 at 06:00 Glucose (Glutose) 22.5 gm Q15M PRN PO DECREASED GLUCOSE; Start 02/26/17 at 06: 00 Dextrose (D50w Syringe) 25 ml Q15M PRN IV DECREASED GLUCOSE Last administered on 02/28/17 08:10; Admin Dose 25 ML; Start 02/26/17 at 06:00 Dextrose (D50w Syringe) 50 ml Q15M PRN IV DECREASED GLUCOSE; Start 02/26/17 at 06:00 Glucagon (Glucagen) 1 mg Q15M PRN IM DECREASED GLUCOSE; Start 02/26/17 at 06:00 Glucose (Glutose) 15 gm Q15M PRN BUCCAL DECREASED GLUCOSE; Start 02/26/17 at 06 :00 Vancomycin HCl PER PHARMACY DOSING NOTE XX ; Start 02/26/17 at 17:30 Caspofungin 50 mg/ Sodium Chloride 250 ml @ 250 mls/hr Q24H IVPB Last administered on 03/04/17 17:40; Admin Dose 250 MLS/HR; Start 02/27/17 at 18:00 Meropenem/Sodium Chloride (Merrem 500mg/50 ml(Pmx)) 50 ml @ 100 mls/hr Q24H IVPB Last administered on 03/04/17 20:00; Admin Dose 100 MLS/HR; Start at 20:00 Acetaminophen (Tylenol Tab) 650 mg Q6H PRN PO PAIN AND OR ELEVATED TEMP; Start 02/27/17 at 11:30 Insulin Detemir (Levemir) 10 unit DAILY@20 SC Last administered on 03/04/17 20 :00; Admin Dose 10 UNIT; Start 02/28/17 at 20:00 Patient Own Medication 1 ea Sa@09 SC ; Start 03/02/17 at 09:00; Status Future Hold Epoetin Fly (Epogen (Esrd)) 6,000 units TuThSa@17 SC Last administered on 03/02 18:07; Admin Dose 6,000 UNITS; Start 03/02/17 at 17:00 Miscellaneous Information Patients own medicat... BID@10,16 XX ; Start 03/03/17 at 10:00 Dextrose/Sodium Chloride 1,000 ml @ 50 mls/hr Q20H IV Last administered on 10:51; Admin Dose 50 MLS/HR; Start 03/04/17 at 11:00 Vancomycin HCl (Vancocin) 250 ml @ 125 mls/hr 10 IVPB Last administered on 10:32; Admin Dose 125 MLS/HR; Start 03/05/17 at 10:00; Stop 03/05/17 at 12:00 Hydralazine HCl (Apresoline) 10 mg Q6H PRN IV sbp above 170; Start 03/05/17 at 10:05 REX BENITEZ M.D. Mar 05, 2017 11:15
[2017-03-05] MEDS: FLUCONAZOLE 200 MG TAB PO SCH (11:59)
[2017-03-05] MEDS ORDERED: hydrALAzine 20 MG INJ IV SCH (12:00)
--- NOTE | 2017-03-05 12:17 | PN ---
Date/Time of Note Date/Time of Note DATE: 03/05/17 TIME: 12:14 Assessment/Plan Lines/Catheters IV C[facility]ter Type (from [facility] Saline Lock Assessment/Plan Chief Complaint/Hosp Course -End-stage renal disease, with leukocytosis: It seems the patient's peritoneal dialysis catheter was infected S/P PD catheter removed -S/P emergent hemodialysis catheter placement, S/P Right IJ Perm Catheter -Patient would like to have another attempt for PD catheter placement. Will arrange for that as an outpt once he has been fully treated with antibiotics in 4-5 weeks from now -Patient is right handed, therefore, a left upper extremity Radiocephalic fistula can be considered in the future -Optimize vascular status (blood pressure medications, diet, nutrition, exercise , sugar control, antiplatelets). -Discussed findings, plan and management with the patient. He understands. -Thank you for allowing us to partake in the care of your patient. Please call with any questions. Problems: Subjective 24 Hr Interval Summary no new vascular events overnight Exam/Review of Systems Vital Signs Vitals Vital Signs Date Time Temp Pulse Resp B/P Pulse Ox O2 Delivery O2 Flow Rate FiO2 03/05/17 10:31 73 149/66 03/05/17 08:00 98.3 18 98 03/01/17 15:56 Room Air Intake and Output 03/04/17 03/04/17 03/05/17 15:00 23:00 07:00 Intake Total 1000 ml 480 ml Output Total 4300 ml Balance -3300 ml 480 ml Exam Free Text/Dictation GENERAL: Alert oriented x3. LUNGS: Clear to auscultation bilaterally HEART: S1, S2 present. No murmurs. Sternal incision is clean and well healed ABDOMEN: Soft NTND Bowel sounds positive, incision clean and dry EXTREMITIES: Right lower extremity, palpable femoral pulse. Nonpalpable pedal pulse. Motor and sensory intact. Capillary refill 3 seconds. Right great toe amputated with a well-healed incision site. Left lower extremity, palpable femoral pulse. Nonpalpable pedal pulse. Motor and sensory intact. Capillary refill 2-3 seconds Results Result Diagram: 03/05/17 0531 03/05/17 0531 AGATHA NEWTON MD Mar 05, 2017 12:17
--- NOTE | 2017-03-05 12:27 | CONS ---
Date/Time of Note Date/Time of Note DATE: 03/05/17 TIME: 12:26 Assessment/Plan Assessment/Plan Additional Assessment/Plan 52 yo male with 1) Sepsis secondary to peritonitis- Resolved 2) PD catheter Peritonitis 3) End-stage renal disease 4) Hyperkalemia 5) Diabetes mellitus 6) Coronary artery disease status post CABG 7) Peripheral vascular disease 8) S/p PC now on HD S/p HD HD Center placement DC planning as per Primary team Please no PICC line in new HD patient in preparation for future AVF/Access Will discuss with ID Specialist regarding above. Consultation Date/Type/Reason Admit Date/Time Feb 26, 2017 at 03:18 Initial Consult Date 02/26/17 Type of Consultation: Renal Referring Provider: RONIT ROJAS 24 HR Interval Summary Free Text/Dictation S/p HD Exam/Review of Systems Vital Signs Vitals Vital Signs Date Time Temp Pulse Resp B/P Pulse Ox O2 Delivery O2 Flow Rate FiO2 03/05/17 10:31 73 149/66 03/05/17 08:00 98.3 18 98 03/01/17 15:56 Room Air Intake and Output 03/04/17 03/04/17 03/05/17 15:00 23:00 07:00 Intake Total 1000 ml 480 ml Output Total 4300 ml Balance -3300 ml 480 ml Exam Constitutional: No distress ENMT: mucosa pink and moist Neck: No jvd Respiratory: clear to auscultation Cardiovascular: regular rate and rhythm, No edema Gastrointestinal: non-tender Extremities: No edema Neurological: SALESPERSON [place] [employer] II-XII intact, nl mental status Skin: No diaphoresis Results Result Diagram: 03/05/17 0531 03/05/17 0531 Results 24 hrs Laboratory Tests Test 03/04/17 17:11 03/04/17 21:57 03/05/17 05:31 03/05/17 08:01 Bedside Glucose 128 178 146 White Blood Count 6.1 Red Blood Count 3.65 L Hemoglobin 10.9 L Hematocrit 31.7 L Mean Corpuscular Volume 86.8 Mean Corpuscular Hemoglobin 29.9 Mean Corpuscular Hemoglobin Concent 34.4 Red Cell Distribution Width 14.1 Platelet Count 152 # Mean Platelet Volume 11.8 H Neutrophils % 64.7 Lymphocytes % 13.3 L Monocytes % 13.2 H Eosinophils % 4.4 Basophils % 0.8 Nucleated Red Blood Cells % 0.0 Neutrophils # 3.9 Lymphocytes # 0.8 Monocytes # 0.8 Eosinophils # 0.3 Basophils # 0.1 Nucleated Red Blood Cells # 0.0 Sodium Level 139 Potassium Level 3.7 Chloride Level 98 Carbon Dioxide Level 26 Anion Gap 19 H Blood Urea Nitrogen 42 #H Creatinine 8.56 #H Glucose Level 145 # Calcium Level 8.6 Test 03/05/17 11:43 Bedside Glucose 179 Medications Medications Current Medications Amlodipine Besylate (Norvasc) 10 mg DAILY PO Last administered on 02/26/17 08: 23; Admin Dose 10 MG; Start 02/26/17 at 09:00; Status Future Hold Atorvastatin Calcium (Lipitor) 20 mg HS PO Last administered on 03/04/17 21:00 ; Admin Dose 20 MG; Start 02/26/17 at 21:00 Carvedilol (Coreg) 25 mg BID PO Last administered on 02/27/17 20:12; Admin Dose 25 MG; Start 02/26/17 at 09:00; Status Future Hold Hydralazine HCl (Apresoline) 25 mg Q8 PO Last administered on 02/27/17 05:28; Admin Dose 25 MG; Start 02/26/17 at 06:00; Status Future Hold Multivit/Ca Carb/ B Cmplx/FA/Prenat (Pat-Tommy) 1 tab DAILY PO Last administered on 03/05/17 08:51; Admin Dose 1 TAB; Start 02/26/17 at 09:00 Zolpidem Tartrate (Ambien) 10 mg QHS PRN PO INSOMNIA; Start 02/26/17 at 05:30 Pregabalin (Lyrica) 200 mg BID PO Last administered on 03/04/17 21:00; Admin Dose 200 MG; Start 02/26/17 at 09:00 Diagnostic Test (Pha) (Accu-Chek) 1 ea 02 XX ; Start 02/27/17 at 02:00 Miscellaneous Information 1 ea NOTE XX ; Start 02/26/17 at 06:00 Glucose (Glutose) 15 gm Q15M PRN PO DECREASED GLUCOSE; Start 02/26/17 at 06:00 Glucose (Glutose) 22.5 gm Q15M PRN PO DECREASED GLUCOSE; Start 02/26/17 at 06: 00 Dextrose (D50w Syringe) 25 ml Q15M PRN IV DECREASED GLUCOSE Last administered on 02/28/17 08:10; Admin Dose 25 ML; Start 02/26/17 at 06:00 Dextrose (D50w Syringe) 50 ml Q15M PRN IV DECREASED GLUCOSE; Start 02/26/17 at 06:00 Glucagon (Glucagen) 1 mg Q15M PRN IM DECREASED GLUCOSE; Start 02/26/17 at 06:00 Glucose (Glutose) 15 gm Q15M PRN BUCCAL DECREASED GLUCOSE; Start 02/26/17 at 06 :00 Vancomycin HCl PER PHARMACY DOSING NOTE XX ; Start 02/26/17 at 17:30 Meropenem/Sodium Chloride (Merrem 500mg/50 ml(Pmx)) 50 ml @ 100 mls/hr Q24H IVPB Last administered on 03/04/17 20:00; Admin Dose 100 MLS/HR; Start at 20:00 Acetaminophen (Tylenol Tab) 650 mg Q6H PRN PO PAIN AND OR ELEVATED TEMP; Start 02/27/17 at 11:30 Insulin Detemir (Levemir) 10 unit DAILY@20 SC Last administered on 03/04/17 20 :00; Admin Dose 10 UNIT; Start 02/28/17 at 20:00 Patient Own Medication 1 ea Sa@09 SC ; Start 03/02/17 at 09:00; Status Future Hold Epoetin Fly (Epogen (Esrd)) 6,000 units TuThSa@17 SC Last administered on 03/02 18:07; Admin Dose 6,000 UNITS; Start 03/02/17 at 17:00 Miscellaneous Information Patients own medicat... BID@10,16 XX ; Start 03/03/17 at 10:00 Dextrose/Sodium Chloride (D5-NS) 1,000 ml @ 50 mls/hr Q20H IV Last administered on 03/04/17 10:51; Admin Dose 50 MLS/HR; Start 03/04/17 at 11:00 Hydralazine HCl (Apresoline) 10 mg Q6H PRN IV sbp above 170; Start 03/05/17 at 10:05 Fluconazole (Diflucan) 200 mg DAILY PO Last administered on 03/05/17 11:59; Admin Dose 200 MG; Start 03/05/17 at 11:30 BEL SNYDER MD Mar 05, 2017 12:27
--- NOTE | 2017-03-05 15:26 | CONS ---
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 Keith. He requested antibiotic regimen which does not require PICC. I recommend: - I recommend changing caspofungin (02/27/2017-) to renally dosed PO fluconazole (03/04/2017-) (changed) - continue IV vancomycin (02/26/2017-) at the time of HD. - Pt's on meropenem (02/27/2017-) at [facility]-->upon discharge, change it to IV ceftazidime at the time of HD and PO metronidazole 500mg tid - Suggested end date of these antibiotics: (two weeks) - please order CBC and BMP weekly while Pt's on IV and PO antibiotics - from ID standpoint, I recommend not PD in the future to avoid recurrent peritonitis - please instruct Pt to f/u with me in the office Management d/w Pt, Dr. Keith the total time I took to care for this Pt today was 40 min Problems: Consultation Date/Type/Reason Admit Date/Time Feb 26, 2017 at 03:18 Initial Consult Date 02/26/17 Type of Consultation: ID Referring Provider: RONIT ROJAS Exam/Review of Systems Vital Signs Vitals Vital Signs Date Time Temp Pulse Resp B/P Pulse Ox O2 Delivery O2 Flow Rate FiO2 03/05/17 14:00 98.2 71 19 173/81 98 03/01/17 15:56 Room Air Intake and Output 703/04/17 03/05/17 15:00 23:00 07:00 Intake Total 1000 ml 480 ml Output Total 4300 ml Balance -3300 ml 480 ml Results Result Diagram: 03/05/1731 03/05/1731 Results 24 hrs Laboratory Tests Test 03/04/17 17:11 03/04/17 21:57 03/05/17 05:31 03/05/17 08:01 Bedside Glucose 128 178 146 White Blood Count 6.1 Red Blood Count 3.65 L Hemoglobin 10.9 L Hematocrit 31.7 L Mean Corpuscular Volume 86.8 Mean Corpuscular Hemoglobin 29.9 Mean Corpuscular Hemoglobin Concent 34.4 Red Cell Distribution Width 14.1 Platelet Count 152 # Mean Platelet Volume 11.8 H Neutrophils % 64.7 Lymphocytes % 13.3 L Monocytes % 13.2 H Eosinophils % 4.4 Basophils % 0.8 Nucleated Red Blood Cells % 0.0 Neutrophils # 3.9 Lymphocytes # 0.8 Monocytes # 0.8 Eosinophils # 0.3 Basophils # 0.1 Nucleated Red Blood Cells # 0.0 Sodium Level 139 Potassium Level 3.7 Chloride Level 98 Carbon Dioxide Level 26 Anion Gap 19 H Blood Urea Nitrogen 42 #H Creatinine 8.56 #H Glucose Level 145 # Calcium Level 8.6 Test 03/05/17 11:43 Bedside Glucose 179 Medications Medications Current Medications Amlodipine Besylate (Norvasc) 10 mg DAILY PO Last administered on 02/26/17 08: 23; Admin Dose 10 MG; Start 02/26/17 at 09:00; Status Future Hold Atorvastatin Calcium (Lipitor) 20 mg HS PO Last administered on 03/04/17 21:00 ; Admin Dose 20 MG; Start 02/26/17 at 21:00 Carvedilol (Coreg) 25 mg BID PO Last administered on 02/27/17 20:12; Admin Dose 25 MG; Start 02/26/17 at 09:00; Status Future Hold Hydralazine HCl (Apresoline) 25 mg Q8 PO Last administered on 02/27/17 05:28; Admin Dose 25 MG; Start 02/26/17 at 06:00; Status Future Hold Multivit/Ca Carb/ B Cmplx/FA/Prenat (Pat-Tommy) 1 tab DAILY PO Last administered on 03/05/17 08:51; Admin Dose 1 TAB; Start 02/26/17 at 09:00 Zolpidem Tartrate (Ambien) 10 mg QHS PRN PO INSOMNIA; Start 02/26/17 at 05:30 Pregabalin (Lyrica) 200 mg BID PO Last administered on 03/04/17 21:00; Admin Dose 200 MG; Start 02/26/17 at 09:00 Diagnostic Test (Pha) (Accu-Chek) 1 ea 02 XX ; Start 02/27/17 at 02:00 Miscellaneous Information 1 ea NOTE XX ; Start 02/26/17 at 06:00 Glucose (Glutose) 15 gm Q15M PRN PO DECREASED GLUCOSE; Start 02/26/17 at 06:00 Glucose (Glutose) 22.5 gm Q15M PRN PO DECREASED GLUCOSE; Start 02/26/17 at 06: 00 Dextrose (D50w Syringe) 25 ml Q15M PRN IV DECREASED GLUCOSE Last administered on 02/28/17 08:10; Admin Dose 25 ML; Start 02/26/17 at 06:00 Dextrose (D50w Syringe) 50 ml Q15M PRN IV DECREASED GLUCOSE; Start 02/26/17 at 06:00 Glucagon (Glucagen) 1 mg Q15M PRN IM DECREASED GLUCOSE; Start 02/26/17 at 06:00 Glucose (Glutose) 15 gm Q15M PRN BUCCAL DECREASED GLUCOSE; Start 02/26/17 at 06 :00 Vancomycin HCl PER PHARMACY DOSING NOTE XX ; Start 02/26/17 at 17:30 Meropenem/Sodium Chloride (Merrem 500mg/50 ml(Pmx)) 50 ml @ 100 mls/hr Q24H IVPB Last administered on 03/04/17 20:00; Admin Dose 100 MLS/HR; Start at 20:00 Acetaminophen (Tylenol Tab) 650 mg Q6H PRN PO PAIN AND OR ELEVATED TEMP; Start 02/27/17 at 11:30 Insulin Detemir (Levemir) 10 unit DAILY@20 SC Last administered on 03/04/17 20 :00; Admin Dose 10 UNIT; Start 02/28/17 at 20:00 Patient Own Medication 1 ea Sa@09 SC ; Start 03/02/17 at 09:00; Status Future Hold Epoetin Fly (Epogen (Esrd)) 6,000 units TuThSa@17 SC Last administered on 03/02 18:07; Admin Dose 6,000 UNITS; Start 03/02/17 at 17:00 Miscellaneous Information Patients own medicat... BID@10,16 XX ; Start 03/03/17 at 10:00 Dextrose/Sodium Chloride (D5-NS) 1,000 ml @ 50 mls/hr Q20H IV Last administered on 03/04/17 10:51; Admin Dose 50 MLS/HR; Start 03/04/17 at 11:00 Hydralazine HCl (Apresoline) 10 mg Q6H PRN IV sbp above 170; Start 03/05/17 at 10:05 Fluconazole (Diflucan) 200 mg DAILY PO Last administered on 03/05/17 11:59; Admin Dose 200 MG; Start 03/05/17 at 11:30 REX BENITEZ M.D. Mar 05, 2017 15:26
[2017-03-05] MEDS: EPOETIN 3000 UNITS/1 ML INJ (ESRD) SC SCH (17:00)
--- NOTE | 2017-03-05 17:05 | CONS ---
Date/Time of Note Date/Time of Note DATE: 03/05/17 TIME: 17:03 Assessment/Plan Assessment/Plan Chief Complaint/Hosp Course IMP: 1.Pre-op for AVF creation 2.h/o cabg-negative trop x 3/No cp 3.HTN 4. HL 5.ESRD now on HD thru temp catheter 6.Peritonitis s/p removal PD catheter Recc: -on med-surg -continue statin -resume BB -Contnue abx's -HD for volume removal Problems: Consultation Date/Type/Reason Admit Date/Time Feb 26, 2017 at 03:18 Initial Consult Date 02/26/17 Type of Consultation: cardiology Reason for Consultation HTN Referring Provider: RONIT ROJAS Exam/Review of Systems Vital Signs Vitals Vital Signs Date Time Temp Pulse Resp B/P Pulse Ox O2 Delivery O2 Flow Rate FiO2 03/05/17 14:00 98.2 71 19 173/81 98 03/01/17 15:56 Room Air Intake and Output 03/04/17 03/04/17 03/05/17 15:00 23:00 07:00 Intake Total 1000 ml 480 ml Output Total 4300 ml Balance -3300 ml 480 ml Exam Review of Systems: CONSTITUTIONAL: No fevers, chills. PULMONARY: No sob CARDIOVASCULAR: No chest pain/palpitations GASTROINTESTINAL: No nausea/vomiting. GENITOURINARY: No hematuria/dysuria. MUSCULOSKELETAL: No myagias/arthalgias. PSYCHIATRIC: The patient denies depression. NEUROLOGIC: No weakness Constitutional: alert Psych: no complaints ENMT: mucosa pink and moist Neck: jvd, supple Respiratory: diminished breath sounds Cardiovascular: regular rate and rhythm Gastrointestinal: non-tender, soft Extremities: edema (none) Neurological: other (No focal deficits) Results Result Diagram: 03/05/17 0531 03/05/17 0531 Results 24 hrs Laboratory Tests Test 03/04/17 17:11 03/04/17 21:57 03/05/17 05:31 03/05/17 08:01 Bedside Glucose 128 178 146 White Blood Count 6.1 Red Blood Count 3.65 L Hemoglobin 10.9 L Hematocrit 31.7 L Mean Corpuscular Volume 86.8 Mean Corpuscular Hemoglobin 29.9 Mean Corpuscular Hemoglobin Concent 34.4 Red Cell Distribution Width 14.1 Platelet Count 152 # Mean Platelet Volume 11.8 H Neutrophils % 64.7 Lymphocytes % 13.3 L Monocytes % 13.2 H Eosinophils % 4.4 Basophils % 0.8 Nucleated Red Blood Cells % 0.0 Neutrophils # 3.9 Lymphocytes # 0.8 Monocytes # 0.8 Eosinophils # 0.3 Basophils # 0.1 Nucleated Red Blood Cells # 0.0 Sodium Level 139 Potassium Level 3.7 Chloride Level 98 Carbon Dioxide Level 26 Anion Gap 19 H Blood Urea Nitrogen 42 #H Creatinine 8.56 #H Glucose Level 145 # Calcium Level 8.6 Test 03/05/17 11:43 Bedside Glucose 179 Medications Medications Current Medications Amlodipine Besylate (Norvasc) 10 mg DAILY PO Last administered on 02/26/17 08: 23; Admin Dose 10 MG; Start 02/26/17 at 09:00; Status Future Hold Atorvastatin Calcium (Lipitor) 20 mg HS PO Last administered on 03/04/17 21:00 ; Admin Dose 20 MG; Start 02/26/17 at 21:00 Carvedilol (Coreg) 25 mg BID PO Last administered on 02/27/17 20:12; Admin Dose 25 MG; Start 02/26/17 at 09:00; Status Future Hold Hydralazine HCl (Apresoline) 25 mg Q8 PO Last administered on 02/27/17 05:28; Admin Dose 25 MG; Start 02/26/17 at 06:00; Status Future Hold Multivit/Ca Carb/ B Cmplx/FA/Prenat (Pat-Tommy) 1 tab DAILY PO Last administered on 03/05/17 08:51; Admin Dose 1 TAB; Start 02/26/17 at 09:00 Zolpidem Tartrate (Ambien) 10 mg QHS PRN PO INSOMNIA; Start 02/26/17 at 05:30 Pregabalin (Lyrica) 200 mg BID PO Last administered on 03/04/17 21:00; Admin Dose 200 MG; Start 02/26/17 at 09:00 Diagnostic Test (Pha) (Accu-Chek) 1 ea 02 XX ; Start 02/27/17 at 02:00 Miscellaneous Information 1 ea NOTE XX ; Start 02/26/17 at 06:00 Glucose (Glutose) 15 gm Q15M PRN PO DECREASED GLUCOSE; Start 02/26/17 at 06:00 Glucose (Glutose) 22.5 gm Q15M PRN PO DECREASED GLUCOSE; Start 02/26/17 at 06: 00 Dextrose (D50w Syringe) 25 ml Q15M PRN IV DECREASED GLUCOSE Last administered on 02/28/17 08:10; Admin Dose 25 ML; Start 02/26/17 at 06:00 Dextrose (D50w Syringe) 50 ml Q15M PRN IV DECREASED GLUCOSE; Start 02/26/17 at 06:00 Glucagon (Glucagen) 1 mg Q15M PRN IM DECREASED GLUCOSE; Start 02/26/17 at 06:00 Glucose (Glutose) 15 gm Q15M PRN BUCCAL DECREASED GLUCOSE; Start 02/26/17 at 06 :00 Vancomycin HCl PER PHARMACY DOSING NOTE XX ; Start 02/26/17 at 17:30 Meropenem/Sodium Chloride (Merrem 500mg/50 ml(Pmx)) 50 ml @ 100 mls/hr Q24H IVPB Last administered on 03/04/17 20:00; Admin Dose 100 MLS/HR; Start at 20:00 Acetaminophen (Tylenol Tab) 650 mg Q6H PRN PO PAIN AND OR ELEVATED TEMP; Start 02/27/17 at 11:30 Insulin Detemir (Levemir) 10 unit DAILY@20 SC Last administered on 03/04/17 20 :00; Admin Dose 10 UNIT; Start 02/28/17 at 20:00 Patient Own Medication 1 ea Sa@09 SC ; Start 03/02/17 at 09:00; Status Future Hold Epoetin Fly (Epogen (Esrd)) 6,000 units TuThSa@17 SC Last administered on 03/02 18:07; Admin Dose 6,000 UNITS; Start 03/02/17 at 17:00 Miscellaneous Information Patients own medicat... BID@10,16 XX ; Start 03/03/17 at 10:00 Dextrose/Sodium Chloride (D5-NS) 1,000 ml @ 50 mls/hr Q20H IV Last administered on 03/04/17 10:51; Admin Dose 50 MLS/HR; Start 03/04/17 at 11:00 Hydralazine HCl (Apresoline) 10 mg Q6H PRN IV sbp above 170; Start 03/05/17 at 10:05 Fluconazole (Diflucan) 200 mg DAILY PO Last administered on 03/05/17t 11:59; Admin Dose 200 MG; Start 03/05/17 at 11:30 DEMETRIUS MEYER Mar 05, 2017 17:05
--- NOTE | 2017-03-05 17:24 | PN ---
Date/Time of Note Date/Time of Note DATE: 03/05/17 TIME: 17:21 Assessment/Plan VTE Prophylaxis VTE Prophylaxis Intervention: SCD's Lines/Catheters IV Catheter [facility] (from [facility]): Saline Lock Assessment/Plan Chief Complaint/Hosp Course Patient was episode of elevated blood pressure with systolic blood pressure above 170, resume patient antihypertensive, will continue to monitor blood pressure. Possible discharge tomorrow if blood pressure is stable. Assessment/Plan -Sepsis most likely secondary to peritonitis, Dr. Pierre is following in infection disease consultation. Continue antibiotics per ID. -Peritonitis, status post peritoneal catheter removal by Dr. Shields, general surgery. -End-stage renal disease, Dr. Keith is following in nephrology consultation, continue hemodialysis via right femoral Ruiz catheter. -Hemodialysis access, Dr. Branch is following in vascular surgery consultation, plan for left upper extremity AV fistula creation on Saturday. -Hyperkalemia secondary to end-stage renal disease, resolved. -Diabetes mellitus, continue Lantus and NovoLog -Coronary artery disease, status post CABG -Peripheral vascular disease Further recommendations based on clinical course. Plan of care discussed with Dr. Sanchez. Problems: Exam/Review of Systems Vital Signs Vitals Vital Signs Date Time Temp Pulse Resp B/P Pulse Ox O2 Delivery O2 Flow Rate FiO2 03/05/17 14:00 98.2 71 19 173/81 98 03/01/17 15:56 Room Air Intake and Output 03/04/17 03/04/17 03/05/17 15:00 23:00 07:00 Intake Total 1000 ml 480 ml Output Total 4300 ml Balance -3300 ml 480 ml Exam Constitutional: alert, oriented Head: atraumatic, normocephalic Respiratory: normal air movement Cardiovascular: nl pulses Gastrointestinal: soft, tender Extremities: normal pulses, other Neurological: nl mental status Right subclavian permacath Results Result Diagram: 03/05/17 0531 03/05/1731 Results 24 hrs Laboratory Tests Test 03/04/17 21:57 03/05/17 05:31 03/05/17 08:01 03/05/17 11:43 Bedside Glucose 178 146 179 White Blood Count 6.1 Red Blood Count 3.65 L Hemoglobin 10.9 L Hematocrit 31.7 L Mean Corpuscular Volume 86.8 Mean Corpuscular Hemoglobin 29.9 Mean Corpuscular Hemoglobin Concent 34.4 Red Cell Distribution Width 14.1 Platelet Count 152 # Mean Platelet Volume 11.8 H Neutrophils % 64.7 Lymphocytes % 13.3 L Monocytes % 13.2 H Eosinophils % 4.4 Basophils % 0.8 Nucleated Red Blood Cells % 0.0 Neutrophils # 3.9 Lymphocytes # 0.8 Monocytes # 0.8 Eosinophils # 0.3 Basophils # 0.1 Nucleated Red Blood Cells # 0.0 Sodium Level 139 Potassium Level 3.7 Chloride Level 98 Carbon Dioxide Level 26 Anion Gap 19 H Blood Urea Nitrogen 42 #H Creatinine 8.56 #H Glucose Level 145 # Calcium Level 8.6 Medications Medications Current Medications Amlodipine Besylate (Norvasc) 10 mg DAILY PO Last administered on 02/26/17 08: 23; Admin Dose 10 MG; Start 02/26/17 at 09:00; Status Future Hold Atorvastatin Calcium (Lipitor) 20 mg HS PO Last administered on 03/04/17 21:00 ; Admin Dose 20 MG; Start 02/26/17 at 21:00 Carvedilol (Coreg) 25 mg BID PO Last administered on 02/27/17 20:12; Admin Dose 25 MG; Start 02/26/17 at 09:00; Status Future Hold Hydralazine HCl (Apresoline) 25 mg Q8 PO Last administered on 02/27/17 05:28; Admin Dose 25 MG; Start 02/26/17 at 06:00; Status Future Hold Multivit/Ca Carb/ B Cmplx/FA/Prenat (Pat-Tommy) 1 tab DAILY PO Last administered on 03/05/17 08:51; Admin Dose 1 TAB; Start 02/26/17 at 09:00 Zolpidem Tartrate (Ambien) 10 mg QHS PRN PO INSOMNIA; Start 02/26/17 at 05:30 Pregabalin (Lyrica) 200 mg BID PO Last administered on 03/04/17 21:00; Admin Dose 200 MG; Start 02/26/17 at 09:00 Diagnostic Test (Pha) (Accu-Chek) 1 ea 02 XX ; Start 02/27/17 at 02:00 Miscellaneous Information 1 ea NOTE XX ; Start 02/26/17 at 06:00 Glucose (Glutose) 15 gm Q15M PRN PO DECREASED GLUCOSE; Start 02/26/17 at 06:00 Glucose (Glutose) 22.5 gm Q15M PRN PO DECREASED GLUCOSE; Start 02/26/17 at 06: 00 Dextrose (D50w Syringe) 25 ml Q15M PRN IV DECREASED GLUCOSE Last administered on 02/28/17 08:10; Admin Dose 25 ML; Start 02/26/17 at 06:00 Dextrose (D50w Syringe) 50 ml Q15M PRN IV DECREASED GLUCOSE; Start 02/26/17 at 06:00 Glucagon (Glucagen) 1 mg Q15M PRN IM DECREASED GLUCOSE; Start 02/26/17 at 06:00 Glucose (Glutose) 15 gm Q15M PRN BUCCAL DECREASED GLUCOSE; Start 02/26/17 at 06 :00 Vancomycin HCl PER PHARMACY DOSING NOTE XX ; Start 02/26/17 at 17:30 Meropenem/Sodium Chloride (Merrem 500mg/50 ml(Pmx)) 50 ml @ 100 mls/hr Q24H IVPB Last administered on 03/04/17 20:00; Admin Dose 100 MLS/HR; Start at 20:00 Acetaminophen (Tylenol Tab) 650 mg Q6H PRN PO PAIN AND OR ELEVATED TEMP; Start 02/27/17 at 11:30 Insulin Detemir (Levemir) 10 unit DAILY@20 SC Last administered on 03/04/17 20 :00; Admin Dose 10 UNIT; Start 02/28/17 at 20:00 Patient Own Medication 1 ea Sa@09 SC ; Start 03/02/17 at 09:00; Status Future Hold Epoetin Fly (Epogen (Esrd)) 6,000 units TuThSa@17 SC Last administered on 03/02 18:07; Admin Dose 6,000 UNITS; Start 03/02/17 at 17:00 Miscellaneous Information Patients own medicat... BID@ XX ; Start 03/03/17 at 10:00 Dextrose/Sodium Chloride (D5-NS) 1,000 ml @ 50 mls/hr Q20H IV Last administered on 03/04/17 10:51; Admin Dose 50 MLS/HR; Start 03/04/17 at 11:00 Hydralazine HCl (Apresoline) 10 mg Q6H PRN IV sbp above 170; Start 03/05/17 at 10:05 Fluconazole (Diflucan) 200 mg DAILY PO Last administered on 03/05/17t 11:59; Admin Dose 200 MG; Start 03/05/17 at 11:30 RONIT ROJAS Mar 05, 2017 17:24
[2017-03-05] MEDS: ATORVASTATIN 20 MG TAB PO SCH (20:59)
[2017-03-05] MEDS: MEROPENEM 500MG/50 ML (PMX) 50 ML IVPB SCH (20:59)
[2017-03-05] MEDS: INSULIN DETEMIR [LEVEMIR] 3ML CART SC SCH (21:08)
--- NOTE | 2017-03-05 23:10 | PN ---
Date/Time of Note Date/Time of Note DATE: 03/05/17 TIME: 22:58 Assessment/Plan Lines/Catheters IV Catheter Type (from Nrsg): Saline Lock Assessment/Plan Chief Complaint/Hosp Course 1. Peritonitis, recurrent, with infected PD catheter s/p explantation of PD. Pain improved; culture negative; -abx per ID -judicious fluid management -Patient to follow up in office within the next week for suture removal 2. ESRD: -HD 3. Obesity, bmi 34 -encourage nutritional optimization -encourage exercise 4. Sepsis 2nd above improving: wbc normalized 5. DM -diet/medication control -encourage weight loss 6. CAD -cardiac optimization -encourage weight loss 7. PVD -medical/lifestyle optimization 8. HTN -diet/medication optimization -encourage weight loss 9. Hypercholesterolemia -diet/medication optimization -encourage weight loss 10. Leukocytosis 2/2 #1, normalized -as above -abx 11. Normocytic anemia: likely 2/2 chronic disease vs. acute bleed; h/h stable -monitor & replete as needed 12. Thrombocytopenia: improved -bleeding precautions 13. Hypokalemia -optimize lytes -monitor for cardiac arrhythmias 14.Hyponatremia: likely 2/2 hemodilution: normalized 15. Hypocalcemia with hypoalbuminemia: likely 2/2 Malnutrition +/- inflammation -nutrition optimization -replete and monitor Patient seen and examined in collaboration with Dr. Jeremiah Shields Problems: Subjective 24 Hr Interval Summary Feels well. no drainage from incision sites. No fevers, chills, servin, dizziness, cp, palpitations, sob, cough, fevers, chills, n/v/d. Exam/Review of Systems Vital Signs Vitals Vital Signs Date Time Temp Pulse Resp B/P Pulse Ox O2 Delivery O2 Flow Rate FiO2 03/05/17 21:19 78 173/84 03/05/17 20:00 97.8 18 99 03/01/17 15:56 Room Air Intake and Output 03/04/17 03/04/17 03/05/17 15:00 23:00 07:00 Intake Total 1000 ml 480 ml Output Total 4300 ml Balance -3300 ml 480 ml Exam Free Text/Dictation Constitutional: alert, obese, oriented, No distress Psych: nl mood/affect, No anxiety Head: atraumatic, normocephalic Eyes: EOMI, PERRL, nl conjunctiva, No icteric ENMT: mucosa pink and moist, nl external ears & nose, nl lips & teeth Neck: non-tender, supple Respiratory: normal air movement, No congested cough, No labored breathing Cardiovascular: regular rate and rhythm, No edema Gastrointestinal: soft, tender (min), incision sites dry without erythema or drainage No distended, No firm, No rebound or guarding Musculoskeletal: nl extremities to inspection, nl gait and stance, No joint tenderness Extremities: normal pulses, No calf tenderness Neurological: nl mental status, nl speech, nl strength Skin: nl turgor, incision sites dry and intact, sutures in place No diaphoresis, No rash or lesions Lymph: nl lymph nodes Results Result Diagram: 03/05/17 0531 03/05/17 0531 TUAN CHAN NP Mar 05, 2017 23:08
[2017-03-06] VITALS (11 sets, daily range): BP systolic 118–160; BP diastolic 62–89; PULSE 73–84; RESP 18–20
[2017-03-06] MEDS: ACCU-CHEK XX SCH (02:00)
[2017-03-06] MEDS: DEXTROSE 5%-0.9% NACL 1,000 ML IV SCH (03:00)
[2017-03-06 05:39] LABS: BASOPHIL # 0.1 10^3/ul (0.0-0.1); BASOPHILS % 0.8 % (0.0-2.0); EOSINOPHILS # 0.4 10^3/ul (0.0-0.5); EOSINOPHILS % 5.8 % (0.0-7.0); HEMATOCRIT 29.6 % (42.0-52.0); HEMOGLOBIN 10.1 g/dl (14.0-18.0); LYMPHOCYTES # 0.9 10^3/ul (0.8-2.9); LYMPHOCYTES % 13.8 % (15.0-51.0); MEAN CORPUSCULAR HEMOGLOBIN 29.3 pg (29.0-33.0); MEAN CORPUSCULAR HGB CONC 34.1 g/dl (32.0-37.0); MEAN CORPUSCULAR VOLUME 85.8 fl (82.0-101.0); MEAN PLATELET VOLUME 11.7 fl (7.4-10.4); MONOCYTE # 0.7 10^3/ul (0.3-0.9); MONOCYTES % 11.3 % (0.0-11.0); NEUTROPHIL # 4.1 10^3/ul (1.6-7.5); NEUTROPHILS % 64.7 % (39.0-77.0); PLATELET COUNT 159 10^3/UL (140-415); RED BLOOD COUNT 3.45 10^6/ul (4.70-6.10); RED CELL DISTRIBUTION WIDTH 14.1 % (11.5-14.5); WHITE BLOOD COUNT 6.4 10^3/ul (4.8-10.8)
[2017-03-06] MEDS: PANTOPRAZOLE (EC) 40 MG TAB PO SCH (05:47)
[2017-03-06 06:15] LABS: CALCIUM 8.1 mg/dl (8.4-10.2); CREATININE 9.89 mg/dl (0.61-1.24); POTASSIUM 3.9 mmol/L (3.5-5.1)
[2017-03-06] MEDS: INSULIN ASPART [NOVOLOG] 3 ML PEN SC SCH ×2 (08:00→12:00)
[2017-03-06] MEDS: FLUCONAZOLE 200 MG TAB PO SCH (08:51)
[2017-03-06] MEDS: MULTIVIT/CA CARB/B CMPLX/FA TAB PO SCH (08:51)
[2017-03-06] MEDS: PREGABALIN 100 MG CAP PO SCH (08:51)
--- NOTE | 2017-03-06 11:03 | CONS ---
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 Pt took caspofungin (2016-03/04/2017) - continue IV vancomycin (02/26/2017-) at the time of HD. - change meropenem (02/27/2017-) to IV ceftazidime 1 gram after dialysis and renally dosed PO metronidazole starting tomorrow (ordered) - suggested end date of these antibiotics (IV vancomycin, ceftazidime, fluconazole, metronidazole): (two weeks) - please order CBC and BMP weekly while Pt's on IV and PO antibiotics - from ID standpoint, I recommend not PD in the future to avoid recurrent peritonitis - I instructed Pt to f/u with me in the office Management d/w Pt the total time I took to care for this Pt today was 40 min Problems: Consultation Date/Type/Reason Admit Date/Time Feb 26, 2017 at 03:18 Initial Consult Date 02/26/17 Type of Consultation: ID Referring Provider: RONIT ROJAS 24 HR Interval Summary Subjective hx not possible: other (wants to go home) Constitutional: no complaints Detailed Summary Eyes: no complaints ENT: no complaints Respiratory: no complaints Cardiovascular: no complaints Gastrointestinal: no complaints, No nausea, No pain Genitourinary: other (anuric) Musculoskeletal: no complaints Skin: no complaints Neurologic: no complaints Endocrine: no complaints Exam/Review of Systems Vital Signs Vitals Vital Signs Date Time Temp Pulse Resp B/P Pulse Ox O2 Delivery O2 Flow Rate FiO2 03/06/17 08:51 98.2 69 18 143/70 98 Intake and Output 03/05/17 03/05/17 03/06/17 15:00 23:00 07:00 Intake Total 250 ml 1210 ml 480 ml Balance 250 ml 1210 ml 480 ml Exam Constitutional: alert, oriented, well developed Psych: nl mood/affect, no complaints Head: atraumatic, normocephalic Eyes: nl conjunctiva, nl lids ENMT: nl external ears & nose, nl nasal mucosa & septum Neck: supple Gastrointestinal: non-tender, other (former PD site is dressed c/d/i), soft, No distended Musculoskeletal: nl extremities to inspection Extremities: No edema 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, nl mental status, nl speech, nl strength Skin: other (permacath site is clean) Results Result Diagram: 03/06/17 0437 03/06/17 0437 Results 24 hrs Laboratory Tests Test 03/05/17 11:43 03/05/17 18:01 03/05/17 20:49 03/06/17 02:17 Bedside Glucose 179 215 225 H 154 Test 03/06/17 04:37 03/06/17 07:56 White Blood Count 6.4 Red Blood Count 3.45 L Hemoglobin 10.1 L Hematocrit 29.6 L Mean Corpuscular Volume 85.8 Mean Corpuscular Hemoglobin 29.3 Mean Corpuscular Hemoglobin Concent 34.1 Red Cell Distribution Width 14.1 Platelet Count 159 Mean Platelet Volume 11.7 H Neutrophils % 64.7 Lymphocytes % 13.8 L Monocytes % 11.3 H Eosinophils % 5.8 Basophils % 0.8 Nucleated Red Blood Cells % 0.0 Neutrophils # 4.1 Lymphocytes # 0.9 Monocytes # 0.7 Eosinophils # 0.4 Basophils # 0.1 Nucleated Red Blood Cells # 0.0 Sodium Level 139 Potassium Level 3.9 Chloride Level 98 Carbon Dioxide Level 24 Anion Gap 21 H Blood Urea Nitrogen 55 H Creatinine 9.89 H Glucose Level 112 Calcium Level 8.1 L Bedside Glucose 105 Medications Medications Current Medications Amlodipine Besylate (Norvasc) 10 mg DAILY PO Last administered on 02/26/17t 08: 23; Admin Dose 10 MG; Start 02/26/17 at 09:00; Status Future hold Atorvastatin Calcium (Lipitor) 20 mg HS PO Last administered on 03/05/17 20:59 ; Admin Dose 20 MG; Start 02/26/17 at 21:00 Carvedilol (Coreg) 25 mg BID PO Last administered on 03/05/17 21:09; Admin Dose 25 MG; Start 02/26/17 at 09:00; Status Future hold Hydralazine HCl (Apresoline) 25 mg Q8 PO Last administered on 03/06/17 05:47; Admin Dose 25 MG; Start 02/26/17 at 06:00; Status Future hold Multivit/Ca Carb/ B Cmplx/FA/Prenat (Pat-Tommy) 1 tab DAILY PO Last administered on 03/06/17 08:51; Admin Dose 1 TAB; Start 02/26/17 at 09:00 Zolpidem Tartrate (Ambien) 10 mg QHS PRN PO INSOMNIA; Start 02/26/17 at 05:30 Pregabalin (Lyrica) 200 mg BID PO Last administered on 03/06/17 08:51; Admin Dose 200 MG; Start 02/26/17 at 09:00 Diagnostic Test (Pha) (Accu-Chek) 1 ea 02 XX ; Start 02/27/17 at 02:00 Miscellaneous Information 1 ea NOTE XX ; Start 02/26/17 at 06:00 Glucose (Glutose) 15 gm Q15M PRN PO DECREASED GLUCOSE; Start 02/26/17 at 06:00 Glucose (Glutose) 22.5 gm Q15M PRN PO DECREASED GLUCOSE; Start 02/26/17 at 06: 00 Dextrose (D50w Syringe) 25 ml Q15M PRN IV DECREASED GLUCOSE Last administered on 02/28/17 08:10; Admin Dose 25 ML; Start 02/26/17 at 06:00 Dextrose (D50w Syringe) 50 ml Q15M PRN IV DECREASED GLUCOSE; Start 02/26/17 at 06:00 Glucagon (Glucagen) 1 mg Q15M PRN IM DECREASED GLUCOSE; Start 02/26/17 at 06:00 Glucose (Glutose) 15 gm Q15M PRN BUCCAL DECREASED GLUCOSE; Start 02/26/17 at 06 :00 Vancomycin HCl PER PHARMACY DOSING NOTE XX ; Start 02/26/17 at 17:30 Meropenem/Sodium Chloride (Merrem 500mg/50 ml(Pmx)) 50 ml @ 100 mls/hr Q24H IVPB Last administered on 03/05/17 20:59; Admin Dose 100 MLS/HR; Start at 20:00 Acetaminophen (Tylenol Tab) 650 mg Q6H PRN PO PAIN AND OR ELEVATED TEMP; Start 02/27/17 at 11:30 Insulin Detemir (Levemir) 10 unit DAILY@20 SC Last administered on 03/05/17 21 :08; Admin Dose 10 UNIT; Start 02/28/17 at 20:00 Patient Own Medication 1 ea Sa@09 SC ; Start 03/02/17 at 09:00; Status Future Hold Epoetin Fly (Epogen (Esrd)) 6,000 units TuThSa@17 SC Last administered on 03/02 18:07; Admin Dose 6,000 UNITS; Start 03/02/17 at 17:00 Miscellaneous Information Patients own medicat... BID@10,16 XX ; Start 03/03/17 at 10:00 Dextrose/Sodium Chloride (D5-NS) 1,000 ml @ 50 mls/hr Q20H IV Last administered on 03/04/17 10:51; Admin Dose 50 MLS/HR; Start 03/04/17 at 11:00 Hydralazine HCl (Apresoline) 10 mg Q6H PRN IV sbp above 170; Start 03/05/17 at 10:05 Fluconazole (Diflucan) 200 mg DAILY PO Last administered on 03/06/17 08:51; Admin Dose 200 MG; Start 03/05/17 at 11:30 REX BENITEZ M.D. Mar 06, 2017 11:03
[2017-03-06] MEDS ORDERED: METR250T PO (15:38)
[2017-03-06] MEDS ORDERED: FLUC200T36 PO (15:38)
--- NOTE | 2017-03-06 15:56 | CONS ---
Date/Time of Note Date/Time of Note DATE: 03/06/17 TIME: 15:54 Assessment/Plan Assessment/Plan Chief Complaint/Hosp Course IMP: 1.Pre-op for AVF creation 2.h/o cabg-negative trop x 3/No cp 3.HTN 4. HL 5.ESRD now on HD thru temp catheter 6.Peritonitis s/p removal PD catheter Recc: -on med-surg -continue statin -Continue BB -Contnue abx's -HD for volume removal -d/c planning Problems: Consultation Date/Type/Reason Admit Date/Time Feb 26, 2017 at 03:18 Initial Consult Date 02/26/17 Type of Consultation: cardiology Reason for Consultation HTN Referring Provider: RONIT ROJAS Exam/Review of Systems Vital Signs Vitals Vital Signs Date Time Temp Pulse Resp B/P Pulse Ox O2 Delivery O2 Flow Rate FiO2 03/06/17 15:10 98.6 71 20 159/75 100 Intake and Output 03/05/17 03/05/17 03/06/17 15:00 23:00 07:00 Intake Total 250 ml 1210 ml 480 ml Balance 250 ml 1210 ml 480 ml Exam Review of Systems: CONSTITUTIONAL: No fevers, chills. PULMONARY: No sob CARDIOVASCULAR: No chest pain/palpitations GASTROINTESTINAL: No nausea/vomiting. GENITOURINARY: No hematuria/dysuria. MUSCULOSKELETAL: No myagias/arthalgias. PSYCHIATRIC: The patient denies depression. NEUROLOGIC: No weakness Constitutional: alert Psych: no complaints Head: normocephalic ENMT: mucosa pink and moist Neck: jvd (9 cm water), supple Respiratory: clear to auscultation Cardiovascular: regular rate and rhythm Gastrointestinal: non-tender, soft Musculoskeletal: muscle tone (normal) Extremities: edema (none) Neurological: other (No focal deficits) Results Result Diagram: 03/06/17 0437 03/06/17 0437 Results 24 hrs Laboratory Tests Test 03/05/17 18:01 03/05/17 20:49 03/06/17 02:17 03/06/17 04:37 Bedside Glucose 215 225 H 154 White Blood Count 6.4 Red Blood Count 3.45 L Hemoglobin 10.1 L Hematocrit 29.6 L Mean Corpuscular Volume 85.8 Mean Corpuscular Hemoglobin 29.3 Mean Corpuscular Hemoglobin Concent 34.1 Red Cell Distribution Width 14.1 Platelet Count 159 Mean Platelet Volume 11.7 H Neutrophils % 64.7 Lymphocytes % 13.8 L Monocytes % 11.3 H Eosinophils % 5.8 Basophils % 0.8 Nucleated Red Blood Cells % 0.0 Neutrophils # 4.1 Lymphocytes # 0.9 Monocytes # 0.7 Eosinophils # 0.4 Basophils # 0.1 Nucleated Red Blood Cells # 0.0 Sodium Level 139 Potassium Level 3.9 Chloride Level 98 Carbon Dioxide Level 24 Anion Gap 21 H Blood Urea Nitrogen 55 H Creatinine 9.89 H Glucose Level 112 Calcium Level 8.1 L Test 03/06/17 07:56 03/06/17 11:55 Bedside Glucose 105 155 Medications Medications Current Medications Amlodipine Besylate (Norvasc) 10 mg DAILY PO Last administered on 02/26/17 08: 23; Admin Dose 10 MG; Start 02/26/17 at 09:00; Status Future hold Atorvastatin Calcium (Lipitor) 20 mg HS PO Last administered on 03/05/17 20:59 ; Admin Dose 20 MG; Start 02/26/17 at 21:00 Carvedilol (Coreg) 25 mg BID PO Last administered on 03/05/17 21:09; Admin Dose 25 MG; Start 02/26/17 at 09:00; Status Future hold Hydralazine HCl (Apresoline) 25 mg Q8 PO Last administered on 03/06/17 05:47; Admin Dose 25 MG; Start 02/26/17 at 06:00; Status Future hold Multivit/Ca Carb/ B Cmplx/FA/Prenat (Pat-Tommy) 1 tab DAILY PO Last administered on 03/06/17 08:51; Admin Dose 1 TAB; Start 02/26/17 at 09:00 Zolpidem Tartrate (Ambien) 10 mg QHS PRN PO INSOMNIA; Start 02/26/17 at 05:30 Pregabalin (Lyrica) 200 mg BID PO Last administered on 03/06/17 08:51; Admin Dose 200 MG; Start 02/26/17 at 09:00 Diagnostic Test (Pha) (Accu-Chek) 1 ea 02 XX ; Start 02/27/17 at 02:00 Miscellaneous Information 1 ea NOTE XX ; Start 02/26/17 at 06:00 Glucose (Glutose) 15 gm Q15M PRN PO DECREASED GLUCOSE; Start 02/26/17 at 06:00 Glucose (Glutose) 22.5 gm Q15M PRN PO DECREASED GLUCOSE; Start 02/26/17 at 06: 00 Dextrose (D50w Syringe) 25 ml Q15M PRN IV DECREASED GLUCOSE Last administered on 02/28/17 08:10; Admin Dose 25 ML; Start 02/26/17 at 06:00 Dextrose (D50w Syringe) 50 ml Q15M PRN IV DECREASED GLUCOSE; Start 02/26/17 at 06:00 Glucagon (Glucagen) 1 mg Q15M PRN IM DECREASED GLUCOSE; Start 02/26/17 at 06:00 Glucose (Glutose) 15 gm Q15M PRN BUCCAL DECREASED GLUCOSE; Start 02/26/17 at 06 :00 Vancomycin HCl PER PHARMACY DOSING NOTE XX ; Start 02/26/17 at 17:30 Meropenem/Sodium Chloride (Merrem 500mg/50 ml(Pmx)) 50 ml @ 100 mls/hr Q24H IVPB Last administered on 03/05/17 20:59; Admin Dose 100 MLS/HR; Start at 20:00; Stop 03/06/17 at 23:59 Acetaminophen (Tylenol Tab) 650 mg Q6H PRN PO PAIN AND OR ELEVATED TEMP; Start 02/27/17 at 11:30 Insulin Detemir (Levemir) 10 unit DAILY@20 SC Last administered on 03/05/17 21 :08; Admin Dose 10 UNIT; Start 02/28/17 at 20:00 Patient Own Medication 1 ea Sa@09 SC ; Start 03/02/17 at 09:00; Status Future Hold Epoetin Fly (Epogen (Esrd)) 6,000 units TuThSa@17 SC Last administered on 03/02 18:07; Admin Dose 6,000 UNITS; Start 03/02/17 at 17:00 Miscellaneous Information Patients own medicat... BID@10,16 XX ; Start 03/03/17 at 10:00 Dextrose/Sodium Chloride (D5-NS) 1,000 ml @ 50 mls/hr Q20H IV Last administered on 03/04/17 10:51; Admin Dose 50 MLS/HR; Start 03/04/17 at 11:00 Hydralazine HCl (Apresoline) 10 mg Q6H PRN IV sbp above 170; Start 03/05/17 at 10:05 Fluconazole 200 mg 200 mg DAILY PO Last administered on 03/06/17t 08:51; Admin Dose 200 MG; Start 03/05/17 at 11:30 Ceftazidime (Fortaz 1gm/50 ml (Pmx)) 50 ml @ 100 mls/hr Q24H IVPB ; Start 03/07 at 18:00 Metronidazole (Flagyl) 250 mg Q8 PO ; Start 03/07/17 at 06:00 DEMETRIUS MEYER Mar 06, 2017 15:56
--- NOTE | 2017-03-06 16:40 | DS ---
Date/Time of Note Date/Time of Note DATE: 03/06/17 TIME: 16:35 Discharge Summary Admission/Discharge Info Admit Date/Time Feb 26, 2017 at 03:18 Discharge Date/Time Patient Condition: Good Hx of Present Illness The patient is 52-year-old male with coronary artery disease, diabetes, and end- stage renal disease. Patient is on peritoneal dialysis, follows with Dr. Graf as an outpatient. Patient was previously hospitalized for peritonitis, received vancomycin and ceftriaxone, recovered and was able to continue on peritoneal dialysis. Patient developed fever chills abdominal pain and diarrhea over the last couple of days. Patient also complains of mild shortness of breath denies any chest pain denies any vomiting denies any bilateral lower extremity swelling. Patient underwent CT scan of the abdomen in the emergency room which revealed intra-abdominal ascites. On admission the emergency room patient had fever 102.1 and currently has leukocytosis and elevated lactate. Patient potassium is 6.2. Patient was diagnosed with sepsis blood cultures was collected patient was started on broad-spectrum antibiotics and admitted for further evaluation and management. Hospital Course -Sepsis most likely secondary to peritonitis, resolved .Dr. Pierre is following in infection disease consultation. Continue antibiotics per ID. Patient was given vancomycin and meropenem, and caspofungin. Discharge on p.o. Diflucan and Flagyl for 6 more days. Patient is to continue to receive vancomycin and Fortaz with outpatient hemodialysis, discussed with Dr. Green, patient is patient's prior to discharge. Follow-up with hemodialysis center for a right femoral catheter site sutures removal. -Peritonitis, status post peritoneal catheter removal by Dr. Shields, general surgery. -End-stage renal disease, Dr. Keith is following in nephrology consultation. -Hemodialysis access, Dr. Branch is following in vascular surgery consultation, plan for left upper extremity AV fistula creation in 4-6 weeks. In addition the patient had a right femoral catheter which was subsequently DC and patient received right chest permacath. -Hyperkalemia secondary to end-stage renal disease, resolved. -Diabetes mellitus, continue Lantus and NovoLog -Coronary artery disease, status post CABG -Peripheral vascular disease Home Meds Active Scripts Metronidazole* (Flagyl*) 250 Mg Tablet, 250 MG PO Q8 for 6 Days, TAB Prov:RONIT ROJAS 03/06/17 Fluconazole* (Diflucan*) 200 Mg Tablet, 200 MG PO DAILY for 6 Days, TAB Prov:RONIT ROJAS 03/06/17 Insulin NPH Human Isophane (Humulin N) 100 Unit/1 Ml Vial, 10 UNIT SC HS for 30 Days, VIAL Prov:RONIT ROJAS 06/22/16 Insulin Detemir (Levemir Flextouch) 100 Unit/1 Ml Insuln.pen, 16 UNIT SC QHS for 30 Days Prov:RONIT ROJAS 06/22/16 Reported Medications Pantoprazole* (Pantoprazole*) 40 Mg Tablet.dr, 40 MG PO AC BREAKFAST, TAB 10/06/16 Carvedilol* (Carvedilol*) 25 Mg Tablet, 25 MG PO BID, #60 TAB 10/06/16 Pregabalin* (Lyrica*) 75 Mg Capsule, 200 MG PO BID, CAP 10/06/16 Amlodipine Besylate* (Amlodipine Besylate*) 10 Mg Tablet, 10 MG PO DAILY, #30 TAB 10/06/16 Zolpidem Tartrate* (Zolpidem Tartrate*) 10 Mg Tablet, 10 MG PO QHS Y for INSOMNIA, #30 TAB 10/06/16 Hydralazine Hcl* (Hydralazine Hcl*) 25 Mg Tab, 25 MG PO Q8, #90 TAB 10/06/16 Insulin Aspart* (Novolog Insulin Pen*) 100 Unit/Ml Soln, 0 SC .SLIDING SCALE AC , EA AC MEALS 10/06/16 Atorvastatin Calcium* (Atorvastatin Calcium*) 20 Mg Tablet, 20 MG PO HS, TAB 06/18/15 Multivit/Ca Carb/B Cmplx/Fa* (Pat-Tommy*) 1 Tab Tab, 1 TAB PO DAILY, TAB 08/26/14 Discontinued Reported Medications Darbepoetin Fly in Polysorbat (Aranesp) 60 Mcg/1 Ml Vial, 60 MCG IJ Q7D, VIAL 10/06/16 Follow-up Plan Follow-up with PMD in 2 weeks, [facility] with each hemodialysis for 6 more days. Primary Care Provider Helder Sanchez MD Pending Labs Laboratory Tests Test 03/05/17 18:01 03/05/17 20:49 03/06/17 02:17 03/06/17 04:37 Bedside Glucose 215mg/dL (70-220) 225mg/dL (70-220) 154mg/dL (70-220) White Blood Count 6.410^3/ul (4.8-10.8) Red Blood Count 3.4510^6/ul (4.70-6.10) Hemoglobin 10.1g/dl (14.0-18.0) Hematocrit 29.6% (42.0-52.0) Mean Corpuscular Volume 85.8fl (82.0-101.0) Mean Corpuscular Hemoglobin 29.3pg (29.0-33.0) Mean Corpuscular Hemoglobin Concent 34.1g/dl (32.0-37.0) Red Cell Distribution Width 14.1% (11.5-14.5) Platelet Count 85536^3/UL (140-415) Mean Platelet Volume 11.7fl (7.4-10.4) Neutrophils % 64.7% (39.0-77.0) Lymphocytes % 13.8% (15.0-51.0) Monocytes % 11.3% (0.0-11.0) Eosinophils % 5.8% (0.0-7.0) Basophils % 0.8% (0.0-2.0) Nucleated Red Blood Cells % 0.0/100WBC (0.0-0.0) Neutrophils # 4.110^3/ul (1.6-7.5) Lymphocytes # 0.910^3/ul (0.8-2.9) Monocytes # 0.710^3/ul (0.3-0.9) Eosinophils # 0.410^3/ul (0.0-0.5) Basophils # 0.110^3/ul (0.0-0.1) Nucleated Red Blood Cells # 0.010^3/ul (0.0-0.0) Sodium Level 139mmol/L (135-144) Potassium Level 3.9mmol/L (3.5-5.1) Chloride Level 98mmol/L (97-110) Carbon Dioxide Level 24mmol/L (21-31) Anion Gap 21 (8-16) Blood Urea Nitrogen 55mg/dl (7-20) Creatinine 9.89mg/dl (0.61-1.24) Glucose Level 112mg/dl (70-220) Calcium Level 8.1mg/dl (8.4-10.2) Test 03/06/17 07:56 03/06/17 11:55 Bedside Glucose 105mg/dL (70-220) 155mg/dL (70-220) RONIT ROJAS Mar 06, 2017 16:40
--- NOTE | 2017-03-06 16:56 | PN ---
Date/Time of Note Date/Time of Note DATE: 03/06/17 TIME: 16:52 Assessment/Plan Lines/Catheters IV Catheter Type (from Nrsg): Saline Lock Assessment/Plan Chief Complaint/Hosp Course 1. Peritonitis, recurrent, with infected PD catheter s/p explantation of PD. Pain improved; culture negative; -abx per ID -Patient to follow up in office within the next week for suture removal 2. ESRD: -HD 3. Obesity, bmi 34 -encourage nutritional optimization -encourage exercise 4. Sepsis 2nd above improving: wbc normalized 5. DM -diet/medication control -encourage weight loss 6. CAD -cardiac optimization -encourage weight loss 7. PVD -medical/lifestyle optimization 8. HTN -diet/medication optimization -encourage weight loss 9. Hypercholesterolemia -diet/medication optimization -encourage weight loss 10. Leukocytosis 2/2 #1, normalized -as above -abx 11. Normocytic anemia: likely 2/2 chronic disease vs. acute bleed; h/h stable -monitor & replete as needed 12. Thrombocytopenia: improved -bleeding precautions 13. Hypokalemia -optimize lytes -monitor for cardiac arrhythmias 14.Hyponatremia: likely 2/2 hemodilution: normalized 15. Hypocalcemia with hypoalbuminemia: likely 2/2 Malnutrition +/- inflammation -nutrition optimization -replete and monitor Patient seen and examined in collaboration with Dr. Jeremiah Shields Problems: Subjective 24 Hr Interval Summary Feels well. To be discharged today. No drainage/pain from incision sites. No fevers, chills, servin, dizziness, cp, palpitations, sob, cough, fevers, chills, n/v /d. Exam/Review of Systems Vital Signs Vitals Vital Signs Date Time Temp Pulse Resp B/P Pulse Ox O2 Delivery O2 Flow Rate FiO2 03/06/17 15:10 98.6 71 20 159/75 100 Intake and Output 03/05/17 03/05/17 03/06/17 15:00 23:00 07:00 Intake Total 250 ml 1210 ml 480 ml Balance 250 ml 1210 ml 480 ml Exam Free Text/Dictation Constitutional: alert, obese, oriented, No distress Psych: nl mood/affect, No anxiety Head: atraumatic, normocephalic Eyes: EOMI, PERRL, nl conjunctiva, No icteric ENMT: mucosa pink and moist, nl external ears & nose, nl lips & teeth Neck: non-tender, supple Respiratory: normal air movement, No congested cough, No labored breathing Cardiovascular: regular rate and rhythm, No edema Gastrointestinal: soft, tender (min), incision sites dry without erythema or drainage No distended, No firm, No rebound or guarding Musculoskeletal: nl extremities to inspection, nl gait and stance, No joint tenderness Extremities: normal pulses, No calf tenderness Neurological: nl mental status, nl speech, nl strength Skin: nl turgor, incision sites dry and intact, sutures in place No diaphoresis, No rash or lesions Lymph: nl lymph nodes Results Result Diagram: 03/06/17 0437 03/06/17 0437 TUAN CHAN NP Mar 06, 2017 16:56
--- NOTE | 2017-03-06 23:33 | CONS ---
Date/Time of Note Date/Time of Note DATE: 03/06/17 TIME: 23:32 Assessment/Plan Assessment/Plan Chief Complaint/Hosp Course pT ON 3 DIFF ANTIBIOTICS WITH NO ISOLATED ORGANISM Problems: Consultation Date/Type/Reason Admit Date/Time Feb 26, 2017 at 03:18 Initial Consult Date 02/26/17 Type of Consultation: renal Referring Provider: RONIT ROJAS Exam/Review of Systems Vital Signs Vitals Vital Signs Date Time Temp Pulse Resp B/P Pulse Ox O2 Delivery O2 Flow Rate FiO2 03/06/17 15:10 98.6 71 20 159/75 100 Intake and Output 03/05/17 03/05/17 03/06/17 15:00 23:00 07:00 Intake Total 250 ml 1210 ml 480 ml Balance 250 ml 1210 ml 480 ml Results Result Diagram: 03/06/17 0437 03/06/17 0437 Results 24 hrs Laboratory Tests Test 03/06/17 02:17 03/06/17 04:37 03/06/17 07:56 03/06/17 11:55 Bedside Glucose 154 105 155 White Blood Count 6.4 Red Blood Count 3.45 L Hemoglobin 10.1 L Hematocrit 29.6 L Mean Corpuscular Volume 85.8 Mean Corpuscular Hemoglobin 29.3 Mean Corpuscular Hemoglobin Concent 34.1 Red Cell Distribution Width 14.1 Platelet Count 159 Mean Platelet Volume 11.7 H Neutrophils % 64.7 Lymphocytes % 13.8 L Monocytes % 11.3 H Eosinophils % 5.8 Basophils % 0.8 Nucleated Red Blood Cells % 0.0 Neutrophils # 4.1 Lymphocytes # 0.9 Monocytes # 0.7 Eosinophils # 0.4 Basophils # 0.1 Nucleated Red Blood Cells # 0.0 Sodium Level 139 Potassium Level 3.9 Chloride Level 98 Carbon Dioxide Level 24 Anion Gap 21 H Blood Urea Nitrogen 55 H Creatinine 9.89 H Glucose Level 112 Calcium Level 8.1 L MANOJ HARE MD Mar 06, 2017 23:33
[2017-03-07] MEDS ORDERED: metroNIDAZOLE 250 MG TAB PO SCH (06:00)
[2017-03-07] MEDS ORDERED: CEFTAZIDIME 1GM/50 ML (PMX) 50 ML IVPB SCH (18:00)
--- NOTE | 2017-03-10 07:46 | CONS ---
DATE OF ADMISSION: 02/26/2017 DATE OF CONSULTATION: 02/28/2017 REASON FOR CONSULTATION: Preoperative evaluation prior to creation of AV fistula. REQUESTING PHYSICIAN: Dr. Helder Sanchez. HISTORY OF PRESENT ILLNESS: Mr. Melchor is a 52-year-old male with a history of coronary artery disease, status post coronary artery bypass graft surgery at [facility] 3 years prior, end-stage renal disease, on peritoneal dialysis most recently, diabetes mellitus, peripheral arterial disease, recurrent bouts of peritonitis, who initially presented February 26 with complaints of abdominal pain and fevers. Patient underwent a CT scan of the abdomen, which revealed intra-abdominal ascites. Initially upon arrival, temperature 98.1, blood pressure 128/63, pulse 92, respiratory rate 19, satting 93 percent. Patient's labs revealed a white blood cell count of 429, a hemoglobin of 9.8, platelet count of 127. Sodium 139, potassium 4.3, creatinine 13.6, BUN 77. AST 21, ALT 25. Troponin negative. INR 0.98. Toxicology . UA, borderline. Peritoneal fluid with 27,282 white blood cells. Patient's chest x-ray had revealed mild cardiomegaly. Patient underwent an abdominal and pelvic CT as stated above, revealing moderate intra-abdominal, moderate bilateral inguinal hernias. Patient's electrocardiogram revealed normal sinus rhythm at a rate of 83, with normal axis, poor R- wave progression across the anterior precordial leads, anteroseptal Q's. Patient subsequently admitted to the floor and since admitted to the floor, has been placed on broad-spectrum antibiotics. Patient has had removal of peritoneal dialysis catheter and placement of temporary femoral dialysis catheter for hemodialysis. Patient has had defervescence in fevers, as well as slowly decreasing white blood cell count. Patient is now to undergo AV fistula creation and a preoperative evaluation has been requested. Patient denies chest pain, shortness of breath, states that he had the CABG done at the time of chest pains and [place]. PAST MEDICAL HISTORY: As above in HPI. MEDICATION: Currently in the hospital, insulin, vancomycin, calcium , Tylenol, levofloxacin, Lipitor 20 mg at bedtime, meropenem, Lyrica, insulin sliding scale, Protonix 40 mg daily, Ambien p.r.n. ALLERGIES: NO KNOWN DRUG ALLERGIES. SOCIAL HISTORY: No tobacco. Social EtOH. No illicit drug use. FAMILY HISTORY: No history of sudden cardiac or early CAD. REVIEW OF SYSTEMS: As above in HPI. CONSTITUTIONAL: No current fevers, chills. RESPIRATORY: Mild shortness of breath. CARDIOVASCULAR: No current chest pain. History of CABG. GASTROINTESTINAL: Peritonitis. GENITOURINARY: No hematuria. MUSCULOSKELETAL: Degenerative joint disease. PSYCHIATRIC: No documented psych history. NEUROLOGIC: No documented history of CVA. PHYSICAL EXAMINATION: VITAL SIGNS: Temperature of 98.3, blood pressure 123/59, pulse 64, respiratory rate 18, satting 93 percent. GENERAL: The patient is alert, awake, no acute distress. NECK: JVP approximately 8-9 cm of water. LUNGS: Fair air movement throughout. HEART: Regular rate and rhythm. Normal S1, S2. 1/6 systolic murmur. Nondisplaced PMI. ABDOMEN: Positive bowel sounds. Soft. EXTREMITIES: No edema. 1+ pulses bilateral posterior tibial. LABORATORY: Most recent from today. White blood cell count 11.3, hemoglobin 7.6, platelet count of 104. Sodium of 135, potassium 3.6, creatinine 11.3, BUN of 69. Hemoglobin A1c of 6.5. INR 1.1. UA positive. IMAGING STUDIES: As above in HPI. No further imaging studies are reviewed at this time. ELECTROCARDIOGRAM: As above in HPI. No further electrocardiograms are reviewed at this time. IMPRESSION: 1. Preoperative evaluation prior to arteriovenous fistula creation. 2. Coronary artery disease, status post coronary artery bypass graft surgery. 3. Hypertension, under reasonable control. 4. Dyslipidemia. 5. Peritonitis, status post removal of peritoneal dialysis catheter. 6. End-stage renal disease, now on hemodialysis. 7. Anemia. 8. Leukocytosis. 9. Diabetes mellitus. 10. Peripheral arterial disease. RECOMMENDATIONS: 1. At this time, would maintain patient on telemetry monitoring to follow rhythm and rates more closely. 2. Complete a rule out for myocardial infarction to ensure the patient's EKG abnormalities are chronic in nature and not due to any recent acute coronary syndromes. 3. Would check a 2D echo for reassessment of the patient's ejection fraction in anticipation of upcoming surgery. 4. We will check a fasting lipid panel for general risk stratification and initiate lipid-lowering medication as necessary. 5. Continue to follow the patient's blood pressure. Currently off antihypertensives due to initial hypotension. Thank you for allowing me to take part in the care of this patient. I will continue to follow him very closely with you. Further recommendations will be made as the patient progresses though his inpatient hospital course. Dictated By: Erica Sheth /fernanda/zane /Document#: [id number] CC: Helder Sanchez MD;*End*
== END 2017-03-06 17:03 | disposition home or self-care (01) | DRG 981 ==
LOC: E/R 20:58 → PP2 02-26 03:18 → MS4 02-26 04:11 → PP2 03-02 23:25
PROVIDERS: ADMIT Internal Medicine; ATTEND Internal Medicine
PROC: 06HM33Z Insertion of Infusion Device into Right Femoral Vein, Percutaneous Approach (ICD-10-PCS; 2017-02-26)
PROC: 5A1D60Z (ICD-10-PCS; 2017-02-26)
PROC: 0WPG03Z Removal of Infusion Device from Peritoneal Cavity, Open Approach (ICD-10-PCS; principal; 2017-02-28)
PROC: 30233N1 Transfusion of Nonautologous Red Blood Cells into Peripheral Vein, Percutaneous Approach (ICD-10-PCS; 2017-02-28)
PROC: 05HM33Z Insertion of Infusion Device into Right Internal Jugular Vein, Percutaneous Approach (ICD-10-PCS; 2017-03-04)
DX: T85.71XA Infection and inflammatory reaction due to peritoneal dialysis catheter, initial encounter (principal); A41.9 Sepsis, unspecified organism; K65.9 Peritonitis, unspecified; N18.6 End stage renal disease; D69.6 Thrombocytopenia, unspecified; E87.5 Hyperkalemia; E11.319 Type 2 diabetes mellitus with unspecified diabetic retinopathy without macular edema; Z99.2 Dependence on renal dialysis; I73.9 Peripheral vascular disease, unspecified; I25.10 Atherosclerotic heart disease of native coronary artery without angina pectoris; Z95.1 Presence of aortocoronary bypass graft; E66.9 Obesity, unspecified; Z68.30 Body mass index [BMI] 30.0-30.9, adult; I10 Essential (primary) hypertension; E78.00 Pure hypercholesterolemia, unspecified; D63.1 Anemia in chronic kidney disease; K40.90 Unilateral inguinal hernia, without obstruction or gangrene, not specified as recurrent
CPT/HCPCS: 36415; 36430; 71010; 74176; 80048; 80053; 80061; 80202; 81001; 82042; 82550; 82553; 82962; 83036; 83605; 83615; 83735; 84484; 85014; 85018; 85025; 85610; 85730; 86850; 86900; 86901; 86920; 87040; 87070; 87075; 87086; 87102; 87116; 87340; 88300; 89051; 90935; 90945; 93005; 93306; 93970; 96374; 96375; 96376; J0360; J0692; J0886; J1644; J1815; J2185; J2250; J2270; J2710; J3010; J3370; J3475; J7030; J7040; J7042; J7050; J7999; P9016

== ENCOUNTER 2017-07-08 05:58 | Day surgery (SDC) | payer MEDICARE, OTHER ==
[2017-07-02 13:03] LABS: BASOPHIL # 0.1 10^3/ul (0.0-0.1); BASOPHILS % 0.9 % (0.0-2.0); EOSINOPHILS # 0.4 10^3/ul (0.0-0.5); HEMATOCRIT 35.2 % (42.0-52.0); LYMPHOCYTES # 1.1 10^3/ul (0.8-2.9); LYMPHOCYTES % 15.6 % (15.0-51.0); MEAN CORPUSCULAR HEMOGLOBIN 32.3 pg (29.0-33.0); MEAN CORPUSCULAR HGB CONC 34.1 g/dl (32.0-37.0); MEAN CORPUSCULAR VOLUME 94.9 fl (82.0-101.0); MEAN PLATELET VOLUME 10.3 fl (7.4-10.4); MONOCYTE # 0.8 10^3/ul (0.3-0.9); MONOCYTES % 10.7 % (0.0-11.0); NEUTROPHIL # 4.7 10^3/ul (1.6-7.5); NEUTROPHILS % 66.4 % (39.0-77.0); PLATELET COUNT 182 10^3/UL (140-415); RED BLOOD COUNT 3.71 10^6/ul (4.70-6.10); RED CELL DISTRIBUTION WIDTH 15.6 % (11.5-14.5)
[2017-07-02 13:14] LABS: INR 0.95; PROTIME 12.7 Sec (12.2-14.2)
[2017-07-02 13:15] LABS: PARTIAL THROMBOPLASTIN TIME 29.2 Sec (25.0-35.0)
--- NOTE | 2017-07-02 13:23 | RADRPT ---
PROCEDURE: Chest x-ray CLINICAL INDICATION: Preop TECHNIQUE: Chest single view COMPARISON: 02/26/2017 FINDINGS: There is interval placement right IJ dialysis catheter with tip at the right atrial SVC junction. No pneumothorax is seen. Post the changes are noted. There is stable mild cardiomegaly. Bony vessels n ormal in caliber. As before there is linear left lower lobe atelectasis/scarring. Lungs otherwise cl ear. Costophrenic angles sharp. Bony thorax is unremarkable. IMPRESSION: 1. Interval placement right IJ dialysis catheter. No pneumothorax. 2. Stable mild cardiomegaly. 3. No CHF or pneumonia. 4. Persistent linear left lower lobe atelectasis/scarring. 5. Status post median sternotomy RPTAT: HH .Omari Martines MD, Date Time Electronically viewed and signed by .Omari Martines MD, on 07/02/2017 13:23 .W/
[2017-07-02 13:40] LABS: POTASSIUM 5.3 mmol/L (3.5-5.1)
[2017-07-02 13:41] LABS: CREATININE 8.54 mg/dl (0.61-1.24)
--- NOTE | 2017-07-05 13:52 | HP ---
DATE OF ADMISSION: 07/08/2017 DATE OF EXAMINATION: 07/02/2017 CHIEF COMPLAINT AND HISTORY OF PRESENT ILLNESS: The patient is a 52-year-old gentleman with a histo ry of hypertension, diabetes, end-stage renal disease, currently on hemodialysis. The patient also has history of coronary artery disease, but has not had any recent chest pain or congestive heart fa ilure. The patient is status post CABG. The patient has history of multiple episodes of peritoniti s and he used to be on peritoneal dialysis. Therefore, he was started on hemodialysis. The patient was seen by Dr. Buenrostro and has been scheduled for AV fistula. REVIEW OF SYSTEMS: Patient denies any chest pain, shortness of breath. No history of leg edema. N o history of headache, dizziness, syncope. No history of fever or chills. No history of recent abd ominal pain. No history of dysuria or hematuria. The patient has very minimal urine output. The p atient has chronic peripheral neuropathy from diabetes, which has been stable with Lyrica. The zandra ent denied any hematemesis or melena. No history of abdominal pain, no history of any acute joint s welling. The rest of the review of systems unremarkable except for extensive proliferative diabetic retinopathy. The patient also has vitreous hemorrhage and retinal vein occlusion with macular jordyn a and is being followed by Dr. Kovacs from [facility]. PAST SURGICAL HISTORY: The patient is status post appendectomy, status post CABG and history of rig ht big toe amputation due to gangrene, Perm-A-Cath placement, peritoneal dialysis catheter placement . FAMILY HISTORY: The patient's father has diabetes. SOCIAL HISTORY: No smoking, no alcohol. ALLERGIES: NO KNOWN DRUG ALLERGIES. PHYSICAL EXAMINATION: GENERAL: The patient is conscious, awake, alert. VITAL SIGNS: On blood pressure 132/68, pulse 75, respirations 18. HEENT: Conjunctivae normal. No eye discharge or redness. Oropharynx clear. NECK: Supple, no mass or thyromegaly. CHEST: Fairly clear. No use of accessory muscles. CARDIOVASCULAR: S1, S2 normal. No murmur, gallop, or rub. ABDOMEN: Soft, nontender. Bowel sounds present. EXTREMITIES: No leg edema. NEUROLOGIC: The patient is awake, alert, follows simple commands and has no gross focal deficit. LABORATORY DATA: WBC 7, hemoglobin 12, platelets 182. Sodium 140, potassium 5.3, BUN 47, creatinin e 8.5, glucose 171. EKG: No acute ST-T changes. Chest x-ray: No CHF or pneumonia. IMPRESSION: 1. End-stage renal disease: Plan for AV fistula creation. Currently getting hemodialysis via Perm -A-Cath. 2. Coronary artery disease, status post coronary artery bypass graft. 3. Hypertension. 4. Diabetes mellitus. 5. Diabetic retinopathy. 6. Peripheral vascular disease. 7. Diabetic peripheral neuropathy. 8. Dyslipidemia. PLAN: AV fistula creation on 07/08/[address] Buenrostro. The patient is cleared for surgery. SURGEON: Dr. Aspen Parsons. Dictated By: YENIFER MCELROY/NTS Conf#: [id number] DID#: [id number] CC: JOS Feng;*EndCC*
[2017-07-08] VITALS (14 sets, daily range): BP systolic 140–159; BP diastolic 76–95; PULSE 60–80; RESP 17–21; Ht 170.2 cm; Wt 86.7 kg
[~2017-07-08] VITALS: Ht 170.2 cm; Wt 86.7 kg
[~2017-07-08 05:58] MED LIST changes: -CIPR-193 PO; -DARB60VI IJ; +METR250T PO
[2017-07-08] MEDS ORDERED: BUPIVACAINE 0.5% (SDV) 30 ML INJ ONE (06:48)
[2017-07-08] MEDS ORDERED: LIDOCAINE 1% (MPF) 30 ML INJ ONE (06:48)
[2017-07-08] MEDS ORDERED: HEPARIN 1000 UNITS/ML 10 ML INJ ONE (06:48)
[2017-07-08] MEDS ORDERED: THROMBIN 5000 UNIT VIAL ONE (06:48)
[2017-07-08] MEDS ORDERED: GELATIN SIZE 100 SPONGE ONE (06:48)
[2017-07-08] MEDS ORDERED: MIDAZOLAM 1 MG/ML 2 ML INJ ONE (06:56)
[2017-07-08] MEDS ORDERED: PROPOFOL 40 ML ONE (06:56)
[2017-07-08] MEDS ORDERED: FENTAnyl 50 MCG/ML VIAL ONE (06:57)
[2017-07-08] MEDS ORDERED: DEXTROSE 50% 50 ML SYRINGE ONE (07:00)
[2017-07-08] MEDS ORDERED: LIDOCAINE 2% (SDV) 5 ML INJ ONE (07:00)
[2017-07-08] MEDS ORDERED: PROPOFOL 100 ML ONE (07:26)
[2017-07-08] MEDS ORDERED: PRAM1.5T PO (07:31)
[2017-07-08 07:36] LABS: CALCIUM 8.7 mg/dl (8.4-10.2); CREATININE 12.55 mg/dl (0.61-1.24); POTASSIUM 6.2 mmol/L (3.5-5.1)
[2017-07-08] MEDS ORDERED: FURO40SO PO (07:44)
[2017-07-08] MEDS ORDERED: CA CHLORIDE 10% 10 ML SYRINGE ONE (07:57)
[2017-07-08] MEDS ORDERED: LABETALOL HCL 20MG INJ ONE (07:57)
[2017-07-08] MEDS ORDERED: INSULIN REGULAR, HUMAN 100 UNIT/1 ML 3ML VIAL INJ SCH (08:00)
[2017-07-08] MEDS ORDERED: DEXTROSE 50% 50 ML SYRINGE IV PRN (08:00)
[2017-07-08] MEDS ORDERED: KETOROLAC 30 MG INJ IV PRN (09:00)
[2017-07-08] MEDS ORDERED: ONDANSETRON 4 MG INJ IV PRN (09:00)
[2017-07-08] MEDS ORDERED: HYDROmorphONE (0.2 MG/ML) 10ML SYG IV PRN (09:00)
[2017-07-08] MEDS ORDERED: morphine (1 MG/ML) 10ML SYRINGE IV PRN (09:00)
[2017-07-08] MEDS ORDERED: FENTAnyl 50 MCG/ML VIAL IV PRN (09:00)
--- NOTE | 2017-07-08 09:23 | SIPON ---
Date/Time of Note Date/Time of Note DATE: 07/08/17 TIME: 09:22 Operative Report Preoperative Diagnosis ESRD Postoperative Diagnosis ESRD Operation/Procedure Performed Right arm brachiocephalic AVF creation Surgeon Jos Roman MD digital assistant N/A Anesthesia: MAC Estimated blood loss: 0 - 10 ml's Transfusion Required none Specimen None Grafts/Implants none Complications none JOS ROMAN MD Jul 08, 2017 09:23
[2017-07-08] MEDS ORDERED: ACETAMINOPHEN 325 MG TAB PO PRN (09:30)
[2017-07-08 10:07] LABS: CREATININE 12.6 mg/dl (0.61-1.24)
--- NOTE | 2017-07-08 14:52 | OPR ---
DATE OF OPERATION: 07/08/2017 PREOPERATIVE DIAGNOSIS: Endstage renal disease. POSTOPERATIVE DIAGNOSIS: Endstage renal disease. PROCEDURE: Right upper extremity brachiocephalic AV fistula creation. SURGEON: Jos Buenrostro MD. ANESTHESIA: MAC and local. ESTIMATED BLOOD LOSS: Minimal. COMPLICATIONS: None SPECIMENS: None. PREOPERATIVE INDICATIONS: This is a 52-year-old gentleman with endstage renal disease, previously on peritoneal dialysis catheter complicated by multiple infections. He was then converted to hemodialysis via a right internal jugular vein Perm-A-Cath. He now presents for a permanent AV access via AV fistula. The indications, risks and benefits of the procedure were discussed with the patient who understood and agreed to proceed. DESCRIPTION OF PROCEDURE: The patient was properly identified, brought to the operating room and placed in the supine position. The patient was induced with MAC anesthesia throughout the course of the procedure, which was then supplemented with local anesthesia as needed. The patient received preoperative antibiotics. His right upper extremity was prepped and draped in the usual sterile fashion. Ultrasound was used to evaluate the superficial veins and was noted to have a cephalic vein of adequate caliber for fistula creation. Therefore, it was planned for right brachiocephalic AV fistula. Local anesthesia was injected into the skin and subcutaneous tissues for a planned transverse incision just distal to the elbow crease at the AC fossa. After adequate anesthesia, a 15 blade scalpel was used to create the skin incision. This was deepened through the subcutaneous tissues using electrocautery. The cephalic vein was then identified, circumferentially dissected free. Branches were ligated and divided accordingly. The vein was then transected distally and the distal stump was ligated with 3-0 silk ties. The vein was then flushed and distended with heparinized saline. It was of adequate caliber for fistula creation. Next, fascia was opened and brachial artery was identified. It was dissected off the brachial veins. It was noted to be fairly calcified, but patent. Small branches were controlled with Hemoclips and ties and divided as needed. The patient was then heparinized with 2000 units of intravenous heparin. The artery was then clamped. An arteriotomy was created using an 11 blade scalpel, which was then extended using Elizondo scissors. The vein was spatulated. An end-to-side anastomosis was created using a 6-0 Prolene suture. Prior to completion of the suture line, the anastomosis was back-bled, forward flushed and flushed with heparinized saline. The suture line was then completed. The clamps were then released and there was good flow throughout the course of the fistula. There was a good thrill at the fistula. Doppler evaluation demonstrated good continuous flow throughout the cephalic vein more proximally. There was good triphasic flow at the brachial and radial artery distal to the anastomosis. Hemostasis was obtained with aid of thrombin-soaked Gelfoam. After additional hemostasis, the subcutaneous tissues were closed using 3-0 Vicryl sutures. The skin was closed using 4-0 Monocryl in a subcuticular technique. Steri-Strips and dry dressings were then placed. The patient was then awoken from anesthesia without any difficulty. He was transferred to recovery in good condition. There were no immediate complications. Dictated By: JOS ALMAZAN/MANUELA Conf#: [id number] DID#: [id number] MTDD
--- NOTE | 2017-07-09 14:16 | RADRPT ---
Vent Rate: 63 bpm RR Interval: 0 msec [place] Interval: 168 msec QRS Duration: 96 msec QT Interval: 432 msec QTC Interval: 442 msec P-R-T [place]: 59 - -15 - 80 degrees Normal sinus rhythm Cannot rule out Anterior infarct , age undetermined Abnormal ECG Electronically Signed By: Gabe Yanez [id number]
== END 2017-07-08 11:34 | disposition home or self-care (01) ==
LOC: SDS 05:58
PROVIDERS: ATTEND Surgery
DX: I12.0 Hypertensive chronic kidney disease with stage 5 chronic kidney disease or end stage renal disease (principal); N18.6 End stage renal disease; E11.9 Type 2 diabetes mellitus without complications; I25.10 Atherosclerotic heart disease of native coronary artery without angina pectoris; Z95.1 Presence of aortocoronary bypass graft; I25.2 Old myocardial infarction
CPT/HCPCS: 36821; 71010; 80048; 82962; 85025; 85610; 85730; 93005; C1725; J1644; J1815; J2250; J3010

== ENCOUNTER 2017-11-28 17:21 | Emergency (ER) | END 2017-11-29 00:34 | disposition home or self-care (01) ==

== ENCOUNTER → 2018-07-07 | Outpatient (CLI) | payer MEDICARE, OTHER ==
[~2018-07-07] MED LIST changes: -AMLO-147 PO; +ASPI-817 PO; -ATOR20TA38 PO; +CALC667C PO; +CLIN300C10 PO; -FLUC200T36 PO; +FURO20TA3 PO; +HYDR-4011 PO; -INSU100I27 SC; +INSU100I27 SQ; -LYR75 PO; +LYRI200 PO; -METR250T PO; -NOVO3I SC; +NOVO7030 SC; -NPH,100V SC; +PRAM0.5T PO; -ZOLP10TA5 PO
== END | disposition home or self-care (01) ==
LOC: RAD 11:33
PROVIDERS: ATTEND Surgery
DX: M79.642 Pain in left hand (principal); M79.641 Pain in right hand

== ENCOUNTER 2018-07-08 16:58 | Inpatient (IN) | END 2018-07-10 19:35 | disposition home or self-care (01) | DRG 602 ==